=== PATIENT | female | born 1940 | race Caucasian/White ===

== ENCOUNTER → 2018-01-25 14:53 | Outpatient (BNVA) | payer OTHER, SELFPAY | PROVIDERS: PCP Nurse Practitioner Family; Referring Provider Nurse Practitioner Family; Visit Provider Student in an Organized Health Care Education/Training Program | DX: M16.11 Unilateral primary osteoarthritis, right hip (principal); Z98.890 Other specified postprocedural states | CPT/HCPCS: 99213 ==

== ENCOUNTER 2018-01-25 14:54 | Outpatient (CLI) | payer OTHER, SELFPAY ==
--- NOTE | 2018-01-25 15:13 | DI.RAD_ITS ---
SYMPTOM/DIAGNOSIS: RT HIP PAIN RIGHT HIP: Joint space narrowing, articular sclerosis and periarticular hypertrophic spurring and subchondral cyst formation is demonstrated. The findings are consistent with severe DJD.
== END 2018-01-25 15:14 ==
PROVIDERS: PCP Nurse Practitioner Family; Visit Provider Student in an Organized Health Care Education/Training Program
DX: M25.551 Pain in right hip (principal); M16.11 Unilateral primary osteoarthritis, right hip
CPT/HCPCS: 73501

== ENCOUNTER 2018-02-20 05:52 | Inpatient (IN) | payer OTHER, SELFPAY ==
[2018-02-23] VITALS (13 sets, daily range): BP systolic 101–160; BP diastolic 46–87; PULSE 58–72; RESP 12–19; TEMP 35.5–36.9; O2SAT 92–99
[2018-02-23] MEDS: Lactated Ringers 1,000 ML 80 ML IV ×3 (06:54→23:45)
[2018-02-23] MEDS: Celecoxib 200 MG CAP 400 MG PO (07:03)
[2018-02-23] MEDS: Acetaminophen 500 MG TAB 1000 MG PO ×3 (07:03→20:23)
[2018-02-23] MEDS: oxyCODONE-CR 10 MG TABCR PO (07:04)
--- NOTE | 2018-02-23 07:22 | DI.RAD_ITS ---
SYMPTOM/DIAGNOSIS: RT HIP DJD, S/P RT JEREMY RIGHT HIP IN OR: Fluoroscopy Time: 35.1 seconds There has been placement of a THR. The prosthesis in good position. Surrounding bone intact. PORTABLE PELVIS: The right hip prosthesis remains in excellent position, unchanged. Surrounding bone intact.
[2018-02-23] MEDS: Ketorolac 30 MG/ML VIAL (09:11)
[2018-02-23] MEDS: Bupivacaine 0.25% Pres-Free 30 ML VIAL (09:11)
--- NOTE | 2018-02-23 10:27 | ROE_ITS ---
Date of service: 02/23/18 Time of Service: 10:24 Operative Note DATE OF PROCEDURE: 02/23/18 PRE-OP DIAGNOSIS: Right Hip Osteoarthritis POST-OP DIAGNOSIS: same PROCEDURE: Right anterior Total Hip Arthroplasty SURGEON: Aba Henry FEEDMOBILE DRIVER: Dylan Sullivan ANESTHESIA: spinal ESTIMATED BLOOD LOSS: 500 PATHOLOGY: none sent COMPLICATIONS: None Patient was transported to: PACU Patient's condition: stable Implants: 1. Depuy [place] Acetabular Component, 52 mm 2. Depuy Acetabular Liner, 52 x 36 mm 3. Depuy Corail coxa vara femoral Stem, Size 11 4. Depuy Altrx Ceramic Femoral Head, Size 36+1.5 mm Indications: I have seen Crystal in clinic for symptoms of hip arthritis, confirmed with radiographic findings. Crystal has exhausted nonoperative methods and was having significant limitations in daily function and desired better function and less pain. I discussed the technical details of a hip replacement. I explained the risks of the procedure to include, but not limited to, bleeding, infection, pain, stiffness, fracture, damage to nerves and vessels, damage to muscles and tendons, loosening, instability, leg length inequality, need for repeat procedure, blood clot and cardiopulmonary demise. Despite these risks, she elected to proceed. Findings: There was significant signs of arthritis throughout the hip. Procedure Description: Crystal was greeted in the preoperative holding area where the correct side was identified and marked. The consent was reviewed with the patient and signed. The history and physical was updated. All questions were answered. Crystal was taken back to the operating room. A spinal anesthestic was then administered. The patient was placed into the supine position on the operating room table. The patient was then positioned onto the ARCH table. Both feet were wrapped with [place] cotton wrap along with Coban. The feet were placed in specialized boots for the ARCH table, well seated within the boot and secured. SCDs were applied. The patient was then slid down onto a peroneal post and the nonoperative leg was secured in a leg sandoval attached to the table. The operative side was placed into the ARCH table attachment and bed height and positioning was secured. A preoperative AP pelvis was obtained to serve as a reference for determining leg lengths. Prophylactic antibiotics in the form of cefazolin were administered. 1g of Tranxemic Acid was given intravenously within 30 minutes of incision. The right leg was then prepped with Chloraprep and draped in a standard fashion with a large shower-curtain type drape with Iodine impregnated skin protection. A timeout to confirm correct identity, side and site, procedure, allergies, anesthesia, and medical concerns was performed. An obliquely oriented incision was made starting lateral to the ASIS and running distal over the Tensor Fascia Di (TFL) muscle belly toward the fibular head, approximately 10cm. The skin and soft tissue was dissected sharply, through Karl?s fascia, and to the fascia of the TFL. With the fascia and superior border of the IT band identified, the fascia was incised with a new knife just above any perforators from the IT band. The TFL muscle belly was bluntly dissected away from the fascia and moved laterally. The fat between TFL and rectus was identified to ensure the dissection was not within the TFL. Blunt dissection created space between abductors and the capsule and retractor was placed over the lateral femoral neck. The fibers of the rectus femoris tendon were identified and these were freed from the anterior capsule. A second cobra retractor was placed around the medial femoral neck. The TFL was further retracted laterally to show the deep fascia. Careful dissection through this layer identified three main crossing vessels of the lateral femoral circumflex. These were cauterized in multiple locations and then cut without any noticeable bleeding. The TFL was further released bluntly from the deep fascia to expose anterior hip capsule and fat the Mike orthopaedic retractor was then placed beneath the TFL and against sartorius and medial soft tissues to protect and retract the soft tissues. A T-capsulotomy was then performed starting at the superior lateral acetabulum and moving distally to the intertrochanteric ridge. These capsular flaps were tagged with a No. 1 Ethibond and elevated from within. The capsular flaps were released to the shoulder of the lateral neck and to the lesser trochanter to give excellent visualization of the proximal femur. A neck osteotomy was performed using an oscillating saw based on preoperative templates. This cut started in the shoulder and of the lateral neck and exited medially. The saw was at all times directed medially to avoid injury to the greater trochanter. 6cm of traction was applied to the leg and the osteotomy opened. The femoral head was removed with a corkscrew, making sure to protect the TFL on its exit. This was measured on the back table to determing the starting reamer size. Portions of the rectus obscuring visualization were minimally elevated off the superior acetabulum. An anterior retractor was placed over the anterior wall between capsule and labrum. A posterior retractor was placed similarly. This provided excellent visualization. The contents of the cotyloid fossa were removed with electrocautery and the labrum was removed with a knife. There was a notable floor osteophyte. Acetabular reaming began with a 45 mm reamer. This first reaming was directed anterior to posterior and medial to get down to the true floor. This was inspected and reamed until the true floor was reached. I then reamed sequentially up to a 51 mm reamer where good fit was obtained. The larger reamers were oriented based on anatomical reference of the anterior and lateral lucero to ensure proper abduction and anteversion. Positioning and size was confirmed with the fluoroscopy. A 52 mm Depuy [place] acetabular component was selected. The acetabulum was reamed around the periphery with the selected acetabular size to prevent a rim fit. The deep tissues were irrigated. The acetabular component was then impacted in a position of about 40-45 degrees of abduction and 15-20 degrees of anteversion, using the patient?s anatomy as the ultimate landmark. Fluoroscopy was used to confirm this. There was excellent lanolin plant operator of the acetabular component and the inserting handle was removed. A primary acetabular screw was placed into the ilium by drilling through one of the holes in the acetabular component. This was measured and an approrpriately sized screw was placed with excellent purchase. It was checked not to be proud. The acetabular liner, Depuy 52 x 36 mm polyethylene liner, was inserted and lined up with the tines of the acetabular component. There was no soft tissue interposition. The liner was then impacted into position and confirmed to be well-seated. A portion of the patti-articular cocktail was then injected around the acetabulum into the capsule and periosteum. This cocktail consisted of 50cc of 0.25% Bupivicaine and 20cc of Exparel, expanded to a total of 120cc. Traction was released from the femur. The leg was rotated to 120 degrees. Any remaining medial capsule was released until the lesser trochanter was easily palpable. A De retractor was placed medially. The lateral capsule was further released into the shoulder to allow access to the greater trochanter. A De retractor was placed over the greater trochanter which allowed the trochanter to flip in front of the capsule for excellent exposure. The leg was brought down into maximal extension and 20 degrees of adduction while ensuring there was no impingement on the acetabulum. Any remnant capsule within the trochanter was released. Piriformis and obturator externis were identified and protected. There was excellent access to the proximal femur. The lateral neck remnant was removed with a rongeur. A blunt canal probe was used to identify the canal and trajectory for later broaching. A box osteotome initiated the broach course. A small curved rasp and a curved curette were used to work laterally. Broaching then began with a size 8 Corail broach. This was inserted manually around the trochanter and into the canal before mallet blows. The broach was seated to a few millimeters below the cut level based on the neck cut and the preoperative template. Sequential broaching was continued until a tight fit was obtained with good rotational control of the femur. A trial coxa vara neck was inserted along with a +1.5 trial head. The leg was brought out of extension and adduction and then reduced with traction and internal rotation. The leg was stable anteriorly in a position of 30 degrees of extension and 90 degrees of external rotation. Fluoroscopy was used to ensure there was no fracture and the stem was seated well. Leg lengths were checked with an AP pelvis and pelvic reference points. Once content with the desired offset and leg lengths, the leg was brought back into extension, external rotation and adduction. The periosteum and surrounding tissue was injected with remaining portion of the patti-articular cocktail. The proximal femur was irrigated as well as the deep tissues. The Depuy Corail coxa vara stem, size 11, was then manually inserted into the proximal femur making sure to control rotation. It was then malleted into position with light blows, giving breaks to allow bone expansion and decrease risk of fracture. The selected Depuy Altrx Ceramic Head, size 36+ 1.5 mm, was then placed onto the clean and dry trunnion and secured with impaction onto the tapered fit. The leg was brought back out of extension and adduction and reduced with traction and internal rotation. Stability was confirmed with no shuck at 90 degrees of external rotation and 30 degrees of extension. No impingement through range of motion arc. Final x-ray images were obtained with fluoroscopy to confirm adequate positioning and no intraoperative fracture. If The deep tissues were thoroughly irrigated with a pulse lavage. The second dose of TXA 1g was administered intravenously. The capsule was then reapproximated with the previously placed Ethibond sutures. The TFL fascia was finally closed with a No. 2 Stratafix, barbed suture. Deep tissues were then reapproximated with 0 Vicryl and a running 2-0 Vicryl. The skin was closed with a running 4-0 Monocryl in a subcuticular fashion. This was reinforced with skin glue. A Mepilex silver dressing was applied. At the end of the case, all counts were correct. Crytsal was transferred to the hospital bed without difficulty and suffering no apparent complication. Crystal has a good prognosis. Physical therapy will start today and without restrictions, weight-bearing as tolerated. Aspirin 81mg BID will be used for DVT prophylaxis.
--- NOTE | 2018-02-23 13:57 | PT.INIE ---
Date of service: 02/23/18 Time of Service: 13:58 PT Notes Inpatient Physical Therapy Evaluation Date: 02/23/18 Referring Doctor: Aba Henry PT Orders: PT CONSULT: s/p R anterior JEREMY Precautions: WBAT R LE Patient Profile/Admitting Diagnosis: Pt is a 77yr old female s/p right anterior total hip arthroplasty by Dr. Henry 02/23/18 PMHX: osteoarthritis right hip, hyperlipidemia, hypertension, lithotripsy, ectopic , appendectomy Social History/Home Situation: Lives in a 2 story house with in [facility], 4 steps with railing to enter, 12 steps with railing to upstairs. Baseline mobility independent gait with no device, independent with ADLS Equipment Owned/DME: none Subjective: Pt lying in bed states she is eager to get up. Reports low back pain. States she plans to go home tomorrow. Objective: General Observation: IV L UE, kirkpatrick catheter, ices packs to right hip and low back Mental Status: A& O x3 Pain: no c/o pain in hip, c/o low back pain not rated Bed Mobility/Transfers: Supine-sit: HOB 30 degrees supervision Sit-stand: SBA with FWW Stand-sit: supervision Sit-supine: HOB flat, supervision Gait: SBA with FWW 200ft WBAT R LE, steadt step through gait pattern with decreased real. Pt returned to bed after session completed. Therex: Initiated ankle pumps, quad sets, glute sets x 20 reps, instructed to perform every 2 hours Balance: Static Sitting: normal Dynamic Sitting: normal Static Standing: fair Dynamic Standing: fair Special Tests: Mobility Limitations Standardized Measure [facility] AM-PAC 6 clicks Basic Mobility Inpatient Short Form: Raw Score: 18 Standardized Score: 43.63 CMS Score: 46.58% CMS Modifier: CK Informed Consent/Education: Patient instructed in purpose of PT consult and plan of care. Assessment: Pt is a 77yr old female s/p right anterior total hip arthroplasty by Dr. Henry 02/23/18 in setting of osteoarthritis right hip, hypertension. Patient presents with the following impairment level findings: weakness right hip, decreased strength with standing transfers and gait requiring FWW for gait stability to prevent falls, decreased static and dynamic standing balance. Pt will need FWW for gait stabiltiy post opeartively at discharge. Pt was able to mobilize in room and hallways this afternoon, will progress to stair training in the morning. Anticipate she will be able to return to home setting when medically cleared. Impairments are contributing to the following functional limitations: AMPAC score CMS Score: 46.58% Patient is assessed as a Moderate 59095 complexity based on the following: History: see above Examination: see above Presentation: evolving Decision Making: AMPAC score CMS Score: 46.58% Goals: Goals X1 week 1. Supine-Sit : independent 2. Sit-Supine : independent 3. Sit-Stand : supervision with FWW 4. Stand-Sit : supervision 5. Bed-Chair : SBA with FWW 6. Chair-Bed : SBA with FWW 7. Gait : supervision with FWW 200ft WBAT R LE 8. Stairs up/down 12 steps with railing and cane, WBAT R LE, SBA Plan of Care/Treatment Plan: 1-2x/day, 7 days/week x 1 week. Plan of care has been reviewed with the TRANSITIONAL [employer] TEACHER providing the service under Physical Therapy direction. Initiate Physical Therapy intervention for strengthening, bed mobility, transfers, gait, stairs, balance training, use of assistive device. DISCHARGE RECOMMENDATIONS: home, will need FWW TREATMENT CODE/TIME: 25 IE 1357 G Codes in the area mobility of walking and moving around: current status [id number] -CK; projected status GP [id number]- CKDischarge status (if discharging) GP [id number] CK based on AMPAC score CMS Score: 46.58% Lucrecia Knox PT
--- NOTE | 2018-02-23 14:09 | IN_ITS ---
Date of service: 02/23/18 Time of Service: 13:58 PT Notes Inpatient Physical Therapy Evaluation Date: 02/23/18 Referring Doctor: Aba Henry PT Orders: PT CONSULT: s/p R anterior JEREMY Precautions: WBAT R LE Patient Profile/Admitting Diagnosis: Pt is a 77yr old female s/p right anterior total hip arthroplasty by Dr. Henry 02/23/18 PMHX: osteoarthritis right hip, hyperlipidemia, hypertension, lithotripsy, ectopic , appendectomy Social History/Home Situation: Lives in a 2 story house with in [facility], 4 steps with railing to enter, 12 steps with railing to upstairs. Baseline mobility independent gait with no device, independent with ADLS Equipment Owned/DME: none Subjective: Pt lying in bed states she is eager to get up. Reports low back pain. States she plans to go home tomorrow. Objective: General Observation: IV L UE, kirkpatrick catheter, ices packs to right hip and low back Mental Status: A& O x3 Pain: no c/o pain in hip, c/o low back pain not rated Bed Mobility/Transfers: Supine-sit: HOB 30 degrees supervision Sit-stand: SBA with FWW Stand-sit: supervision Sit-supine: HOB flat, supervision Gait: SBA with FWW 200ft WBAT R LE, steadt step through gait pattern with decreased real. Pt returned to bed after session completed. Therex: Initiated ankle pumps, quad sets, glute sets x 20 reps, instructed to perform every 2 hours Balance: Static Sitting: normal Dynamic Sitting: normal Static Standing: fair Dynamic Standing: fair Special Tests: Mobility Limitations Standardized Measure [facility] AM-PAC 6 clicks Basic Mobility Inpatient Short Form: Raw Score: 18 Standardized Score: 43.63 CMS Score: 46.58% CMS Modifier: CK Informed Consent/Education: Patient instructed in purpose of PT consult and plan of care. Assessment: Pt is a 77yr old female s/p right anterior total hip arthroplasty by Dr. Henry 02/23/18 in setting of osteoarthritis right hip, hypertension. Patient presents with the following impairment level findings: weakness right hip, decreased strength with standing transfers and gait requiring FWW for gait stability to prevent falls, decreased static and dynamic standing balance. Pt will need FWW for gait stabiltiy post opeartively at discharge. Pt was able to mobilize in room and hallways this afternoon, will progress to stair training in the morning. Anticipate she will be able to return to home setting when medically cleared. Impairments are contributing to the following functional limitations: AMPAC score CMS Score: 46.58% Patient is assessed as a Moderate 66486 complexity based on the following: History: see above Examination: see above Presentation: evolving Decision Making: AMPAC score CMS Score: 46.58% Goals: Goals X1 week 1. Supine-Sit : independent 2. Sit-Supine : independent 3. Sit-Stand : supervision with FWW 4. Stand-Sit : supervision 5. Bed-Chair : SBA with FWW 6. Chair-Bed : SBA with FWW 7. Gait : supervision with FWW 200ft WBAT R LE 8. Stairs up/down 12 steps with railing and cane, WBAT R LE, SBA Plan of Care/Treatment Plan: 1-2x/day, 7 days/week x 1 week. Plan of care has been reviewed with the TILE EDGER providing the service under Physical Therapy direction. Initiate Physical Therapy intervention for strengthening, bed mobility, transfers, gait, stairs, balance training, use of assistive device. DISCHARGE RECOMMENDATIONS: home, will need FWW TREATMENT CODE/TIME: 25 IE 1357 G Codes in the area mobility of walking and moving around: current status [id number] -CK; projected status GP G8979- CKDischarge status (if discharging) GP G8980 CK based on AMPAC score CMS Score: 46.58% Lucrecia Knox PT
[2018-02-23] MEDS: Pantoprazole 40 MG TABCR PO (14:54)
--- NOTE | 2018-02-23 15:27 | NUR.NOTE ---
Nursing Note: 02/23/18 @1050-admited from PACU to room 212 via stretcher. No hover mat present. Slid patient via sheets. Well tolerated. LS clear. Very alert & orientedx3 and talkative, speech clear. LS Cl. BS +. Denies Pain or nausea. sipping on gingerale. Cox to gravity drainage w clear pale yellow urine in bag. Teds and SCD's applied. RT hip dressing Mepilex AG w boarder CDI. Denies pain at this time. States can not feel her RLE but is able to wiggle it and is lifting it slightly off the pillow both in PACU and in her room. LLE she continues to voluntarily lift high up into the air. Enc her to not be overly active & overdue. She insisted she has no pain and continues to move around asking frequently to get OOB. Enc to wait for PT eval before getting OOB. Enc to ring for pain med when starts, before letting it get out of control. States she will. PP+ No edema except in RT thigh surgical site. Pillow placed under LE to protect heels. See IV documentation. Bed alarm placed on for safety. Oriented to call villalobos system. Upper rails in use for safety.
[2018-02-23] MEDS: HYDROmorphone 2 MG TAB PO ×2 (15:45→22:21)
--- NOTE | 2018-02-23 16:22 | CHAPLAIN ---
Crystal was in bed when I visited. She told me that she is on this side of the ground, so she is good. 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 Crystal also shared about her two dogs waiting at home for her. Her son is arriving later today to visit. She is comfortable being here.
[2018-02-23] MEDS: HYDROmorphone 2 MG/ML VIAL 0.5 MG IVP (17:16)
[2018-02-23] MEDS: Normal Saline Flush 10 ML SYR IV ×2 (17:17→18:04)
[2018-02-23] MEDS: Ondansetron 4 MG/2 ML VIAL IVP (18:03)
[2018-02-23] MEDS: Zolpidem 10 MG TAB PO (20:22)
[2018-02-23] MEDS: Celecoxib 100 MG CAP 200 MG PO (20:22)
[2018-02-23] MEDS: Aspirin E.C. 81 MG TABEC PO (20:23)
[2018-02-23] MEDS: Atorvastatin 10 MG TAB PO (20:32)
[2018-02-24 04:29] VITALS: BP 134/65; PULSE 65; RESP 16; TEMP 36.2; O2SAT 94
[2018-02-24 07:22] LABS: HCT 29.1 % (36.0-46.0); HGB 9.7 g/dL (12.0-15.5); Mean Corp. HGB Concentration 33.3 g/dL (32.0-36.0); Mean Corpuscular Hemoglobin 30.8 pg (27.0-33.0); Mean Corpuscular Volume 92.4 fL (80-95); Mean Platelet Volume 9.4 fL (8.0-11.0); Platelet Count 171 x1000/uL (130-400); RBC 3.15 m/cumm (4.00-5.20); RBC Distribution Width 12.8 % (11.7-14.6); White Blood Cell Count 8.08 k/cumm (4.4-10.8)
[2018-02-24 07:26] VITALS: BP 135/72; PULSE 79; RESP 16; TEMP 38.4; O2SAT 93
[2018-02-24 07:37] LABS: Anion Gap 6.1 mmol/L (3-11); BUN 13 mg/dL (7-18); CO2 27.9 mmol/L (21.0-32.0); CREATININE 0.93 mg/dL (0.55-1.02); Calcium 8.3 mg/dL (8.5-10.1); Chloride 102 mmol/L (98-107); Estimated GFR 58.31 (mL/min/1.73m2); Glucose 135 mg/dL (70-100); Potassium 4.5 mmol/L (3.5-5.1); Sodium 136 mmol/L (136-145)
[2018-02-24] MEDS: Normal Saline Flush 10 ML SYR IV (07:46)
[2018-02-24] MEDS: Acetaminophen 500 MG TAB 1000 MG PO ×2 (07:47→13:57)
[2018-02-24] MEDS: Pantoprazole 40 MG TABCR PO (07:48)
[2018-02-24] MEDS: Aspirin E.C. 81 MG TABEC PO (07:48)
[2018-02-24] MEDS: Losartan 25 MG TAB PO (07:48)
[2018-02-24] MEDS: Celecoxib 100 MG CAP 200 MG PO (07:48)
--- NOTE | 2018-02-24 08:03 | W.PM.DS.N ---
Date of service: 02/24/18 Time of Service: 08:04 DS: Diagnosis Discharge Diagnosis (1) Primary osteoarthritis of right hip: Status: Chronic Discharge Plan Disposition Patient Disposition: HOME Condition: Good Discharge Details Admit Date/Time: 02/23/18 05:52 Admit Provider: Aba Henry Attending Provider: Aba Hnery Primary Care Provider: Anastasiia Rankin Hospital Course Hospital Course: Patient was admitted to the medical/surgical floor following the procedure. It was tolerated well without any notable medical, surgical, or anesthetic complications. Mobilization began postoperatively. The kirkpatrick catheter was removed and voiding spontaneously. Vitals were stable. Physical therapy worked with the patient and was cleared for discharge home. No acute medical issues. Home Meds and New Rx's Prescriptions: New celecoxib 200 mg capsule 200 mg PO BID PRN (Reason: pain) Qty: 60 RF: 1 acetaminophen 500 mg capsule 1,000 mg PO Q8H PRN (Reason: pain) Qty: 90 RF: 0 tramadol 50 mg tablet 50 mg PO Q6H PRN (Reason: pain) Qty: 8 RF: 0 pantoprazole 40 mg Tablet,Delayed Release (Dr/Ec) 40 mg PO DAILY@0730 Qty: 30 RF: 0 Continue atorvastatin [Lipitor] 10 MG tablet 10 mg PO HS RF: 0 coenzyme Q10 [Co Q-10] 200 MG capsule 200 mg PO DAILY RF: 0 losartan 25 MG tablet 25 mg PO DAILY RF: 0 peak flow meter-inh assist dev [Aerogear Action Asthma Kit] 1 EACH kit 1 ea Miscellaneous Q4H PRN PRNQty: 1 RF: 0 zolpidem [Ambien] 10 mg Tablet 10 mg PO HS PRNRF: 0 Changed aspirin [Aspir-81] 81 MG tablet,delayed release (DR/EC) 81 mg PO BID Qty: 80 RF: 0 Discontinued meloxicam 15 mg Tablet 15 mg PO DAILY PRNRF: 0 acetaminophen 500 mg Capsule 1,000 mg PO PRN PRNRF: 0 Discharge Instructions Instructions: Total Hip Discharge Instructions Additional Instructions: Dr. Henry?s Total Hip Discharge Instructions Activity: The most important activity is to walk. You should try to take short walks a few times a day. You have no restrictions on movement or positioning, but do not try to force what you do. You will find some stiffness and weakness with hip flexion (lifting your knee). Do not try to strengthen this too early, continue to practice walking and stairs and this will come. - Outpatient physical therapy can be helpful to help return you to a normal gait and improve your flexibility and strength. This can start around 2 weeks. For some patients, it?s not necessary. Usually this is determined at the time of discharge or at the first post-operative visit. - You should wear the MAICOL hose on both legs for 4 weeks. Dressing: Keep the surgical dressing in place for at least one week. After the first week it may be removed and replace with light gauze and tape or nothing. It may get wet after 3 days but avoid soaking the dressing. If it gets wet, just lightly pat dry. It is important to always keep some gauze between skin folds, especially when you are sitting. Spend some time with the wound exposed when you are lying flat as the incision does wrinkle onto itself. Medications: - You should take Tylenol and an anti-inflammatory Celebrex as your primary pain control medications - You have been prescribed a stronger pain medication tramadol for breakthrough pain, take as needed as prescribed. - You have also been prescribed a stomach acid reduction agent Pantoprozole to help reduce stomach acid and reflux. - You will be taking aspirin 81mg twice a day for DVT prevention unless instructed otherwise. - If you have constipation you should take Colace or Miralax (both [id number]). It takes most people 3-4 days to have a bowel movement. Follow-up: 2 weeks Stand Alone Forms: Nursing Discharge Form Referrals: Aba Henry MD [ [facility] ST[facility]FF [facility]YSICIAN] - 03/17/18 11:00 am Activity:: Activity as Tolerated Equipment/Supplies:: Walker Diet:: Normal Diet Discharge Orders Discharge Orders: Discharge Order (Routine); Ordered 02/24/18 Ordered By: Aba Henry DS: Data Vitals/I&O Vitals and I&O: Vital Signs Temperature 36.2 C L 02/24/18 04:29 Temperature Source Tympanic 02/24/18 04:29 Pulse 65 02/24/18 04:29 Pulse Rhythm Regular 02/23/18 23:50 Respiratory Rate 16 02/24/18 04:29 Respiratory Effort Non-Labored 02/23/18 23:50 Respiratory Depth Normal 02/23/18 23:50 Respiratory Pattern Normal 02/23/18 23:50 Blood Pressure 134/65 02/24/18 04:29 Pulse Oximetry 94 L 02/24/18 04:29 Respiratory End-tidal CO2 30 02/23/18 10:10 Oxygen Delivery Method Room Air 02/24/18 04:29 Oxygen Flow Rate 0 02/24/18 04:29 Pain Level 2 02/24/18 07:47 Comment 02/23/18 14:50 Intake & Output 02/23/18 02/23/18 02/24/18 11:59 23:59 11:59 Intake Total 1082.000 / 4192.057 7088.334 / 2749.334 100 / 100 Output Total 575 / 575 475 / 475 Balance 507.000 / 699.730 1475.334 / 2274.334 100 / 100 Weight 72.076 kg Intake: IV 1082.000 / 9947.124 6719.334 / 1189.334 100 / 100 Oral 1560 / 1560 Output: Urine 75 / 75 475 / 475 Estimated Blood Loss 500 / 500 Other: Urine Color Yellow Yellow Urine Appearance Sediment Clear Emesis Description None Labs on day of discharge: Labs from last 24 hours 02/24/18 02/24/18 06:30 06:30 WBC 8.08 RBC 3.15 L Hgb 9.7 L Hct 29.1 L MCV 92.4 MCH 30.8 MCHC 33.3 RDW 12.8 Plt Count 171 MPV 9.4 Sodium 136 Potassium 4.5 Chloride 102 Carbon Dioxide 27.9 Anion Gap 6.1 BUN 13 Creatinine 0.93 Estimated GFR/1.73 m2 58.31 Glucose 135 H Calcium 8.3 L
--- NOTE | 2018-02-24 08:07 | DSE_ITS ---
Date of service: 02/24/18 Time of Service: 08:04 DS: Diagnosis Discharge Diagnosis (1) Primary osteoarthritis of right hip: Status: Chronic Discharge Plan Disposition Patient Disposition: HOME Condition: Good Discharge Details Admit Date/Time: 02/23/18 05:52 Admit Provider: Aba Henry Attending Provider: Aba Henry Primary Care Provider: Anastasiia Rankin Hospital Course Hospital Course: Patient was admitted to the medical/surgical floor following the procedure. It was tolerated well without any notable medical, surgical, or anesthetic complications. Mobilization began postoperatively. The kirkpatrick catheter was removed and voiding spontaneously. Vitals were stable. Physical therapy worked with the patient and was cleared for discharge home. No acute medical issues. Home Meds and New Rx's Prescriptions: New celecoxib 200 mg capsule 200 mg PO BID PRN (Reason: pain) Qty: 60 RF: 1 acetaminophen 500 mg capsule 1,000 mg PO Q8H PRN (Reason: pain) Qty: 90 RF: 0 tramadol 50 mg tablet 50 mg PO Q6H PRN (Reason: pain) Qty: 8 RF: 0 pantoprazole 40 mg Tablet,Delayed Release (Dr/Ec) 40 mg PO DAILY@0730 Qty: 30 RF: 0 Continue atorvastatin [Lipitor] 10 MG tablet 10 mg PO HS RF: 0 coenzyme Q10 [Co Q-10] 200 MG capsule 200 mg PO DAILY RF: 0 losartan 25 MG tablet 25 mg PO DAILY RF: 0 peak flow meter-inh assist dev [Aerogear Action Asthma Kit] 1 EACH kit 1 ea Miscellaneous Q4H PRN PRNQty: 1 RF: 0 zolpidem [Ambien] 10 mg Tablet 10 mg PO HS PRNRF: 0 Changed aspirin [Aspir-81] 81 MG tablet,delayed release (DR/EC) 81 mg PO BID Qty: 80 RF: 0 Discontinued meloxicam 15 mg Tablet 15 mg PO DAILY PRNRF: 0 acetaminophen 500 mg Capsule 1,000 mg PO PRN PRNRF: 0 Discharge Instructions Instructions: Total Hip Discharge Instructions Additional Instructions: Dr. Henry?s Total Hip Discharge Instructions Activity: The most important activity is to walk. You should try to take short walks a few times a day. You have no restrictions on movement or positioning, but do not try to force what you do. You will find some stiffness and weakness with hip flexion (lifting your knee). Do not try to strengthen this too early, continue to practice walking and stairs and this will come. - Outpatient physical therapy can be helpful to help return you to a normal gait and improve your flexibility and strength. This can start around 2 weeks. For some patients, it?s not necessary. Usually this is determined at the time of discharge or at the first post-operative visit. - You should wear the MAICOL hose on both legs for 4 weeks. Dressing: Keep the surgical dressing in place for at least one week. After the first week it may be removed and replace with light gauze and tape or nothing. It may get wet after 3 days but avoid soaking the dressing. If it gets wet, just lightly pat dry. It is important to always keep some gauze between skin folds, especially when you are sitting. Spend some time with the wound exposed when you are lying flat as the incision does wrinkle onto itself. Medications: - You should take Tylenol and an anti-inflammatory Celebrex as your primary pain control medications - You have been prescribed a stronger pain medication tramadol for breakthrough pain, take as needed as prescribed. - You have also been prescribed a stomach acid reduction agent Pantoprozole to help reduce stomach acid and reflux. - You will be taking aspirin 81mg twice a day for DVT prevention unless instructed otherwise. - If you have constipation you should take Colace or Miralax (both over-the- counter). It takes most people 3-4 days to have a bowel movement. Follow-up: 2 weeks Stand Alone Forms: Nursing Discharge Form Referrals: Aba Henry MD [ [facility] STAFF PHYSICIAN] - 03/17/18 11:00 am Activity:: Activity as Tolerated Equipment/Supplies:: Walker Diet:: Normal Diet Discharge Orders Discharge Orders: Discharge Order (Routine); Ordered 02/24/18 Ordered By: Aba Henry DS: Data Vitals/I&O Vitals and I&O: Vital Signs Temperature 36.2 C L 02/24/18 04:29 Temperature Source Tympanic 02/24/18 04:29 Pulse 65 02/24/18 04:29 Pulse Rhythm Regular 02/23/18 23:50 Respiratory Rate 16 02/24/18 04:29 Respiratory Effort Non-Labored 02/23/18 23:50 Respiratory Depth Normal 02/23/18 23:50 Respiratory Pattern Normal 02/23/18 23:50 Blood Pressure 134/65 02/24/18 04:29 Pulse Oximetry 94 L 02/24/18 04:29 Respiratory End-tidal CO2 30 02/23/18 10:10 Oxygen Delivery Method Room Air 02/24/18 04:29 Oxygen Flow Rate 0 02/24/18 04:29 Pain Level 2 02/24/18 07:47 Comment 02/23/18 14:50 Intake & Output 02/23/18 02/23/18 02/24/18 11:59 23:59 11:59 Intake Total 1082.000 / 4355.796 7508.334 / 2749.334 100 / 100 Output Total 575 / 575 475 / 475 Balance 507.000 / 254.605 0295.334 / 2274.334 100 / 100 Weight 72.076 kg Intake: IV 1082.000 / 1956.049 7628.334 / 1189.334 100 / 100 Oral 1560 / 1560 Output: Urine 75 / 75 475 / 475 Estimated Blood Loss 500 / 500 Other: Urine Color Yellow Yellow Urine Appearance Sediment Clear Emesis Description None Labs on day of discharge: Labs from last 24 hours 02/24/18 02/24/18 06:30 06:30 WBC 8.08 RBC 3.15 L Hgb 9.7 L Hct 29.1 L MCV 92.4 MCH 30.8 MCHC 33.3 RDW 12.8 Plt Count 171 MPV 9.4 Sodium 136 Potassium 4.5 Chloride 102 Carbon Dioxide 27.9 Anion Gap 6.1 BUN 13 Creatinine 0.93 Estimated GFR/1.73 m2 58.31 Glucose 135 H Calcium 8.3 L
[2018-02-24 11:17] VITALS: BP 100/62; PULSE 75; RESP 17; TEMP 36.7; O2SAT 94
--- NOTE | 2018-02-24 11:31 | PT.INTREAT ---
Date of service: 02/24/18 Time of Service: 11:33 PT Notes Inpatient Physical Therapy Treatment Note Date: 02/24/18 PRECAUTIONS:WBAT on R SUBJECTIVE: Crystal states that she did not sleep last night, even though she took Ambien. She reports that she is very tired this morning. OBJECTIVE: PAIN: No c/o pain BED MOBILITY/TRANSFERS Supine-sit: S with HOB flat in am; I with HOB flat in pm Sit-stand: SBA Stand-sit: SBA GAIT Assistive Device: FWW Weight bearing: WBAT on R Assist: CGA/SBA in am; SBA in pm Distance: 75' in am; 150' in pm Deviation: Cueing for FWW mechanics and pacing VITALS: BP (in am) feeling faint/dizzy: Supine: 128/69; seated 116/69; supine: 120/72 THEREX: Patient completed a LE strengthening and stabilization program, in supine position in the morning, and seated position for second session, as per flow sheet. STAIRS: Up/down 3x4 and 2x6 using 1 rail/SPC and a step-to pattern with SBA ASSESSMENT: Patient was able to tolerate her second PT session with less fatigue. She was able to tolerate a progression in gait training with FWW support, as well as stair training, with SBA. She requires cueing for FWW mechanics and pacing with gait training. She would benefit from continued gait and transfer training, as well as strengthening for improved ability to perform daily functional tasks. PLAN: Continue with PT's POC TREATMENT CODE/TIME: Session 1: 20 minutes; TP Session 2: 30 minutes; TA/TP
--- NOTE | 2018-02-24 12:22 | PDOC.CMIN ---
- If Service Date Differs Date of service: 02/24/18 Time of Service: 12:23 Care Management Initial Assess REASON FOR HOSPITALIZATION:: (R) total hip replacement PAST MEDICAL HISTORY/PAST SURGICAL HISTORY:: Primary osteoarthritis of right hip, Hyperlipidemia, unspecified Essential hypertension, H/O lithotripsy, H/O ectopic , H/O appendectomy PREVIOUS FUNCTIONAL STATUS/SOCIAL/FAMILY SUPPORTS:: Crystal resides with her Mart of 52 years in [facility]. Crystal states that she has two children, one whom resides in [place] and one in [place]. Crystal is independent at baseline, she drives, and manages ADL's. CURRENT FUNCTIONAL STATUS:: Crystal is lying in bed when this technical writer visits. She falls aleep easily throughout discussion stating I've never felt like this, it's like I'm drunk. Crystal does report that she did not sleep well last night, so is feeling as though that is why she is feeling this way. CM saw her later in the morning and Crystal was much more alert, ambulating with PT, and stating that she feels much better ADVANCE DIRECTIVES:: None on file Has patient been provided with information about the portal?: Yes Did the patient sign up for the portal?: No CODE STATUS:: Full Code INSURANCE COVERAGE / FINANCIAL ISSUES:: [employer] CURRENT HOME/COMMUNITY SERVICES/EQUIPMENT:: Currently Crystal has no services or DME in the community. PRIMARY CARE PHYSICIAN:: Anastasiia Rankin POTENTIAL DISCHARGE NEEDS:: F/U appointment with Dr. Henry. DME - FWW to be distributed by [facility] PATIENT/FAMILY EDUCATION NEEDS:: Review DC instructions, any limitations, and ongoing DC planning discussion. Discuss Ask Me Three ANTICIPATED BARRIERS TO DISCHARGE:: None identified at this time. TRANSPORTATION:: Via private vehicle with family. PLAN:: Crystal will return home with no anticipated services. She will F/U with Dr. Henry and plan of care as prescribed. FWW to be distributed via [facility] Crystal's family to transport when ready.
--- NOTE | 2018-02-24 13:14 | INITIAL_ITS ---
- If Service Date Differs Date of service: 02/24/18 Time of Service: 12:23 Care Management Initial Assess REASON FOR HOSPITALIZATION:: (R) total hip replacement PAST MEDICAL HISTORY/PAST SURGICAL HISTORY:: Primary osteoarthritis of right hip , Hyperlipidemia, unspecified Essential hypertension, H/O lithotripsy, H/O ectopic , H/O appendectomy PREVIOUS FUNCTIONAL STATUS/SOCIAL/FAMILY SUPPORTS:: Crystal resides with her Mart of 52 years in [facility]. Crystal states that she has two children, one whom resides in [place] and one in [place]. Crystal is independent at baseline, she drives, and manages ADL's. CURRENT FUNCTIONAL STATUS:: Crystal is lying in bed when this typewriter repairer visits. She falls aleep easily throughout discussion stating I've never felt like this , it's like I'm drunk. Crystal does report that she did not sleep well last night, so is feeling as though that is why she is feeling this way. CM saw her later in the morning and Crystal was much more alert, ambulating with PT, and stating that she feels much better ADVANCE DIRECTIVES:: None on file Has patient been provided with information about the portal?: Yes Did the patient sign up for the portal?: No CODE STATUS:: Full Code INSURANCE COVERAGE / FINANCIAL ISSUES:: [employer] CURRENT HOME/COMMUNITY SERVICES/EQUIPMENT:: Currently Crystal has no services or DME in the community. PRIMARY CARE PHYSICIAN:: Anastasiia Rankin POTENTIAL DISCHARGE NEEDS:: F/U appointment with Dr. Henry. DME - FWW to be distributed by [facility] PATIENT/FAMILY EDUCATION NEEDS:: Review DC instructions, any limitations, and ongoing DC planning discussion. Discuss Ask Me Three ANTICIPATED BARRIERS TO DISCHARGE:: None identified at this time. TRANSPORTATION:: Via private vehicle with family. PLAN:: Crystal will return home with no anticipated services. She will F/U with Dr. Henry and plan of care as prescribed. FWW to be distributed via [facility] Crystal's family to transport when ready.
--- NOTE | 2018-02-24 13:16 | PDOC.CMDIS ---
- If Service Date Differs Date of service: 02/24/18 Time of Service: 13:16 LACE Index Scoring Tool - Questions: Length of Stay (in days): 2 Acuity (Admit via E.D.?): No E.D. Visits: 0 - Answers: Total Score: 2 Risk of Readmission: Low Risk Care Management Discharge Reason for Hospitalization: (R) total hip replacement Discharge Plan: Crystal will return home today with no services. She will F/U with Dr. Henry and plan of care as prescribed. FWW has been distributed by [employer]. Crystal's son will transport today. Patient/Family Education Needs: Review DC instructions, any limitations, and discuss Ask Me Three Services Needed at Discharge: DME Agency ([place])
--- NOTE | 2018-02-24 14:32 | PT.INDS ---
Date of service: 02/24/18 Time of Service: 14:33 PT Notes Inpatient Physical Therapy Discharge Summary Date: 02/24/18 Dates of Service: 02/23/18-02/24/18 SUBJECTIVE: NT OBJECTIVE: 02/23/18-02/24/18 Bed Mobility/Transfers: Supine-sit: independent Sit-stand: SBA with FWW Stand-sit: supervision Sit-supine: supervision Gait: SBA with FWW 150-200ft WBAT R LE Stairs: up/down 5 steps with railing and cane, SBA Balance: Static Sitting: normal Dynamic Sitting: normal Static Standing: fair Dynamic Standing: fair Assessment: Pt is a 77yr old female s/p right anterior total hip arthroplasty by Dr. Henry 02/23/18 in setting of osteoarthritis right hip, hypertension. Patient was seen for 3 PT visits. Pt at supervision/SBA level for transfers and functional mobility with FWW. FWW is needed for home setting to prevent risk of falls post operatively. Plan is discharge to home today with family supporting in home setting. Goals: Goals X1 week 1. Supine-Sit : independent 2. Sit-Supine : independent 3. Sit-Stand : supervision with FWW 4. Stand-Sit : supervision 5. Bed-Chair : SBA with FWW 6. Chair-Bed : SBA with FWW 7. Gait : supervision with FWW 200ft WBAT R LE 8. Stairs up/down 12 steps with railing and cane, WBAT R LE, SBA Pt met goals # 1, 5, 6- home PT may be beneficial to meet remaining goals DISCHARGE RECOMMENDATIONS: home, will need FWW, home PT recommended G Codes in the area mobility of walking and moving around projected status GP G8979- CK Discharge status (if discharging) GP G8980 CK Lucrecia Knox PT
== END 2018-02-24 14:35 | disposition home or self-care (01) | DRG 470 ==
LOC: PDS 02-23 08:07 → MS 02-23 11:04 → PDS 04-05 11:12
PROVIDERS: Admitting Provider Student in an Organized Health Care Education/Training Program; PCP Nurse Practitioner Family; Visit Provider Student in an Organized Health Care Education/Training Program
PROC: 0SR9049 Replacement of Right Hip Joint with Ceramic on Polyethylene Synthetic Substitute, Cemented, Open Approach (ICD-10-PCS; CPT 27130; principal; 2018-02-23 07:30)
DX: M16.11 Unilateral primary osteoarthritis, right hip (principal); Z96.641 Presence of right artificial hip joint; I10 Essential (primary) hypertension; E78.5 Hyperlipidemia, unspecified
CPT/HCPCS: 27130; 36415; 80048; 85027; 97110; 97162; 97530; NC; 72170; 73501; J0690; J1885; J2250; J2405

== ENCOUNTER 2018-02-20 11:11 | Outpatient (CLI) | payer OTHER, SELFPAY ==
[2018-02-20 14:32] LABS: HCT 39.6 % (36.0-46.0); HGB 13.2 g/dL (12.0-15.5); Mean Corp. HGB Concentration 33.3 g/dL (32.0-36.0); Mean Corpuscular Hemoglobin 30.8 pg (27.0-33.0); Mean Corpuscular Volume 92.3 fL (80-95); Mean Platelet Volume 9.6 fL (8.0-11.0); Platelet Count 236 x1000/uL (130-400); RBC 4.29 m/cumm (4.00-5.20); RBC Distribution Width 13.3 % (11.7-14.6); White Blood Cell Count 6.33 k/cumm (4.4-10.8)
[2018-02-20 15:01] LABS: Anion Gap 6.8 mmol/L (3-11); BUN 17 mg/dL (7-18); CO2 29.2 mmol/L (21.0-32.0); CREATININE 1.01 mg/dL (0.55-1.02); Calcium 8.8 mg/dL (8.5-10.1); Chloride 104 mmol/L (98-107); Estimated GFR 53.01 (mL/min/1.73m2); Glucose 93 mg/dL (70-100); Potassium 4.5 mmol/L (3.5-5.1); Sodium 140 mmol/L (136-145)
--- NOTE | 2018-02-20 16:00 | W.PREOPHP ---
Date of service: 02/20/18 Assessment and Plan (1) Primary osteoarthritis of right hip: Current visit: No Status: Chronic Plan: Right total hip replacement Details of surgery were discussed with patient as well as risks, and pertinent anatomy. All questions were answered. History of Present Illness Chief Complaint: Right hip pain Narrative: Patient has been complaining of right hip pain for many months now. She says the most of the pain is in the groin and in the buttock at this point, however it has been pretty diffuse previously. It is difficult for her to do normal activities. She previously like to do marathon walking, but is unable to do so at this point. She also is having difficulty going up and down stairs, and putting on shoes and socks. She has had x-rays which does show pretty severe arthritis in the right hip, demonstrating [id number] arthritis with no joint space. She also has bone spurs throughout. She also has had an injection in the right hip which did help, however it was short-lived. The pain is starting to return in a more specific way. Now is bothering her mostly in the groin and buttock. Dr. Henry at this point suggests a total hip replacement, and patient is anxious to proceed. Pertinent Surgical Information Patient states that she has had a history of difficulty breathing back in 2016, however it was treated with steroids and nebulizer. She has not had any issues since. Patient denies history of CVA, [place], angina, asthma, COPD, renal or liver disorders, hepatitis, bleeding disorders, diabetes, immune or thyroid disorders. No complications from anesthesia. Patient states that she has had Percocet in the past which gave her severe nausea and vomiting. Review of Systems Constitutional Denies fever(s) ENT Denies dizziness and Denies sore throat Cardiovascular Denies chest pain, Denies palpitations and Denies dyspnea Respiratory Denies dyspnea Gastrointestinal Denies abdominal pain, Denies melena, Denies hematochezia, Denies diarrhea, Denies nausea and Denies vomiting Genitourinary Denies hematuria and Denies dysuria Neurologic Denies dizziness Endocrine Denies palpitations [facility] Medical History Primary osteoarthritis of right hip (Chronic 11/16/17) Hyperlipidemia, unspecified (Chronic 04/28/15) Essential hypertension (Chronic 04/28/15) Social History Smoking/Tobacco Use Status: Former Tobacco Use Surgical History History of lithotripsy (Chronic) History of ectopic (Chronic) History of appendectomy (Chronic) Meds Home Medications Medication Instructions Recorded Confirmed Type aspirin [Aspir 81] 81 mg PO DAILY tab-cap 04/23/13 02/20/18 History atorvastatin [Lipitor] 10 mg PO HS tab-cap 04/23/13 02/20/18 History coenzyme Q10 [Co Q-10] 200 mg PO DAILY 04/23/13 02/20/18 History losartan 25 mg PO DAILY tab-cap 04/28/15 02/20/18 History peak flow meter-inh assist dev #1 kit 05/13/15 02/20/18 Rx [Aerogear Action Asthma Kit] acetaminophen 1,000 mg PO PRN PRN 02/20/18 02/20/18 History meloxicam 15 mg PO DAILY PRN 02/20/18 02/20/18 History zolpidem [Ambien] 1 mg PO HS PRN 02/20/18 02/20/18 History Allergies Allergy/AdvReac Type Severity Reaction Status Date / Time ciprofloxacin [From Cipro] Allergy HIVES Unverified 02/20/18 14:51 Exam [facility] Head: normocephalic and atraumatic General nose exam: no nasal discharge Throat: uvula midline and no uvular edema Other: soft palate rises symmetrically, no erythema Eyes Conjunctivae: conjunctivae normal Sclera: sclerae normal Pupils: PERRL Resp Effort & Inspection: normal respiratory effort Auscultation: clear to auscultation bilaterally and no wheezes Cardio Rate: regular rate Rhythm: regular rhythm Heart Sounds: S1 normal, S2 normal and no murmurs Other: BP: 138/68 Results Labs : 02/20/18 13:50 02/20/18 13:50 Laboratory Results - last 24 hr 02/20/18 02/20/18 02/20/18 13:50 13:50 13:50 WBC 6.33 RBC 4.29 Hgb 13.2 Hct 39.6 MCV 92.3 MCH 30.8 MCHC 33.3 RDW 13.3 Plt Count 236 MPV 9.6 Sodium 140 Potassium 4.5 Chloride 104 Carbon Dioxide 29.2 Anion Gap 6.8 BUN 17 Creatinine 1.01 Estimated GFR/1.73 m2 53.01 Glucose 93 Calcium 8.8 Patient ABO/Rh O Positive Antibody Screen Negative
--- NOTE | 2018-02-20 16:18 | HPE_ITS ---
Date of service: 02/20/18 Assessment and Plan (1) Primary osteoarthritis of right hip: Current visit: No Status: Chronic Plan: Right total hip replacement Details of surgery were discussed with patient as well as risks, and pertinent anatomy. All questions were answered. History of Present Illness Chief Complaint: Right hip pain Narrative: Patient has been complaining of right hip pain for many months now. She says the most of the pain is in the groin and in the buttock at this point, however it has been pretty diffuse previously. It is difficult for her to do normal activities. She previously like to do marathon walking, but is unable to do so at this point. She also is having difficulty going up and down stairs , and putting on shoes and socks. She has had x-rays which does show pretty severe arthritis in the right hip, demonstrating ietp-[id number] arthritis with no joint space. She also has bone spurs throughout. She also has had an injection in the right hip which did help, however it was short-lived. The pain is starting to return in a more specific way. Now is bothering her mostly in the groin and buttock. Dr. Henry at this point suggests a total hip replacement, and patient is anxious to proceed. Pertinent Surgical Information Patient states that she has had a history of difficulty breathing back in 2016, however it was treated with steroids and nebulizer. She has not had any issues since. Patient denies history of CVA, [place], angina, asthma, COPD, renal or liver disorders, hepatitis, bleeding disorders, diabetes, immune or thyroid disorders. No complications from anesthesia. Patient states that she has had Percocet in the past which gave her severe nausea and vomiting. Review of Systems Constitutional Denies fever(s) ENT Denies dizziness and Denies sore throat Cardiovascular Denies chest pain, Denies palpitations and Denies dyspnea Respiratory Denies dyspnea Gastrointestinal Denies abdominal pain, Denies melena, Denies hematochezia, Denies diarrhea, Denies nausea and Denies vomiting Genitourinary Denies hematuria and Denies dysuria Neurologic Denies dizziness Endocrine Denies palpitations [facility] Medical History Primary osteoarthritis of right hip (Chronic 11/16/17) Hyperlipidemia, unspecified (Chronic 04/28/15) Essential hypertension (Chronic 04/28/15) Social History Smoking/Tobacco Use Status: Former Tobacco Use Surgical History History of lithotripsy (Chronic) History of ectopic (Chronic) History of appendectomy (Chronic) Meds Home Medications Medication Instructions Recorded Confirmed Type aspirin [Aspir 81] 81 mg PO DAILY tab-cap 04/23/13 02/20/18 History atorvastatin [Lipitor] 10 mg PO HS tab-cap 04/23/13 02/20/18 History coenzyme Q10 [Co Q-10] 200 mg PO DAILY 04/23/13 02/20/18 History losartan 25 mg PO DAILY tab-cap 04/28/15 02/20/18 History peak flow meter-inh assist dev #1 kit 05/13/15 02/20/18 Rx [Aerogear Action Asthma Kit] acetaminophen 1,000 mg PO PRN PRN 02/20/18 02/20/18 History meloxicam 15 mg PO DAILY PRN 02/20/18 02/20/18 History zolpidem [Ambien] 1 mg PO HS PRN 02/20/18 02/20/18 History Allergies Allergy/AdvReac Type Severity Reaction Status Date / Time ciprofloxacin [From Cipro] Allergy HIVES Unverified 02/20/18 14:51 Exam [facility] Head: normocephalic and atraumatic General nose exam: no nasal discharge Throat: uvula midline and no uvular edema Other: soft palate rises symmetrically, no erythema Eyes Conjunctivae: conjunctivae normal Sclera: sclerae normal Pupils: PERRL Resp Effort & Inspection: normal respiratory effort Auscultation: clear to auscultation bilaterally and no wheezes Cardio Rate: regular rate Rhythm: regular rhythm Heart Sounds: S1 normal, S2 normal and no murmurs Other: BP: 138/68 Results Labs : 02/20/18 13:50 02/20/18 13:50 Laboratory Results - last 24 hr 02/20/18 02/20/18 02/20/18 13:50 13:50 13:50 WBC 6.33 RBC 4.29 Hgb 13.2 Hct 39.6 MCV 92.3 MCH 30.8 MCHC 33.3 RDW 13.3 Plt Count 236 MPV 9.6 Sodium 140 Potassium 4.5 Chloride 104 Carbon Dioxide 29.2 Anion Gap 6.8 BUN 17 Creatinine 1.01 Estimated GFR/1.73 m2 53.01 Glucose 93 Calcium 8.8 Patient ABO/Rh O Positive Antibody Screen Negative
== END 2018-02-20 11:31 ==
PROVIDERS: PCP Nurse Practitioner Family; Visit Provider Student in an Organized Health Care Education/Training Program
DX: M25.551 Pain in right hip (principal); M16.11 Unilateral primary osteoarthritis, right hip; Z01.818 Encounter for other preprocedural examination; I10 Essential (primary) hypertension
CPT/HCPCS: 36415; 80048; 85027; 86850; 86900; 86901; NC

== ENCOUNTER 2018-03-13 18:29 | Outpatient (CLI) | payer OTHER, SELFPAY ==
--- NOTE | 2018-03-13 13:15 | DI.RAD_ITS ---
SYMPTOM/DIAGNOSIS: F/U RT JEREMY RIGHT HIP: Two views. Comparison 02/23/18 There are again seen post surgical changes of a right total hip replacement. No evidence of hardware failure is seen. The bones are intact and appear normally mineralized. The soft tissues are unremarkable. IMPRESSION: Stable right THR.
== END 2018-03-13 18:49 ==
PROVIDERS: PCP Nurse Practitioner Family; Referring Provider Nurse Practitioner Family; Visit Provider Student in an Organized Health Care Education/Training Program
DX: Z96.641 Presence of right artificial hip joint (principal); Z47.1 Aftercare following joint replacement surgery
CPT/HCPCS: 73502

== ENCOUNTER 2018-05-16 13:16 | Emergency (ER) | payer OTHER, SELFPAY ==
[2018-05-16 13:26] VITALS: BP 136/73; PULSE 72; RESP 18; TEMP 36.7; O2SAT 98
--- NOTE | 2018-05-16 13:45 | DI.CT_ITS ---
SYMPTOMS/DIAGNOSIS: LEFT POSTERIOR TRAUMA, HEMATOMA CT SCAN OF THE BRAIN: Noncontrast examination was performed. No priors. There is mild global cerebral atrophy consistent with the patient's age. There are areas of decreased attenuation in the white matter, likely reflecting small vessel ischemic disease. No acute infarct, hemorrhage, midline shift or mass effect is identified. The ventricles are intact. The basilar cisterns are patent. There is no evidence of a calvarial fracture. The visualized paranasal sinuses are clear. The mastoid air cells are well pneumatized. There is a scalp hematoma overlying the posterior left parietal bone. IMPRESSION: 1. Left posterior scalp hematoma. 2. No acute intracranial process. No skull fracture. The findings were discussed with the Emergency Department on the date of the examination.
--- NOTE | 2018-05-16 13:48 | ED.GENADUL_ITS ---
Discharge Plan Disposition Patient Disposition: HOME Condition: Improving Discharge Details Chief Complaint: HeadInjury Clinical Impression: Laceration of occipital scalp Reason For Visit: WORRIES OF CONCUSSION Primary Care Provider: Anastasiia Rankin ED Provider: Young Sutton Home Meds and New Rx's Prescriptions: Continued atorvastatin [Lipitor] 10 MG tablet 10 mg PO HS RF: 0 coenzyme Q10 [Co Q-10] 200 MG capsule 200 mg PO DAILY RF: 0 losartan 25 MG tablet 25 mg PO DAILY RF: 0 peak flow meter-inh assist dev [Aerogear Action Asthma Kit] 1 EACH kit 1 ea Miscellaneous Q4H PRN PRNQty: 1 RF: 0 zolpidem [Ambien] 10 mg Tablet 10 mg PO HS PRNRF: 0 celecoxib 200 mg capsule 200 mg PO BID PRN (Reason: pain) Qty: 60 RF: 1 acetaminophen 500 mg capsule 1,000 mg PO Q8H PRN (Reason: pain) Qty: 90 RF: 0 tramadol 50 mg tablet 50 mg PO Q6H PRN (Reason: pain) Qty: 8 RF: 0 pantoprazole 40 mg Tablet,Delayed Release (Dr/Ec) 40 mg PO DAILY@0730 Qty: 30 RF: 0 aspirin [Aspir-81] 81 MG tablet,delayed release (DR/EC) 81 mg PO BID Qty: 80 RF: 0 Discharge Instructions Instructions: Contusion in Adults (ED) Additional Instructions: You had 4 surgical taylor placed to close her scalp laceration. They should be removed in 7-10 days time. Return or see her regular doctor for removal. Leave dressing in place for 24 hours. Return if you have increasing discomfort, or any other acute concerns. Continue all regularly prescribed medications per Medical Decision Making 77-year-old female presents after slip and fall on waxed kitchen floor with resultant striking of her posterior scalp on a door hinge. She did not lose l consciousness. She has dull, achy, nonradiating headache and scalp laceration. She states her tetanus is up-to-date. Vital signs are normal. Exam within normal limits other than the aforementioned scalp hematoma. Must exclude underlying intracranial or osseous injury and patient referred for CT imaging. There is no acute intracranial or bony injury. Patient was anesthetized, cleansed, wound closed with 4 surgical taylor. Patient stable for discharge home [facility] General Mode of arrival: ambulatory . Date/Time Provider Initiated Documentation: 05/16/18 13:38 . Limitations to Documentation: no limitations . Information obtained by: patient . History of Present Illness 77 year old F presents to the emergency department with the chief complaint of Slip and fall with head laceration. Tetanus up-to-date, described as moderate, Quality is described as aching, and is localized to the head. Patient reports no radiation. Patient started experiencing this minute(s) and it has been constant. No relieving factors improve symptom(s), No exacerbating factors reported . Patient notes no other symptoms.. Patient did receive the following treatments prior to arrival, none Related Data Home Medications Medication Instructions Recorded Confirmed atorvastatin [Lipitor] 10 mg PO HS tab-cap 04/23/13 03/13/18 coenzyme Q10 [Co Q-10] 200 mg PO DAILY 04/23/13 03/13/18 losartan 25 mg PO DAILY tab-cap 04/28/15 03/13/18 peak flow meter-inh assist dev #1 kit 05/13/15 03/13/18 [Aerogear Action Asthma Kit] zolpidem [Ambien] 10 mg PO HS PRN 02/20/18 03/13/18 acetaminophen 1,000 mg PO Q8H PRN #90 cap 02/24/18 03/13/18 aspirin [Aspir-81] 81 mg PO BID #80 tab-cap 02/24/18 03/13/18 celecoxib 200 mg PO BID PRN #60 cap 02/24/18 03/13/18 pantoprazole 40 mg PO DAILY@0730 #30 tab 02/24/18 03/13/18 tramadol 50 mg PO Q6H PRN #8 tab 02/24/18 03/13/18 Previous Rx's Medication Instructions Recorded peak flow meter-inh assist dev #1 kit 05/13/15 [Aerogear Action Asthma Kit] acetaminophen 1,000 mg PO Q8H PRN #90 cap 02/24/18 aspirin [Aspir-81] 81 mg PO BID #80 tab-cap 02/24/18 celecoxib 200 mg PO BID PRN #60 cap 02/24/18 pantoprazole 40 mg PO DAILY@0730 #30 tab 02/24/18 tramadol 50 mg PO Q6H PRN #8 tab 02/24/18 Allergies Allergy/AdvReac Type Severity Reaction Status Date / Time ciprofloxacin [From Cipro] Allergy HIVES Unverified 05/16/18 13:31 oxycodone [From Percocet] AdvReac Intermediate Nausea & Verified 05/16/18 13:31 Vomiting General Stated Complaint: HeadInjury NINA: 2 Review of Systems Review of Systems 6 systems reviewed and otherwise negative [facility] Medical History Primary osteoarthritis of right hip (Chronic 11/16/17) Hyperlipidemia, unspecified (Chronic 04/28/15) Essential hypertension (Chronic 04/28/15) Surgical History History of lithotripsy (Chronic) History of ectopic (Chronic) History of appendectomy (Chronic) Social History Smoking/Tobacco Use Status: Former Tobacco Use Exam Narrative Exam Narrative: GEN: awake, alert, oriented 3. Pleasant, well groomed, interactive. HEAD: Normocephalic, left posterior/superior occipital scalp hematoma with laceration ENT: Mucous membranes moist, oropharynx unremarkable, External ear exam unremarkable EYES: PERRL, EOMI NECK: Full ROM, no KAYLEE, no menigismus CHEST/RESP: Nontender, clear to auscultation bilateral, no wheeze/rhonchi/rales CARDIOVASCULAR: RRR, no murmur, rub julio c. 2+ Rad pulse bilateral. Back: No step-off, deformity, midline tenderness. ABDOMEN: Soft, nontender, no mass. +Bowel sounds EXT: Full ROM, no edema, no rash Neuro: Grossly normal neurologic exam, conversant, interactive. Psych: Speech fluent, thoughts congruent, affect normal Course Vital Signs Temperature 36.7 C 05/16/18 13:26 Pulse 72 05/16/18 13:26 Respiratory Rate 18 05/16/18 13:26 Blood Pressure 136/73 05/16/18 13:26 Pulse Oximetry 98 05/16/18 13:26 Temperature 36.7 C 05/16/18 13:26 Temperature Source Skin 05/16/18 13:26 Pulse 72 05/16/18 13:26 Respiratory Rate 18 05/16/18 13:26 Respiratory Effort 05/16/18 13:30 Blood Pressure 136/73 05/16/18 13:26 Blood Pressure Position Sitting 05/16/18 13:26 Pulse Oximetry 98 05/16/18 13:26 Oxygen Delivery Method Room Air 05/16/18 13:26 Oxygen Flow Rate 0 05/16/18 13:26 Pain Level 8 05/16/18 13:26 Procedures Laceration Laceration 1: Site: scalp Side (If applicable): left Size (cm): 2 Description: linear Depth: simple, single layer Local Anesthetic: Lidocaine 1% Amount of anesthesia used (mL): 2 Skin layer closed with: other (Waldorf x4)
[2018-05-16] MEDS: Acetaminophen 500 MG TAB 1000 MG PO (13:51)
[2018-05-16] MEDS: Lidocaine/Epinephri/Tetracaine Topical Gel 3 ML TP (13:53)
[2018-05-16 14:52] VITALS: BP 133/74; PULSE 72; RESP 16; TEMP 36.6; O2SAT 96
== END 2018-05-16 14:53 | disposition home or self-care (01) ==
LOC: ER 14:57
PROVIDERS: Emergency Provider Emergency Medicine; PCP Nurse Practitioner Family
DX: S01.01XA Laceration without foreign body of scalp, initial encounter (principal); W01.10XA Fall on same level from slipping, tripping and stumbling with subsequent striking against unspecified object, initial encounter; I10 Essential (primary) hypertension
CPT/HCPCS: 12001; 99284; 70450; 99282

== ENCOUNTER 2018-06-22 09:39 | Outpatient (REF) | payer OTHER, SELFPAY ==
[2018-06-22 12:31] LABS: Anion Gap 7.3 mmol/L (3-11); BUN 17 mg/dL (7-18); CO2 29.7 mmol/L (21.0-32.0); CREATININE 0.91 mg/dL (0.55-1.02); Calcium 9.1 mg/dL (8.5-10.1); Chloride 107 mmol/L (98-107); Cholesterol 173 mg/dL (50-200); Estimated GFR 59.79 (mL/min/1.73m2); Glucose 108 mg/dL (70-100); HDL Cholesterol 46 mg/dL (40-60); LDL CHOLESTEROL 109 mg/dL (<100); Potassium 4.3 mmol/L (3.5-5.1); Sodium 144 mmol/L (136-145); Triglyceride 62 mg/dL (30-150)
== END 2018-06-22 09:59 ==
LOC: NCHCN 09:39
PROVIDERS: PCP Nurse Practitioner Family; Visit Provider Nurse Practitioner Family
DX: E78.5 Hyperlipidemia, unspecified (principal); I10 Essential (primary) hypertension
CPT/HCPCS: 80048; 80061; 83721

== ENCOUNTER 2018-09-22 11:03 | Outpatient (CLI) | payer OTHER, SELFPAY ==
--- NOTE | 2018-09-22 11:11 | DI.RAD_ITS ---
SYMPTOMS/DIAGNOSIS: CONTINUED HIP PAIN RIGHT HIP: Comparison is made with 5Nov18. 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 No abnormal bony lucencies are seen.
== END 2018-09-22 11:23 ==
PROVIDERS: PCP Nurse Practitioner Family; Referring Provider Nurse Practitioner Family; Visit Provider Student in an Organized Health Care Education/Training Program
DX: M25.551 Pain in right hip (principal); Z96.641 Presence of right artificial hip joint; M70.61 Trochanteric bursitis, right hip
CPT/HCPCS: 99212; 99213; 73502

== ENCOUNTER 2019-03-27 15:05 | Outpatient (REF) | payer OTHER, SELFPAY ==
[2019-03-27 18:23] LABS: HCT 36.6 % (36.0-46.0); Mean Corp. HGB Concentration 32.8 g/dL (32.0-36.0); Mean Corpuscular Hemoglobin 30.1 pg (27.0-33.0); Mean Corpuscular Volume 91.7 fL (80-95); Mean Platelet Volume 9.4 fL (8.0-11.0); Platelet Count 322 x1000/uL (130-400); RBC 3.99 m/cumm (4.00-5.20); RBC Distribution Width 12.5 % (11.7-14.6); White Blood Cell Count 10.43 k/cumm (4.4-10.8)
[2019-03-27 18:54] LABS: Hemoglobin A1C 5.9 % (4.5-6.2)
[2019-03-27 19:18] LABS: ALT 16 U/L (14-59); AST 11 U/L (15-37); Albumin 3.1 g/dL (3.4-5.0); Alkaline Phosphatase 51 U/L (46-116); Anion Gap 9.5 mmol/L (3-11); BUN 14 mg/dL (7-18); Bilirubin, Total 0.6 mg/dL (0.2-1.0); CO2 27.5 mmol/L (21.0-32.0); Calcium 8.6 mg/dL (8.5-10.1); Chloride 102 mmol/L (98-107); Estimated GFR 47.91 (mL/min/1.73m2); Glucose 122 mg/dL (74-106); Lipase 70 U/L (73-393); Potassium 4.2 mmol/L (3.5-5.1); Sodium 139 mmol/L (136-145); TSH (W/Ref FT4) 1.29 uIU/mL (0.36-3.74); Total Protein 6.6 g/dL (6.4-8.2)
== END 2019-03-27 15:25 ==
LOC: NCHCN 15:05
PROVIDERS: PCP Nurse Practitioner Family; Visit Provider Nurse Practitioner Family
DX: I10 Essential (primary) hypertension (principal); R53.83 Other fatigue; R10.11 Right upper quadrant pain; R73.03 Prediabetes; Z86.2 Personal history of diseases of the blood and blood-forming organs and certain disorders involving the immune mechanism
CPT/HCPCS: 80053; 83690; 85027; 83036; 84443

== ENCOUNTER 2019-04-15 09:15 | Emergency (ER) | payer OTHER, SELFPAY ==
[2019-04-15 09:20] VITALS: BP 139/71; PULSE 98; RESP 18; TEMP 37.1; O2SAT 98
--- NOTE | 2019-04-15 09:48 | ED.GENADUL_ITS ---
Discharge Plan Disposition Patient Disposition: HOME Condition: Improving Discharge Details Chief Complaint: Urinary Clinical Impression: Acute pyelonephritis Primary Care Provider: Anastasiia Rankin ED Provider: Nancy Rosales Home Meds and New Rx's Prescriptions: New sulfamethoxazole-trimethoprim [Bactrim DS] 800-160 mg tablet 1 tab PO BID Qty: 10 RF: 0 atorvastatin [Lipitor] 10 mg tablet 10 mg PO DAILY Qty: 90 RF: 0 No Action atorvastatin [Lipitor] 10 MG tablet 10 mg PO HS RF: 0 coenzyme Q10 [Co Q-10] 200 MG capsule 200 mg PO DAILY RF: 0 losartan 25 MG tablet 25 mg PO DAILY RF: 0 (DME) Aerogear Action Asthma Kit 1 EACH kit 1 ea Miscellaneous Q4H PRN Qty: 1 RF: 0 zolpidem [Ambien] 10 mg Tablet 10 mg PO HS PRNRF: 0 celecoxib 200 mg capsule 200 mg PO BID PRN (Reason: pain) Qty: 60 RF: 1 acetaminophen 500 mg capsule 1,000 mg PO Q8H PRN (Reason: pain) Qty: 90 RF: 0 tramadol 50 mg tablet 50 mg PO Q6H PRN (Reason: pain) Qty: 8 RF: 0 pantoprazole 40 mg Tablet,Delayed Release (Dr/Ec) 40 mg PO DAILY@0730 Qty: 30 RF: 0 aspirin [Aspir-81] 81 MG tablet,delayed release (DR/EC) 81 mg PO BID Qty: 80 RF: 0 Discharge Instructions Instructions: Urinary Tract Infection in Women (ED) Additional Instructions: Drink plenty of fluids. Use antibiotic as prescribed twice daily. Follow-up with your primary care doctor for repeat CBC due to decrease in blood counts. Eat plenty of green leafy foods and increase iron. Follow-up for repeat CMP due to mild worsening of your renal function. Follow-up for repeat urinalysis in 1 week to be sure urine infection is clearing as discussed. Urine culture pending. Lyme testing also pending will take approximately 3 to 5 days to result Rest activities as tolerated. For any alarming symptoms or worsening have immediate reevaluation in the emergency room as discussed sooner Discharge Data Discharge Date/Time-TO BE ENTERED AT DEPARTURE: 04/15/19 12:45 Medical Decision Making Is a very pleasant 78-year-old woman who presents for persistent fatigue which onset in early March. Patient is nontoxic-appearing. Patient reports she believes fatigue began in March 09 per her account. Patient reports obvious change in her baseline. She did see her primary care doctor after several weeks of noted fatigue who did baseline labs with no acute findings. After which due to persistent fatigue she followed up in [facility] and had an acute evaluation April 06. Patient ultimately was diagnosed with a urinary tract infection and treated with 5 days of Keflex. Patient reported 2 days of improvement after taking Keflex then noted return of fatigue symptoms. Patient reports in the last week she has had persistence of fatigue and is seeking reevaluation. Patient denies a fever or chills. Patient denies headache or dizziness. Patient denies any chest pain, difficulty breathing shortness of breath or wheezing. No orthopnea. Sleeping without difficulty at night however is awaking frequently to urinate approximately 4 times which is an increase from her baseline. Patient denies dysuria. Denies hematuria. Patient does admit to mild right back pain which is intermittent and transient. Patient denies any abdominal pain. Denies any bowel change. Patient denies any lower extremity edema. No leg cramping or pain. Denies any blood in bowel movements. No other concerns or complaints at this time Plan of care to reevaluate urinalysis and obtain urine culture from [facility]. Screen with baseline labs. Lyme and tick panel ordered given complaints of persistent fatigue. Patient feels she has been eating and drinking less but does not feel she is likely dehydrated she has been pushing fluids by mouth. Patient's urine obtained by nurse was notably cloudy. Patient's urinalysis reveals moderate blood, nitrite positive, large leukocyte esterase and greater t polanco 50 white blood cell count. Consistent with urinary tract infection with persists. Her culture which was obtained from [facility] patient was pansensitive with an E. coli 50-99,000 colony-forming units. Patient also had 100,000 colony-forming units of Aerococcus for which sensitivity was not obtained. Patient provided Rocephin 1 g IV and plan of care to discharge patient with a prescription of Bactrim. Patient's labs do reveal a mild leukocytosis with mild anemia. Anemia was discussed with the patient. She does feel that this is likely secondary to decreased p.o. intake in the last month. Patient encouraged follow-up with PCP for anemia finding and recommended increased iron in her diet. Patient reports understanding. CMP reviewed and noted mild elevation of creatinine therefore liter of fluid was provided to hydrate. Patient encouraged follow-up with PCP for repeat labs. Patient also encouraged to follow-up for low albumin. Patient feeling improved after fluids. Patient feels comfortable with discharge home at this time. Patient also is requesting a Lipitor prescription as she is nearly out and does not want to relapse on her blood pressure medication. This was provided at her request. The patient was stable and requested discharge. Prior to discharge, my usual and customary return precautions were reviewed with the patient - this included follow-up instructions and reasons to return to the Emergency Department if conditions worsens, does not improve as expected, or other new concerns arise. HPI General Date/Time Provider Initiated Documentation: 04/15/19 09:36 . HPI Narrative: This very pleasant 78-year-old woman who presents for concerns of fatigue. Patient reports onset of fatigue was noted March 09. Patient reports significant change in her baseline. Patient reports she saw her PCP after several weeks of fatigue. Who checked baseline labs with no identifiable abnormalities. Patient was thereafter evaluated at [facility] for persistent complaints and was noted to have a urinary tract infection via urinalysis and urine culture. Patient was treated with a 5-day course of Keflex which began on 04/06. Patient reports 2 days of significant improvement then symptoms began to persist and return. Patient reports persistent fatigue for the last week. Patient denies any headache or dizziness. No unsteady gait. No numbness or tingling or weakness of extremities. Patient denies chest pain, difficulty breathing shortness of breath or wheezing. No new cough or upper respiratory symptoms. Patient denies fever, chills nausea or vomiting. Patient is eating and drinking normally. Patient denies bowel changes or diarrhea. Patient denies abdominal pain. Patient does report urinary urgency specifically at night she is getting up approximately 4 times to urinate. Patient does report mild right flank pain. Intermittent pain noted in the flank. No constant pain. Related Data Home Medications Medication Instructions Recorded Confirmed atorvastatin [Lipitor] 10 mg PO HS tab-cap 04/23/13 09/22/18 coenzyme Q10 [Co Q-10] 200 mg PO DAILY 04/23/13 09/22/18 losartan 25 mg PO DAILY tab-cap 04/28/15 09/22/18 Aerogear Action Asthma Kit #1 kit 05/13/15 09/22/18 zolpidem [Ambien] 10 mg PO HS PRN 02/20/18 09/22/18 acetaminophen 1,000 mg PO Q8H PRN #90 cap 02/24/18 09/22/18 aspirin [Aspir-81] 81 mg PO BID #80 tab-cap 02/24/18 09/22/18 celecoxib 200 mg PO BID PRN #60 cap 02/24/18 09/22/18 pantoprazole 40 mg PO DAILY@0730 #30 tab 02/24/18 09/22/18 tramadol 50 mg PO Q6H PRN #8 tab 02/24/18 09/22/18 atorvastatin [Lipitor] 10 mg PO DAILY #90 tab 04/15/19 sulfamethoxazole-trimethoprim 1 tab PO BID #10 tab 04/15/19 [Bactrim DS] Previous Rx's Medication Instructions Recorded Aerogear Action Asthma Kit #1 kit 05/13/15 acetaminophen 1,000 mg PO Q8H PRN #90 cap 02/24/18 aspirin [Aspir-81] 81 mg PO BID #80 tab-cap 02/24/18 celecoxib 200 mg PO BID PRN #60 cap 02/24/18 pantoprazole 40 mg PO DAILY@0730 #30 tab 02/24/18 tramadol 50 mg PO Q6H PRN #8 tab 02/24/18 atorvastatin [Lipitor] 10 mg PO DAILY #90 tab 04/15/19 sulfamethoxazole-trimethoprim 1 tab PO BID #10 tab 04/15/19 [Bactrim DS] Allergies Allergy/AdvReac Type Severity Reaction Status Date / Time ciprofloxacin [From Cipro] Allergy HIVES Unverified 04/15/19 09:22 oxycodone [From Percocet] AdvReac Intermediate Nausea & Verified 04/15/19 09:22 Vomiting General Stated Complaint: Urinary NINA: 3 Review of Systems All systems reviewed & are unremarkable except as noted in HPI and below Constitutional Constitutional: Denies chills, Reports fatigue, Denies fever(s), Denies headache(s) and Denies malaise ENT Ears, Nose, Mouth, and Throat: Denies headache(s), Denies nasal congestion, Denies neck pain, Denies sinus pain and Denies sore throat Cardiovascular Cardiovascular: Denies chest pain, Denies chest pain at rest, Denies diaphoresis, Denies syncope, Denies pedal edema, Denies edema, Denies palpitations, Denies dyspnea on exertion and Denies orthopnea Respiratory Respiratory: Denies cough and Denies dyspnea on exertion Gastrointestinal Gastrointestinal: Denies abdominal pain, Denies nausea and Denies vomiting Genitourinary Genitourinary: Denies dysuria, Denies urinary incontinence and Reports urinary urgency Musculoskeletal Musculoskeletal: Denies neck pain Neurologic Neurologic: Denies syncope and Denies headache(s) Endocrine Endocrine: Reports fatigue and Denies palpitations [facility] Medical History Essential hypertension (Chronic 04/28/15) Hyperlipidemia, unspecified (Chronic 04/28/15) Primary osteoarthritis of right hip (Chronic 11/16/17) Social History Smoking/Tobacco Use Status: Former Tobacco Use Alcohol Intake: never Drug use: Never Substance use type: does not use Do you feel safe at home: Yes Do you feel safe in your relationship?: Yes Exam Narrative Exam Narrative: CONST: Healthy appearing patient, in no acute distress. Well hydrated. Alert and alert. HENMT: Head nomocephalic, normal to inspection. Atraumatic. Hearing grossly normal. External ear canal no erythema or swelling. TM normal bilaterally. Nose normal to inspection. No rhinnorhea. Normal facial exam. Oral mucosa normal. Tounge normal. Dentition normal. Normal posterior oropharynx. Uvula midline. EYES: General normal appearance. Alignment normal. Eyelids normal. Conjunctiva normal. Sclera normal. PERRL. NECK: Normal visual inspection. FROM. No lymphadenopathy. Trachea midline. No Midline tenderness. CHEST: Normal insepection of the chest. RESP: Normal respiratory effort. Speaking full sentences. No cough. No wheezing. No retractions. Clear to auscaltation. Breath sound equal and present bilaterally. CARDIO: No JVD. Normal PMI. Regular Rate. Regular Rhythm. Normal peripheral pulses. GI: Normal inspection of abdomen. No distension. Soft. Nontender throughout with exception of mild RUQ discomfort. Bowel sounds present in all 4 quadrants. No rebound. No gaurding. Back: mild right CVAT MUSCULOSKELETAL: Normal Gait. FROM of all extremities. Distal neurovascularly intact. Sensation intact distally. no distal edema SKIN: Normal. Dry. No rashes. NEURO: Alert and awake. Speech clear. PSYCH: Normal affect. Cooperative. Course Vital Signs Vital signs: Vital Signs Temperature 37.1 C 04/15/19 09:20 Pulse 98 H 04/15/19 09:20 Respiratory Rate 18 04/15/19 09:20 Blood Pressure 139/71 04/15/19 09:20 Pulse Oximetry 98 04/15/19 09:20 Temperature 37.1 C 04/15/19 09:20 Temperature Source Temporal Artery Scan 04/15/19 09:20 Pulse 98 H 04/15/19 09:20 Respiratory Rate 18 04/15/19 09:20 Respiratory Effort Non-Labored 04/15/19 09:20 Blood Pressure 139/71 04/15/19 09:20 Blood Pressure Position Sitting 04/15/19 09:20 Pulse Oximetry 98 04/15/19 09:20 Oxygen Delivery Method Room Air 04/15/19 09:20 Oxygen Flow Rate 0 04/15/19 09:20 Pain Level 0 04/15/19 09:20 Lab/Test Results Lab/Test Results: 04/15/19 09:38 Urine - Clean Catch Urine Culture - Pending
[2019-04-15 10:04] LABS: Bilirubin Negative (Negative); Blood Moderate (Negative); Clarity Turbid (Clear); Glucose Negative (Negative); Ketones Negative (Negative); Leukocyte Esterase Large (Negative); Nitrite Positive (Negative); Specific Gravity 1.015 (1.005-1.025); Urobilinogen 0.2 EU/dL (Up TO 0.2)
[2019-04-15 10:04] LABS: Abs Immature Grans 0.03 k/cumm (0.0-0.09); Absolute Basophil Count 0.03 k/cumm (0.0-0.2); Absolute Eosinophil Count 0.07 k/cumm (0.0-0.7); Absolute Lymphocyte Count 0.92 k/cumm (1.2-3.4); Absolute Monocyte Count 1.65 k/cumm (0.11-0.7); Basophils % 0.3; Eosinophils % 0.6; HCT 35.8 % (36.0-46.0); HGB 11.7 g/dL (12.0-15.5); Immature Grans % 0.3; Lymphocytes % 8.1; Mean Corp. HGB Concentration 32.7 g/dL (32.0-36.0); Mean Corpuscular Hemoglobin 29.5 pg (27.0-33.0); Mean Corpuscular Volume 90.2 fL (80-95); Mean Platelet Volume 8.3 fL (8.0-11.0); Monocytes % 14.6; Neutrophils % 76.1; Platelet Count 380 x1000/uL (130-400); RBC 3.97 m/cumm (4.00-5.20); RBC Distribution Width 12.4 % (11.7-14.6)
[2019-04-15 10:15] LABS: C & S Indicated? C&S Done As Ordered; WBC >50 HPF (0-5)
[2019-04-15 10:17] LABS: ALT 10 U/L (14-59); AST 13 U/L (15-37); Albumin 2.7 g/dL (3.4-5.0); Alkaline Phosphatase 55 U/L (46-116); Anion Gap 8.8 mmol/L (3-11); BUN 17 mg/dL (7-18); Bilirubin, Total 0.4 mg/dL (0.2-1.0); CO2 28.2 mmol/L (21.0-32.0); CREATININE 1.41 mg/dL (0.55-1.02); Calcium 8.9 mg/dL (8.5-10.1); Chloride 100 mmol/L (98-107); Estimated GFR 35.98 (mL/min/1.73m2); Glucose 189 mg/dL (74-106); Lipase 82 U/L (73-393); Potassium 4.4 mmol/L (3.5-5.1); Sodium 137 mmol/L (136-145); Total Protein 7.2 g/dL (6.4-8.2)
[2019-04-15 10:25] LABS: Diff Comment Diff Reviewed; RBC Morphology Normal
[2019-04-15] MEDS: cefTRIAXone 1 GM/50 ML BAG 100 GM (10:27)
[2019-04-15] MEDS: Normal Saline 1,000 ML 1000 ML IV (11:52)
[2019-04-16 10:36] LABS: Lyme Ab w Rflx to Lyme Confirm Negative (Negative)
[2019-04-17 16:12] LABS: Anaplasma phagocytophilum Negative (Negative); B. miyamotoi PCR Negative (Negative); Babesia divergens/MO-1 Negative (Negative); Babesia duncani Negative (Negative); Babesia microti Negative (Negative); Ehrlichia chaffeensis Negative (Negative); Ehrlichia ewingii/canis Negative (Negative); Ehrlichia muris eauclairensis Negative (Negative)
== END 2019-04-15 12:45 | disposition home or self-care (01) ==
PROVIDERS: Emergency Provider Physician Assistant; PCP Nurse Practitioner Family
DX: N10 Acute pyelonephritis (principal); B96.20 Unspecified Escherichia coli [E. coli] as the cause of diseases classified elsewhere; R53.83 Other fatigue; I10 Essential (primary) hypertension
CPT/HCPCS: 36415; 80053; 83690; 87077; 87798; 96361; 96365; 96366; 99284; 81003; 81015; 85025; 86618; 87086; 87186; J0696

== ENCOUNTER 2019-04-24 11:42 | Outpatient (REF) | payer OTHER, SELFPAY ==
[2019-04-24 18:54] LABS: Bilirubin Negative (Negative); Blood Trace-intact (Negative); Clarity Clear (Clear); Glucose Negative (Negative); Ketones Negative (Negative); Leukocyte Esterase Negative (Negative); Nitrite Negative (Negative); Urobilinogen 0.2 EU/dL (Up TO 0.2); pH 5.5 (5-8)
[2019-04-24 18:56] LABS: HCT 35.6 % (36.0-46.0); HGB 11.2 g/dL (12.0-15.5); Mean Corp. HGB Concentration 31.5 g/dL (32.0-36.0); Mean Corpuscular Hemoglobin 28.6 pg (27.0-33.0); Mean Corpuscular Volume 90.8 fL (80-95); Mean Platelet Volume 8.9 fL (8.0-11.0); Platelet Count 412 x1000/uL (130-400); RBC 3.92 m/cumm (4.00-5.20); RBC Distribution Width 13.3 % (11.7-14.6); White Blood Cell Count 6.21 k/cumm (4.4-10.8)
[2019-04-24 18:58] LABS: ALT 14 U/L (14-59); AST 19 U/L (15-37); Albumin 3.2 g/dL (3.4-5.0); Alkaline Phosphatase 58 U/L (46-116); Anion Gap 8.6 mmol/L (3-11); BUN 14 mg/dL (7-18); Bilirubin, Total 0.4 mg/dL (0.2-1.0); CO2 29.4 mmol/L (21.0-32.0); CREATININE 1.15 mg/dL (0.55-1.02); Calcium 9.2 mg/dL (8.5-10.1); Chloride 103 mmol/L (98-107); Estimated GFR 45.52 (mL/min/1.73m2); Glucose 107 mg/dL (74-106); Potassium 4.6 mmol/L (3.5-5.1); Sodium 141 mmol/L (136-145); Total Protein 6.9 g/dL (6.4-8.2)
[2019-04-24 19:09] LABS: Bacteria Rare HPF (Negative); C & S Indicated? Yes; Crystals Negative HPF (Negative); Epithelial Cells Moderate HPF (Negative); Mucus Negative (Negative)
== END 2019-04-24 12:02 ==
LOC: NCHCN 11:42
PROVIDERS: PCP Nurse Practitioner Family; Visit Provider Nurse Practitioner Family
DX: N10 Acute pyelonephritis (principal); Z86.2 Personal history of diseases of the blood and blood-forming organs and certain disorders involving the immune mechanism
CPT/HCPCS: 80053; 85027; 81003; 81015; 87086

== ENCOUNTER → 2019-04-30 14:42 | Outpatient (BNVA) | payer OTHER, SELFPAY | PROVIDERS: PCP Nurse Practitioner Family; Referring Provider Nurse Practitioner Family; Visit Provider Student in an Organized Health Care Education/Training Program | DX: M70.61 Trochanteric bursitis, right hip (principal) | CPT/HCPCS: 20610; 99213; J1040 ==

== ENCOUNTER 2019-05-22 15:54 | Outpatient (CLI) | payer OTHER, SELFPAY ==
--- NOTE | 2019-05-22 15:30 | DI.RAD_ITS ---
EXAM: XR ABDOMEN FLAT PLATE INDICATION: HEMATURIA, R31.9. COMPARISON: No exams were available for comparison TECHNIQUE: 2D digital imaging was performed. FINDINGS: There is a right convex scoliosis of the lumbar spine. Patient has a right total hip replacement. Renal shadows are largely obscured by overlying bowel. There is a calcification in the left upper qu adrant in the region of the left renal shadow, which may represent a stone. No other urinary tract c alculi are seen. There is a large amount of stool in the colon. IMPRESSION: Calcification in the left upper quadrant. Its location is nonspecific. This may represent a renal s tone. This may represent enterolith or other calcification. Ultrasound or renal colic CT may be obt ained for further evaluation.
== END 2019-05-22 16:14 ==
PROVIDERS: PCP Nurse Practitioner Family; Visit Provider Nurse Practitioner Family
DX: R31.9 Hematuria, unspecified (principal); Z96.641 Presence of right artificial hip joint
CPT/HCPCS: 74018

== ENCOUNTER 2019-05-22 16:39 | Outpatient (REF) | payer OTHER, SELFPAY ==
--- NOTE | 2019-05-22 14:50 | PAPNONF_PTH ---
PATIENT: Crystal Man LOC: [facility] U#:[id number] AGE/SX: 78/F ROOM: RE05/22/[address]: Anastasiia Rankin : 1940 BED: DIS: 05/22/2019 SPEC #: [id number] RECD: 05/22/19 18:32 STATUS: CLAY REQ #: [id number] BHAKTI: 05/22/19 14:[address]: Anastasiia Rankin DEPT: [facility] Cytology RECD BY: Ana María Bower Tissues: 1 - BODY FLUID CYTO(SPUTUM/URINE)[facility] Procedures: BODY FLUID CYTO(URINE/SPUTUM) Comments: [id number] (TOTAL VOLUME = 20 ml's) (20 ml'S URINE & 20 ml's CYTOLYT ADDED)
== END 2019-05-22 16:59 ==
LOC: NCHCN 16:39
PROVIDERS: PCP Nurse Practitioner Family; Visit Provider Nurse Practitioner Family
DX: N10 Acute pyelonephritis (principal); R31.9 Hematuria, unspecified
CPT/HCPCS: 87086; 88104

== ENCOUNTER 2019-06-15 03:17 | Emergency (ER) | payer OTHER, SELFPAY ==
[2019-06-15 03:20] VITALS: BP 158/78; PULSE 77; RESP 16; TEMP 36.5; O2SAT 97
[2019-06-15 03:27] LABS: Bilirubin Small (Negative); Blood Large (Negative); Clarity Sl Cloudy (Clear); Glucose Negative (Negative); Ketones Negative (Negative); Leukocyte Esterase Trace (Negative); Nitrite Negative (Negative); Specific Gravity 1.015 (1.005-1.025); Urobilinogen 0.2 EU/dL (Up TO 0.2); pH 6.5 (5-8)
[2019-06-15 03:32] LABS: C & S Indicated? C&S Done As Ordered; Epithelial Cells Moderate HPF (Negative); RBC >50 HPF (0-2); WBC >50 HPF (0-5)
--- NOTE | 2019-06-15 03:32 | W.ED.GENAD ---
Discharge Plan Disposition Patient Disposition: HOME Condition: Stable Discharge Details Chief Complaint: Urinary Clinical Impression: Urinary tract infection Primary Care Provider: Anastasiia Rankin ED Provider: Tejas Smiley Home Meds and New Rx's Prescriptions: New sulfamethoxazole-trimethoprim [Bactrim DS] 800-160 mg tablet 1 tab PO BID Qty: 14 RF: 0 Continued losartan 25 MG tablet 25 mg PO DAILY RF: 0 (DME) [employer] Action Asthma Kit 1 EACH kit 1 ea Miscellaneous Q4H PRN Qty: 1 RF: 0 atorvastatin [Lipitor] 10 mg tablet 10 mg PO DAILY Qty: 90 RF: 0 acetaminophen 500 mg capsule 1,000 mg PO Q8H PRN (Reason: pain) Qty: 90 RF: 0 aspirin [Aspir-81] 81 MG tablet,delayed release (DR/EC) 81 mg PO BID Qty: 80 RF: 0 Discharge Instructions Instructions: Urinary Tract Infection in Women (ED) Additional Instructions: follow up with urology as scheduled if you have high fevers, severe worsening pain or persistent vomit return to the emergency department Medical Decision Making 78 yo female with hx of htn, prior uti's with hematuria and is scheduled to see urology later this month, comes in with complaints of dysuria and hematuria since yesterday and suprapubuic discomfort. No fevers, chills, cva pain/tenderness, flank pain. She arrives in no distress speaking in full setnences and appears well systemically with mild suprapubic tenderness otherwise no abdominal pain. Given symptoms suspect cystitis, will obtain UA. Given no fevers and well appearance doubt sepsis and do not feel blood work indicated. no flank pain or symptoms to suggest kidney stone so do not feel ct imaging indicated. Symptoms consistent with uti and has hematuria on UA will start abx but advised importance of f/u with urology especially if symptoms continue. Also advised if worsenning, has fevers or vomit or severe pain return to the ED. She tolerated bactrim last time and Urine culture from 04/2019 grew ponce sensitive e coli so will start bactrim Differential Diagnosis Differential Diagnosis: cystitis, uti HPI General Mode of arrival: ambulatory. Date/Time Provider Initiated Documentation: 06/15/19 03:18. Limitations to Documentation: no limitations. Information obtained by: patient. History of Present Illness 78 year old F presents to the emergency department with the chief complaint of hematuria, described as moderate, Patient started experiencing this day(s) (1) and it has been intermittent. No relieving factors improve symptom(s), No exacerbating factors reported . Patient notes other (suprapubic pain). Patient did receive the following treatments prior to arrival, none Related Data Home Medications Medication Instructions Recorded Confirmed losartan 25 mg PO DAILY tab-cap 04/28/15 06/15/19 [employer] Action Asthma Kit #1 kit 05/13/15 04/30/19 acetaminophen 1,000 mg PO Q8H PRN #90 cap 02/24/18 06/15/19 aspirin [Aspir-81] 81 mg PO BID #80 tab-cap 02/24/18 06/15/19 atorvastatin [Lipitor] 10 mg PO DAILY #90 tab 04/15/19 06/15/19 sulfamethoxazole-trimethoprim 1 tab PO BID #14 tab 06/15/19 [Bactrim DS] Previous Rx's Medication Instructions Recorded [employer] Action Asthma Kit #1 kit 05/13/15 acetaminophen 1,000 mg PO Q8H PRN #90 cap 02/24/18 aspirin [Aspir-81] 81 mg PO BID #80 tab-cap 02/24/18 atorvastatin [Lipitor] 10 mg PO DAILY #90 tab 04/15/19 sulfamethoxazole-trimethoprim 1 tab PO BID #14 tab 06/15/19 [Bactrim DS] Allergies Allergy/AdvReac Type Severity Reaction Status Date / Time ciprofloxacin [From Cipro] Allergy HIVES Unverified 06/15/19 03:32 oxycodone [From Percocet] AdvReac Intermediate Nausea & Verified 06/15/19 03:32 Vomiting General Stated Complaint: Urinary NINA: 4 Review of Systems All systems reviewed & are unremarkable except as noted in HPI and below Constitutional Constitutional: Denies chills and Denies fever(s) ENT Ears, Nose, Mouth, and Throat: Denies change in voice Cardiovascular Cardiovascular: Denies chest pain and Denies dyspnea Respiratory Respiratory: Denies cough and Denies dyspnea Gastrointestinal Gastrointestinal: Denies nausea and Denies vomiting Musculoskeletal Musculoskeletal: Denies joint swelling Integumentary/Breasts Skin/Breast: Denies rash [facility] Medical History (Updated 06/15/19 @ 03:36 by Tejas Smiley MD) Anemia (Chronic) Diverticulosis (Acute) Essential hypertension (Chronic 04/28/15) Fatigue (Acute) Hematuria (Acute) Hyperlipidemia, unspecified (Chronic 04/28/15) Open head injury (Acute) Prediabetes (Acute) Primary osteoarthritis of right hip (Chronic 11/16/17) Pyelonephritis (Acute) Surgical History History of appendectomy (Chronic) History of ectopic (Chronic) required surgical intervention History of lithotripsy (Chronic) Social History Smoking/Tobacco Use Status: Former Tobacco Use Alcohol Intake: never Drug use: Never Substance use type: does not use Current gender identity: female Do you feel safe at home: Yes Do you feel safe in your relationship?: Yes Exam Const General: no acute distress Orientation: alert HENMT Head: normal to inspection Ears: external ears normal General nose exam: external nose normal Mouth: moist mucous membranes Eyes General: appearance normal, both eyes and all related structures Neck Neck: normal visual inspection Resp Effort & Inspection: normal respiratory effort and able to speak in complete sentences Cardio Rate: regular rate GI Palpation: soft Back/Spine/Pelvis Back: no CVA tenderness Skin General skin exam: no rashes or lesions noted Neuro General: alert and oriented x3 Extrem General: normal to inspection Psych Mental Status: mental status grossly normal Course Vital Signs Vital signs: Vital Signs Temperature 36.5 C 06/15/19 03:20 Pulse 77 06/15/19 03:20 Respiratory Rate 16 06/15/19 03:20 Blood Pressure 158/78 H 06/15/19 03:20 Pulse Oximetry 97 06/15/19 03:20 Temperature 36.5 C 06/15/19 03:20 Pulse 77 06/15/19 03:20 Respiratory Rate 16 06/15/19 03:20 Respiratory Effort 06/15/19 03:30 Blood Pressure 158/78 H 06/15/19 03:20 Pulse Oximetry 97 06/15/19 03:20 Oxygen Delivery Method Room Air 06/15/19 03:20 Oxygen Flow Rate 0 06/15/19 03:20 Pain Level 2 06/15/19 03:31 Lab/Test Results Lab/Test Results: 06/15/19 03:21 Urine - Voided Urine Culture - Pending Laboratory Tests Range/Units 02/07/20 03:25 Urine Color (Yellow) Red Urine Clarity (Clear) Sl cloudy Urine pH (5-8) 6.5 Ur Specific Liguori (1.005-1.025) 1.015 Urine Protein (Negative) mg/dL >=300 H Urine Ketones (Negative) mg/dL Negative Urine Blood (Negative) Large H Urine Nitrite (Negative) Negative Urine Bilirubin (Negative) Small H Urine Urobilinogen (Up TO 0.2) EU/dL 0.2 Ur Leukocyte Esterase (Negative) Trace H Urine Glucose (Negative) mg/dL Negative
[2019-06-15] MEDS: Sulfameth/Trimeth DS TAB 1 TAB PO (03:39)
== END 2019-06-15 03:41 | disposition home or self-care (01) ==
PROVIDERS: Emergency Provider Emergency Medicine; PCP Nurse Practitioner Family
DX: R10.30 Lower abdominal pain, unspecified (principal); N39.0 Urinary tract infection, site not specified; Z87.440 Personal history of urinary (tract) infections; I10 Essential (primary) hypertension
CPT/HCPCS: 99283; 81003; 81015; 87086

== ENCOUNTER 2019-06-25 11:53 | Outpatient (REF) | payer OTHER, SELFPAY ==
[2019-06-25 19:39] LABS: Bilirubin Negative (Negative); Blood Small (Negative); Clarity Sl Cloudy (Clear); Glucose Negative (Negative); Ketones Negative (Negative); Leukocyte Esterase Negative (Negative); Nitrite Negative (Negative); Urobilinogen 0.2 EU/dL (Up TO 0.2)
[2019-06-25 20:11] LABS: Bacteria Rare HPF (Negative); Epithelial Cells Many HPF (Negative); RBC 20-50 HPF (0-2); WBC 20-50 HPF (0-5)
[2019-06-25 20:12] LABS: C & S Indicated? No/Sq. Contamination; Crystals Negative HPF (Negative); Mucus Negative (Negative)
== END 2019-06-25 12:13 ==
LOC: NCHCN 11:53
PROVIDERS: PCP Nurse Practitioner Family; Visit Provider Nurse Practitioner Family
DX: R31.9 Hematuria, unspecified (principal)
CPT/HCPCS: 81003; 81015

== ENCOUNTER → 2019-07-02 12:58 | Outpatient (BNVA) | payer OTHER, SELFPAY | PROVIDERS: PCP Nurse Practitioner Family; Referring Provider Nurse Practitioner Family; Visit Provider Nurse Practitioner Gerontology | DX: R31.0 Gross hematuria (principal) | CPT/HCPCS: 81003; 99204; 99215 ==

== ENCOUNTER 2019-07-09 01:41 | Outpatient (CLI) | payer OTHER, SELFPAY ==
[2019-07-09 08:52] LABS: CREATININE 1.13 mg/dL (0.55-1.02); Estimated GFR 46.45 (mL/min/1.73m2)
--- NOTE | 2019-07-09 09:45 | DI.CT_ITS ---
EXAM: CT ABDOMEN PELVIS WO/W CLINICAL HISTORY: gross hematuria and suprapubic pain, R31.9, R31.0, R10.2 TECHNIQUE: Without IV contrast followed by postcontrast imaging during venous phase and 7 minute de lay. COMPARISON: RENAL COLIC WO CONTRAST from 02/02/2011 RENAL COLIC WO CONTRAST from 02/02/2011 RENAL COLIC WO CONTRAST from 02/21/2012 FINDINGS: There is severe left hydronephrosis. The left kidney is also somewhat atrophic. The renal pelvis and ureter are dilated down to the level of the bladder. There is an invasive appearing mass at the post erior left side of the pelvis which appears to envelop the area of the cervix and extend into the lef t side of the bladder. There is also abnormal wall thickening along the bladder. The left ovary is no t well seen. The uterine body appears within normal limits. The mass measures grossly 10 by 5 by 8 cm . There is also apparent invasion of the pelvic floor. Mass could arise either from the bladder or fr om the cervix. There are enlarged lymph nodes in the external iliac chains as well as a node directly adjacent to the bladder on the right. Small bilateral groin lymph nodes, not definitely abnormal. An additional lymph node is seen in the left para aortic region measuring 2 cm. A tiny nonobstructing stone is seen in the mid right kidney. The lung bases appear c lear. A cyst is seen in the right lobe of the liver. Directly adjacent to the gallbladder, there is a n inhomogeneous area as well as near the falciform ligament which could represent areas of focal fat. Gallbladder is unremarkable. No biliary dilatation is seen. The spleen shows scattered calcification s. The adrenals and pancreas are unremarkable. There is diverticulosis of the lower descending and si gmoid colon but no evidence of diverticulitis. No small bowel or gastric dilatation is seen. There ar e degenerative changes and scoliosis in the lumbar spine. A right hip prosthesis is seen which create s artifact in the pelvis. Aorta is calcified but normal in diameter. IMPRESSION: Infiltrative mass in the posterior pelvis with invasion of the cervix, bladder and pelvic floor. Sharon cent adenopathy.
[2019-07-09] MEDS: Omnipaque 350 MG/ML 100 ML BTL IJ (09:55)
== END 2019-07-09 02:01 ==
PROVIDERS: PCP Nurse Practitioner Family; Visit Provider Nurse Practitioner Gerontology
DX: R31.0 Gross hematuria (principal); R10.2 Pelvic and perineal pain; N13.30 Unspecified hydronephrosis; R19.09 Other intra-abdominal and pelvic swelling, mass and lump; R59.0 Localized enlarged lymph nodes; K76.89 Other specified diseases of liver; Z96.641 Presence of right artificial hip joint
CPT/HCPCS: 74178; 82565; J3490

== ENCOUNTER → 2019-07-10 13:55 | Outpatient (BNVA) | payer OTHER, SELFPAY | PROVIDERS: PCP Nurse Practitioner Family; Referring Provider Nurse Practitioner Family; Visit Provider Nurse Practitioner Gerontology | DX: R19.00 Intra-abdominal and pelvic swelling, mass and lump, unspecified site (principal); I10 Essential (primary) hypertension | CPT/HCPCS: 52000; 99214 ==

== ENCOUNTER 2019-07-12 06:12 | Day surgery (SDC) | payer OTHER, SELFPAY ==
[2019-07-12] VITALS (7 sets, daily range): BP systolic 116–142; BP diastolic 60–96; PULSE 62–70; RESP 11–18; TEMP 36.3–36.7; O2SAT 94–100
--- NOTE | 2019-07-12 06:39 | W.PM.HP.N ---
Date of service: 07/12/19 Time of Service: 06:40 Assessment and Plan Assessment and plan (1) Pelvic mass: Status: Acute Assessment and plan: She presents for hysteroscopy with D&C as well has transurethral biopsy of the pelvic mass. Once a tissue diagnosis has been made, further recommendations can occur. History of Present Illness History of Present Illness Chief Complaint: Pelvic mass Narrative: This is a 78-year-old woman who was identified as having gross hematuria. She underwent a CT urogram which demonstrated a left-sided pelvic mass which is palpable on vaginal exam. On cystoscopy, there was some nodular in progressions onto the left trigone. She has left hydronephrosis with loss of renal parenchyma on that side. She presents now for biopsy of the mass both vaginally and through the bladder. Review of Systems Narrative: No fevers or chills No vision change or dysphasia No diabetes or thyroid No shortness of breath, cough or hemoptysis No chest pain or palpitations No nausea, vomiting, hepatitis, ulcers, jaundice, diarrhea or constipation No seizures, strokes or peripheral neuropathy No bleeding disorders or anemia No gout PFSH Social History Smoking/Tobacco Use Status: Former Tobacco Use Quit Date: 05/09/69 Alcohol Intake: current Alcohol Intake frequency: a few times a week Alcohol type: beer and wine Drug use: Never Substance use type: does not use Details: has tried but doesn't use. Current gender identity: female Do you feel safe at home: Yes Do you feel safe in your relationship?: Yes Meds Home Medications and Allergies Home Medications Medication Instructions Recorded Confirmed Type losartan 25 mg PO DAILY tab-cap 04/28/15 07/12/19 History [employer] Action Asthma Kit #1 kit 05/13/15 07/02/19 Rx acetaminophen 1,000 mg PO Q8H PRN #90 cap 02/24/18 07/12/19 Rx aspirin [Aspir-81] 81 mg PO BID #80 tab-cap 02/24/18 07/12/19 Rx atorvastatin [Lipitor] 10 mg PO DAILY #90 tab 04/15/19 07/12/19 Rx Allergies Allergy/AdvReac Type Severity Reaction Status Date / Time ciprofloxacin [From Cipro] Allergy HIVES Unverified 07/12/19 06:37 oxycodone [From Percocet] AdvReac Intermediate Nausea & Verified 07/12/19 06:37 Vomiting Exam Narrative Exam Narrative: She is in no obvious distress. She is cooperative. Her vital signs documented elsewhere Her chest wall motion is normal. Her lungs are clear on auscultation. Cardiac exam shows a regular rate and rhythm. Her abdomen is soft with no masses. She is awake, alert and oriented Results Last Vital Signs Temp 36.6 C 07/12/19 06:20 Pulse 70 07/12/19 06:20 Resp 18 07/12/19 06:20 BP 136/80 07/12/19 06:20 Pulse Ox 96 07/12/19 06:20
[2019-07-12] MEDS: Lactated Ringers 1,000 ML 80 ML IV (07:12)
[2019-07-12] MEDS: ceFAZolin 2 GM/50 ML BAG IVPB (07:32)
[2019-07-12] MEDS: GENTAMICIN 120 MG in Normal Saline 100 ML 200 MG IVPB (07:45)
--- NOTE | 2019-07-12 08:25 | BLADDER_PTH ---
PATIENT: Crystal Man LOC: [facility] U#:[id number] AGE/SX: 78/F ROOM: RE07/12/[address]: Pj Stevens MD : 1940 BED: DIS: 07/12/2019 SPEC #: [id number] RECD: 07/12/19 12:34 STATUS: CLAY REQ #: [id number] BHAKTI: 07/12/19 08:[address]: Pj Stevens DEPT: Surgical Specimen RECD BY: Ana María Bower ENTERED: 07/12/19 12:34 SP TYPE: Bladder OTHR DR: Anastasiia Rankin Tissues: 1 - BLADDER BIOPSY Procedures: IMMUNOPEROXIDASE STAIN GROSS AND MICRO LEVEL 5 Comments: [id number]
--- NOTE | 2019-07-12 08:42 | W.PM.DSUDISC ---
Discharge Plan Disposition Patient Disposition: HOME Condition: Stable Discharge Details Reason For Visit: PELVIC MASS Attending Provider: Pj Stevens Primary Care Provider: Anastasiia Rankin Home Meds and New Rx's Prescriptions: No Action gabapentin 300 mg capsule 300 mg PO TID PRN PRN (Reason: pelvic pain) Qty: 20 RF: 0 losartan 25 MG tablet 25 mg PO DAILY RF: 0 (DME) [employer] Action Asthma Kit 1 EACH kit 1 ea Miscellaneous Q4H PRN Qty: 1 RF: 0 atorvastatin [Lipitor] 10 mg tablet 10 mg PO DAILY Qty: 90 RF: 0 acetaminophen 500 mg capsule 1,000 mg PO Q8H PRN (Reason: pain) Qty: 90 RF: 0 aspirin [Aspir-81] 81 MG tablet,delayed release (DR/EC) 81 mg PO BID Qty: 80 RF: 0 Discharge Instructions Additional Instructions: Followup @ 1 week for pathology results script for Gabapentin sent to pharmacy Stand Alone Forms: [facility] Cysto Activity:: Activity as Tolerated Shower/Bathe:: 24 hours Diet:: As Tolerated Discharge Orders Discharge Orders: Discharge Order (Routine); Ordered 07/12/19 Ordered By: Pj Stevens DS: Diagnosis Discharge Diagnosis (1) Pelvic mass: Status: Acute
[2019-07-12] MEDS: fentaNYL 100 MCG/2 ML VIAL IVP (08:53)
--- NOTE | 2019-07-12 12:30 | ROE_ITS ---
DATE: JULY 12, 2019 Preoperative Diagnosis: Pelvic mass Postoperative Diagnosis: Same with pathology pending Operation: Cystoscopy with transurethral resection, biopsy pelvic mass Anesthesia: General Surgeon: Pj Stevens M.D. Complications: None Estimated Blood Loss: Minimal History: This is a 78 year-old woman who was initially referred with gross hematuria. On evaluation she was found to have a large left-sided pelvic mass which was causing left hydronephrosis and loss of renal architecture. We did a cystoscopy in the office which showed some nodular areas in the left trigone which appeared to have intact mucosa over the top. No papillary components were seen. It is unclear whether this pelvic mass has a bladder primary or if the primary is outside the urinary tract. She presents for cystoscopy with transurethral biopsy of the pelvic mass. She has also consented for an examination under anesthesia, hysteroscopy and dilatation and curettage by Dr. Fallon. Procedure: The patient was brought to the Operating Room on 07/12/19. After successful induction of general anesthesia she was placed in the dorsal lithotomy position. Initial pelvic examination by Dr. Fallon revealed a pelvic mass and a very narrow cervix making hysteroscopy and dilatation and curettage technically impossible. I then passed a #24 Irish resectoscope sheath through the urethra into the bladder. A 30 degree lens was used to inspect the nodular mass impinging on the left trigone. A few bullous edematous areas were seen. Transurethral resection biopsies of the mass were taken and sent to pathology for permanent section. Any bleeding points were cauterized with the coagulation current. Bimanual pelvic examination revealed the fixed mass in the left hemipelvis. Digital rectal exam showed no mucosal abnormalities but the pelvic mass was clearly palpable on digital examination. The patient tolerated this procedure well with no complications.
--- NOTE | 2019-07-12 20:40 | W.PM.OP ---
Date of service: 07/12/19 Time of Service: 09:00 Operative Note Operative Note DATE OF PROCEDURE: 07/12/19 PRE-OP DIAGNOSIS: 1. Pelvic mass involving the uterus and bladder 2. Obstructive uropathy POST-OP DIAGNOSIS: same PROCEDURE: Attempted hysteroscopy D&C SURGEON: Tenzin Fallon ANESTHESIA: TAMAR ESTIMATED BLOOD LOSS: 5 PATHOLOGY: none sent COMPLICATIONS: None Patient was transported to: PACU Patient's condition: stable Findings: 1. Limited vaginal access due to mass-effect distorting the upper vagina. 2. 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 The patient was prepped and draped in the usual sterile manner. Vaginal access was quite poor in this patient. A morillo speculum was placed in the vagina with good visualization of the cervix. There was significant mass-effect anteriorly displacing the cervix to the patient's right. The anterior lip of the cervix was grasped with a single-tooth tenaculum. Attempts at dilation were made with a Mackey dilator but were unsuccessful. I was unable to enter the endometrial cavity through the cervix with any instrumentation. Likely this was due to a combination of cervical stenosis and mass-effect. The decision was made to abandon the procedure turning the case over to Dr. Stevens for cystoscopy and transurethral resection.
== END 2019-07-12 10:50 | disposition home or self-care (01) ==
PROVIDERS: Obstetrics & Gynecology; PCP Nurse Practitioner Family; Visit Provider Urology
PROC: 0TBB8ZZ Excision of Bladder, Via Natural or Artificial Opening Endoscopic (ICD-10-PCS; CPT 52224; principal; 2019-07-12 07:30)
PROC: 0UDB8ZZ Extraction of Endometrium, Via Natural or Artificial Opening Endoscopic (ICD-10-PCS; CPT 58558; 2019-07-12 07:30)
DX: C83.36 Diffuse large B-cell lymphoma, intrapelvic lymph nodes (principal); R31.9 Hematuria, unspecified; N13.30 Unspecified hydronephrosis; N88.2 Stricture and stenosis of cervix uteri; Y66 Nonadministration of surgical and medical care; I10 Essential (primary) hypertension
CPT/HCPCS: 58558; 52224; 88305; NC; 88307; 88361; J0690; J1100; J1580; J1885; J2001; J2250; J2405; J2704; J3010

== ENCOUNTER → 2019-07-19 07:45 | Outpatient (BNVA) | payer OTHER, SELFPAY | PROVIDERS: PCP Nurse Practitioner Family; Referring Provider Nurse Practitioner Family; Visit Provider Urology | DX: C85.90 Non-Hodgkin lymphoma, unspecified, unspecified site (principal); R31.9 Hematuria, unspecified; N39.0 Urinary tract infection, site not specified; I10 Essential (primary) hypertension | CPT/HCPCS: 81003; 99214 ==

== ENCOUNTER 2019-07-19 13:09 | Outpatient (REF) | payer OTHER, SELFPAY | END 2019-07-19 13:29 | LOC: LBN 13:09 | PROVIDERS: PCP Nurse Practitioner Family; Visit Provider Urology | DX: R31.9 Hematuria, unspecified (principal); R19.00 Intra-abdominal and pelvic swelling, mass and lump, unspecified site | CPT/HCPCS: 87086 ==

== ENCOUNTER 2019-08-02 01:11 | Outpatient (CLI) | payer OTHER, SELFPAY ==
--- NOTE | 2019-08-02 10:45 | DI.US_ITS ---
APPROVED REPORT EXAM: Comprehensive 2D, Doppler, and color-flow Echocardiogram Patient Location: Out-Patient Mop Maker: Nicole Felix RDCS (AE) Indications: Lymphoma, Anthracycline Conclusion Normal left ventricular wall thickness and chamber size. Estimated ejection fraction is normal at 60 to 65%. There are no regional wall motion abnormalities There is no chamber enlargement The aortic valve is mildly sclerotic and trileaflet without regurgitation or stenosis There is trace mitral and tricuspid regurgitation. Trace pulmonic regurgitation Wall motion Left Ventricle The left ventricle is normal size. The left ventricular systolic function is normal. The left ventric ular ejection fraction is within the normal range. There is normal left ventricular wall thickness. T here is normal LV segmental wall motion. There is no ventricular septal defect visualized. LVEF is 60 -65%. Right Ventricle The right ventricle is normal size. The right ventricular systolic function is normal. Atria The left atrium size is normal. The right atrium size is normal. The interatrial septum is intact wit h no evidence for an atrial septal defect. Aortic Valve The Aortic valve is sclerotic. Aortic valve is trileaflet. There is no aortic valvular stenosis. No a ortic regurgitation is present. Mitral Valve The mitral valve is normal in structure. No evidence of mitral valve stenosis. Trace mitral regurgita tion. Tricuspid Valve The tricuspid valve is normal in structure. There is no tricuspid valve stenosis. Trace tricuspid reg urgitation. Pulmonic Valve Pulmonic valve is not well visualized. There is no pulmonic valvular stenosis. Trace pulmonic regurgi tation. Great Vessels The aortic root is normal in size. The ascending aorta is normal in size. Aortic arch is not well vis ualized. IVC is normal in size and collapses >50% with inspiration. Pericardium There is no pericardial effusion. There is no pleural effusion. 2D Dimensions IVSD d PLAX 0.85 cm F: 0.6-1.0 LV Vol A2C d MOD 76.7 mL LVPW d PLAX 0.85 cm F: 0.6 - 1.0 LV Vol A4C d MOD 79.8 mL LVID d PLAX 4.15 cm F: 3.8 - 5.2 LA vol/ BSA A2C s A-L 33.0 mL/m2 LVDs 2.40 cm F: 2.2 - 3.5 LA vol/ BSA A4C s A-L 25.4 mL/m2 Ao Root d 3.29 cm F: 2.7 - 3.3 LA Vol/ BSA Biplane s A-L 30.2 mL/m2 Ao Asc Diam d 2.93 cm F: 2.3 - 3.1 LA Area A4C s MOD 15.46 cm2 LV EF Teichholz 72.5 % LA Area A2C s MOD 18.39 cm2 LVEF (Contreras's) 47.63 % F: 54 - 74 LV EF A4C MOD 49.0 % LV Volume 63.18 mL F: 46 - 106 LV EF A2C MOD 45.1 % LV Volume Index 37.16 mL/m2 F: 29 - 61 LV EF Biplane MOD 47.6 % LV Vol Biplane MOD 79.6 mL FS 41.20 % M-Mode TAPSE 2.58 cm (M/F) <1.7 LV Diastology MV E' medial 0.065 (>0.07 m/s) E/A Ratio 0.7 LV E/e MED 8.20 (<14) MV E Vmax 0.53 (0.4-1.3 m/s) MV E' lateral 0.084 (>0.1 m/s) MV A Vmax 0.80 (0.4-1.3 m/s) LV E/e LAT 6.30 (<14) MV E/A Ratio 0.63 MV E/E' medial 8.21 MV E/E' lateral 6.30 Aortic Valve LVOT Area 2.58 cm2 AoV Area Vmax 1.90 cm2 LVOT Vmax 0.85 m/s AoV Area/ BSA (Vmax) 1.12 cm2/m2 LVOT Mean Robby. 0.53 m/s TAHIRA Mean Robby. 1.59 cm2 LVOT Peak Grad 2.9 mmHg TAHIRA Mean Robby. Index 0.94 cm2/m2 LVOT Mean Grad 1.4 mmHg LVOT VTI 0.149 m LVOT Diam s 1.80 cm (M/F) 1.5-2.5 AoV Vmax 1.16 (0.5-1.3 m/s) Velocity Ratio 0.73 AoV Mean Robby. 0.86 m/s AoV Peak Grad 5.4 mmHg LVOT SV 38.51 mL AoV Mean Grad 3.2 (<5 mmHg) AoV VTI 0.219 (0.18-0.25 m) AoV Area VTI 1.75 (2.5-4.5 cm2) AoV Area/ BSA (VTI) 1.03 cm/m2 Mitral Valve MV DT 404 (160-240 msec) MV PHT 117 msec MV Area PHT 1.88 cm2 MV VTI 0.194 m MV VTI Annulus 0.194 m Pulmonary Valve PV Vmax 0.71 (0.5-1.5 m/s) RVOT Peak Gr. 1.61 mmHg PV Peak Grad 2.0 mmHg RVOT Mean Gr. 0.75 mmHg PV Mean Grad 1.0 mmHg RVOT VTI 0.115 m PV VTI 0.122 m RVOT Vmax 0.63 m/s Tricuspid Valve TR Peak Grad 18.9 mmHg TR Vmax 2.18 m/s RA Pressure 3.00 mmHg RVSP (TR) 21.9 mmHg
== END 2019-08-02 01:31 ==
PROVIDERS: PCP Nurse Practitioner Family; Visit Provider Internal Medicine Hematology & Oncology
DX: C83.36 Diffuse large B-cell lymphoma, intrapelvic lymph nodes (principal); Z92.21 Personal history of antineoplastic chemotherapy; I35.8 Other nonrheumatic aortic valve disorders; I10 Essential (primary) hypertension
CPT/HCPCS: 93306

== ENCOUNTER 2019-08-10 17:36 | Outpatient (REF) | payer OTHER, SELFPAY | END 2019-08-10 17:56 | LOC: LBN 17:36 | PROVIDERS: PCP Nurse Practitioner Family; Visit Provider Urology | DX: N39.0 Urinary tract infection, site not specified (principal); R19.00 Intra-abdominal and pelvic swelling, mass and lump, unspecified site | CPT/HCPCS: 87086 ==

== ENCOUNTER 2019-08-22 17:13 | Inpatient (IN) | payer OTHER, SELFPAY ==
[2019-08-22] VITALS (32 sets, daily range): BP systolic 134–174; BP diastolic 55–91; PULSE 88–106; RESP 14–37; TEMP 36.7–37.6; O2SAT 90–98
--- NOTE | 2019-08-22 16:40 | W.ED.GENAD ---
Discharge Plan Disposition Patient Disposition: [facility] Condition: Stable Discharge Details Chief Complaint: Chest Pain Clinical Impression: Lymphoma, Chest pain Admit Date/Time: 08/22/19 21:52 Admit Provider: Stephan Millard Attending Provider: Stephan Millard Primary Care Provider: Anastasiia Rankin ED Provider: Brenda Stephens Discharge Data Discharge Date/Time-TO BE ENTERED AT DEPARTURE: 08/22/19 22:31 Medical Decision Making <DEISY Nation - Last Filed: 08/22/19 22:47> Patient is a pleasant 79 year old female, brought in via EMS, with c/c of chest and back pain. Patient was recently diagnosed with B-cell lymphoma. She was hospitalized at [facility] with discharge on 08/20/2019 after receiving her first dosing of R-CHOP at 75% dose. She states she been feeling well yesterday but that this afternoon, when trying to go upstairs to take a nap, she had a sudden onset of chest pain with she reports felt like an elephant sitting on my chest. She reports that the chest pain has since gotten slightly better but is now having severe pain that goes into her back and lower back. She is having difficulty getting into a comfortable position. She denies SOB. States that yesterday she felt slightly nauseate but denies vomiting. She is never had pain like this historically. States the pain has been constant and severe. Has not noted any relieving or worsening symptoms Past medical history significant for lymphoma, pelvic mass, hematuria, hypertension, hyperlipidemia. On exam, patient appears very uncomfortable. She is writhing pain. Is endorsing chest pain and lower back pain. She is tachycardic on auscultation. Lungs are clear. No back pain elicited with palpation. She does have back pain elicited with palpation of her abdomen however. Secondary to her pain frequent movement, I was having difficulty with palpation of the abdomen. EKG was reviewed by Dr. Perkins. Please see his notes. No acute ischemic changes are noted. Based on the chest pain and pain radiating into the back, I am primarily concerned for dissection at this point. We will have the patient immediately go for a CT thorax, abdomen and pelvis. Also considered ACS, tumor complications, drug reaction versus other etiology. I did go over the patient and did not note dissection or aneurysm. However, I was able to note a very large bladder the patient had just voided prior to study. She reports that she has been having difficulty with urination since last March. Postvoid residual she is over 900 cc. Discussed placing catheter. Patient is in agreement. She did not have a catheter in place during her recent admission. She is followed by Dr. Stevens and did have procedure completed with him last month at which time biopsy leading to the diagnosis of lymphoma was made. Catheter placement by nursing staff without difficulty. CT reviewed by radiologist: FINDINGS: No evidence of pulmonary embolism. Normal thoracic aorta without aneurysm or dissection. No airspace consolidation, pleural effusion or pneumothorax. No significant mediastinal lymphadenopathy. There is a calcified granuloma in the superior right lower lobe and there are calcified right hilar lymph nodes. There is a right-sided MediPort. No acute fracture. IMPRESSION: No acute findings. FINDINGS: There is stable left hydronephrosis and hydroureter to the level of the distal left ureter. The previously described left pelvic mass appears stable. The liver and gallbladder, right kidney, adrenal glands, pancreas and spleen are unremarkable. There is atherosclerosis of the abdominal aorta without aneurysm or dissection. No evidence of bowel obstruction. Nonvisualized appendix. No free fluid or free air. There is a right hip replacement. There are degenerative changes of the lumbar spine. No acute fracture. IMPRESSION: Stable pelvic mass and left hydroureteronephrosis as above. Labs reviewed. No leukocytosis. Normal neutrophil count. Labs significant for anion gap of 12.7. BUN 21. Creatinine 1.29, this is up from 1.13 on 07/09/2019. Initial troponin is less than 0.05. Patient's alk phos is elevated at 121. Urine without findings to suggest infection. We were contacted by Dr. Wray with [facility] [place]ology who is helping to care for the patient. We discussed patients presentation. She advised that one of the injections the patient obtained can cause bone pain and may be the source of the patient's severe discomfort.. We discussed the R-CHOPS. She advised that to these medications are potentially cardiotoxic although one typically has more of a delayed presentation. We did discuss disposition. She felt that we should treat as we typically would. Spoke with Dr. Stevens. He agreed with the plan set forth so far. He advised that he will see the patient and the hospital, assuming admission, tomorrow. He did want ensure the patient is not actively constipated as this could be contributing to her obstruction. Plan for repeat troponin. Given patient's severe discomfort and sudden onset of pain, I do believe that she would be appropriate for continued observation if this and second troponin is without significant bump. Her cardiotoxic meds, level of discomfort and recent lymphoma diagnosis does have any concern. We did discuss palliative care with the patient and she is in agreement with referral. Repeat troponin <0.05. Patient is feeling somewhat improved. Patient I discussed disposition. Given her history, new medications with potential cardiotoxicity and severe pain, I do feel that admission is appropriate. I consulted with Dr. Millard who agrees to admission. Patient does agree to admission. Palliative care referral was placed. Patient will be evaluated by Dr. Stevens tomorrow. All of her questions and concerns were addressed and she is in agreement this plan. <Shon Perkins DO - Last Filed: 08/22/19 17:31> EKG 17: 21 Rate 102, intervals normal, sinus tachycardia, occasional PVC, no significant ST elevation or depression, inverted T wave is present in V1, Q waves present in lead III, this is present on prior EKG from 2016. No other significant acute changes or abnormalities. HPI <DEISY Nation - Last Filed: 08/22/19 22:47> General Mode of arrival: EMS. Date/Time Provider Initiated Documentation: 08/22/19 17:24. Limitations to Documentation: no limitations. Information obtained by: patient, EMS and RN notes reviewed. History of Present Illness 79 year old F presents to the emergency department with the chief complaint of severe pain in chest and back, described as severe, with intensity rated at 9. Quality is described as sharp, and is localized to the chest. Patient reports radiation to back. Patient started experiencing this hour(s) and it has been constant. No relieving factors improve symptom(s), No exacerbating factors reported . Patient notes chest pain; denies diaphoresis, fever/chills, nausea/vomiting, rash and shortness of breath. Patient did receive the following treatments prior to arrival, none Related Data Home Medications Medication Instructions Recorded Confirmed losartan 25 mg PO DAILY tab-cap 04/28/15 08/22/19 Aerogear Action Asthma Kit #1 kit 05/13/15 07/02/19 acetaminophen 1,000 mg PO Q8H PRN #90 cap 10/19/18 03/05/20 aspirin [Aspir-81] 81 mg PO BID #80 tab-cap 02/24/18 07/12/19 atorvastatin [Lipitor] 10 mg PO DAILY #90 tab 04/15/19 08/22/19 amitriptyline 25 mg tablet 25 mg PO QHS #30 tab 07/19/19 08/22/19 ondansetron 4 mg disintegrating 4 mg PO Q8H PRN #20 tab 07/19/19 08/22/19 tablet tramadol 50 mg tablet 50 mg PO Q6H PRN #30 tab MDD 4 07/19/19 08/22/19 acetaminophen 650 mg PO Q6H PRN 08/22/19 08/22/19 acyclovir 400 mg PO BID 08/22/19 08/22/19 allopurinol 300 mg PO DAILY 08/22/19 08/22/19 levofloxacin 750 mg PO DAILY 08/22/19 08/22/19 omeprazole 20 mg PO DAILY 08/22/19 08/22/19 polyethylene glycol 3350 17 g PO DAILY PRN 08/22/19 08/22/19 prednisone 100 mg PO DIRECTED 08/22/19 08/22/19 sodium fluoride-pot nitrate 1 applic BID 08/22/19 08/22/19 [PreviDent 5000 Sensitive] Previous Rx's Medication Instructions Recorded Aerogear Action Asthma Kit #1 kit 05/13/15 acetaminophen 1,000 mg PO Q8H PRN #90 cap 02/24/18 aspirin [Aspir-81] 81 mg PO BID #80 tab-cap 02/24/18 atorvastatin [Lipitor] 10 mg PO DAILY #90 tab 04/15/19 amitriptyline 25 mg tablet 25 mg PO QHS #30 tab 07/19/19 ondansetron 4 mg disintegrating 4 mg PO Q8H PRN #20 tab 07/19/19 tablet tramadol 50 mg tablet 50 mg PO Q6H PRN #30 tab MDD 4 07/19/19 Allergies Allergy/AdvReac Type Severity Reaction Status Date / Time ciprofloxacin [From Cipro] Allergy HIVES Unverified 07/12/19 06:37 oxycodone [From Percocet] AdvReac Intermediate Nausea & Verified 07/12/19 06:37 Vomiting General NINA: 4 Review of Systems <Brenda Piburn, PA - Last Filed: 08/22/19 22:47> Constitutional Constitutional: Reports as per HPI, Denies chills, Denies fever(s), Denies headache(s), Denies lethargy and Denies poor appetite Eyes Eyes: Denies change in vision ENT Ears, Nose, Mouth, and Throat: Denies dizziness and Denies headache(s) Cardiovascular Cardiovascular: Reports as per HPI, Reports chest pain, Denies dyspnea and Denies dyspnea on exertion Respiratory Respiratory: Reports as per HPI, Denies chest congestion, Denies cough, Denies pain on inspiration, Denies pain with cough, Denies dyspnea, Denies dyspnea on exertion and Denies wheezing Gastrointestinal Gastrointestinal: Reports as per HPI, Denies abdominal pain, Denies diarrhea, Reports nausea (last night) and Denies vomiting Musculoskeletal Musculoskeletal: Reports as per HPI and Denies back pain Integumentary/Breasts Skin/Breast: Reports as per HPI and Denies rash Neurologic Neurologic: Reports as per HPI, Denies dizziness and Denies headache(s) Allergic/Immunologic Allergic/Immunologic: Denies wheezing PFSH <DEISY Nation - Last Filed: 08/22/19 22:47> Medical History Anemia (Chronic) Diverticulosis (Acute) Essential hypertension (Chronic 04/28/15) Fatigue (Acute) Hematuria (Acute) Hydronephrosis, left (Acute) Hyperlipidemia, unspecified (Chronic 04/28/15) Lymphoma (Acute) Open head injury (Acute) Prediabetes (Acute) Primary osteoarthritis of right hip (Chronic 11/16/17) Pyelonephritis (Acute) Surgical History History of appendectomy (Chronic) History of ectopic (Chronic) required surgical intervention History of lithotripsy (Chronic) History of right hip replacement (Acute) Social History Smoking/Tobacco Use Status: Former Tobacco Use Quit Date: 05/09/69 Alcohol Intake: current Alcohol Intake frequency: a few times a month Alcohol type: beer and wine Drug use: Never Substance use type: does not use Details: has tried but doesn't use. Current gender identity: female Do you feel safe at home: Yes Do you feel safe in your relationship?: Yes Exam <DEISY Nation - Last Filed: 08/22/19 22:47> Const General: cooperative, well developed, anxious and ill appearing acutely (patient appears very uncomfortable, moving frequently) Nutritional Appearance: average body habitus and well nourished Orientation: alert, awake and oriented x3 HENMT Head: normal to inspection Ears: hearing grossly normal bilaterally Mouth: moist mucous membranes Chest Chest: normal inspection of the chest, normal palpation of entire chest wall and no crepitus Resp Effort & Inspection: normal respiratory effort, able to speak in complete sentences and no respiratory distress Auscultation: clear to auscultation bilaterally, no rales, no rhonchi and no wheezes Cardio Rate: regular rate Rhythm: regular rhythm Heart Sounds: S1 normal and S2 normal GI Inspection: normal to inspection, no edema and non-distended Palpation: soft, no hepatosplenomegaly, not firm, no guarding, not rigid and nontender Auscultation: normal bowel sounds Back/Spine/Pelvis Back: no CVA tenderness Thoracic/Lumbar Spine: thoracic and lumbar spine normal to inspection Skin General skin exam: no rashes or lesions noted Trauma: no lacerations or abrasions Neuro General: patient alert, patient awake and patient oriented x3 Cognition: normal cognition Speech: speech normal Gait: normal gait Extrem General: normal to inspection, capillary refill normal, no pedal edema, no calf tenderness and normal gait Psych Appearance: grossly normal and well kempt Mental Status: mental status grossly normal Speech and Movement: speech and movement normal
[2019-08-22 17:33] LABS: Lactate 1.1 mmol/L (0.6-1.4)
[2019-08-22] MEDS: fentaNYL 100 MCG/2 ML VIAL IVP (17:35)
[2019-08-22 17:36] LABS: Abs Immature Grans 0.08 k/cumm (0.0-0.09); HCT 36.5 % (36.0-46.0); Mean Corp. HGB Concentration 32.9 g/dL (32.0-36.0); Mean Corpuscular Hemoglobin 30.2 pg (27.0-33.0); Mean Corpuscular Volume 91.9 fL (80-95); Mean Platelet Volume 9.3 fL (8.0-11.0); Platelet Count 163 x1000/uL (130-400); RBC 3.97 m/cumm (4.00-5.20); RBC Distribution Width 12.8 % (11.7-14.6); White Blood Cell Count 6.66 k/cumm (4.4-10.8)
[2019-08-22] MEDS: Ondansetron 4 MG/2 ML VIAL IVP (17:36)
[2019-08-22 17:50] LABS: INR 1.1 (0.9-1.1); PTT Activated 23.4 sec (21.0-31.4); Prothrombin Time 10.6 sec (9.3-11.0)
[2019-08-22 17:53] LABS: ALT 19 U/L (14-59); AST 16 U/L (15-37); Albumin 3.4 g/dL (3.4-5.0); Alkaline Phosphatase 121 U/L (46-116); Anion Gap 12.7 mmol/L (3-11); BUN 21 mg/dL (7-18); Bilirubin, Total 0.6 mg/dL (0.2-1.0); CO2 32.3 mmol/L (21.0-32.0); CREATININE 1.29 mg/dL (0.55-1.02); Calcium 9.3 mg/dL (8.5-10.1); Chloride 98 mmol/L (98-107); Estimated GFR 39.76 (mL/min/1.73m2); Glucose 91 mg/dL (74-106); Potassium 4.5 mmol/L (3.5-5.1); Sodium 143 mmol/L (136-145); Troponin I < 0.05 ng/Ml (<0.06)
[2019-08-22] MEDS: Omnipaque 350 MG/ML 100 ML BTL IJ (17:54)
[2019-08-22] MEDS: Normal Saline - Diluent 50 ML VIAL IV (17:55)
--- NOTE | 2019-08-22 17:55 | DI.CT_ITS ---
EXAM: CT THORAX ABD/PEL CTA CLINICAL HISTORY: severe CP radiating into back and abdomen. TECHNIQUE: Imaging Protocol: Axial computed tomography images with coronal and sagittal reformatted images were created and reviewed CONTRAST MATERIAL: Intravenous: Omnipaque 350 Contrast volume:85ml contrast route:IV - Oral: No COMPARISON: CT ABDOMEN PELVIS WO/W from 07/09/2019 FINDINGS: CHEST: Heart and great vessels: There is no evidence pulmonary emboli or aortic dissection. There are no pleural or pericardial effusions. Lungs: No evidence of pneumothorax. There is a small calcified granuloma in the superior segment of the right lower lobe and small calcified hilar lymph nodes. No enlarged lymph nodes are seen.. Bones: There is no evidence of spine or rib fracture. Degenerative disc changes are seen. ABDOMEN: Liver: Normal density. No measurable mass. Gallbladder and biliary tract: No radiodense calculus or dilation. Pancreas: Normal density, no abnormal calcifications or inflammatory process. Spleen: Normal. Kidneys: Again noted is left hydronephrosis and left renal parenchymal atrophy due to obstruction of by the pelvic mass. Adrenal glands: No masses seen. Abdominal Aorta: Abdominal portion calcified but non-dilated. The branch vessels appear patent. PELVIS: Bladder: Invasive pelvic mass is again noted, not grossly changed.. Urinary bladder is again noted t o be distended. Bowel: No obstruction or bowel wall thickening. Peritoneal cavity: No ascites, focal collection or mesenteric inflammatory response. Bones: No suspicious lesions or fractures. A right hip prosthesis is noted. Degenerative changes in the spine. Reproductive organs: Within normal limits. Lymph nodes: Unremarkable. Impression: Stable appearance of invasive pelvic mass and left hydronephrosis. No acute abnormalities are seen. DATA REPOSITORY: All CT scans at this facility are submitted to the National Radiology Data Registry (NRDR) Dose Index Registry (DIR) with the [employer] (ACR). RADIATION OPTIMIZATION: All CT scans at this facility use at least one of these dose optimization te chniques: automated exposure control; mA and/or kV adjustment per patient size (includes targeted exa ms where dose is matched to clinical indication); or iterative reconstruction.
[2019-08-22 17:59] LABS: Absolute Lymphocyte Count 1.33 k/cumm (1.2-3.4); Absolute Monocyte Count 0.53 k/cumm (0.11-0.7); Absolute Neutrophil Count 4.33 k/cumm (1.2-6.7); Atypical Lymphocytes % 1; Diff Comment Manual Differential; RBC Morphology Normal
[2019-08-22] MEDS: Normal Saline 500 ML IV (18:17)
[2019-08-22] MEDS: Normal Saline Flush 10 ML SYR IVP (18:17)
[2019-08-22 18:24] LABS: Bilirubin Negative (Negative); Blood Negative (Negative); Clarity Clear (Clear); Glucose Negative (Negative); Ketones Negative (Negative); Leukocyte Esterase Negative (Negative); Nitrite Negative (Negative); Urobilinogen 0.2 EU/dL (Up TO 0.2); pH 8.5 (5-8)
--- NOTE | 2019-08-22 18:51 | DI.VRAD_ITS ---
PROCEDURE INFORMATION: Exam: CT Angiography Chest With Contrast Exam date and time: 08/22/2019 5:21 PM Age: 79 years old Clinical indication: Type not specified; Generalized; Patient HX: Chest pain and abdominal pain radiating to back. HX of cancer diagnosed 07/09/19 TECHNIQUE: Imaging protocol: Computed tomographic angiography of the chest with intravenous contrast. 3D rendering: MIP and/or 3D reconstructed images were created by the technologist. Radiation optimization: All CT scans at this facility use at least one of these dose optimization techniques: automated exposure control; mA and/or kV adjustment per patient size (includes targeted exams where dose is matched to clinical indication); or iterative reconstruction. Contrast material: OMNIPAQUE 350; Contrast volume: 85 ml; Contrast route: IV; COMPARISON: No relevant prior studies available. FINDINGS: No evidence of pulmonary embolism. Normal thoracic aorta without aneurysm or dissection. No airspace consolidation, pleural effusion or pneumothorax. No significant mediastinal lymphadenopathy. There is a calcified granuloma in the superior right lower lobe and there are calcified right hilar lymph nodes. There is a right-sided MediPort. No acute fracture. IMPRESSION: No acute findings. PROCEDURE INFORMATION: Exam: CT Angiography Abdomen and Pelvis With Contrast Exam date and time: 08/22/2019 5:21 PM Age: 79 years old Clinical indication: Type not specified; Generalized; Patient HX: Chest pain and abdominal pain radiating to back. HX of cancer diagnosed 07/09/19 TECHNIQUE: Imaging protocol: Computed tomographic angiography of the abdomen and pelvis with intravenous contrast material. 3D rendering: MIP and/or 3D reconstructed images were created by the technologist. Radiation optimization: All CT scans at this facility use at least one of these dose optimization techniques: automated exposure control; mA and/or kV adjustment per patient size (includes targeted exams where dose is matched to clinical indication); or iterative reconstruction. COMPARISON: No relevant prior studies available. FINDINGS: There is stable left hydronephrosis and hydroureter to the level of the distal left ureter. The previously described left pelvic mass appears stable. The liver and gallbladder, right kidney, adrenal glands, pancreas and spleen are unremarkable. There is atherosclerosis of the abdominal aorta without aneurysm or dissection. No evidence of bowel obstruction. Nonvisualized appendix. No free fluid or free air. There is a right hip replacement. There are degenerative changes of the lumbar spine. No acute fracture. IMPRESSION: Stable pelvic mass and left hydroureteronephrosis as above. Dictated and Authenticated by: Raza Breen MD. Ordering:DANIEL Gutierrez MD
[2019-08-22] MEDS: Acetaminophen 500 MG TAB 1000 MG PO (18:52)
[2019-08-22 20:49] LABS: Troponin I < 0.05 ng/Ml (<0.06)
--- NOTE | 2019-08-22 21:40 | HPE_ITS ---
Date of service: 08/22/19 Time of Service: 21:41 Assessment and Plan Assessment and plan (1) Chest pain: Status: Acute Assessment and plan: CP, etiology not apparent at present. Major causes have been excluded, including ACS (pending third troponin), PTX, dissection, PE. Possible GI pathology, possible chemo related (note the wide spread distribution, unusual for more specific chest pathology). For now will simply treat symptomatically and monitor. Regarding hydro/retention (secondary apparently to lymphoma pelvic involvement): notified, will see in AM. Will leave Cox in place. Reviewed ADs, requests full code. History of Present Illness History of Present Illness Chief Complaint: CP Narrative: 79 female with NHL, first dose chemo (R-CHOP) few days ago. here tonight with sudden onset CP, which then became more or less generalized, involving neck, back, abdomen. In ER findings of note for normal white count, no acute EKG findings, negative troponin x 2, negative CTA. Incidental finding of left hydronephrosis for which Cox was placed with drainage 900 cc. Patient has received Fentanyl, then tylenol, with more or less complete resolution of her pain.Admitted for further management Review of Systems All systems reviewed & are unremarkable except as noted in HPI and below PFSH Medical History Anemia (Chronic) Diverticulosis (Acute) Essential hypertension (Chronic 04/28/15) Fatigue (Acute) Hematuria (Acute) Hydronephrosis, left (Acute) Hyperlipidemia, unspecified (Chronic 04/28/15) Lymphoma (Acute) Open head injury (Acute) Prediabetes (Acute) Primary osteoarthritis of right hip (Chronic 11/16/17) Pyelonephritis (Acute) Surgical History History of appendectomy (Chronic) History of ectopic (Chronic) required surgical intervention History of lithotripsy (Chronic) History of right hip replacement (Acute) Social History Smoking/Tobacco Use Status: Former Tobacco Use Quit Date: 05/09/69 Alcohol Intake: current Alcohol Intake frequency: a few times a month Alcohol type: beer and wine Drug use: Never Substance use type: does not use Details: has tried but doesn't use. Current gender identity: female Do you feel safe at home: Yes Do you feel safe in your relationship?: Yes Meds Home Medications and Allergies Home Medications Medication Instructions Recorded Confirmed Type losartan 25 mg PO DAILY tab-cap 04/28/15 08/22/19 History Aerogear Action Asthma Kit #1 kit 05/13/15 07/02/19 Rx acetaminophen 1,000 mg PO Q8H PRN #90 cap 02/24/18 07/12/19 Rx aspirin [Aspir-81] 81 mg PO BID #80 tab-cap 02/24/18 07/12/19 Rx atorvastatin [Lipitor] 10 mg PO DAILY #90 tab 04/15/19 08/22/19 Rx amitriptyline 25 mg tablet 25 mg PO QHS #30 tab 07/19/19 08/22/19 Rx ondansetron 4 mg disintegrating 4 mg PO Q8H PRN #20 tab 07/19/19 08/22/19 Rx tablet tramadol 50 mg tablet 50 mg PO Q6H PRN #30 tab MDD 4 07/19/19 08/22/19 Rx acetaminophen 650 mg PO Q6H PRN 08/22/19 08/22/19 History acyclovir 400 mg PO BID 08/22/19 08/22/19 History allopurinol 300 mg PO DAILY 08/22/19 08/22/19 History levofloxacin 750 mg PO DAILY 08/22/19 08/22/19 History omeprazole 20 mg PO DAILY 08/22/19 08/22/19 History polyethylene glycol 3350 17 g PO DAILY PRN 08/22/19 08/22/19 History prednisone 100 mg PO DIRECTED 08/22/19 08/22/19 History sodium fluoride-pot nitrate 1 applic BID 08/22/19 08/22/19 History [PreviDent 5000 Sensitive] Allergies Allergy/AdvReac Type Severity Reaction Status Date / Time ciprofloxacin [From Cipro] Allergy HIVES Unverified 07/12/19 06:37 oxycodone [From Percocet] AdvReac Intermediate Nausea & Verified 07/12/19 06:37 Vomiting Exam Narrative Exam Narrative: 134/61, 101, 32 (24 at my visit), 36.7. HEENT unremarkable; neck supple; lungs clear; heart RRR w/o MRG; abdomen soft and NT; extremities w/o edema, pulses intact Results Labs Result diagrams: 08/22/19 17:22 08/22/19 17:22 Labs: Laboratory Results - last 24 hr 08/22/19 08/22/19 08/22/19 17:22 17:22 17:22 WBC 6.66 RBC 3.97 L Hgb 12.0 Hct 36.5 MCV 91.9 MCH 30.2 MCHC 32.9 RDW 12.8 Plt Count 163 MPV 9.3 Immature Gran % 0.0 Neutrophils % 63.0 Band Neutrophils % 2.0 Lymphocytes % 19.0 Atypical Lymphs % 1 Monocytes % 8.0 Eosinophils % 3.0 Basophils % 0.0 Metamyelocytes % 2.0 Myelocytes % 2.0 Absolute Neutrophils 4.33 Absolute Lymphocytes 1.33 Absolute Monocytes 0.53 Absolute Eosinophils 0.20 Absolute Basophils 0.00 Differential Comment Manual differential RBC Morphology Normal PT 10.6 INR 1.1 APTT 23.4 Sodium 143 Potassium 4.5 Chloride 98 Carbon Dioxide 32.3 H Anion Gap 12.7 H BUN 21 H Creatinine 1.29 H Estimated GFR/1.73 m2 39.76 Glucose 91 Lactate Calcium 9.3 Magnesium 2.0 Total Bilirubin 0.6 AST 16 ALT 19 Alkaline Phosphatase 121 H Troponin I < 0.05 Total Protein 7.0 Albumin 3.4 Urine Color Urine Clarity Urine pH Ur Specific [place] Urine Protein Urine Ketones Urine Blood Urine Nitrite Urine Bilirubin Urine Urobilinogen Ur Leukocyte Esterase Urine Glucose 08/22/19 08/22/19 08/22/19 17:22 18:05 20:20 WBC RBC Hgb Hct MCV MCH MCHC RDW Plt Count MPV Immature Gran % Neutrophils % Band Neutrophils % Lymphocytes % Atypical Lymphs % Monocytes % Eosinophils % Basophils % Metamyelocytes % Myelocytes % Absolute Neutrophils Absolute Lymphocytes Absolute Monocytes Absolute Eosinophils Absolute Basophils Differential Comment RBC Morphology PT INR APTT Sodium Potassium Chloride Carbon Dioxide Anion Gap BUN Creatinine Estimated GFR/1.73 m2 Glucose Lactate 1.1 Calcium Magnesium Total Bilirubin AST ALT Alkaline Phosphatase Troponin I < 0.05 Total Protein Albumin Urine Color Yellow Urine Clarity Clear Urine pH 8.5 H Ur Specific [place] 1.020 Urine Protein Negative Urine Ketones Negative Urine Blood Negative Urine Nitrite Negative Urine Bilirubin Negative Urine Urobilinogen 0.2 Ur Leukocyte Esterase Negative Urine Glucose Negative Last Vital Signs Temp 36.7 C 08/22/19 17:12 Pulse 101 H 08/22/19 20:01 Resp 32 H 08/22/19 20:01 BP 134/61 08/22/19 20:01 Pulse Ox 94 L 08/22/19 20:01 COVID-19 Screening Traveled to [place] from one of the affected countries or regions?: NO Recent travel in the [facility] within the last 8 weeks?: No Recent out of the country travel within the last 8 weeks?: No Exposure or possible exposure to illness during travel?: No Had IN PERSON contact w/suspected or confirmed C-19 person: No Have you had the following symptoms in the past few days?: No Symptoms noted since travel?: No Symptoms Medical treatment received for symptoms/illness related to travel?: has not lef the house except for chemo treatments
[2019-08-22] MEDS: Acyclovir 400 MG TAB (22:06)
--- NOTE | 2019-08-22 22:06 | NUR.NOTE ---
Nursing Note: Dr. Millard requested that patient get her Acyclovir evening dose now of 800mg as she takes it BID.
[2019-08-22] MEDS: Amitriptyline 25 MG TAB PO (23:24)
[2019-08-23] MEDS: Normal Saline Flush 10 ML SYR IVP ×2 (00:14→02:30)
[2019-08-23] MEDS: fentaNYL 100 MCG/2 ML VIAL 50 MCG IVP ×2 (00:14→02:30)
[2019-08-23] MEDS: Ondansetron O.D.T. 4 MG TABEF PO (02:29)
[2019-08-23] MEDS: Acetaminophen 500 MG TAB 1000 MG PO ×2 (02:29→12:02)
[2019-08-23 03:28] VITALS: BP 128/73; PULSE 106; RESP 20; TEMP 37.3; O2SAT 93
[2019-08-23 04:38] VITALS: O2SAT 93
--- NOTE | 2019-08-23 05:45 | NUR.NOTE ---
Patient request for all four rails to be elevated. State the bed is too narrow for her to move around without falling out.
[2019-08-23 06:37] LABS: Troponin I < 0.05 ng/Ml (<0.06)
[2019-08-23 07:10] VITALS: BP 148/83; PULSE 102; RESP 19; TEMP 37; O2SAT 92
--- NOTE | 2019-08-23 08:11 | W.UROLOGYCON ---
Date of service: 08/23/19 Time of Service: 08:11 Assessment and Plan Assessment and plan (1) Lymphoma: Status: Acute (2) Pelvic mass in female: Status: Acute (3) Acute urinary retention: Status: Acute Assessment and plan: Thanks for the urinary retention is related to her pain. There is always the possibility of muscle and nerve dysfunction related to direct extension from the pelvic mass. Usually, we recommend bladder decompression for 3 to 5 days before giving another voiding trial. If she continues to have difficulty voiding, we generally will recommend intermittent catheterization. When she was first diagnosed with lymphoma, I had suggested a palliative care referral for her. She refused at that time, but she is now much more open to the possibility. If she is being discharged with palliative care services, perhaps we can arrange to have her catheter removed at home on Tuesday so that she would not need to come back into our office to have this done. If she is unable to void after the catheter is removed, she could certainly come to our office rather than returning to the emergency room that day. History of Present Illness History of Present Illness Chief Complaint: Urinary retention Narrative: This is an 79-year-old woman who was initially referred by her primary care for issues with hematuria and recurrent urinary tract infections. When we reviewed her lab work, she did not really have uropathogens in her urine cultures. We started her work-up with a CT urogram which demonstrated a large left-sided pelvic mass and left hydronephrosis. The exact attachments of the mass were not well delineated. On cystoscopy, the mass appeared to be extrinsic to the bladder and distorted the entire left hemitrigone. I was unable to identify or cannulate the left ureteral orifice. I was able to take transurethral resection biopsies of the mass and the pathology confirmed lymphoma. She was then referred for chemotherapy treatments. She is completed 1 course of chemotherapy. She presented to our emergency room last evening with diffuse pain. She tells me the pain started in her chest area and then began involving the back and pelvis. There was concern for a dissecting aneurysm, a CT scan was obtained and no acute changes were identified. When her pain was significant, she noticed that she was unable to void. A Cox catheter was placed for over a liter of urine. As of this morning, her pain is under much better control. Review of Systems Narrative: No fevers or chills No vision change or dysphasia No diabetes or thyroid No shortness of breath, cough or hemoptysis Chest pain on admission, no palpitations No nausea, vomiting, hepatitis, ulcers, jaundice, diarrhea or constipation No seizures, strokes No bleeding disorders or anemia No gout [facility] Medical History Anemia (Chronic) Diverticulosis (Acute) Essential hypertension (Chronic 04/28/15) Fatigue (Acute) Hematuria (Acute) Hydronephrosis, left (Acute) Hyperlipidemia, unspecified (Chronic 04/28/15) Lymphoma (Acute) Open head injury (Acute) Prediabetes (Acute) Primary osteoarthritis of right hip (Chronic 11/16/17) Pyelonephritis (Acute) Surgical History History of appendectomy (Chronic) History of ectopic (Chronic) required surgical intervention History of lithotripsy (Chronic) History of right hip replacement (Acute) Social History Smoking/Tobacco Use Status: Former Tobacco Use Quit Date: 05/09/69 Alcohol Intake: current Alcohol Intake frequency: a few times a month Alcohol type: beer and wine Drug use: Never Substance use type: does not use Details: has tried but doesn't use. Current gender identity: female Do you feel safe at home: Yes Do you feel safe in your relationship?: Yes Exam Narrative Exam Narrative: She does not appear to be in acute distress Her vital signs are documented elsewhere The Cox catheter is in place and is draining clear urine She is awake and alert Reviewed the CT scan on the PACS system. Her bladder was distended at the time of the scan. Her pelvic mass appears unchanged from her scan about a month ago. I do not see any significant stool retention on CT. Results Last Vital Signs Temp 37.3 C 08/23/19 03:28 Pulse 106 H 08/23/19 03:28 Resp 20 08/23/19 03:28 BP 128/73 08/23/19 03:28 Pulse Ox 93 L 08/23/19 04:38 Labs Result diagrams: 08/22/19 17:22 08/22/19 17:22 Labs: Laboratory Results - last 24 hr 08/22/19 08/22/19 08/22/19 17:22 17:22 17:22 WBC 6.66 RBC 3.97 L Hgb 12.0 Hct 36.5 MCV 91.9 MCH 30.2 MCHC 32.9 RDW 12.8 Plt Count 163 MPV 9.3 Immature Gran % 0.0 Neutrophils % 63.0 Band Neutrophils % 2.0 Lymphocytes % 19.0 Atypical Lymphs % 1 Monocytes % 8.0 Eosinophils % 3.0 Basophils % 0.0 Metamyelocytes % 2.0 Myelocytes % 2.0 Absolute Neutrophils 4.33 Absolute Lymphocytes 1.33 Absolute Monocytes 0.53 Absolute Eosinophils 0.20 Absolute Basophils 0.00 Differential Comment Manual differential RBC Morphology Normal PT 10.6 INR 1.1 APTT 23.4 Sodium 143 Potassium 4.5 Chloride 98 Carbon Dioxide 32.3 H Anion Gap 12.7 H BUN 21 H Creatinine 1.29 H Estimated GFR/1.73 m2 39.76 Glucose 91 Lactate Calcium 9.3 Magnesium 2.0 Total Bilirubin 0.6 AST 16 ALT 19 Alkaline Phosphatase 121 H Troponin I < 0.05 Total Protein 7.0 Albumin 3.4 Urine Color Urine Clarity Urine pH Ur Specific [place] Urine Protein Urine Ketones Urine Blood Urine Nitrite Urine Bilirubin Urine Urobilinogen Ur Leukocyte Esterase Urine Glucose 08/22/19 08/22/19 08/22/19 17:22 18:05 20:20 WBC RBC Hgb Hct MCV MCH MCHC RDW Plt Count MPV Immature Gran % Neutrophils % Band Neutrophils % Lymphocytes % Atypical Lymphs % Monocytes % Eosinophils % Basophils % Metamyelocytes % Myelocytes % Absolute Neutrophils Absolute Lymphocytes Absolute Monocytes Absolute Eosinophils Absolute Basophils Differential Comment RBC Morphology PT INR APTT Sodium Potassium Chloride Carbon Dioxide Anion Gap BUN Creatinine Estimated GFR/1.73 m2 Glucose Lactate 1.1 Calcium Magnesium Total Bilirubin AST ALT Alkaline Phosphatase Troponin I < 0.05 Total Protein Albumin Urine Color Yellow Urine Clarity Clear Urine pH 8.5 H Ur Specific [place] 1.020 Urine Protein Negative Urine Ketones Negative Urine Blood Negative Urine Nitrite Negative Urine Bilirubin Negative Urine Urobilinogen 0.2 Ur Leukocyte Esterase Negative Urine Glucose Negative 08/23/19 06:05 WBC RBC Hgb Hct MCV MCH MCHC RDW Plt Count MPV Immature Gran % Neutrophils % Band Neutrophils % Lymphocytes % Atypical Lymphs % Monocytes % Eosinophils % Basophils % Metamyelocytes % Myelocytes % Absolute Neutrophils Absolute Lymphocytes Absolute Monocytes Absolute Eosinophils Absolute Basophils Differential Comment RBC Morphology PT INR APTT Sodium Potassium Chloride Carbon Dioxide Anion Gap BUN Creatinine Estimated GFR/1.73 m2 Glucose Lactate Calcium Magnesium Total Bilirubin AST ALT Alkaline Phosphatase Troponin I < 0.05 Total Protein Albumin Urine Color Urine Clarity Urine pH Ur Specific [place] Urine Protein Urine Ketones Urine Blood Urine Nitrite Urine Bilirubin Urine Urobilinogen Ur Leukocyte Esterase Urine Glucose
[2019-08-23 08:15] VITALS: O2SAT 92
[2019-08-23] MEDS: Allopurinol 300 MG TAB PO (08:30)
[2019-08-23] MEDS: Atorvastatin 10 MG TAB PO (08:31)
[2019-08-23] MEDS: Omeprazole 20 MG CAPCR PO (08:32)
[2019-08-23] MEDS: Losartan 25 MG TAB PO (08:32)
[2019-08-23 09:41] LABS: LDH 383 U/L (81-234); PHOSPHORUS 3.7 mg/dL (2.6-4.7); Uric Acid 3.4 mg/dL (2.6-6.0)
--- NOTE | 2019-08-23 09:57 | PDOC.CMIN ---
- If Service Date Differs Date of service: 08/23/19 Time of Service: 09:57 Care Management Initial Assess REASON FOR HOSPITALIZATION:: Chest pain, urinary retention. PAST MEDICAL HISTORY/PAST SURGICAL HISTORY:: Medical History: Anemia, Diverticulosis, Essential hypertension, Fatigue,. Hematuria, Hydronephrosis, left, Hyperlipidemia, unspecified, Lymphoma,. Open head injury, Prediabetes, Primary osteoarthritis of right hip, and. Pyelonephritis. Surgical History: History of appendectomy, History of ectopic - required surgical intervention, History of lithotripsy, and History of right hip replacement. PREVIOUS FUNCTIONAL STATUS/SOCIAL/FAMILY SUPPORTS:: Crystal lives in [facility] with her , a dog, and a cat. They have two sons together; one who lives in [place] and one in [place]. Both sons are sources of support for the couple. 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 CURRENT FUNCTIONAL STATUS:: Crystal is sitting up in bed when CM comes to meet with her. She is pleasant and easily engages in conversation. She talks about getting chemotherapy and how her sons worry about her. She also talks about her love of cooking and says she was planning a trip to [place] to attend cooking classes but the trip had to be postponed due to her new diagnosis of lymphoma and the coronavirus. Crystal met with Dr. Browne for a Palliative Care consult today. CM will continue to follow. ADVANCE DIRECTIVES:: None on file, but was provided a COLST form by Dr. Browne of Palliative Care. Has patient been provided with information about the portal?: No Did the patient sign up for the portal?: No CODE STATUS:: Full Code INSURANCE COVERAGE / FINANCIAL ISSUES:: [employer] (Medicare replacement). CURRENT HOME/COMMUNITY SERVICES/EQUIPMENT:: Crystal owns a walker but states she has not used it since recovering from hip surgery several months ago. She has a private vineyard tender and someone she calls on when things need to be fixed around the home. She is seeing an oncologist at [facility] and receives chemotherapy at the [facility]. She denies any other community services. PRIMARY CARE PHYSICIAN:: KENDELL Sharp ([facility]). POTENTIAL DISCHARGE NEEDS:: Follow-up appointments with PCP, oncologist at [facility], and urologist. PATIENT/FAMILY EDUCATION NEEDS:: Discharge instructions, limitations, follow-up plan of care, including Ask Me Three and self-management. ANTICIPATED BARRIERS TO DISCHARGE:: No anticipated barriers at this time. TRANSPORTATION:: Via private vehicle with family. PLAN:: Anticipate Crystal will return home with new nursing services and palliative care when medically cleared by provider. Family will transport her home via private vehicle when ready. CM will continue to support patient and discharge planning needs.
[2019-08-23] MEDS: Famotidine 20 MG TAB PO (12:19)
[2019-08-23] MEDS: Loratidine 10 MG TAB PO (12:20)
--- NOTE | 2019-08-23 12:44 | DI.US_ITS ---
APPROVED REPORT EXAM: Comprehensive 2D, Doppler, and color-flow Echocardiogram Patient Location: In-Patient Room/Bed: 225A Relief Operator: Nicole Felix RDCS (AE) Indications: Chest pain, R/O cardiac toxicity from [facility] Conclusion Left Ventricle : The left ventricle is normal size. The left ventricular systolic function is normal. The left ventricular ejection fraction is within the normal range. There is normal left ventricular wall thickness. There is normal LV segmental wall motion. Diastolic function is indeterminate. LVEF i s 60-65%. LV strain was not done. Right Ventricle : The right ventricle is normal size. Atria : The left atrium size is normal. The right atrium size is normal. Valves: There are no hemodynamically significant valvular lesions. Great Vessels : IVC is normal in size and collapses >50% with inspiration. Estimated RVSP is 45 mmHg . Compared to echocardiogram from 08/02/2019: There is no significant change. Wall motion Left Ventricle The left ventricle is normal size. The left ventricular systolic function is normal. The left ventric ular ejection fraction is within the normal range. There is normal left ventricular wall thickness. T here is normal LV segmental wall motion. Diastolic function is indeterminate. There is no ventricular septal defect visualized. LVEF is 60-65%. Right Ventricle The right ventricle is normal size. The right ventricular systolic function is normal. Atria The left atrium size is normal. The right atrium size is normal. The interatrial septum is intact wit h no evidence for an atrial septal defect. Aortic Valve The Aortic valve is sclerotic. Aortic valve is trileaflet. There is no aortic valvular stenosis. No a ortic regurgitation is present. Mitral Valve The mitral valve is normal in structure. No evidence of mitral valve stenosis. Trace mitral regurgita tion. Tricuspid Valve The tricuspid valve is normal in structure. There is no tricuspid valve stenosis. Mild tricuspid regu rgitation. Pulmonic Valve The pulmonary valve is normal in structure. There is no pulmonic valvular stenosis. Trace pulmonic re gurgitation. Great Vessels The aortic root is normal in size. The ascending aorta is normal in size. IVC is normal in size and c ollapses >50% with inspiration. Estimated RVSP is 45 mmHg. Pericardium There is no pericardial effusion. There is no pleural effusion. 2D Dimensions IVSD d PLAX 0.84 cm F: 0.6-1.0 LV Vol A2C d MOD 126.3 mL LVPW d PLAX 0.87 cm F: 0.6 - 1.0 LV Vol A4C d MOD 65.4 mL LVID d PLAX 4.14 cm F: 3.8 - 5.2 LV EF A4C MOD 70.3 % LVDs 2.80 cm F: 2.2 - 3.5 LV EF A2C MOD 60.9 % Ao Root d 3.20 cm F: 2.7 - 3.3 LV EF Biplane MOD 64.6 % LV EF Teichholz 61.0 % LVEF (Contreras's) 64.63 % F: 54 - 74 LV Volume 82.65 mL F: 46 - 106 LV Volume Index 67.74 mL/m2 F: 29 - 61 LV Vol Biplane MOD 90.9 mL M-Mode TAPSE 3.36 cm (M/F) <1.7 LV Diastology E Decel Time 200.00 (160-240 msec) MV E' medial 0.122 (>0.07 m/s) MV E' lateral 0.071 (>0.1 m/s) MV E/E' medial 8.39 MV E/E' lateral 4.87 E Peak Velocity 0.59 m/s A Peak Velocity 0.93 m/s Aortic Valve LVOT Area 2.56 cm2 AoV Area Vmax 2.31 cm2 LVOT Vmax 1.09 m/s AoV Area/ BSA (Vmax) 1.89 cm2/m2 LVOT Mean Robby. 0.67 m/s TAHIRA Mean Robby. 2.04 cm2 LVOT Peak Grad 4.8 mmHg TAHIRA Mean Robby. Index 1.67 cm2/m2 LVOT Mean Grad 2.2 mmHg LVOT VTI 0.173 m LVOT Diam s 1.81 cm (M/F) 1.5-2.5 AoV Vmax 1.21 (0.5-1.3 m/s) Velocity Ratio 0.90 AoV Peak Grad 5.9 mmHg LVOT SV 44.45 mL AoV Mean Grad 3.2 (<5 mmHg) AoV Area VTI 2.13 (2.5-4.5 cm2) AoV Area/ BSA (VTI) 1.74 cm/m2 Mitral Valve MV DT 200 (160-240 msec) MV PHT 58 msec MV Area PHT 3.79 cm2 Pulmonary Valve PV Vmax 1.02 (0.5-1.5 m/s) PV Peak Grad 4.2 mmHg PV Mean Grad 2.3 mmHg Tricuspid Valve TR Peak Grad 42.1 mmHg TR Vmax 3.24 m/s RA Pressure 3.00 mmHg RVSP (TR) 45.1 mmHg
--- NOTE | 2019-08-23 13:29 | PHA.REVIEW ---
Pharmacy Admission Review - Admission Clinical Review (Last Reviewed 08/22/19 @ 21:45 by Stephan Millard MD) Acute urinary retention (Acute) Chest pain (Acute) Lymphoma (Acute) Pelvic mass in female (Acute) ciprofloxacin [From Cipro] Allergy (Unverified 07/12/19 06:37) HIVES oxycodone [From Percocet] Adverse Reaction (Intermediate, Verified 07/12/19 06:37) Nausea & Vomiting Height 5 ft 3.5 in Weight 69.9 kg Chest pain, Urinary Retention - Renal Dosing Renal Dosing: BUN 21 mg/dL (7-18) H 08/22/19 17:22 Creatinine 1.29 mg/dL (0.55-1.02) H 08/22/19 17:22 Medications needing adjustments: Intervened (Levaquin adjusted to Q48h dosing) - Anticoagulation Anticoagulation: Hgb 12.0 g/dL (12.0-15.5) 08/22/19 17:22 Hct 36.5 % (36.0-46.0) 08/22/19 17:22 Plt Count 163 x1000/uL (130-400) 08/22/19 17:22 INR 1.1 (0.9-1.1) 08/22/19 17:22 Creatinine 1.29 mg/dL (0.55-1.02) H 08/22/19 17:22 - Opiate Usage Evaluate Pain Scale/Pains Meds: Reviewed (Pain 2/10, Fentanyl 50mcg IVP prn-has prn Miralax) Scheduled Bowel Reg ordered if on Opiates?: No (will need to monitor) - Relevant Labs Sodium 143 mmol/L (136-145) 08/22/19 17:22 Potassium 4.5 mmol/L (3.5-5.1) 08/22/19 17:22 Chloride 98 mmol/L (98-107) 08/22/19 17:22 Phosphorus 3.7 mg/dL (2.6-4.7) 08/23/19 06:05 Magnesium 2.0 mg/dL (1.8-2.4) 08/22/19 17:22 - DM Control DM Control: Glucose 91 mg/dL (74-106) 08/22/19 17:22 Insulin Dosing: N/A - Heart Failure/WY Heart Failure/[place]: Troponin I < 0.05 ng/Ml (<0.06) 08/23/19 06:05 EF%, KIM's, B-Blockers, Diuretics: Reviewed (Losartan 25mg daily, Troponin's negative x 3) - BP Control BP Control: Blood Pressure 148/83 Blood Pressure 128/73 If elevated: Reviewed (Some slightly elevated BP's-Home med Losartan 25mg daily is ordered) - Qtc Review If Elevated: Reviewed (QTC 451) List meds needing interventions: Has Levaquin, Amitriptyline, Ondansetron as potential QT prolonging meds - Home Meds Home Med List reviewed: Reviewed Relevent Home Meds Not ordered & why?: Tramadol not ordered-has Fentanyl IVP as needed for pain. Prednisone not ordered-unsure reason, possibly along w/Chemo regimen - Current meds Current Medication Order Review: Reviewed (Omeprazole and Famotidine) - Comments Comments/Follow Ups: Chest pain resolved, pain related to urinary retention. Seen by , as she is a current patient being treated for pelvic mass/chemo treatments. Follow Antibiotic coverage, does have Cipro allergy listed although taking Levaquin as a home med-will let MD know. no DVT prophylaxis ordered...will alert Antibiotic Activity - Pharmacy Antibiotic Review Pharmacy Antibiotic Activity: C/S review (Levaquin 750mg adjusted to q48h for renal function) - Antibiotic Information Antibiotic Review Info: Levaquin 750mg po q24h adjusted to q48h as home med, did have >100K mixed gram positive colonies on outpatient labwork 08/10/19
[2019-08-23 15:15] VITALS: BP 139/80; PULSE 103; RESP 19; TEMP 36.1; O2SAT 96
--- NOTE | 2019-08-23 15:37 | CHAPLAIN ---
Crystal was sitting up on bed when I visited. She told me that she is an agnostic and her in an atheist, although they have attended [employer] and [employer] churches in the past. Her brother is an [employer] casting director. Crystal said she comes from a family of genomics scientist and that affects her belief system. She talked about where she finds comfort and strength. 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 She was headed to [place] for her 79th birthday to take some baking classes, but the trip has been postponed. She aid her children live in [place] and worry about her and her would like them to move to closer, but Crystal said she prefers to stay here.
--- NOTE | 2019-08-23 16:55 | DSE_ITS ---
Date of service: 08/23/19 Time of Service: 16:55 DS: Diagnosis Discharge Diagnosis (1) Lymphoma: Status: Acute (2) Pelvic mass in female: Status: Acute (3) Acute urinary retention: Status: Acute (4) Bone pain due to G-CSF: Status: Acute (5) Pulmonary hypertension: Status: Acute (6) Hydronephrosis, left: Status: Acute Discharge Plan Disposition Patient Disposition: HOME W/HOME HEALTH SERVICE Condition: Stable Discharge Details Chief Complaint: Chest Pain Clinical Impression: Lymphoma, Chest pain Reason For Visit: CP,URINARY RETENTION Admit Date/Time: 08/23/19 09:19 Admit Provider: Stephan Millard Attending Provider: Stephan Millard Primary Care Provider: Anastasiia Rankin ED Provider: Brenda Stephens [facility] Hospital Course: Ms Man is an 79 year old female with 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 She ruled out for acute coronary syndrome, did not have any arrhythmic events on tele, and had an echocardiogram demonstrating preserved EF. She was found to have pulmonary hypertension with RVSP of 45 mmHg, for which she will need a routine outpatient sleep study. It appears that her pain is bone pain, likely due to gCSF given at [facility] [place] on her recent admission, and it did respond to administration of famotidine and loratidine, which the patient is instructed to take daily until resolution of her symptoms. She was evaluated by Dr Stevens for her urinary retention and left hydronephrosis, for which she required placement of the kirkpatrick catheter. The plan right now is to have the kirkpatrick catheter removed by home health/palliative care on 08/27/2019. The patient met with palliative care in the hospital and is referred for outpatient follow up. She is being prescribed liquid morphine 5-10 mL PO q1H prn pain. Ms Man is medically stable for discharge home today with a kirkpatrick catheter, palliative care follow up, urology and PCP follow ups. Care for patient as well as completion of her discharge summary took 45 minutes on the day of discharge. Home Meds and New Rx's Prescriptions: New famotidine 20 mg Tablet 20 mg PO DAILY PRN PRN (Reason: prn bone pain) Qty: 10 RF: 0 loratadine 10 mg Tablet 10 mg PO DAILY PRN PRN (Reason: prn bone pain) Qty: 10 RF: 0 morphine 10 mg/5 mL solution 2.5 - 5 mg PO Q4H PRN (Reason: pain) Qty: 100 RF: 0 Continued tramadol 50 mg tablet 50 mg PO Q6H MDD 4 PRN (Reason: pain) Qty: 30 RF: 0 amitriptyline 25 mg tablet 25 mg PO QHS Qty: 30 RF: 0 ondansetron 4 mg tablet,disintegrating 4 mg PO Q8H PRN (Reason: nausea and vomiting) Qty: 20 RF: 0 losartan 25 MG tablet 25 mg PO DAILY RF: 0 atorvastatin [Lipitor] 10 mg tablet 10 mg PO DAILY Qty: 90 RF: 0 acetaminophen 500 mg capsule 1,000 mg PO Q8H PRN (Reason: pain) Qty: 90 RF: 0 aspirin [Aspir-81] 81 MG tablet,delayed release (DR/EC) 81 mg PO BID Qty: 80 RF: 0 acyclovir 200 mg Capsule 400 mg PO BID RF: 0 polyethylene glycol 3350 17 gram Powder In Packet 17 g PO DAILY PRNRF: 0 allopurinol 300 mg Tablet 300 mg PO DAILY RF: 0 omeprazole 20 mg Capsule,Delayed Release(Dr/Ec) 20 mg PO DAILY RF: 0 prednisone 20 mg Tablet 100 mg PO DIRECTED RF: 0 PreviDent 5000 Sensitive 1.1-5 % Paste 1 applic BID RF: 0 Changed levofloxacin 750 mg Tablet 750 mg PO Q48H Qty: 0 RF: 0 Discontinued acetaminophen 325 mg Tablet 650 mg PO Q6H PRNRF: 0 No Action (DME) [employer] Action Asthma Kit 1 EACH kit 1 ea Miscellaneous Q4H PRN Qty: 1 RF: 0 Discharge Instructions Instructions: Famotidine (By mouth), Loratadine (By mouth), Kirkpatrick Catheter Placement and Care (DC), Acute Urinary Retention in Women (ED), Urinary Leg Bag (GEN) Additional Instructions: Take pepcid/loratadine daily as needed until bone pain resolves. Return to the hospital with any fever, bleeding, chest pain, or shortness of breath. Care Plan Goals: Home with home health nursing for kirkpatrick catheter removal on 08/27/2019 as well as with palliative care. Referrals: Pj Stevens MD [ [facility] STAFF PHYSICIAN] - Anastasiia Rankin [Primary Care Provider] - Fiona Browne MD [ [facility] STAFF PHYSICIAN] - Activity:: Activity as Tolerated Equipment/Supplies:: kirkpatrick catheter and supplies Diet:: As Tolerated Discharge Orders Discharge Orders: Discharge Order (Routine); Ordered 08/23/19 Ordered By: Lilliana Mazariegos DS: Summary Status at Discharge Functional status at discharge: independent ambulation Overall status at discharge: patient is back to baseline Mental Status: mental status grossly normal Speech and Movement: speech and movement normal Mood: anxious mood Affect: animated Exam Narrative Exam Narrative: General: Anxious pleasant elderl female, A&Ox3, looks well HEENT: EOMI, MMM Heart: RRR Lungs: CTAB Abdomen: nondistended; has a kirkpatrick Extremities: no edema Psych Mental Status: mental status grossly normal Speech and Movement: speech and movement normal Mood: anxious mood Affect: animated DS: Data Vitals/I&O Vitals and I&O: Vital Signs Temperature 36.1 C L 08/23/19 15:15 Temperature Source Tympanic 08/23/19 15:15 Pulse 103 H 08/23/19 15:15 Pulse Rhythm Regular 08/23/19 08:15 Pulse 97 H 08/22/19 20:01 Respiratory Rate 19 08/23/19 15:15 Respiratory Effort Non-Labored 08/23/19 08:15 Respiratory Depth Normal 08/23/19 08:15 Respiratory Pattern Normal 08/23/19 08:15 Blood Pressure 139/80 08/23/19 15:15 Blood Pressure Mean 78 08/22/19 20:01 Blood Pressure Position Supine 08/22/19 17:12 Pulse Oximetry 96 08/23/19 15:15 Oxygen Delivery Method Room Air 08/23/19 15:15 Oxygen Flow Rate 0 08/23/19 15:15 Pain Level 0 08/23/19 15:15 Comment 08/22/19 17:12 Intake & Output 08/22/19 08/23/19 08/23/19 23:59 11:59 23:59 Intake Total 500 / 500 Output Total 1000 / 1000 2150 / 2800 650 / 2800 Balance -500 / -500 -2150 / -2800 -650 / -2800 Weight 69.9 kg Intake: IV 500 / 500 Output: Urine 1000 / 1000 2150 / 2800 650 / 2800 Other: Urine Color Pale Yellow Yellow Yellow Urine Appearance Clear Clear Clear Data Completed and Pending Completed studies during hospitalization [Text1]: Echo 08/23/2019: Left Ventricle : The left ventricle is normal size. The left ventricular systolic function is normal. The left ventricular ejection fraction is within the normal range. There is normal left ventricular wall thickness. There is normal LV segmental wall motion. Diastolic function is indeterminate. LVEF is 60-65%. LV strain was not done. Right Ventricle : The right ventricle is normal size. Atria : The left atrium size is normal. The right atrium size is normal. Valves: There are no hemodynamically significant valvular lesions. Great Vessels : IVC is normal in size and collapses >50% with inspiration. Estimated RVSP is 45 mmHg. Compared to echocardiogram from 08/02/2019: There is no significant change. CTA chest/abdomen/pelvis: Stable appearance of invasive pelvic mass and left hydronephrosis. No acute abnormalities are seen. Labs on day of discharge: Labs from last 24 hours 08/23/19 08/22/19 08/22/19 06:05 20:20 18:05 WBC RBC Hgb Hct MCV MCH MCHC RDW Plt Count MPV Immature Gran % Neutrophils % Band Neutrophils % Lymphocytes % Atypical Lymphs % Monocytes % Eosinophils % Basophils % Metamyelocytes % Myelocytes % Absolute Neutrophils Absolute Lymphocytes Absolute Monocytes Absolute Eosinophils Absolute Basophils Differential Comment RBC Morphology PT INR APTT Sodium Potassium Chloride Carbon Dioxide Anion Gap BUN Creatinine Estimated GFR/1.73 m2 Glucose Lactate Uric Acid 3.4 Calcium Phosphorus 3.7 Magnesium Total Bilirubin AST ALT Alkaline Phosphatase Lactate Dehydrogenase 383 H Troponin I < 0.05 < 0.05 Total Protein Albumin Urine Color Yellow Urine Clarity Clear Urine pH 8.5 H Ur Specific [place] 1.020 Urine Protein Negative Urine Ketones Negative Urine Blood Negative Urine Nitrite Negative Urine Bilirubin Negative Urine Urobilinogen 0.2 Ur Leukocyte Esterase Negative Urine Glucose Negative 08/22/19 08/22/19 08/22/19 17:22 17:22 17:22 WBC 6.66 RBC 3.97 L Hgb 12.0 Hct 36.5 MCV 91.9 MCH 30.2 MCHC 32.9 RDW 12.8 Plt Count 163 MPV 9.3 Immature Gran % 0.0 Neutrophils % 63.0 Band Neutrophils % 2.0 Lymphocytes % 19.0 Atypical Lymphs % 1 Monocytes % 8.0 Eosinophils % 3.0 Basophils % 0.0 Metamyelocytes % 2.0 Myelocytes % 2.0 Absolute Neutrophils 4.33 Absolute Lymphocytes 1.33 Absolute Monocytes 0.53 Absolute Eosinophils 0.20 Absolute Basophils 0.00 Differential Comment Manual differential RBC Morphology Normal PT 10.6 INR 1.1 APTT 23.4 Sodium Potassium Chloride Carbon Dioxide Anion Gap BUN Creatinine Estimated GFR/1.73 m2 Glucose Lactate 1.1 Uric Acid Calcium Phosphorus Magnesium Total Bilirubin AST ALT Alkaline Phosphatase Lactate Dehydrogenase Troponin I Total Protein Albumin Urine Color Urine Clarity Urine pH Ur Specific [place] Urine Protein Urine Ketones Urine Blood Urine Nitrite Urine Bilirubin Urine Urobilinogen Ur Leukocyte Esterase Urine Glucose 08/22/19 17:22 WBC RBC Hgb Hct MCV MCH MCHC RDW Plt Count MPV Immature Gran % Neutrophils % Band Neutrophils % Lymphocytes % Atypical Lymphs % Monocytes % Eosinophils % Basophils % Metamyelocytes % Myelocytes % Absolute Neutrophils Absolute Lymphocytes Absolute Monocytes Absolute Eosinophils Absolute Basophils Differential Comment RBC Morphology PT INR APTT Sodium 143 Potassium 4.5 Chloride 98 Carbon Dioxide 32.3 H Anion Gap 12.7 H BUN 21 H Creatinine 1.29 H Estimated GFR/1.73 m2 39.76 Glucose 91 Lactate Uric Acid Calcium 9.3 Phosphorus Magnesium 2.0 Total Bilirubin 0.6 AST 16 ALT 19 Alkaline Phosphatase 121 H Lactate Dehydrogenase Troponin I < 0.05 Total Protein 7.0 Albumin 3.4 Urine Color Urine Clarity Urine pH Ur Specific [place] Urine Protein Urine Ketones Urine Blood Urine Nitrite Urine Bilirubin Urine Urobilinogen Ur Leukocyte Esterase Urine Glucose [facility] Medical History Anemia (Chronic) Diverticulosis (Acute) Essential hypertension (Chronic 04/28/15) Fatigue (Acute) Hematuria (Acute) Hydronephrosis, left (Acute) Hyperlipidemia, unspecified (Chronic 04/28/15) Lymphoma (Acute) Open head injury (Acute) Prediabetes (Acute) Primary osteoarthritis of right hip (Chronic 11/16/17) Pyelonephritis (Acute) Surgical History History of appendectomy (Chronic) History of ectopic (Chronic) required surgical intervention History of lithotripsy (Chronic) History of right hip replacement (Acute) Social History Smoking/Tobacco Use Status: Former Tobacco Use Quit Date: 05/09/69 Alcohol Intake: current Alcohol Intake frequency: a few times a month Alcohol type: beer and wine Drug use: Never Substance use type: does not use Details: has tried but doesn't use. Current gender identity: female Do you feel safe at home: Yes Do you feel safe in your relationship?: Yes
--- NOTE | 2019-08-23 18:05 | W.PALLCONSUL ---
Date of service: 08/23/19 History of Present Illness History of Present Illness Chief Complaint: recent dx of lymphoma; pelvic involvement Narrative: Crystal Man is a very pleasant energetic 79 yo who was admitted for acute bone pain due to her G-CSF and acute hydronephrosis with urinary retention due to lymphoma present in her pelvis. She was very eager to go home when I met her. She doesn't like being in the hospital. She has a son, who is an emergency medicine medical director, and daughter in law, who is a lymphoma specialist, currently at home, as well as her . She is concerned about her 's ability to care for her. He seems removed and remote to her and to her son. She's very afraid of being a burden on her family. SHe's thinking of moving in with her son during her treatment. She is still wrapping her head around having cancer. No one has had cancer in her family. 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 She's still adjusting in so many ways to her diagnosis. Her oncologist is Aaliyah Galvez MD; Crystal is very happy with her care. Consults Consult date: 08/23/19 Requesting physician: Lilliana Mazariegos Assessment and Plan Assessment and plan (1) Palliative care patient: Status: Chronic Assessment and plan: First time meeting her; she would like follow up at her home. She did not feel ready to address her CODE status at this time; wants to default to FULL. She has excellent care from oncology with oversight by her physician son and d-in-l. (2) Goals of care, counseling/discussion: Status: Acute Assessment and plan: She wants to stay active. She doesn't want to be a burden to her family. She wants to avoid hospitalization as much as possible. She would like to have her pain controlled. (3) Bone pain due to G-CSF: Status: Acute Assessment and plan: starting appropriate medications to tx sx including claritin (4) Hydronephrosis, left: Status: Acute Assessment and plan: managed by Dr Stevens, urologist has kirkpatrick in place for now; once her lymphoma shrinks, she should have no permanent problem, I suspect. We reviewed s/s of UTI or pyelo. Advised to call MD information specialist if sx develop. (5) Pelvic mass in female: Status: Chronic Assessment and plan: Part of her lymphioma presentation. Under treatment now for her lymphoma. Review of Systems Narrative: No fevers or chills No vision change or dysphasia No diabetes or thyroid No shortness of breath, cough or hemoptysis Chest pain on admission, no palpitations No nausea, vomiting, hepatitis, ulcers, jaundice, diarrhea or constipation No seizures, strokes No bleeding disorders or anemia No gout [facility] Medical History (Updated 09/10/19 @ 05:32 by Fiona Browne MD) Anemia (Chronic) Diverticulosis (Acute) Essential hypertension (Chronic 04/28/15) Fatigue (Acute) Goals of care, counseling/discussion (Acute) Hematuria (Acute) Hydronephrosis, left (Acute) Hyperlipidemia, unspecified (Chronic 04/28/15) Lymphoma (Acute) Open head injury (Acute) Palliative care patient (Chronic) Prediabetes (Acute) Primary osteoarthritis of right hip (Chronic 11/16/17) Pyelonephritis (Acute) Surgical History History of appendectomy (Chronic) History of ectopic (Chronic) required surgical intervention History of lithotripsy (Chronic) History of right hip replacement (Acute) Family History (Updated 09/10/19 @ 05:21 by Fiona Browne MD) Son No problems noted. Sister No problems noted. Sister No problems noted. Son No problems noted. Granddaughter No problems noted. Grandson No problems noted. Social History (Updated 09/10/19 @ 05:26 by Fiona Browne MD) Smoking/Tobacco Use Status: Former Tobacco Use Quit Date: 05/09/69 Tobacco: How many years used: 10 Alcohol Intake: current Alcohol Intake frequency: a few times a month Alcohol type: beer and wine Drug use: Never Substance use type: does not use Details: has tried but doesn't use. Caregiver/Support person: Yes Household members: spouse Housing: house Number of Children: 2 number of grandchildren: 2 Communication Needs: Corrective Lenses Education Level: college Do you need help understanding health information?: Often Pets and animals: Yes Current gender identity: female What is your relationship status?: How often do you talk on the phone with friends or family?: twice per week How often do you get together with friends or relatives?: twice per week Panel score (0-1 are the most socially isolated patients): 2 What type of physical activity do you participate in: walking, regular exercise and additional Details: gardening Duration: 30-45 minutes/day Special hector needs: No Seatbelt use: always Working smoke detector in home: Yes Fire extinguisher in home: Yes Do you feel safe at home: Yes Do you feel safe in your relationship?: Yes Additional Social history: Lives with Mart who is 83 and expects to be waited on. He's unaware of my needs. Relies on her 2 sisters and friend Marian Tracy for support. Exam Narrative Exam Narrative: General: Anxious pleasant elderly female, A&Ox3, looks well HEENT: EOMI, MMM Heart: RRR Lungs: CTAB Abdomen: nondistended; has a kirkpatrick Extremities: no edema skin:no rashes or lesions psych: very anxious/high energy; wants to go home neuro: cognitively intact, able to walk without assistance has a kirkpatrick in place; no CVAT Psych Mental Status: mental status grossly normal Speech and Movement: speech and movement normal Mood: anxious mood Affect: animated Results Last Vital Signs Temp 97.0 F L 08/23/19 15:15 Pulse 103 H 08/23/19 15:15 Resp 19 08/23/19 15:15 BP 139/80 08/23/19 15:15 Pulse Ox 96 08/23/19 15:15 Labs Result diagrams: 08/22/19 17:22 08/22/19 17:22 Labs: Laboratory Results - last 24 hr 08/22/19 08/22/19 08/23/19 18:05 20:20 06:05 Uric Acid 3.4 Phosphorus 3.7 Lactate Dehydrogenase 383 H Troponin I < 0.05 < 0.05 Urine Color Yellow Urine Clarity Clear Urine pH 8.5 H Ur Specific [place] 1.020 Urine Protein Negative Urine Ketones Negative Urine Blood Negative Urine Nitrite Negative Urine Bilirubin Negative Urine Urobilinogen 0.2 Ur Leukocyte Esterase Negative Urine Glucose Negative
--- NOTE | 2019-08-24 10:14 | PDOC.HHF2F_ITS ---
Home Health Certification Home Health Certification: 1. Encounter Date and Reason I certify that RADHA SHETH was seen by Lilliana Mazariegos on 08/23/19 and that I had a [id number] encounter with this patient that meets the physician face to face encounter requirements. 2. Clinical Findings Supporting Skilled Need and Homebound Status I certify that home health services are medically necessary, include either intermittent long-term and/or physical/speech therapy, and that this patie nt is homebound in that absences from the home require considerable and taxing effort and are infrequent or of short duration, or are attributable to the need to receive medical care. [X] (a) Attached documentation from encounter provides clinical findings supporting skilled need and homebound status (including what assistance patient requires to leave the home). The encounter with the patient was in whole, or in part, for the following medical condition, which is the primary reason for home health care: CP,URINARY RETENTION Residential: kirkpatrick catheter care; remove kirkpatrick catheter on 08/27/2019 Homebound: unable to leave home without assistance 3. Certification and Authentication I certify that I composed the above information based on my clinical judgement relating to this patient's medical condition and, if applicable, clinical findings communicated to me by the NPP or inpatient physician who performed the Home Health Referral. All further orders will be obtained through _Anastasiia Rankin (Community Based Physician - PCP)
== END 2019-08-23 18:33 | disposition home health service (06) | DRG 841 ==
LOC: ER 18:43 → MS 22:22
PROVIDERS: Admitting Provider General Practice; Emergency Provider Physician Assistant; PCP Nurse Practitioner Family; Visit Provider Internal Medicine
DX: C85.96 Non-Hodgkin lymphoma, unspecified, intrapelvic lymph nodes (principal); N13.30 Unspecified hydronephrosis; M89.8X8 Other specified disorders of bone, other site; T45.8X5A Adverse effect of other primarily systemic and hematological agents, initial encounter; Z01.89 Encounter for other specified special examinations; R07.89 Other chest pain; R33.9 Retention of urine, unspecified; I10 Essential (primary) hypertension; E78.5 Hyperlipidemia, unspecified; Z51.5 Encounter for palliative care; Z87.440 Personal history of urinary (tract) infections; I07.1 Rheumatic tricuspid insufficiency
CPT/HCPCS: 36415; 51702; 74177; 80053; 93005; 93306; 96361; 96374; 96375; 99221; 99222; 99239; 99252; 99254; 99285; 81003; 83605; 83615; 83735; 84100; 84484; 84550; 85025; 85610; 85730; 93010; J2405; J3010; J3490

== ENCOUNTER 2019-09-05 04:05 | Outpatient (RCR) | payer OTHER, SELFPAY ==
[2019-08-29] MEDS: Heparin 500 UNITS/5 ML SYRINGE IV (13:06)
[2019-08-29] MEDS: Normal Saline Flush 10 ML SYR IVP (13:06)
[2019-08-29 13:27] LABS: Abs Immature Grans 2.29 k/cumm (0.0-0.09); HCT 35.9 % (36.0-46.0); HGB 11.6 g/dL (12.0-15.5); Mean Corp. HGB Concentration 32.3 g/dL (32.0-36.0); Mean Corpuscular Volume 92.8 fL (80-95); Mean Platelet Volume 10.1 fL (8.0-11.0); RBC 3.87 m/cumm (4.00-5.20); RBC Distribution Width 13.9 % (11.7-14.6); White Blood Cell Count 16.84 k/cumm (4.4-10.8)
[2019-08-29 14:12] LABS: ALT 17 U/L (14-59); AST 14 U/L (15-37); Albumin 3.3 g/dL (3.4-5.0); Alkaline Phosphatase 104 U/L (46-116); Anion Gap 8.5 mmol/L (3-11); BUN 16 mg/dL (7-18); Bilirubin, Total 0.4 mg/dL (0.2-1.0); CO2 25.5 mmol/L (21.0-32.0); CREATININE 1.29 mg/dL (0.55-1.02); Calcium 8.8 mg/dL (8.5-10.1); Chloride 104 mmol/L (98-107); Estimated GFR 39.76 (mL/min/1.73m2); Glucose 105 mg/dL (74-106); LDH 297 U/L (81-234); Potassium 4.1 mmol/L (3.5-5.1); Sodium 138 mmol/L (136-145); Uric Acid 3.6 mg/dL (2.6-6.0)
[2019-08-29 14:33] LABS: Absolute Eosinophil Count 0.17 k/cumm (0.0-0.7); Absolute Lymphocyte Count 2.86 k/cumm (1.2-3.4); Absolute Monocyte Count 1.01 k/cumm (0.11-0.7); Absolute Neutrophil Count 10.61 k/cumm (1.2-6.7); Platelet Count 92 x1000/uL (130-400)
[2019-08-29 14:34] LABS: Diff Comment Manual Differential; Polychromasia Present
[2019-09-05] MEDS: Normal Saline Flush 10 ML SYR IVP (07:35)
[2019-09-05 07:53] LABS: Abs Immature Grans 0.03 k/cumm (0.0-0.09); Absolute Basophil Count 0.02 k/cumm (0.0-0.2); Absolute Eosinophil Count 0.03 k/cumm (0.0-0.7); Absolute Lymphocyte Count 1.37 k/cumm (1.2-3.4); Absolute Neutrophil Count 3.91 k/cumm (1.2-6.7); Basophils % 0.3; Eosinophils % 0.5; HCT 34.4 % (36.0-46.0); HGB 11.4 g/dL (12.0-15.5); Immature Grans % 0.5 %; Lymphocytes % 21.5; Mean Corp. HGB Concentration 33.1 g/dL (32.0-36.0); Mean Corpuscular Hemoglobin 30.6 pg (27.0-33.0); Mean Corpuscular Volume 92.2 fL (80-95); Mean Platelet Volume 8.5 fL (8.0-11.0); Monocytes % 15.7; Neutrophils % 61.5; Platelet Count 316 x1000/uL (130-400); RBC 3.73 m/cumm (4.00-5.20); RBC Distribution Width 14.2 % (11.7-14.6); White Blood Cell Count 6.36 k/cumm (4.4-10.8)
[2019-09-05 08:08] LABS: ALT 15 U/L (14-59); AST 14 U/L (15-37); Albumin 3.1 g/dL (3.4-5.0); Alkaline Phosphatase 59 U/L (46-116); Anion Gap 4.7 mmol/L (3-11); BUN 21 mg/dL (7-18); Bilirubin, Total 0.4 mg/dL (0.2-1.0); CO2 27.3 mmol/L (21.0-32.0); CREATININE 1.23 mg/dL (0.55-1.02); Chloride 107 mmol/L (98-107); Estimated GFR 42.01 (mL/min/1.73m2); Glucose 130 mg/dL (74-106); LDH 176 U/L (81-234); PHOSPHORUS 4.1 mg/dL (2.6-4.7); Potassium 4.2 mmol/L (3.5-5.1); Sodium 139 mmol/L (136-145); Total Protein 6.4 g/dL (6.4-8.2); Uric Acid 4.2 mg/dL (2.6-6.0)
== END 2019-09-06 23:59 | disposition home or self-care (01) ==
LOC: INF 04:05
PROVIDERS: PCP Nurse Practitioner Family; Visit Provider Internal Medicine Hematology & Oncology
DX: C83.38 Diffuse large B-cell lymphoma, lymph nodes of multiple sites (principal); Z45.2 Encounter for adjustment and management of vascular access device
CPT/HCPCS: 36591; 80053; 83615; 83735; 84100; 84550; 85025

== ENCOUNTER 2019-09-26 07:30 | Outpatient (RCR) | payer OTHER, SELFPAY ==
[2019-09-26] MEDS: Normal Saline Flush 10 ML SYR IVP (08:14)
[2019-09-26 08:16] LABS: Abs Immature Grans 0.03 k/cumm (0.0-0.09); Absolute Basophil Count 0.01 k/cumm (0.0-0.2); Absolute Eosinophil Count 0.03 k/cumm (0.0-0.7); Absolute Lymphocyte Count 1.11 k/cumm (1.2-3.4); Absolute Monocyte Count 0.97 k/cumm (0.11-0.7); Absolute Neutrophil Count 3.76 k/cumm (1.2-6.7); Basophils % 0.2; Eosinophils % 0.5; HCT 32.9 % (36.0-46.0); HGB 10.9 g/dL (12.0-15.5); Immature Grans % 0.5 %; Lymphocytes % 18.8; Mean Corp. HGB Concentration 33.1 g/dL (32.0-36.0); Mean Corpuscular Hemoglobin 31.2 pg (27.0-33.0); Mean Corpuscular Volume 94.3 fL (80-95); Mean Platelet Volume 9.1 fL (8.0-11.0); Monocytes % 16.4; Neutrophils % 63.6; Platelet Count 204 x1000/uL (130-400); RBC 3.49 m/cumm (4.00-5.20); RBC Distribution Width 16.5 % (11.7-14.6); White Blood Cell Count 5.91 k/cumm (4.4-10.8)
[2019-09-26 08:28] LABS: ALT 16 U/L (14-59); AST 16 U/L (15-37); Albumin 3.3 g/dL (3.4-5.0); Alkaline Phosphatase 51 U/L (46-116); BUN 20 mg/dL (7-18); Bilirubin, Total 0.5 mg/dL (0.2-1.0); CREATININE 1.21 mg/dL (0.55-1.02); Calcium 8.8 mg/dL (8.5-10.1); Chloride 106 mmol/L (98-107); Estimated GFR 42.81 (mL/min/1.73m2); Glucose 121 mg/dL (74-106); LDH 206 U/L (81-234); Magnesium 1.9 mg/dL (1.8-2.4); PHOSPHORUS 4.4 mg/dL (2.6-4.7); Potassium 4.3 mmol/L (3.5-5.1); Sodium 139 mmol/L (136-145); Total Protein 6.3 g/dL (6.4-8.2)
== END 2019-10-07 23:59 | disposition home or self-care (01) ==
LOC: INF 07:30
PROVIDERS: PCP Nurse Practitioner Family; Visit Provider Internal Medicine Hematology & Oncology
DX: C83.38 Diffuse large B-cell lymphoma, lymph nodes of multiple sites (principal); Z45.2 Encounter for adjustment and management of vascular access device
CPT/HCPCS: 36591; 80053; 83615; 83735; 84100; 85025

== ENCOUNTER 2019-10-17 08:06 | Outpatient (RCR) | payer OTHER, SELFPAY ==
[2019-10-17] MEDS: Normal Saline Flush 10 ML SYR IVP (08:19)
[2019-10-17 08:31] LABS: Abs Immature Grans 0.03 k/cumm (0.0-0.09); Absolute Basophil Count 0.03 k/cumm (0.0-0.2); Absolute Eosinophil Count 0.02 k/cumm (0.0-0.7); Absolute Lymphocyte Count 0.99 k/cumm (1.2-3.4); Absolute Monocyte Count 0.91 k/cumm (0.11-0.7); Absolute Neutrophil Count 2.65 k/cumm (1.2-6.7); Basophils % 0.6; Eosinophils % 0.4; HCT 31.3 % (36.0-46.0); HGB 10.2 g/dL (12.0-15.5); Immature Grans % 0.6 %; Lymphocytes % 21.4; Mean Corp. HGB Concentration 32.6 g/dL (32.0-36.0); Mean Corpuscular Hemoglobin 31.4 pg (27.0-33.0); Mean Corpuscular Volume 96.3 fL (80-95); Mean Platelet Volume 9.1 fL (8.0-11.0); Monocytes % 19.7; Neutrophils % 57.3; Platelet Count 278 x1000/uL (130-400); RBC 3.25 m/cumm (4.00-5.20); RBC Distribution Width 17.1 % (11.7-14.6); White Blood Cell Count 4.63 k/cumm (4.4-10.8)
[2019-10-17 08:45] LABS: ALT 14 U/L (14-59); AST 15 U/L (15-37); Albumin 3.3 g/dL (3.4-5.0); Alkaline Phosphatase 50 U/L (46-116); Anion Gap 6.7 mmol/L (3-11); BUN 22 mg/dL (7-18); Bilirubin, Total 0.4 mg/dL (0.2-1.0); CO2 27.3 mmol/L (21.0-32.0); CREATININE 1.19 mg/dL (0.55-1.02); Calcium 8.7 mg/dL (8.5-10.1); Chloride 110 mmol/L (98-107); Estimated GFR 43.64 (mL/min/1.73m2); Glucose 111 mg/dL (74-106); LDH 190 U/L (81-234); Potassium 4.4 mmol/L (3.5-5.1); Sodium 144 mmol/L (136-145); Total Protein 6.4 g/dL (6.4-8.2)
== END 2019-11-06 23:59 | disposition home or self-care (01) ==
LOC: INF 08:06
PROVIDERS: PCP Nurse Practitioner Family; Visit Provider Internal Medicine Hematology & Oncology
DX: C83.38 Diffuse large B-cell lymphoma, lymph nodes of multiple sites (principal); Z45.2 Encounter for adjustment and management of vascular access device
CPT/HCPCS: 36591; 80053; 83615; 85025

== ENCOUNTER 2019-11-28 02:57 | Outpatient (RCR) | payer OTHER, SELFPAY ==
[2019-11-07] MEDS: Normal Saline Flush 10 ML SYR IVP (08:15)
[2019-11-07 08:24] LABS: Abs Immature Grans 0.03 k/cumm (0.0-0.09); Absolute Basophil Count 0.02 k/cumm (0.0-0.2); Absolute Eosinophil Count 0.02 k/cumm (0.0-0.7); Absolute Lymphocyte Count 0.84 k/cumm (1.2-3.4); Absolute Monocyte Count 0.93 k/cumm (0.11-0.7); Basophils % 0.4; Eosinophils % 0.4; HCT 31.5 % (36.0-46.0); HGB 10.3 g/dL (12.0-15.5); Immature Grans % 0.6 %; Mean Corp. HGB Concentration 32.7 g/dL (32.0-36.0); Mean Corpuscular Hemoglobin 31.6 pg (27.0-33.0); Mean Corpuscular Volume 96.6 fL (80-95); Mean Platelet Volume 8.5 fL (8.0-11.0); Monocytes % 18.8; Neutrophils % 62.8; Platelet Count 307 x1000/uL (130-400); RBC 3.26 m/cumm (4.00-5.20); RBC Distribution Width 16.8 % (11.7-14.6); White Blood Cell Count 4.94 k/cumm (4.4-10.8)
[2019-11-07 08:40] LABS: ALT 13 U/L (14-59); AST 16 U/L (15-37); Albumin 3.4 g/dL (3.4-5.0); Alkaline Phosphatase 47 U/L (46-116); Anion Gap 7.8 mmol/L (3-11); BUN 23 mg/dL (7-18); Bilirubin, Total 0.4 mg/dL (0.2-1.0); CO2 27.2 mmol/L (21.0-32.0); CREATININE 1.46 mg/dL (0.55-1.02); Calcium 8.8 mg/dL (8.5-10.1); Chloride 105 mmol/L (98-107); Estimated GFR 34.47 (mL/min/1.73m2); Glucose 132 mg/dL (74-106); LDH 202 U/L (81-234); Potassium 4.3 mmol/L (3.5-5.1); Sodium 140 mmol/L (136-145); Total Protein 6.6 g/dL (6.4-8.2)
[2019-11-28] MEDS: Normal Saline Flush 10 ML SYR IVP (07:40)
[2019-11-28 08:07] LABS: Abs Immature Grans 0.03 k/cumm (0.0-0.09); Absolute Basophil Count 0.02 k/cumm (0.0-0.2); Absolute Eosinophil Count 0.03 k/cumm (0.0-0.7); Absolute Lymphocyte Count 0.73 k/cumm (1.2-3.4); Absolute Monocyte Count 0.74 k/cumm (0.11-0.7); Basophils % 0.5; Eosinophils % 0.7; HCT 29.9 % (36.0-46.0); HGB 9.8 g/dL (12.0-15.5); Immature Grans % 0.7 %; Lymphocytes % 16.8; Mean Corp. HGB Concentration 32.8 g/dL (32.0-36.0); Mean Corpuscular Hemoglobin 32.6 pg (27.0-33.0); Mean Corpuscular Volume 99.3 fL (80-95); Mean Platelet Volume 8.7 fL (8.0-11.0); Neutrophils % 64.3; Platelet Count 311 x1000/uL (130-400); RBC 3.01 m/cumm (4.00-5.20); RBC Distribution Width 15.4 % (11.7-14.6); White Blood Cell Count 4.35 k/cumm (4.4-10.8)
[2019-11-28 08:27] LABS: ALT 14 U/L (14-59); AST 19 U/L (15-37); Albumin 3.3 g/dL (3.4-5.0); Alkaline Phosphatase 45 U/L (46-116); Anion Gap 7.6 mmol/L (3-11); BUN 15 mg/dL (7-18); Bilirubin, Total 0.4 mg/dL (0.2-1.0); CO2 27.4 mmol/L (21.0-32.0); CREATININE 1.13 mg/dL (0.55-1.02); Calcium 8.9 mg/dL (8.5-10.1); Chloride 106 mmol/L (98-107); Estimated GFR 46.33 (mL/min/1.73m2); Glucose 153 mg/dL (74-106); LDH 252 U/L (81-234); Potassium 4.1 mmol/L (3.5-5.1); Sodium 141 mmol/L (136-145); Total Protein 6.5 g/dL (6.4-8.2)
== END 2019-12-07 23:59 | disposition home or self-care (01) ==
LOC: INF 02:57
PROVIDERS: PCP Nurse Practitioner Family; Visit Provider Internal Medicine Hematology & Oncology
DX: C83.38 Diffuse large B-cell lymphoma, lymph nodes of multiple sites (principal); Z45.2 Encounter for adjustment and management of vascular access device
CPT/HCPCS: 36591; 80053; 83615; 85025

== ENCOUNTER 2020-02-04 02:16 | Outpatient (RCR) | payer OTHER, SELFPAY ==
[2020-02-04 16:20] LABS: Abs Immature Grans 0.02 10^3/uL (0.0-0.06); Absolute Basophil Count 0.01 10^3/uL (0.0-0.2); Absolute Lymphocyte Count 1.15 10^3/uL (1.2-3.4); Absolute Monocyte Count 0.46 10^3/uL (0.1-0.8); Absolute Neutrophil Count 3.58 10^3/uL (1.2-6.7); Basophils % 0.2; Eosinophils % 1.9; HCT 32.9 % (36.0-46.0); HGB 10.7 g/dL (11.2-15.7); Immature Grans % 0.4; Lymphocytes % 21.6; MCH 31.3 pg (27.0-33.0); MCHC 32.5 % (32.0-36.0); MCV 96.2 fL (80-95); MPV 9.5 fL (8.0-11.0); Monocytes % 8.6; Neutrophils % 67.3; Nucleated RBC 0 %; Platelet Count 219 10^3/uL (130-400); RBC 3.42 10^6/uL (3.93-5.22); RDW 12.6 % (11.7-14.6); RDW-SD 44.3 fL; WBC 5.32 10^3/uL (4.4-10.8)
[2020-02-04 16:33] LABS: ALT 20 U/L (14-59); AST 18 U/L (15-37); Albumin 3.5 g/dL (3.4-5.0); Alkaline Phosphatase 61 U/L (46-116); Anion Gap 7.7 mmol/L (3-11); BUN 22 mg/dL (7-18); Bilirubin, Total 0.3 mg/dL (0.2-1.0); CO2 25.3 mmol/L (21.0-32.0); CREATININE 1.15 mg/dL (0.55-1.02); Calcium 8.7 mg/dL (8.5-10.1); Chloride 105 mmol/L (98-107); Glucose 125 mg/dL (74-106); LDH 183 U/L (81-234); Potassium 4.3 mmol/L (3.5-5.1); Sodium 138 mmol/L (136-145); Total Protein 6.4 g/dL (6.4-8.2); Uric Acid 5.2 mg/dL (2.6-6.0)
== END 2020-02-06 23:59 | disposition home or self-care (01) ==
LOC: INF 02:16
PROVIDERS: PCP Nurse Practitioner Family; Visit Provider Internal Medicine Hematology & Oncology
DX: C83.38 Diffuse large B-cell lymphoma, lymph nodes of multiple sites (principal); Z45.2 Encounter for adjustment and management of vascular access device
CPT/HCPCS: 80053; 83615; 84550; 85025

== ENCOUNTER → 2020-03-07 10:50 | Outpatient (BNVA) | payer OTHER, SELFPAY | PROVIDERS: PCP Nurse Practitioner Family; Referring Provider Nurse Practitioner Family; Visit Provider Surgery | DX: Z45.2 Encounter for adjustment and management of vascular access device (principal); C85.90 Non-Hodgkin lymphoma, unspecified, unspecified site; I10 Essential (primary) hypertension | CPT/HCPCS: 36590; 99202; 99213 ==

== ENCOUNTER 2020-05-06 03:16 | Outpatient (CLI) | payer OTHER, SELFPAY ==
[2020-05-06 10:07] LABS: Abs Immature Grans 0.01 10^3/uL (0.0-0.06); Absolute Basophil Count 0.02 10^3/uL (0.0-0.2); Absolute Eosinophil Count 0.12 10^3/uL (0.0-0.7); Absolute Lymphocyte Count 0.99 10^3/uL (1.2-3.4); Absolute Monocyte Count 0.49 10^3/uL (0.1-0.8); Absolute Neutrophil Count 2.39 10^3/uL (1.2-6.7); Basophils % 0.5; HGB 12.4 g/dL (11.2-15.7); Immature Grans % 0.2; Lymphocytes % 24.6; MCHC 32.6 % (32.0-36.0); MCV 91.8 fL (80-95); Monocytes % 12.2; Neutrophils % 59.5; Nucleated RBC 0 %; Platelet Count 199 10^3/uL (130-400); RBC 4.14 10^6/uL (3.93-5.22); RDW 13.8 % (11.7-14.6); RDW-SD 46.1 fL; WBC 4.02 10^3/uL (4.4-10.8)
[2020-05-06 10:20] LABS: ALT 22 U/L (14-59); AST 21 U/L (15-37); Albumin 3.6 g/dL (3.4-5.0); Alkaline Phosphatase 55 U/L (46-116); Anion Gap 5.1 mmol/L (3-11); BUN 22 mg/dL (7-18); Bilirubin, Total 0.5 mg/dL (0.2-1.0); CO2 27.9 mmol/L (21.0-32.0); CREATININE 1.26 mg/dL (0.55-1.02); Calcium 9.1 mg/dL (8.5-10.1); Chloride 107 mmol/L (98-107); Estimated GFR 40.86 (mL/min/1.73m2); Glucose 95 mg/dL (74-106); LDH 214 U/L (81-234); Potassium 4.2 mmol/L (3.5-5.1); Sodium 140 mmol/L (136-145); Total Protein 6.9 g/dL (6.4-8.2); Uric Acid 4.6 mg/dL (2.6-6.0)
[2020-05-06 10:54] LABS: Iron 69 ug/dL (50-170); Total Iron Binding Capacity 245 ug/dL (250-450); Transferrin Sat 28 % (15-50)
[2020-05-06 14:56] LABS: Ferritin 63 ng/mL (8-252)
== END 2020-05-06 03:36 ==
PROVIDERS: Internal Medicine Hematology & Oncology; PCP Nurse Practitioner Family; Visit Provider Internal Medicine
DX: C83.38 Diffuse large B-cell lymphoma, lymph nodes of multiple sites (principal)
CPT/HCPCS: 36415; 80053; 82728; 83540; 83550; 83615; 84550; 85025

== ENCOUNTER 2020-05-26 11:08 | Outpatient (CLI) | payer OTHER, SELFPAY ==
--- NOTE | 2020-05-26 10:30 | DI.RAD_ITS ---
EXAM: XR LUMBAR SPINE COMPLETE CLINICAL HISTORY: lumbar spine pain. TECHNIQUE: 2D digital imaging was performed. COMPARISON: CT CT ABDOMEN PELVIS WO/W from 07/09/2019 FINDINGS: There are 5 lumbar type vertebral bodies. There is again seen a right convex scoliosis of the lumbar spine. No spondylolysis or spondylolisthesis is present. There are endplate osteophytes and disc s pace narrowing at L2-3, L3-4 and and L4-5. Degenerative changes of the facets are seen from L2-3 thr ough L5-S1. No acute fracture or subluxation is present. Calcification of the abdominal aorta is no eufemia. The patient has a prior right total hip replacement. IMPRESSION: Moderately severe degenerative changes in the lumbar spine. Please see the above discussion for comp lete details. DATA REPOSITORY: RADIATION DOSE DELIVERED:
== END 2020-05-26 11:28 ==
PROVIDERS: PCP Nurse Practitioner Family; Referring Provider Nurse Practitioner Family; Visit Provider Student in an Organized Health Care Education/Training Program
DX: M47.816 Spondylosis without myelopathy or radiculopathy, lumbar region (principal); I70.0 Atherosclerosis of aorta; M70.61 Trochanteric bursitis, right hip; Z96.641 Presence of right artificial hip joint
CPT/HCPCS: 99214; 72110

== ENCOUNTER 2020-11-11 10:39 | Outpatient (CLI) | payer OTHER, SELFPAY ==
[2020-11-11 15:53] LABS: Abs Immature Grans 0.02 10^3/uL (0.0-0.06); Absolute Basophil Count 0.03 10^3/uL (0.0-0.2); Absolute Eosinophil Count 0.13 10^3/uL (0.0-0.7); Absolute Lymphocyte Count 1.17 10^3/uL (1.2-3.4); Absolute Monocyte Count 0.62 10^3/uL (0.1-0.8); Absolute Neutrophil Count 3.59 10^3/uL (1.2-6.7); Basophils % 0.5; Eosinophils % 2.3; HCT 36.2 % (36.0-46.0); HGB 11.8 g/dL (11.2-15.7); Immature Grans % 0.4; MCH 30.7 pg (27.0-33.0); MCHC 32.6 % (32.0-36.0); MCV 94.3 fL (80-95); MPV 9.6 fL (8.0-11.0); Monocytes % 11.2; Neutrophils % 64.6; Nucleated RBC 0 %; Platelet Count 182 10^3/uL (130-400); RBC 3.84 10^6/uL (3.93-5.22); RDW 12.9 % (11.7-14.6); RDW-SD 44.4 fL; WBC 5.56 10^3/uL (4.4-10.8)
[2020-11-11 17:59] LABS: LDH 207 U/L (81-234)
== END 2020-11-11 10:40 | disposition home or self-care (01) ==
PROVIDERS: PCP Nurse Practitioner Family; Visit Provider Nurse Practitioner Family
DX: C83.38 Diffuse large B-cell lymphoma, lymph nodes of multiple sites (principal)
CPT/HCPCS: 36415; 83615; 85025

== ENCOUNTER → 2021-01-08 09:10 | Outpatient (BNVA) | payer OTHER, SELFPAY | PROVIDERS: PCP Internal Medicine; Referring Provider Nurse Practitioner Family; Visit Provider Nurse Practitioner Gerontology | DX: N13.30 Unspecified hydronephrosis (principal); C85.90 Non-Hodgkin lymphoma, unspecified, unspecified site | CPT/HCPCS: 99215 ==

== ENCOUNTER 2021-01-29 15:05 | Outpatient (CLI) | payer MEDICARE, SELFPAY ==
--- NOTE | 2021-01-29 11:45 | DI.RAD_ITS ---
Exam(s) XR HIP LT COMPLETE AP PELVIS EXAM: XR HIP LT COMPLETE AP PELVIS CLINICAL HISTORY: L hip pain. TECHNIQUE: 2D digital imaging was performed. COMPARISON: CR XR hip RT AP lat only from 09/22/2018 FINDINGS: No evident pelvic nor hip fracture. Right hip prosthesis again noted. No obvious degenerative gomez es in the left hip. No osseous lesions. IMPRESSION: DATA REPOSITORY: RADIATION DOSE DELIVERED:
== END 2021-01-29 15:06 | disposition home or self-care (01) ==
LOC: DIORS 15:05
PROVIDERS: PCP Internal Medicine; Referring Provider Nurse Practitioner Family; Visit Provider Student in an Organized Health Care Education/Training Program
DX: M25.552 Pain in left hip (principal); M25.852 Other specified joint disorders, left hip; M47.816 Spondylosis without myelopathy or radiculopathy, lumbar region
CPT/HCPCS: 99213; 73502

== ENCOUNTER 2021-03-17 04:27 | Outpatient (CLI) | payer MEDICARE, SELFPAY ==
[2021-03-17 11:30] LABS: Abs Immature Grans 0.02 10^3/uL (0.0-0.06); Absolute Basophil Count 0.03 10^3/uL (0.0-0.2); Absolute Eosinophil Count 0.11 10^3/uL (0.0-0.7); Absolute Lymphocyte Count 1.27 10^3/uL (1.2-3.4); Absolute Neutrophil Count 2.97 10^3/uL (1.2-6.7); Basophils % 0.6; Eosinophils % 2.2; HCT 38.1 % (36.0-46.0); HGB 12.3 g/dL (11.2-15.7); Immature Grans % 0.4; Lymphocytes % 25.4; MCH 30.3 pg (27.0-33.0); MCHC 32.3 % (32.0-36.0); MCV 93.8 fL (80-95); MPV 9.4 fL (8.0-11.0); Neutrophils % 59.4; Nucleated RBC 0 %; Platelet Count 187 10^3/uL (130-400); RBC 4.06 10^6/uL (3.93-5.22); RDW 13.1 % (11.7-14.6); RDW-SD 44.9 fL
[2021-03-18 01:51] LABS: Albumin 3.7 g/dL (3.4-5.0); Alkaline Phosphatase 52 U/L (46-116); BUN 23 mg/dL (7-18); Bilirubin, Total 0.5 mg/dL (0.2-1.0); CREATININE 1.2 mg/dL (0.55-1.02); Chloride 106 mmol/L (98-107); Estimated GFR 43.12 (mL/min/1.73m2); Glucose 95 mg/dL (74-106); Potassium 4.5 mmol/L (3.5-5.1); Sodium 142 mmol/L (136-145); Total Protein 6.8 g/dL (6.4-8.2)
[2021-03-18 01:52] LABS: ALT 22 U/L (14-59); AST 18 U/L (15-37); LDH 195 U/L (81-234)
== END 2021-03-17 04:28 | disposition home or self-care (01) ==
PROVIDERS: PCP Internal Medicine; Visit Provider Internal Medicine Hematology & Oncology
DX: C83.38 Diffuse large B-cell lymphoma, lymph nodes of multiple sites; C85.80 Other specified types of non-Hodgkin lymphoma, unspecified site; R33.8 Other retention of urine
CPT/HCPCS: 36415; 80053; 84520; 83615; 85025

== ENCOUNTER 2021-07-14 01:54 | Outpatient (CLI) | payer MEDICARE, SELFPAY ==
--- NOTE | 2021-07-14 | DI.CT_ITS ---
Exam(s) CT NECK CHEST ABD PEL W EXAM: CT NECK CHEST ABD PEL W CLINICAL HISTORY: B CELL LYMPHOMA C83.38, INCLUDE INDICATOR SITES, COMPARE TO CT 07/2020 TECHNIQUE: COMPARISON: CT CT CHEST ABDOMEN PELVIS W CONTRAST (GENERIC) from 08/06/2020 FINDINGS: CT NECK WITH IV CONTRAST: Nasopharynx: Unremarkable Oropharynx: Unremarkable Hypopharynx: No obvious abnormality. Aryepiglottic folds and vocal cords: No obvious abnormality. Subglottic airway unremarkable. Thyroid gland: Normal size. Contains small nodules in both lobes. Can be further investigated with ultrasound. Isthmus unremarkable. Salivary glands: The parotid and submandibular glands appear unremarkable. Vascular: No tight carotid stenosis. No thrombosis of the internal jugular veins. Lymph nodes: There is no lymphadenopathy on either side of the neck. No supraclavicular adenopathy. CT CHEST WITH IV CONTRAST: Lungs: A benign calcified granuloma is again noted in the superior segment of the right lower lobe, u nchanged. There are no new concerning pulmonary nodules. There are no pleural effusions. No new si gnificant focal findings in the trachea and mainstem bronchi. Mediastinum: Calcified right hilar lymph nodes are again noted, unchanged. No new significant hilar nor mediastinal adenopathy. No subcarinal adenopathy. No significant axillary nor supraclavicular a denopathy. Small nodules again noted in both thyroid lobes. Cardiac: Heart size normal. No pericardial effusion. Caliber thoracic aorta is within normal limits . Osseous: No significant osseous lesions CT ABDOMEN/PELVIS WITH IV CONTRAST: There is no ascites. Liver: Small benign-appearing hypodensity in the right hepatic lobe is unchanged, probably small cyst or hemangioma. No new ominous focal hepatic lesions Biliary: No obvious gallbladder pathology. CBD is not dilated. No dilatation of intrahepatic ducts. Pancreas: No significant pancreatic mass evident. Pancreatic duct is not dilated. Spleen: Spleen size is normal. Calcified splenic granulomas are again noted. No new ominous splenic lesions. The splenic and portal veins are patent. Adrenals: No significant adrenal masses. Kidneys: The left kidney is again noted be atrophic. No new right kidney findings. 3 millimeter non obstructive calculus in the right kidney is again noted. No hydronephrosis. Abdominal aorta: Calcified. No aneurysm. No para-aortic adenopathy. Anterior abdominal wall: No significant anterior abdominal wall nor inguinal hernia. Pelvis: There is no adenopathy around the aortic bifurcation nor along the iliac chains and there is no inguinal adenopathy. Right hip prosthesis is again noted. No evidence of appendicitis. Sigmoid diverticulosis without evidence of obvious acute diverticulitis. Uterus and adnexal regions are age-appropriate. No free fluid in the pelvis. Osseous: Right hip prosthesis. No lytic nor blastic osseous lesions. Degenerative changes in the lo wer lumbar spine. Schmorl's node invagination in the superior endplates of the lower 3 lumbar verteb ral bodies again noted. IMPRESSION: 1. No significant lymphadenopathy in the neck. 2. Small nodules noted in both thyroid lobes. This could be further investigated with ultrasound. 3. No new intrathoracic findings. 4. No new [id number] findings. No new lymphadenopathy. No ascites. No splenomega ly. Atrophic left kidney again noted.
[2021-07-14] MEDS: Breeza Beverage 473 ML BTL PO ×2 (09:02→09:03)
[2021-07-14] MEDS: Omnipaque 350 MG/ML 50 ML BTL IJ (09:03)
[2021-07-14 09:12] LABS: Abs Immature Grans 0.01 10^3/uL (0.0-0.06); Absolute Basophil Count 0.03 10^3/uL (0.0-0.2); Absolute Eosinophil Count 0.12 10^3/uL (0.0-0.7); Absolute Lymphocyte Count 1.18 10^3/uL (1.2-3.4); Absolute Monocyte Count 0.58 10^3/uL (0.1-0.8); Absolute Neutrophil Count 2.49 10^3/uL (1.2-6.7); Basophils % 0.7; Eosinophils % 2.7; HCT 38.1 % (36.0-46.0); HGB 12.4 g/dL (11.2-15.7); Immature Grans % 0.2; Lymphocytes % 26.8; MCH 31.1 pg (27.0-33.0); MCHC 32.5 % (32.0-36.0); MCV 95.5 fL (80-95); MPV 9.7 fL (8.0-11.0); Monocytes % 13.2; Neutrophils % 56.4; Nucleated RBC 0 %; Platelet Count 173 10^3/uL (130-400); RBC 3.99 10^6/uL (3.93-5.22); RDW 12.9 % (11.7-14.6); RDW-SD 45.9 fL; WBC 4.41 10^3/uL (4.4-10.8)
[2021-07-14 09:34] LABS: ALT 14 U/L (14-59); AST 14 U/L (15-37); Albumin 3.7 g/dL (3.4-5.0); Alkaline Phosphatase 52 U/L (46-116); Anion Gap 6.8 mmol/L (3-11); BUN 25 mg/dL (7-18); Bilirubin, Total 0.4 mg/dL (0.2-1.0); CO2 28.2 mmol/L (21.0-32.0); CREATININE 1.2 mg/dL (0.55-1.02); Chloride 108 mmol/L (98-107); Estimated GFR 43.12 (mL/min/1.73m2); Glucose 99 mg/dL (74-106); LDH 193 U/L (81-234); Potassium 4.3 mmol/L (3.5-5.1); Sodium 143 mmol/L (136-145)
[2021-07-14] MEDS: Omnipaque 350 MG/ML 100 ML BTL IJ (10:24)
== END 2021-07-14 02:14 ==
PROVIDERS: PCP Internal Medicine; Visit Provider Internal Medicine Hematology & Oncology
DX: C83.38 Diffuse large B-cell lymphoma, lymph nodes of multiple sites (principal)
CPT/HCPCS: 70491; 74177; 80053; 84520; 71260; 82565; 83615; 85025; J3490; Q9967

== ENCOUNTER 2021-10-19 12:38 | Outpatient (REF) | payer MEDICARE, SELFPAY ==
[2021-10-19 18:27] LABS: Bilirubin Negative (Negative); Blood Negative (Negative); Clarity Clear (Clear); Glucose Negative (Negative); Ketones Negative (Negative); Leukocyte Esterase Negative (Negative); Nitrite Negative (Negative); Specific Gravity 1.015 (1.005-1.025); Urobilinogen 0.2 EU/dL (Up TO 0.2)
== END 2021-10-19 12:39 | disposition home or self-care (01) ==
LOC: LBN 12:38
PROVIDERS: PCP Internal Medicine; Visit Provider Urology
DX: R30.0 Dysuria (principal)
CPT/HCPCS: 81003; 87086

== ENCOUNTER 2021-10-21 02:20 | Outpatient (CLI) | payer MEDICARE, SELFPAY ==
[2021-10-21 11:17] LABS: Abs Immature Grans 0.02 10^3/uL (0.0-0.06); Absolute Basophil Count 0.03 10^3/uL (0.0-0.2); Absolute Eosinophil Count 0.12 10^3/uL (0.0-0.7); Absolute Monocyte Count 0.68 10^3/uL (0.1-0.8); Absolute Neutrophil Count 3.15 10^3/uL (1.2-6.7); Basophils % 0.5; Eosinophils % 2.2; HCT 37.3 % (36.0-46.0); HGB 12.2 g/dL (11.2-15.7); Immature Grans % 0.4; Lymphocytes % 27.3; MCH 31.1 pg (27.0-33.0); MCHC 32.7 % (32.0-36.0); MCV 95 fL (80-95); MPV 9.6 fL (8.0-11.0); Monocytes % 12.4; Neutrophils % 57.2; Platelet Count 159 10^3/uL (130-400); RBC 3.92 10^6/uL (3.93-5.22); RDW 13.1 % (11.7-14.6); RDW-SD 45.1 fL
[2021-10-21 11:31] LABS: ALT 20 U/L (14-59); AST 17 U/L (15-37); Albumin 3.8 g/dL (3.4-5.0); Alkaline Phosphatase 49 U/L (46-116); Anion Gap 6.3 mmol/L (3-11); BUN 20 mg/dL (7-18); Bilirubin, Total 0.5 mg/dL (0.2-1.0); CO2 27.7 mmol/L (21.0-32.0); CREATININE 1.4 mg/dL (0.55-1.02); Calcium 9.3 mg/dL (8.5-10.1); Chloride 106 mmol/L (98-107); Glucose 99 mg/dL (74-106); LDH 205 U/L (81-234); Potassium 4.7 mmol/L (3.5-5.1); Sodium 140 mmol/L (136-145); Total Protein 7.2 g/dL (6.4-8.2)
== END 2021-10-21 02:21 | disposition home or self-care (01) ==
LOC: LBO 02:20
PROVIDERS: PCP Internal Medicine; Visit Provider Internal Medicine Hematology & Oncology
DX: C83.38 Diffuse large B-cell lymphoma, lymph nodes of multiple sites (principal); C85.80 Other specified types of non-Hodgkin lymphoma, unspecified site
CPT/HCPCS: 36415; 80053; 83615; 85025

== ENCOUNTER → 2022-01-07 09:47 | Outpatient (BNVA) | payer MEDICARE, SELFPAY | PROVIDERS: PCP Internal Medicine; Referring Provider Internal Medicine; Visit Provider Nurse Practitioner Gerontology | DX: R33.8 Other retention of urine (principal); N13.30 Unspecified hydronephrosis; C85.90 Non-Hodgkin lymphoma, unspecified, unspecified site | CPT/HCPCS: 99215 ==

== ENCOUNTER 2022-04-22 03:01 | Outpatient (CLI) | payer MEDICARE, SELFPAY ==
[2022-04-22 11:14] LABS: Abs Immature Grans 0.02 10^3/uL (0.0-0.06); Absolute Basophil Count 0.03 10^3/uL (0.0-0.2); Absolute Eosinophil Count 0.16 10^3/uL (0.0-0.7); Absolute Lymphocyte Count 1.28 10^3/uL (1.2-3.4); Absolute Monocyte Count 0.62 10^3/uL (0.1-0.8); Absolute Neutrophil Count 3.18 10^3/uL (1.2-6.7); Basophils % 0.6; HCT 37.5 % (36.0-46.0); HGB 12.4 g/dL (11.2-15.7); Immature Grans % 0.4; Lymphocytes % 24.2; MCH 31.3 pg (27.0-33.0); MCHC 33.1 % (32.0-36.0); MCV 95 fL (80-95); MPV 9.3 fL (8.0-11.0); Monocytes % 11.7; Neutrophils % 60.1; Platelet Count 194 10^3/uL (130-400); RBC 3.96 10^6/uL (3.93-5.22); RDW 12.9 % (11.7-14.6); RDW-SD 45.1 fL; WBC 5.29 10^3/uL (4.4-10.8)
[2022-04-22 11:36] LABS: Calculated LDL 121 mg/dL (<100); Cholesterol 185 mg/dL (<200); HDL Cholesterol 52 mg/dL (40-60); Triglyceride 61 mg/dL (<150)
[2022-04-22 11:37] LABS: ALT 16 U/L (14-59); AST 18 U/L (15-37); Albumin 3.5 g/dL (3.4-5.0); Alkaline Phosphatase 51 U/L (46-116); Anion Gap 5.8 mmol/L (3-11); BUN 28 mg/dL (7-18); Bilirubin, Total 0.5 mg/dL (0.2-1.0); CO2 27.2 mmol/L (21.0-32.0); CREATININE 1.2 mg/dL (0.55-1.02); Calcium 8.8 mg/dL (8.5-10.1); Chloride 104 mmol/L (98-107); Estimated GFR 45.19 (mL/min/1.73m2); Glucose 107 mg/dL (74-106); LDH 214 U/L (81-234); Potassium 4.9 mmol/L (3.5-5.1); Sodium 137 mmol/L (136-145); Total Protein 6.9 g/dL (6.4-8.2)
== END 2022-04-22 03:02 | disposition home or self-care (01) ==
LOC: LBO 03:07
PROVIDERS: PCP Internal Medicine; Visit Provider Internal Medicine Hematology & Oncology
DX: C83.38 Diffuse large B-cell lymphoma, lymph nodes of multiple sites (principal); E78.5 Hyperlipidemia, unspecified
CPT/HCPCS: 36415; 80053; 80061; 83615; 85025

== ENCOUNTER → 2022-06-30 13:51 | Outpatient (BNVA) | payer MEDICARE, SELFPAY | PROVIDERS: PCP Internal Medicine; Referring Provider Internal Medicine; Visit Provider Nurse Practitioner Gerontology | DX: N39.0 Urinary tract infection, site not specified (principal); Z87.440 Personal history of urinary (tract) infections | CPT/HCPCS: 51798; 81003; 99213 ==

== ENCOUNTER 2022-06-30 14:23 | Outpatient (CLI) | payer MEDICARE, SELFPAY | END 2022-06-30 14:24 | disposition home or self-care (01) | LOC: LBO 14:24 | PROVIDERS: PCP Internal Medicine; Visit Provider Nurse Practitioner Gerontology | DX: N39.0 Urinary tract infection, site not specified (principal) | CPT/HCPCS: 51798; 81003; 87077; 99213; 87086 ==

== ENCOUNTER 2022-10-25 11:24 | Outpatient (CLI) | payer MEDICARE, SELFPAY ==
[2022-10-25 10:21] LABS: Abs Immature Grans 0.02 10^3/uL (0.0-0.06); Absolute Basophil Count 0.05 10^3/uL (0.0-0.2); Absolute Lymphocyte Count 1.38 10^3/uL (1.2-3.4); Absolute Monocyte Count 0.71 10^3/uL (0.1-0.8); Absolute Neutrophil Count 3.23 10^3/uL (1.2-6.7); Basophils % 0.9; Eosinophils % 3.6; HCT 38.7 % (36.0-46.0); HGB 12.8 g/dL (11.2-15.7); Immature Grans % 0.4; Lymphocytes % 24.7; MCH 30.6 pg (27.0-33.0); MCHC 33.1 % (32.0-36.0); MCV 93 fL (80-95); MPV 9.6 fL (8.0-11.0); Monocytes % 12.7; Neutrophils % 57.7; Platelet Count 191 10^3/uL (130-400); RBC 4.18 10^6/uL (3.93-5.22); RDW 13.6 % (11.7-14.6); WBC 5.59 10^3/uL (4.4-10.8)
[2022-10-25 11:08] LABS: ALT 28 U/L (14-59); AST 23 U/L (15-37); Albumin 3.6 g/dL (3.4-5.0); Alkaline Phosphatase 53 U/L (46-116); BUN 24 mg/dL (7-18); Bilirubin, Total 0.7 mg/dL (0.2-1.0); CREATININE 1.2 mg/dL (0.55-1.02); Calcium 9.2 mg/dL (8.5-10.1); Chloride 104 mmol/L (98-107); Estimated GFR 44.91 (mL/min/1.73m2); Glucose 117 mg/dL (74-106); Potassium 4.3 mmol/L (3.5-5.1); Sodium 138 mmol/L (136-145); Total Protein 7.2 g/dL (6.4-8.2)
[2022-10-25 11:26] LABS: LDH 261 U/L (81-234)
== END 2022-10-25 11:25 | disposition home or self-care (01) ==
LOC: LBO 11:25
PROVIDERS: PCP Internal Medicine; Visit Provider Internal Medicine Hematology & Oncology
DX: C83.38 Diffuse large B-cell lymphoma, lymph nodes of multiple sites (principal)
CPT/HCPCS: 36415; 80053; 83615; 85025

== ENCOUNTER 2022-11-10 02:34 | Outpatient (CLI) | payer MEDICARE, SELFPAY ==
[2022-11-10 10:08] LABS: Abs Immature Grans 0.02 10^3/uL (0.0-0.06); Absolute Basophil Count 0.06 10^3/uL (0.0-0.2); Absolute Eosinophil Count 0.22 10^3/uL (0.0-0.7); Absolute Lymphocyte Count 1.58 10^3/uL (1.2-3.4); Absolute Monocyte Count 0.69 10^3/uL (0.1-0.8); Absolute Neutrophil Count 3.06 10^3/uL (1.2-6.7); Basophils % 1.1; Eosinophils % 3.9; HCT 39.5 % (36.0-46.0); Immature Grans % 0.4; Lymphocytes % 28.1; MCH 30.6 pg (27.0-33.0); MCHC 32.9 % (32.0-36.0); MCV 93 fL (80-95); MPV 9.4 fL (8.0-11.0); Monocytes % 12.3; Neutrophils % 54.2; Platelet Count 207 10^3/uL (130-400); RBC 4.25 10^6/uL (3.93-5.22); RDW 13.2 % (11.7-14.6); RDW-SD 44.6 fL; WBC 5.63 10^3/uL (4.4-10.8)
[2022-11-10 10:43] LABS: ALT 20 U/L (14-59); AST 19 U/L (15-37); Albumin 3.6 g/dL (3.4-5.0); Alkaline Phosphatase 58 U/L (46-116); Anion Gap 9.7 mmol/L (3-11); BUN 19 mg/dL (7-18); Bilirubin, Total 0.6 mg/dL (0.2-1.0); CO2 27.3 mmol/L (21.0-32.0); CREATININE 1.3 mg/dL (0.55-1.02); Calcium 9.1 mg/dL (8.5-10.1); Chloride 105 mmol/L (98-107); Glucose 155 mg/dL (74-106); LDH 233 U/L (81-234); Potassium 4.4 mmol/L (3.5-5.1); Sodium 142 mmol/L (136-145); Total Protein 7.3 g/dL (6.4-8.2)
== END 2022-11-10 02:35 | disposition home or self-care (01) ==
LOC: LBO 02:34
PROVIDERS: PCP Internal Medicine; Visit Provider Internal Medicine Hematology & Oncology
DX: C83.38 Diffuse large B-cell lymphoma, lymph nodes of multiple sites (principal)
CPT/HCPCS: 36415; 80053; 83615; 85025

== ENCOUNTER 2022-12-08 01:46 | Outpatient (CLI) | payer MEDICARE, SELFPAY ==
--- NOTE | 2022-12-08 07:30 | DI.US_ITS ---
Exam(s) US RENAL EXAM: US RENAL CLINICAL HISTORY: monitoring hydro/retention, ACUTE URINARY RETENTION, LT HYDRO TECHNIQUE: Ultrasound of both kidneys performed using standard protocol. COMPARISON: CT CT NECK CHEST ABD PEL W from 07/14/2021 FINDINGS: RIGHT KIDNEY: Measures 10 cm in length. No cysts evident. Normal cortical thickness and corticomedullary differenti ation .No solid masses No intrarenal calculi nor hydronephrosis. LEFT KIDNEY: Atrophic and difficult to visualize on ultrasound. This kidney was also noted to be atrophic on the CT scan of 07/14/2021. URINARY BLADDER: Prevoid volume is 104 cc Postvoid volume is 0 cc No evidence of bladder mass nor diverticuli. Ureterovesical jets: The right ureterovesical jet was identified.. The left jet was not identified, commensurate with the left kidney being atrophic and relatively nonfunctional. IMPRESSION: 1. Normal appearing right kidney. 2. Atrophic left kidney again noted. DATA REPOSITORY:
== END 2022-12-08 02:06 ==
LOC: DI 01:46
PROVIDERS: PCP Internal Medicine; Visit Provider Nurse Practitioner Gerontology
DX: N26.1 Atrophy of kidney (terminal) (principal); R33.8 Other retention of urine
CPT/HCPCS: 76770

== ENCOUNTER 2022-12-08 03:43 | Outpatient (CLI) | payer MEDICARE, SELFPAY ==
[2022-12-08 11:43] LABS: Abs Immature Grans 0.01 10^3/uL (0.0-0.06); Absolute Basophil Count 0.04 10^3/uL (0.0-0.2); Absolute Eosinophil Count 0.18 10^3/uL (0.0-0.7); Absolute Lymphocyte Count 1.45 10^3/uL (1.2-3.4); Absolute Monocyte Count 0.57 10^3/uL (0.1-0.8); Absolute Neutrophil Count 3.09 10^3/uL (1.2-6.7); Basophils % 0.7; Eosinophils % 3.4; HCT 36.1 % (36.0-46.0); Immature Grans % 0.2; Lymphocytes % 27.2; MCH 31.2 pg (27.0-33.0); MCHC 33.2 % (32.0-36.0); MCV 94 fL (80-95); MPV 9.2 fL (8.0-11.0); Monocytes % 10.7; Neutrophils % 57.8; Platelet Count 196 10^3/uL (130-400); RBC 3.85 10^6/uL (3.93-5.22); RDW 13.2 % (11.7-14.6); RDW-SD 45.2 fL; WBC 5.34 10^3/uL (4.4-10.8)
[2022-12-08 12:17] LABS: ALT 22 U/L (14-59); AST 22 U/L (15-37); Albumin 3.4 g/dL (3.4-5.0); Alkaline Phosphatase 55 U/L (46-116); Anion Gap 4.1 mmol/L (3-11); BUN 21 mg/dL (7-18); Bilirubin, Total 0.5 mg/dL (0.2-1.0); CO2 28.9 mmol/L (21.0-32.0); CREATININE 1.2 mg/dL (0.55-1.02); Chloride 105 mmol/L (98-107); Estimated GFR 44.91 (mL/min/1.73m2); Glucose 97 mg/dL (74-106); LDH 259 U/L (81-234); Sodium 138 mmol/L (136-145); Total Protein 6.6 g/dL (6.4-8.2)
== END 2022-12-08 03:44 | disposition home or self-care (01) ==
PROVIDERS: PCP Internal Medicine; Visit Provider Internal Medicine Hematology & Oncology
DX: C83.38 Diffuse large B-cell lymphoma, lymph nodes of multiple sites (principal)
CPT/HCPCS: 36415; 80053; 83615; 85025

== ENCOUNTER → 2023-01-06 09:59 | Outpatient (BNVA) | payer MEDICARE, SELFPAY | PROVIDERS: PCP Internal Medicine; Referring Provider Internal Medicine; Visit Provider Nurse Practitioner Gerontology | DX: I10 Essential (primary) hypertension (principal); R33.8 Other retention of urine; N13.30 Unspecified hydronephrosis | CPT/HCPCS: 99214 ==

== ENCOUNTER 2023-02-08 02:18 | Outpatient (CLI) | payer MEDICARE, SELFPAY ==
[2023-02-08 11:39] LABS: Abs Immature Grans 0.02 10^3/uL (0.0-0.06); Absolute Basophil Count 0.05 10^3/uL (0.0-0.2); Absolute Eosinophil Count 0.15 10^3/uL (0.0-0.7); Absolute Lymphocyte Count 1.64 10^3/uL (1.2-3.4); Absolute Monocyte Count 0.57 10^3/uL (0.1-0.8); Absolute Neutrophil Count 2.66 10^3/uL (1.2-6.7); Eosinophils % 2.9; HCT 37.9 % (36.0-46.0); HGB 12.5 g/dL (11.2-15.7); Immature Grans % 0.4; Lymphocytes % 32.2; MCH 30.9 pg (27.0-33.0); MCV 94 fL (80-95); MPV 9.5 fL (8.0-11.0); Monocytes % 11.2; Neutrophils % 52.3; Platelet Count 192 10^3/uL (130-400); RBC 4.05 10^6/uL (3.93-5.22); RDW 13.1 % (11.7-14.6); RDW-SD 45.3 fL; WBC 5.09 10^3/uL (4.4-10.8)
[2023-02-08 11:54] LABS: ALT 21 U/L (14-59); AST 22 U/L (15-37); Albumin 3.7 g/dL (3.4-5.0); Alkaline Phosphatase 55 U/L (46-116); BUN 22 mg/dL (7-18); Bilirubin, Total 0.6 mg/dL (0.2-1.0); CREATININE 1.3 mg/dL (0.55-1.02); Calcium 9.7 mg/dL (8.5-10.1); Chloride 105 mmol/L (98-107); Glucose 92 mg/dL (74-106); LDH 251 U/L (81-234); Potassium 4.3 mmol/L (3.5-5.1); Sodium 139 mmol/L (136-145); Total Protein 7.2 g/dL (6.4-8.2)
== END 2023-02-08 02:19 | disposition home or self-care (01) ==
LOC: LBO 02:19
PROVIDERS: PCP Internal Medicine; Visit Provider Internal Medicine Hematology & Oncology
DX: C83.38 Diffuse large B-cell lymphoma, lymph nodes of multiple sites (principal)
CPT/HCPCS: 36415; 80053; 83615; 85025

== ENCOUNTER 2023-04-18 15:59 | Emergency (ER) | payer MEDICARE, SELFPAY ==
--- NOTE | 2023-04-18 16:00 | DI.CT_ITS ---
Exam(s) CT HEAD CERVICAL SPINE WO EXAM: CT HEAD CERVICAL SPINE WO CLINICAL HISTORY: fell, hit right scalp. TECHNIQUE: Imaging Protocol: Axial computed tomography images with coronal and sagittal reformatted images were created and reviewed CT CT NECK CHEST ABD PEL W from 07/14/2021 FINDINGS: CT Head: Ventricles and Extra axial spaces: Normal in size and morphology for the patient's age. Hemorrhage: None. Cerebral parenchyma: There are areas of decreased attenuation in the white matter consistent with sma ll vessel ischemic disease. No mass effect is identified. Midline shift: None. Brainstem/Cerebellum: Normal. Calvarium: Normal. Visualized Paranasal sinuses/Mastoids: Clear. Soft Tissues: There is soft tissue swelling of the scalp overlying the right parietal bone. No radio paque foreign bodies are seen. There is a small amount of air in the subcutaneous tissues suggesting a laceration. CT Cervical Spine: Bones: No acute fracture or subluxation. Age-appropriate degenerative changes are seen in the cervica l spine. There is straightening of the normal cervical lordosis. This may be due to muscle spasm or patient positioning. Soft Tissues: There are several hypodense nodule seen in the thyroid gland. The largest measures 9 m m. No follow-up is recommended. Lung Apices: Clear. IMPRESSION: 1. No acute intracranial process. 2. Soft tissue swelling overlying the right parietal bone with findings suggestive of a laceration. 3. No acute fracture or subluxation in the cervical spine. 4. Findings were discussed with Ana María Saba at 5:40 p.m. on 04/18/2023. RADIATION DOSE DELIVERED: Total DLP DATA REPOSITORY: All CT scans at this facility are submitted to the National Radiology Data Registry (NRDR) Dose Index Registry (DIR) with the [employer] ([employer]). RADIATION OPTIMIZATION: All CT scans at this facility use at least one of these dose optimization te chniques: automated exposure control; mA and/or kV adjustment per patient size (includes targeted exa ms where dose is matched to clinical indication); or iterative reconstruction.
[2023-04-18 16:12] VITALS: BP 177/79; PULSE 77; RESP 18; TEMP 37.3; O2SAT 98
--- NOTE | 2023-04-18 16:15 | ED.GENADUL_ITS ---
Discharge Plan Disposition Patient Disposition: Home Discharge Details Clinical Impression: Fall, Laceration of scalp Primary Care Provider: Erick Marcano ED Provider: Shon Perkins Home Meds and New Rx's Prescriptions: No Action acetaminophen [Tylenol Arthritis Pain] 650 mg tablet extended release 1,300 mg PO Q8H glucosamine sulfate [Glucosamine] 500 mg tablet 500 mg PO DAILY Rx Instructions: administer with a meal losartan 25 MG tablet 25 mg PO DAILY atorvastatin [Lipitor] 10 mg tablet 10 mg PO DAILY Qty: 90 0RF acetaminophen 500 mg capsule 1,000 mg PO Q8H PRN (Reason: pain) Qty: 90 0RF sodium fluoride-pot nitrate [PreviDent 5000 Sensitive] 1.1-5 % Paste 1 applic BID omeprazole 20 mg capsule,delayed release(DR/EC) 20 mg PO DAILY PRN Discharge Instructions Instructions: Laceration (ED), Staple Care (ED) Additional Instructions: At this time the CAT scan shows no evidence of bleed or infarct or other significant abnormality. Your laboratory workup shows no significant electrolyte abnormalities. Your blood counts are normal. Please return in 7 to 10 days to have your taylor removed. Please keep the area clean and dry. Keep the area completely dry for the next 24 to 48 hours. Monitor closely for any redness, drainage or discharge. If you come back to the emergency department here it will be free of charge for the suture removal. For long-term scar cosmesis, please make sure to avoid any sun to the area for the next year. Apply moisturizer or vitamin E to the area twice daily for the next 12 months for the best chance of wound/scar medication. Please take a daily multivitamin as well as this can help in wound healing. If you notice any worsening of your symptoms, or any new symptoms such as vomiting, diarrhea, fever, chills, shortness of breath, chest pain, numbness, weakness, or fainting , please return immediately to the emergency department for reevaluation. Please follow up with your primary care provider as soon as possible for reassessment and reevaluation. As always, it was a pleasure participating in your medical care today. 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 Patient states that she was playing with her dog when she slipped and fell while playing with the dog and hit her right scalp. She did not lose consciousness but she did feel lightheaded. EMS was called, they bandaged to the patient, and then the patient came in by POV. Side for pain in the right head the patient denies any other complaints. She denies any nausea vomiting or diarrhea. She does feel very dizzy and unbalanced when she moves her head quickly though now. She denies any neck pain or chest pain or extremity pain. She is not on any blood thinners. She does not know when her last tetanus shot was. No other complaints at this time. No other modifying factors. Exam demonstrates well-appearing female, normal neurologic exam. No nystagmus. No midline cervical thoracic or lumbar spine tenderness. Patient does have a notable hematoma over the temporal region on the right scalp. A large amount of matted hair and clot is noted. Unable to visualize laceration. No active bleeding. Will get a CT scan to rule out bleed or fracture, clean the area, update her tetanus, monitor closely and reassess and evaluate for laceration. 10:[address] scan demonstrates no evidence of acute process for the head and neck. No other abnormality. Large laceration was noted. The area was cleaned this took about 45 minutes to get the matted blood and hair out. She has about 45 cm laceration on the scalp, large hematoma in the area. Part of the hematoma needed to be removed to be able to reapproximate wound edges. Some bleeding did recur when hematoma was removed. 2 simple interrupted sutures of Vicryl were placed for rapid hemostasis and reapproximation. 5 taylor were then placed without complication. Patient tolerated this well. All bleeding stopped. Repeat neurologic assessment at time of discharge demonstrate no neurologic abnormalities. Patient stable for discharge. Discussed red flags for which to return. Tetanus was updated. I have extensively reviewed the treatment plan and discharge instructions with the patient. I have addressed all patient margot rns at this time. The patient was made aware of what symptoms to monitor for that would warrant a return to the emergency department. Discussed the plan with the patient, they demonstrate verbal understanding and agreement with our assessment and plan at this time. The documentation in this chart was dictated using [employer] dictation software. Please excuse any dictation errors. FINDINGS: CT Head: Ventricles and Extra axial spaces: Normal in size and morphology for the patient's age. Hemorrhage: None. Cerebral parenchyma: There are areas of decreased attenuation in the white matter consistent with small vessel ischemic disease. No mass effect is identified. Midline shift: None. Brainstem/Cerebellum: Normal. Calvarium: Normal. Visualized Paranasal sinuses/Mastoids: Clear. Soft Tissues: There is soft tissue swelling of the scalp overlying the right parietal bone. No radiopaque foreign bodies are seen. There is a small amount of air in the subcutaneous tissues suggesting a laceration. CT Cervical Spine: Bones: No acute fracture or subluxation. Age-appropriate degenerative changes are seen in the cervical spine. There is straightening of the normal cervical lordosis. This may be due to muscle spasm or patient positioning. Soft Tissues: There are several hypodense nodule seen in the thyroid gland. The largest measures 9 mm. No follow-up is recommended. Lung Apices: Clear. IMPRESSION: 1. No acute intracranial process. 2. Soft tissue swelling overlying the right parietal bone with findings suggestive of a laceration. 3. No acute fracture or subluxation in the cervical spine. 4. Findings were discussed with Ana María Saba at 5:40 p.m. on 04/18/2023. HPI General Date/Time Provider Initiated Documentation: 04/18/23 16:03 . 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 Patient states that she was playing with her dog when she slipped and fell while playing with the dog and hit her right scalp. She did not lose consciousness but she did feel lightheaded. EMS was called, they bandaged to the patient, and then the patient came in by POV. Side for pain in the right head the patient denies any other complaints. She denies any nausea vomiting or diarrhea. She does feel very dizzy and unbalanced when she moves her head quickly though now. She denies any neck pain or chest pain or extremit y pain. She is not on any blood thinners. She does not know when her last tetanus shot was. No other complaints at this time. No other modifying factors. Related Data Home Medications Medication Instructions Recorded Confirmed losartan 25 mg tablet 25 mg PO DAILY 04/28/15 01/29/21 acetaminophen 500 mg capsule 1,000 mg (2 x 500 mg) PO Q8H PRN 02/24/18 01/29/21 pain #90 caps atorvastatin 10 mg tablet (Lipitor) 10 mg PO DAILY #90 tabs 04/15/19 01/29/21 sodium fluoride 1.1 %-potassium 1 applic BID 08/22/19 01/29/21 nitrate 5 % dental paste (PreviDent 5000 Sensitive) acetaminophen 650 mg 1,300 mg PO Q8H 01/08/21 01/29/21 tablet,extended release (Tylenol Arthritis Pain) glucosamine sulfate 500 mg tablet 500 mg PO DAILY 01/08/21 01/29/21 (Glucosamine) omeprazole 20 mg capsule,delayed 20 mg PO DAILY PRN 01/08/21 01/29/21 release Previous Rx's Medication Instructions Recorded acetaminophen 500 mg capsule 1,000 mg (2 x 500 mg) PO Q8H PRN 02/24/18 pain #90 caps atorvastatin 10 mg tablet (Lipitor) 10 mg PO DAILY #90 tabs 04/15/19 Allergies Allergy/AdvReac Type Severity Reaction Status Date / Time ciprofloxacin [From Cipro] Allergy HIVES Unverified 01/29/21 11:28 oxycodone [From Percocet] AdvReac Intermediate Nausea & Verified 01/29/21 11:28 Vomiting ibuprofen AdvReac CAN'T TAKE Verified 01/29/21 11:28 DUE TO 1 KIDNEY General NINA: 2 Review of Systems All systems reviewed & are unremarkable except as noted in HPI and below PFSH All Active Problems (Updated 04/18/23 @ 18:59 by Shon Perkins DO) Laceration of scalp (Acute) Fall (Acute) 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) History of removal of Port-a-Cath (Acute) Goals of care, counseling/discussion (Acute) Pulmonary hypertension (Acute) Bone pain due to G-CSF (Acute) Acute urinary retention (Acute) Chest pain (Acute) Hydronephrosis, left (Acute) Lymphoma (Acute) Pelvic mass in female (Chronic) History of total right hip replacement (Chronic) Trochanteric bursitis of right hip (Chronic) Injection: 04/30/2019 Urinary tract infection (Acute) Pelvic mass (Acute) Hematuria (Acute) History of lithotripsy (Chronic) History of ectopic (Chronic) required surgical intervention History of appendectomy (Chronic) Primary osteoarthritis of right hip (Chronic 11/16/17) Hyperlipidemia, unspecified (Chronic 04/28/15) Essential hypertension (Chronic 04/28/15) Medical History (Updated 04/18/23 @ 18:59 by Shon Perkins DO) Trochanteric bursitis Gross hematuria Hypertension Incontinence GERD (gastroesophageal reflux disease) Diffuse large B cell lymphoma Palliative care patient Diverticulosis Open head injury Anemia Fatigue Prediabetes Pyelonephritis Surgical History (Updated 03/07/20 @ 12:27 by Darcy Randolph DO) History of cataract surgery History of D&C History of right hip replacement Family History (Updated 09/10/19 @ 05:26 by Fiona Browne MD) Son No problems noted. Sister No problems noted. Sister No problems noted. Son No problems noted. Granddaughter No problems noted. Grandson No problems noted. Social History (Updated 09/10/19 @ 05:26 by Fiona Browne MD) Smoking/Tobacco Use Status: Former Tobacco Use Quit Date: 05/09/69 Tobacco: How many years used: 10 Smoking risk assessment performed?: Yes Alcohol Intake: current Alcohol Intake frequency: a few times a month Alcohol type: beer and wine Drug use: Never Substance use type: does not use Details: has tried but doesn't use. Caregiver/Support person: Yes Household members: spouse Housing: house Number of Children: 2 number of grandchildren: 2 Communication Needs: Corrective Lenses Education Level: college Do you need help understanding health information?: Often Pets and animals: Yes Current gender identity: female What is your relationship status?: How often do you talk on the phone with friends or family?: twice per week How often do you get together with friends or relatives?: twice per week Panel score (0-1 are the most socially isolated patients): 2 What type of physical activity do you participate in: walking, regular exercise and additional Details: gardening Duration: 30-45 minutes/day Special hector needs: No Seatbelt use: always Working smoke detector in home: Yes Fire extinguisher in home: Yes Do you feel safe at home: Yes Do you feel safe in your relationship?: Yes Additional Social history: Lives with Mart who is 83 and expects to be waited on. He's unaware of my needs. Relies on her 2 sisters and friend Marian Tracy for support. Exam Narrative Exam Narrative: 1.Const: Well-nourished, Well-developed, appearing stated age 2.Eyes: PERRL, no conjunctival injection, and symmetrical lids. 3.ENT: Atraumatic external nose and ears. Moist MM. Neck: Symmetric, trachea midline, No thyromegaly. There is no evidence of raccoon eyes, aguilera sign, CSF rhinorrhea, mastoid tenderness, cranial crepitus, hemotympanum, exophthalmos, or hyphema. Patient demonstrates intact dentition with no signs of tooth avulsion or fracture, no signs of jaw deformity, no evidence of a LeFort's fracture, with an intact palate, nose and orbital region. There is no evidence of a nasal septal hematoma. No proptosis. Jaw closes symmetrically. Airway is clear. 4.CVS: +S1/S2, No murmurs or gallops. Peripheral pulses 2+ and equal in all extremities. Brisk capillary refill in all extremities. 5.RESP: Unlabored respiratory effort. Clear to auscultation bilaterally. No wheezes rales or rhonchi 6.GI: Soft, Nontender/Nondistended, No hepatosplenomegaly. No guarding or rebound. 7.MSK: Extremities w/o deformity or ttp No cyanosis or clubbing, Normal movement of all extremities Patient demonstrates notable hematoma on the right temporal region, notable am ount of matted hair with clot. Difficulty visualizing the actual skin for laceration. No active bleeding at this time. No midline tenderness to palpation over the CTLS spine. Normal ROM in flexion, extension, side bend, and rotation. Patient has +5 out of 5 strength in the lower extremities in dorsiflexion and plantarflexion, knee flexion and extension, hip flexion and extension. Normal strength for dorsiflexion and plantar flexion of the great toe bilaterally. There is +2 over 2 dorsalis pedis pulses bilaterally. There is normal sensation to the skin with light touch at the foot, knee, and hip. Normal saddle sensation. Good sensation over the deep sural nerve area bilaterally. Rectal exam demonstrates good rectal tone with excellent patti-rectal sensation. Reflexes are +2 over 4 in the patellar reflex bilaterally. +5 out of 5 strength in the medial, ulnar, radial nerve distribution bilaterally in the hands as well as intact light touch sensation to these dermatomes on the hands 8.Skin: Warm, Dry. No rashes or lesions. 9.Neuro: physicist acoustics II-XII grossly intact. Sensation grossly intact, no focal neurologic deficits. All 6 cardinal planes of vision are fully intact. No evidence of rotatory or vertical nystagmus. The patient demonstrated a normal [id number], good dexterity. There was no evidence of dysdiadochokinesia. Patient was able to ambulate without difficulty. There was no wide-based gait. Romberg testing was normal. [id number] testing was normal. Sensation was intact bilaterally as well as muscle strength bilaterally for all extremities. Patient was able to verbalize butter cup with no slurring, or miss pronunciation. 10.Psych: (AAO) x3. Appropriate mood and affect Procedures Laceration Laceration 1: Site: scalp Side (If applicable): right Size (cm): 4 Description: linear Depth: simple, single layer Local Anesthetic: Lidocaine 1% Amount of anesthesia used (mL): 5 Pre-repair: wound explored, irrigated extensively and deep structures in tact Skin layer closed with: vicryl and other (Vaughn) Size (cm): 4-0 Number of sutures: 5 Technique: simple, interrupted
[2023-04-18 16:45] LABS: Abs Immature Grans 0.02 10^3/uL (0.0-0.06); Absolute Basophil Count 0.05 10^3/uL (0.0-0.2); Absolute Eosinophil Count 0.15 10^3/uL (0.0-0.7); Absolute Monocyte Count 0.56 10^3/uL (0.1-0.8); Absolute Neutrophil Count 3.56 10^3/uL (1.2-6.7); Basophils % 0.9; Eosinophils % 2.6; HCT 37.3 % (36.0-46.0); HGB 12.2 g/dL (11.2-15.7); Immature Grans % 0.3; Lymphocytes % 24.4; MCH 30.6 pg (27.0-33.0); MCHC 32.7 % (32.0-36.0); MCV 94 fL (80-95); MPV 9.4 fL (8.0-11.0); Monocytes % 9.8; Platelet Count 211 10^3/uL (130-400); RBC 3.99 10^6/uL (3.93-5.22); RDW 13.1 % (11.7-14.6); RDW-SD 44.7 fL; WBC 5.74 10^3/uL (4.4-10.8)
[2023-04-18 16:58] LABS: INR 1.1 (0.9-1.1); PTT Activated 26.3 sec (23.6-32.8); Prothrombin Time 10.6 sec (9.1-11.1)
[2023-04-18 17:10] LABS: ALT 22 U/L (14-59); AST 21 U/L (15-37); Albumin 3.8 g/dL (3.4-5.0); Alkaline Phosphatase 59 U/L (46-116); BUN 23 mg/dL (7-18); Bilirubin, Total 0.4 mg/dL (0.2-1.0); CREATININE 1.3 mg/dL (0.55-1.02); Calcium 9.3 mg/dL (8.5-10.1); Chloride 104 mmol/L (98-107); Glucose 105 mg/dL (74-106); Potassium 4.3 mmol/L (3.5-5.1); Sodium 140 mmol/L (136-145); Total Protein 6.9 g/dL (6.4-8.2)
[2023-04-18] MEDS: Meclizine 25 MG TAB PO (17:14)
[2023-04-18] MEDS: Ondansetron 4 MG/2 ML VIAL IVP (17:15)
[2023-04-18] MEDS: ACETAMINOPHEN 1,000 MG/100 ML BTL 400 MG IVPB (17:17)
[2023-04-18 18:55] VITALS: BP 156/75; PULSE 78; RESP 18; O2SAT 98
== END 2023-04-18 19:23 | disposition home or self-care (01) ==
PROVIDERS: Emergency Provider Student in an Organized Health Care Education/Training Program; PCP Internal Medicine
DX: R51.9 Headache, unspecified (principal); S01.01XA Laceration without foreign body of scalp, initial encounter; W01.0XXA Fall on same level from slipping, tripping and stumbling without subsequent striking against object, initial encounter; Z90.5 Acquired absence of kidney; E78.5 Hyperlipidemia, unspecified; Z79.899 Other long term (current) drug therapy; K21.9 Gastro-esophageal reflux disease without esophagitis; Z96.641 Presence of right artificial hip joint; C83.30 Diffuse large B-cell lymphoma, unspecified site; R93.0 Abnormal findings on diagnostic imaging of skull and head, not elsewhere classified
CPT/HCPCS: 12032; 80053; 90471; 96374; 96375; 99285; 70450; 72125; 85025; 85610; 85730; 99284; J0131; J2405

== ENCOUNTER 2023-04-28 09:29 | Emergency (ER) | payer MEDICARE, SELFPAY ==
[2023-04-28 09:31] VITALS: BP 141/65; PULSE 74; RESP 16; TEMP 35.8; O2SAT 99
--- NOTE | 2023-05-01 08:16 | ED.GENADUL_ITS ---
Discharge Plan Disposition Patient Disposition: Home Discharge Details Clinical Impression: Encounter for staple removal Primary Care Provider: Erick Marcano ED Provider: Ana María Saba Home Meds and New Rx's Prescriptions: Continued acetaminophen [Tylenol Arthritis Pain] 650 mg tablet extended release 1,300 mg PO Q8H glucosamine sulfate [Glucosamine] 500 mg tablet 500 mg PO DAILY Rx Instructions: administer with a meal losartan 25 MG tablet 25 mg PO DAILY atorvastatin [Lipitor] 10 mg tablet 10 mg PO DAILY Qty: 90 0RF acetaminophen 500 mg capsule 1,000 mg PO Q8H PRN (Reason: pain) Qty: 90 0RF sodium fluoride-pot nitrate [PreviDent 5000 Sensitive] 1.1-5 % Paste 1 applic BID omeprazole 20 mg capsule,delayed release(DR/EC) 20 mg PO DAILY PRN Discharge Instructions Additional Instructions: [place] removed today, may take Tylenol as needed for discomfort Please return should you develop new or worsening complaints Referrals: Erick Marcano [Primary Care Provider] - Discharge Data Discharge Date/Time-TO BE ENTERED AT DEPARTURE: 04/28/23 15:23 Medical Decision Making Patient alert, oriented, no acute distress, well-appearing stable site without dehiscence or evidence of secondary infection Jennifer removed by nursing staff, patient discharged home in stable condition with stable vitals HPI General Date/Time Provider Initiated Documentation: 04/28/23 09:42 . HPI Narrative: This 82-year-old female presents for stable removal of scalp laceration. Denies headache or vision change. Feels well otherwise Related Data Home Medications Medication Instructions Recorded Confirmed losartan 25 mg tablet 25 mg PO DAILY 04/28/15 01/29/21 acetaminophen 500 mg capsule 1,000 mg (2 x 500 mg) PO Q8H PRN 02/24/18 01/29/21 pain #90 caps atorvastatin 10 mg tablet (Lipitor) 10 mg PO DAILY #90 tabs 04/15/19 01/29/21 sodium fluoride 1.1 %-potassium 1 applic BID 08/22/19 01/29/21 nitrate 5 % dental paste (PreviDent 5000 Sensitive) acetaminophen 650 mg 1,300 mg PO Q8H 01/08/21 01/29/21 tablet,extended release (Tylenol Arthritis Pain) glucosamine sulfate 500 mg tablet 500 mg PO DAILY 01/08/21 01/29/21 (Glucosamine) omeprazole 20 mg capsule,delayed 20 mg PO DAILY PRN 01/08/21 01/29/21 release Previous Rx's Medication Instructions Recorded acetaminophen 500 mg capsule 1,000 mg (2 x 500 mg) PO Q8H PRN 02/24/18 pain #90 caps atorvastatin 10 mg tablet (Lipitor) 10 mg PO DAILY #90 tabs 04/15/19 Allergies Allergy/AdvReac Type Severity Reaction Status Date / Time ciprofloxacin [From Cipro] Allergy HIVES Unverified 01/29/21 11:28 oxycodone [From Percocet] AdvReac Intermediate Nausea & Verified 01/29/21 11:28 Vomiting ibuprofen AdvReac CAN'T TAKE Verified 01/29/21 11:28 DUE TO 1 KIDNEY General Stated Complaint: SutureRem NINA: 5 PFSH All Active Problems (Updated 04/28/23 @ 09:44 by DEISY Monae) Encounter for staple removal (Acute) Laceration of scalp (Acute) Fall (Acute) 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) History of removal of Port-a-Cath (Acute) Goals of care, counseling/discussion (Acute) Pulmonary hypertension (Acute) Bone pain due to G-CSF (Acute) Acute urinary retention (Acute) Chest pain (Acute) Hydronephrosis, left (Acute) Lymphoma (Acute) Pelvic mass in female (Chronic) History of total right hip replacement (Chronic) Trochanteric bursitis of right hip (Chronic) Injection: 04/30/2019 Urinary tract infection (Acute) Pelvic mass (Acute) Hematuria (Acute) History of lithotripsy (Chronic) History of ectopic (Chronic) required surgical intervention History of appendectomy (Chronic) Primary osteoarthritis of right hip (Chronic 11/16/17) Hyperlipidemia, unspecified (Chronic 04/28/15) Essential hypertension (Chronic 04/28/15) Medical History (Updated 04/28/23 @ 09:44 by DEISY Monae) Trochanteric bursitis Gross hematuria Hypertension Incontinence GERD (gastroesophageal reflux disease) Diffuse large B cell lymphoma Palliative care patient Diverticulosis Open head injury Anemia Fatigue Prediabetes Pyelonephritis Surgical History (Updated 03/07/20 @ 12:27 by Darcy Randolph DO) History of cataract surgery History of D&C History of right hip replacement Family History (Updated 09/10/19 @ 05:26 by Fiona Browne MD) Son No problems noted. Sister No problems noted. Sister No problems noted. Son No problems noted. Granddaughter No problems noted. Grandson No problems noted. Social History (Updated 09/10/19 @ 05:26 by Fiona Browne MD) Smoking/Tobacco Use Status: Former Tobacco Use Quit Date: 05/09/69 Tobacco: How many years used: 10 Smoking risk assessment performed?: Yes Alcohol Intake: current Alcohol Intake frequency: a few times a month Alcohol type: beer and wine Drug use: Never Substance use type: does not use Details: has tried but doesn't use. Caregiver/Support person: Yes Household members: spouse Housing: house Number of Children: 2 number of grandchildren: 2 Communication Needs: Corrective Lenses Education Level: college Do you need help understanding health information?: Often Pets and animals: Yes Current gender identity: female What is your relationship status?: How often do you talk on the phone with friends or family?: twice per week How often do you get together with friends or relatives?: twice per week Panel score (0-1 are the most socially isolated patients): 2 What type of physical activity do you participate in: walking, regular exercise and additional Details: gardening Duration: 30-45 minutes/day Special hector needs: No Seatbelt use: always Working smoke detector in home: Yes Fire extinguisher in home: Yes Do you feel safe at home: Yes Do you feel safe in your relationship?: Yes Additional Social history: Lives with Mart who is 83 and expects to be waited on. He's unaware of my needs. Relies on her 2 sisters and friend Marian Tracy for support. Course Vital Signs Vital signs: Vital Signs Temperature 35.8 C L 04/28/23 09:31 Pulse 74 04/28/23 09:31 Respiratory Rate 16 04/28/23 09:31 Blood Pressure 141/65 H 04/28/23 09:31 Pulse Oximetry 99 04/28/23 09:31 Temperature 35.8 C L 04/28/23 09:31 Temperature Source Tympanic 04/28/23 09:31 Pulse 74 04/28/23 09:31 Respiratory Rate 16 04/28/23 09:31 Respiratory Effort Normal 04/28/23 09:49 Blood Pressure 141/65 H 04/28/23 09:31 Blood Pressure Position Sitting 04/28/23 09:31 Pulse Oximetry 99 04/28/23 09:31 Oxygen Delivery Method Room Air 04/28/23 09:31 Oxygen Flow Rate 0 04/28/23 09:31 Pain Level 0 04/28/23 09:31
== END 2023-04-28 15:23 | disposition home or self-care (01) ==
PROVIDERS: Emergency Provider Physician Assistant; PCP Internal Medicine
DX: Z48.02 Encounter for removal of sutures (principal)
CPT/HCPCS: 99281; 99282

== ENCOUNTER 2023-04-29 02:56 | Outpatient (CLI) | payer MEDICARE, SELFPAY ==
[2023-04-29 12:15] LABS: Abs Immature Grans 0.01 10^3/uL (0.0-0.06); Absolute Basophil Count 0.04 10^3/uL (0.0-0.2); Absolute Eosinophil Count 0.16 10^3/uL (0.0-0.7); Absolute Lymphocyte Count 1.65 10^3/uL (1.2-3.4); Absolute Monocyte Count 0.67 10^3/uL (0.1-0.8); Absolute Neutrophil Count 3.14 10^3/uL (1.2-6.7); Basophils % 0.7; Eosinophils % 2.8; HCT 36.8 % (36.0-46.0); HGB 12.1 g/dL (11.2-15.7); Immature Grans % 0.2; Lymphocytes % 29.1; MCH 31.3 pg (27.0-33.0); MCHC 32.9 % (32.0-36.0); MCV 95 fL (80-95); MPV 9.9 fL (8.0-11.0); Monocytes % 11.8; Neutrophils % 55.4; Platelet Count 218 10^3/uL (130-400); RBC 3.86 10^6/uL (3.93-5.22); RDW 13.3 % (11.7-14.6); RDW-SD 46.5 fL; WBC 5.67 10^3/uL (4.4-10.8)
[2023-04-29 12:46] LABS: ALT 23 U/L (14-59); AST 21 U/L (15-37); Albumin 3.7 g/dL (3.4-5.0); Alkaline Phosphatase 56 U/L (46-116); Anion Gap 6.4 mmol/L (3-11); BUN 23 mg/dL (7-18); Bilirubin, Total 0.5 mg/dL (0.2-1.0); CO2 28.6 mmol/L (21.0-32.0); CREATININE 1.2 mg/dL (0.55-1.02); Calcium 8.9 mg/dL (8.5-10.1); Chloride 105 mmol/L (98-107); Estimated GFR 44.91 (mL/min/1.73m2); Glucose 115 mg/dL (74-106); LDH 233 U/L (81-234); Potassium 4.2 mmol/L (3.5-5.1); Sodium 140 mmol/L (136-145); Total Protein 6.9 g/dL (6.4-8.2)
== END 2023-04-29 02:57 | disposition home or self-care (01) ==
LOC: LBO 02:56
PROVIDERS: PCP Internal Medicine; Visit Provider Internal Medicine Hematology & Oncology
DX: C83.38 Diffuse large B-cell lymphoma, lymph nodes of multiple sites (principal)
CPT/HCPCS: 36415; 80053; 83615; 85025

== ENCOUNTER → 2023-09-12 03:06 | Outpatient (CLI) | payer MEDICARE, SELFPAY ==
--- NOTE | 2023-09-12 08:00 | DI.RAD_ITS ---
Exam(s) XR FOOT RT COMPLETE EXAM: XR FOOT RT COMPLETE CLINICAL HISTORY: Right foot pain,m79.671. TECHNIQUE: 2D digital imaging was performed of the right foot. Three images were obtained. AP, obl ique and lateral views were obtained. COMPARISON: No exams were available for comparison FINDINGS: BONES: No acute fracture is present. No bony destructive lesion is seen. There is a small plantar jonathan caneal spur. There do appear to be hammertoe deformities of the 2nd through 5th toes. JOINTS: No dislocation present. Degenerative changes are seen in the foot particularly at the interph alangeal joints in the 1st MTP joint. SOFT TISSUE: Normal. IMPRESSION: Degenerative changes of the foot. DATA REPOSITORY: RADIATION DOSE DELIVERED:
== END ==
PROVIDERS: PCP Internal Medicine; Visit Provider Podiatrist
DX: M79.671 Pain in right foot (principal)
CPT/HCPCS: 73630

== ENCOUNTER 2023-11-14 18:34 | Outpatient (REF) | payer MEDICARE, SELFPAY ==
[2023-11-14 16:10] LABS: Bilirubin Negative (Negative); Blood Negative (Negative); Clarity Clear (Clear); Glucose Negative (Negative); Ketones Negative (Negative); Leukocyte Esterase Small (Negative); Nitrite Negative (Negative); Urobilinogen 0.2 mg/dL (Up to 0.2)
[2023-11-14 16:40] LABS: Bacteria Negative HPF (Negative); C & S Indicated? C&S Done As Ordered; Crystals Negative HPF (Negative); Epithelial Cells Moderate HPF (Negative); Mucus Negative (Negative); RBC Negative HPF (0-2)
== END 2023-11-14 18:35 | disposition home or self-care (01) ==
LOC: LBN 18:34
PROVIDERS: PCP Internal Medicine; Visit Provider Nurse Practitioner Gerontology
DX: R10.30 Lower abdominal pain, unspecified (principal); R82.998 Other abnormal findings in urine
CPT/HCPCS: 87077; 81003; 81015; 87086

== ENCOUNTER 2023-11-25 01:07 | Outpatient (CLI) | payer MEDICARE, SELFPAY ==
[2023-11-25 10:28] LABS: Abs Immature Grans 0.03 10^3/uL (0.0-0.06); Absolute Basophil Count 0.06 10^3/uL (0.0-0.2); Absolute Eosinophil Count 0.24 10^3/uL (0.0-0.7); Absolute Lymphocyte Count 1.85 10^3/uL (1.2-3.4); Absolute Monocyte Count 0.63 10^3/uL (0.1-0.8); Absolute Neutrophil Count 3.17 10^3/uL (1.2-6.7); HCT 37.7 % (36.0-46.0); HGB 12.3 g/dL (11.2-15.7); Immature Grans % 0.5 %; Lymphocytes % 30.9 %; MCH 31.1 pg (27.0-33.0); MCHC 32.6 % (32.0-36.0); MCV 95 fL (80-95); MPV 9.1 fL (8.0-11.0); Monocytes % 10.5 %; Neutrophils % 53.1 %; Platelet Count 187 10^3/uL (130-400); RBC 3.96 10^6/uL (3.93-5.22); RDW 13.1 % (11.7-14.6); RDW-SD 45.8 fL; WBC 5.98 10^3/uL (4.4-10.8)
[2023-11-25 10:43] LABS: ALT 18 U/L (14-59); AST 17 U/L (15-37); Albumin 3.6 g/dL (3.4-5.0); Alkaline Phosphatase 54 U/L (46-116); Anion Gap 7.4 mmol/L (3-11); BUN 19 mg/dL (7-18); Bilirubin, Total 0.47 mg/dL (0.2-1.0); CO2 29.6 mmol/L (21.0-32.0); CREATININE 1.3 mg/dL (0.55-1.02); Calcium 9.2 mg/dL (8.5-10.1); Chloride 104 mmol/L (98-107); Estimated GFR 40.55 (mL/min/1.73m2); Glucose 113 mg/dL (74-106); LDH 223 U/L (81-234); Potassium 4.5 mmol/L (3.5-5.1); Sodium 141 mmol/L (136-145); Total Protein 7.2 g/dL (6.4-8.2)
== END 2023-11-25 01:08 | disposition home or self-care (01) ==
PROVIDERS: PCP Internal Medicine; Visit Provider Nurse Practitioner Adult Health
DX: C83.38 Diffuse large B-cell lymphoma, lymph nodes of multiple sites (principal)
CPT/HCPCS: 36415; 80053; 83615; 85025

== ENCOUNTER 2023-12-29 02:40 | Outpatient (CLI) | payer MEDICARE, SELFPAY ==
--- NOTE | 2023-12-29 08:45 | DI.US_ITS ---
Exam(s) US RENAL EXAM: US RENAL CLINICAL HISTORY: monitoring hydronephrosis,lt,lymphoma,n13.30,c85.90. TECHNIQUE: Grover scale, color and spectral Doppler were used. COMPARISON: CT CT NECK CHEST ABD PEL W from 07/14/2021 US US RENAL from 12/08/2022 FINDINGS: Right kidney: 9.2 x 3.8 x 4.9cm Echogenicity: Normal Hydronephrosis: No Cyst or mass: No Nephrolithiasis: No Left kidney: Not visualized. Bladder:Normal. Prevoid vol:262 cc Postvoid vol:13 cc IMPRESSION: Left kidney not visualized. No to be atrophic prior exams. Right kidney and bladder appear normal. DATA REPOSITORY:
== END 2023-12-29 03:00 ==
LOC: DI 02:40
PROVIDERS: PCP Internal Medicine; Visit Provider Nurse Practitioner Gerontology
DX: N13.39 Other hydronephrosis (principal)
CPT/HCPCS: 76770

== ENCOUNTER → 2024-01-05 09:58 | Outpatient (BNVA) | payer MEDICARE, SELFPAY | PROVIDERS: PCP Internal Medicine; Visit Provider Nurse Practitioner Gerontology | DX: C85.96 Non-Hodgkin lymphoma, unspecified, intrapelvic lymph nodes (principal); Z90.5 Acquired absence of kidney; N13.30 Unspecified hydronephrosis | CPT/HCPCS: 99215 ==

== ENCOUNTER → 2024-01-16 13:58 | Outpatient (BNVA) | payer MEDICARE, SELFPAY | PROVIDERS: PCP Nurse Practitioner Family; Referring Provider Internal Medicine; Visit Provider Podiatrist | DX: L84 Corns and callosities (principal); B35.1 Tinea unguium; D64.9 Anemia, unspecified; Z90.5 Acquired absence of kidney; N18.30 Chronic kidney disease, stage 3 unspecified; R09.89 Other specified symptoms and signs involving the circulatory and respiratory systems; L60.2 Onychogryphosis; L60.8 Other nail disorders; L85.8 Other specified epidermal thickening | CPT/HCPCS: 11055; 11056 ==

== ENCOUNTER 2024-02-01 01:51 | Outpatient (CLI) | payer MEDICARE, SELFPAY ==
--- NOTE | 2024-02-01 12:30 | DI.US_ITS ---
APPROVED REPORT EXAM: Comprehensive 2D, Doppler, and color-flow Echocardiogram Patient Location: Out-Patient Customer Operations Specialist: Facundo Westbrook RDCS (AE) Indications: Wheeze with exertion, pulmonary HTN Conclusion Borderline concentric left ventricular hypertrophy. Ejection fraction is 60%. Wall motion is normal Normal right ventricular size and function Both atria are normal in size There are no structural valvular abnormalities There is trace aortic regurgitation Wall motion Left Ventricle The left ventricle is normal size. The left ventricular systolic function is normal. The left ventric ular ejection fraction is within the normal range. Borderline concentric left ventricular hypertrophy . There is normal LV segmental wall motion. There is no ventricular septal defect visualized. LVEF is 60%. Right Ventricle The right ventricle is normal size. The right ventricular systolic function is normal. Atria The left atrium size is normal. The right atrium size is normal. The interatrial septum is intact wit h no evidence for an atrial septal defect. Aortic Valve Aortic valve is trileaflet. There is no aortic valvular stenosis. Trace aortic regurgitation. Mitral Valve The mitral valve is normal in structure. No evidence of mitral valve stenosis. Trace mitral regurgita tion. Tricuspid Valve The tricuspid valve is normal in structure. There is no tricuspid valve stenosis. Mild tricuspid regu rgitation. Pulmonic Valve The pulmonary valve is normal in structure. There is no pulmonic valvular stenosis. There is no pulmo sherry valvular regurgitation. Great Vessels The aortic root is normal in size. The ascending aorta is normal in size. Aortic arch is not well vis ualized. IVC is normal in size and collapses >50% with inspiration. Pericardium There is no pericardial effusion. 2D Dimensions IVSD d PLAX 0.96 cm F: 0.6-1.0 Ao Root d 3.33 cm F: 2.7 - 3.3 LVPW d PLAX 1.00 cm F: 0.6 - 1.0 Ao Asc Diam d 2.93 cm F: 2.3 - 3.1 LVID d PLAX 4.69 cm F: 3.8 - 5.2 LVDs 3.19 cm F: 2.2 - 3.5 LV EF Teichholz 60.0 % FS 31.89 % LV EDV (Teich) 101.6 mL LV ESV (Teich) 40.7 mL Stroke Vol Index (Teich) 35.42 M-Mode TAPSE 2.16 cm (M/F) >1.7 Auto EF LV EDV A4C 81.8 mL LV EDV A2C 92.1 mL LV EDV BP 87.9 mL LV ESV A4C 33.0 mL LV ESV A2C 37.1 mL LV ESV BP 35.6 mL LVEF(%) A4C 59.7 % LVEF(%) A2C 59.7 % LVEF(%) BP 59.5 % LV SV A4C 48.8 ml LV SV A2C 55.0 ml LV SV BP 52.4 ml LV CO A4C 3.8 L/min LV CO A2C 4.1 L/min LV CO BP 4.0 L/min HR A4C 77.26 BPM HR A2C 75.16 BPM LV EDV Index (BP) LA Volume LA Length A4C 4.7 cm LA Length A2C 5.1 cm LA Area A4C s 14.70 cm2 LA Area A2C s 19.87 cm2 LA Vol A4C A-L 38.62 mL LA Vol A2C A-L 65.17 mL LA Vol Biplane A-L 52.2 mL LA Vol/BSA A4C A-L LA Vol/BSA A2C A-L LA Vol/BSA BP A-L 30.4 mL/m2 LA Vol A4C MOD 38.0 mL LA Vol A2C MOD 60.2 mL LA Vol BP MOD 48.4 mL RA Volume RA Area A4C 11.9 cm2 RA ESV A4C (A-L) 27.3mL RA Vol/BSA A4C A-L RA Length A4C 4.4 cm RA ESV A4C (MOD) 24.1mL LV Diastology MV E' medial 0.072 (>0.07 m/s) MV E Vmax 0.71 (0.4-1.3 m/s) MV E/E' MED 9.94 (<14) MV A Vmax 0.90 (0.4-1.3 m/s) MV E' lateral 0.087 (>0.1 m/s) E/A Ratio 0.8 MV E/E' LAT 8.20 (<14) MV E' Average 0.079 m/s MV E/E'(average) 8.99 Aortic Valve AoV Vmax 1.31 m/s LVOT Vmax 0.93 m/s AoV Peak Grad 32.6 mmHg LVOT Peak Grad 3.5 mmHg AoV Area (Vmax) 2.18 cm2 LVOT VTI 0.226 m AoV VTI 0.289 m LVOT Mean Grad 1.8 mmHg AoV Mean Robby. 0.91 m/s LVOT SV 69.02 mL AoV Mean Grad 3.8 mmHg LVOT Diam s 1.95 cm AoV Area (VTI) 2.39 cm2 AV Regurg Peak Gr. 6.89 mmHg Velocity Ratio 0.71 AR Decel Armstrong 2.7m/sec2 AR DT 1416 msec AR PHT 411 msec AR Vmax 3.82 m/s Mitral Valve MV DT 279 (160-240 msec) MV Vmax TIPS 0.84 m/s MV Mean Grad 1.4 (<2mmHg) MV VTI 0.280 m Pulmonary Valve PV Vmax 0.68 (0.5-1.5 m/s) RVOT Vmax 0.58 m/s PV Peak Grad 1.9 mmHg RVOT Peak Gr. 1.3 mmHg PV Mean Robby 0.50 m/s RVOT VTI 0.151 m PV Mean Grad 1.1 mmHg RVOT Mean Gr. 0.7 mmHg Tricuspid Valve RA Pressure 3.00 mmHg TR Vmax 3.28 m/s TR Peak Grad 42.9 mmHg RVSP (TR) 46.0 mmHg
--- NOTE | 2024-02-01 13:52 | DI.RAD_ITS ---
Exam(s) XR LUMBAR SPINE COMPLETE EXAM: XR LUMBAR SPINE COMPLETE CLINICAL HISTORY: back pain,djd lumbar spine,m47.816. TECHNIQUE: 2D digital imaging was performed. COMPARISON: CR XR LUMBAR SPINE COMPLETE from 05/26/2020 FINDINGS: Five views. Again noted is unchanged scoliosis convex right in the lumbar spine. There is asymmetric disc space narrowing on the left side of L2-3 and L3-4 levels and left lateral osteophytes at these levels again noted. There is asymmetric right-sided narrowing of the disc space at L4-5, also unchanged. All th nicola disc spaces exhibit vacuum-gas phenomena M within the diminished disc spaces, similar to previous . There is multilevel facet arthropathy at the lower 3 levels. Sacroiliac joints appear unremarkabl e. No osseous lesions. Right hip prosthesis again noted IMPRESSION: Multilevel asymmetric disc space narrowing and degenerative scoliosis convex right, unchanged from pr ior images of May 2020. Right hip prosthesis again noted. DATA REPOSITORY: RADIATION DOSE DELIVERED:
== END 2024-02-01 02:11 ==
LOC: DI 01:51
PROVIDERS: PCP Nurse Practitioner Family; Visit Provider Nurse Practitioner Family
DX: M47.816 Spondylosis without myelopathy or radiculopathy, lumbar region; I27.20 Pulmonary hypertension, unspecified
CPT/HCPCS: 93306; 72110

== ENCOUNTER 2024-04-18 01:34 | Outpatient (CLI) | payer MEDICARE, SELFPAY ==
--- NOTE | 2024-04-18 07:00 | DI.US_ITS ---
Exam(s) US ABDOMEN EXAM: US ABDOMEN CLINICAL HISTORY: ? cholelithiasis,RUQ ABD PAIN,R10.11 TECHNIQUE: Ultrasound abdomen performed using standard protocol. COMPARISON: CT CT NECK CHEST ABD PEL W from 07/14/2021 US US RENAL from 12/29/2023 FINDINGS: LIVER: Normal size and echogenicity. No focal liver lesions are seen. GALLBLADDER: No evidence of cholelithiasis. No evidence of wall thickening. No pericholecystic fluid identified. CHURCH'S SIGN: Negative. BILIARY SYSTEM: No intrahepatic or extrahepatic biliary ductal dilation. KIDNEYS: The right kidney is normal in size and show normal parenchymal thickness. No evidence of re nal calculi. No evidence of hydronephrosis. No renal mass or cyst identified. The left kidney is prev iously demonstrated to be atrophic and was not visualized on the current exam. PANCREAS: Normal where visualized. SPLEEN: Not enlarged. A few calcified splenic granulomas are again noted. ABDOMINAL AORTA AND IVC: Visualized portions normal caliber. ASCITES: None seen. IMPRESSION: Atrophic left kidney. No evidence of cholelithiasis. DATA REPOSITORY:
== END 2024-04-18 01:54 ==
LOC: DI 01:35
PROVIDERS: PCP Nurse Practitioner Family; Visit Provider Nurse Practitioner Family
DX: R10.11 Right upper quadrant pain (principal)
CPT/HCPCS: 76700

== ENCOUNTER 2024-05-24 15:11 | Outpatient (CLI) | payer MEDICARE, SELFPAY ==
--- NOTE | 2024-05-24 08:15 | DI.RAD_ITS ---
Exam(s) XR KNEE RT 4V AP,LAT,LUCÍA,PAT EXAM: XR KNEE RT 4V AP,LAT,LUCÍA,PAT CLINICAL HISTORY: RIGHT KNEE PAIN. TECHNIQUE: 2D digital imaging was performed. Three views. COMPARISON: No exams were available for comparison FINDINGS: BONES: No acute fracture is present. No bony destructive lesion is seen. JOINTS: Severe narrowing of the lateral femoral tibial joint space, with a [id number] appearance. Prominent periarticular spurring. Compensatory widening of the medial femoral tibial joint space. A moderate-sized joint effusion is seen. Mild to moderate narrowing patellofemoral joint and periart icular spurring SOFT TISSUE: Vascular calcifications. IMPRESSION: Severe degenerative changes of the lateral femoral tibial joint. Moderate degenerative changes of th e femoral joint. DATA REPOSITORY: RADIATION DOSE DELIVERED:
== END 2024-05-24 15:12 | disposition home or self-care (01) ==
LOC: DIORS 15:12
PROVIDERS: PCP Nurse Practitioner Family; Referring Provider Nurse Practitioner Family; Visit Provider Student in an Organized Health Care Education/Training Program
DX: M25.561 Pain in right knee (principal); G89.29 Other chronic pain; M17.11 Unilateral primary osteoarthritis, right knee
CPT/HCPCS: 99213; 73564

== ENCOUNTER 2024-06-06 04:05 | Outpatient (CLI) | payer MEDICARE, SELFPAY ==
[2024-06-06 12:39] LABS: Abs Immature Grans 0.03 10^3/uL (0.0-0.06); Absolute Basophil Count 0.05 10^3/uL (0.0-0.2); Absolute Eosinophil Count 0.16 10^3/uL (0.0-0.7); Absolute Lymphocyte Count 1.69 10^3/uL (1.2-3.4); Absolute Monocyte Count 0.75 10^3/uL (0.1-0.8); Absolute Neutrophil Count 4.04 10^3/uL (1.2-6.7); Basophils % 0.7 %; Eosinophils % 2.4 %; HCT 38.2 % (36.0-46.0); HGB 12.3 g/dL (11.2-15.7); Immature Grans % 0.4 %; Lymphocytes % 25.1 %; MCH 31.4 pg (27.0-33.0); MCHC 32.2 % (32.0-36.0); MCV 97 fL (80-95); MPV 9.4 fL (8.0-11.0); Monocytes % 11.2 %; Neutrophils % 60.2 %; Platelet Count 214 10^3/uL (130-400); RBC 3.92 10^6/uL (3.93-5.22); RDW 13.2 % (11.7-14.6); RDW-SD 46.5 fL; WBC 6.72 10^3/uL (4.4-10.8)
[2024-06-06 12:53] LABS: Hemoglobin A1C 5.9 % (<5.7)
[2024-06-06 12:54] LABS: ALT 22 U/L (14-59); AST 19 U/L (15-37); Albumin 3.5 g/dL (3.4-5.0); Alkaline Phosphatase 52 U/L (46-116); Anion Gap 5.7 mmol/L (3-11); BUN 22 mg/dL (7-18); Bilirubin, Total 0.42 mg/dL (0.2-1.0); CO2 30.3 mmol/L (21.0-32.0); CREATININE 1.3 mg/dL (0.55-1.02); Chloride 107 mmol/L (98-107); Estimated GFR 40.55 (mL/min/1.73m2); Glucose 114 mg/dL (74-106); LDH 207 U/L (81-234); Potassium 4.1 mmol/L (3.5-5.1); Sodium 143 mmol/L (136-145); Total Protein 7.1 g/dL (6.4-8.2)
[2024-06-06 12:56] LABS: Calculated LDL 104 mg/dL (<100); Cholesterol 184 mg/dL (<200); HDL Cholesterol 46 mg/dL (40-60); Triglyceride 170 mg/dL (<150)
== END 2024-06-06 04:06 | disposition home or self-care (01) ==
PROVIDERS: PCP Nurse Practitioner Family; Visit Provider Nurse Practitioner Adult Health
DX: E78.5 Hyperlipidemia, unspecified (principal); R73.09 Other abnormal glucose; C83.38 Diffuse large B-cell lymphoma, lymph nodes of multiple sites
CPT/HCPCS: 36415; 80053; 80061; 83036; 83615; 85025

== ENCOUNTER 2024-06-29 13:33 | Outpatient (REF) | payer MEDICARE, SELFPAY ==
[2024-06-29 13:31] LABS: Bilirubin Negative (Negative); Blood Moderate (Negative); Clarity Clear (Clear); Glucose Negative (Negative); Ketones Negative (Negative); Leukocyte Esterase Negative (Negative); Nitrite Negative (Negative); Urobilinogen 0.2 mg/dL (Up to 0.2)
[2024-06-29 13:56] LABS: Bacteria Negative HPF (Negative); C & S Indicated? No; Casts Negative LPF (Negative); Crystals Negative HPF (Negative); Epithelial Cells Few HPF (Negative); Mucus Negative (Negative); WBC 0-2 HPF (0-5)
== END 2024-06-29 13:34 | disposition home or self-care (01) ==
LOC: NCHCN 13:33
PROVIDERS: PCP Nurse Practitioner Family; Visit Provider Urology
DX: R32 Unspecified urinary incontinence (principal)
CPT/HCPCS: 81003; 81015

== ENCOUNTER 2024-08-17 22:04 | Outpatient (REF) | payer MEDICARE, SELFPAY ==
[2024-08-17 18:27] LABS: Bacteria Few HPF (Negative); C & S Indicated? No; Casts Negative LPF (Negative); Crystals Negative HPF (Negative); Epithelial Cells Moderate HPF (Negative); Mucus Trace (Negative)
== END 2024-08-17 22:05 | disposition home or self-care (01) ==
LOC: LBN 22:04
PROVIDERS: PCP Nurse Practitioner Family; Visit Provider Nurse Practitioner Family
DX: R31.29 Other microscopic hematuria (principal)
CPT/HCPCS: 81015

== ENCOUNTER 2024-08-23 00:35 | Outpatient (CLI) | payer MEDICARE, SELFPAY ==
--- NOTE | 2024-08-23 07:45 | DI.US_ITS ---
Exam(s) US PELVIS TRANSVAGINAL EXAM: US PELVIS TRANSVAGINAL CLINICAL HISTORY: Check endometrial stripe,postmenopausal bleeding,n95.9 TECHNIQUE: Transabdominal and transvaginal imaging was performed using standard protocol. COMPARISON: CT CT NECK CHEST ABD PEL W from 07/14/2021 FINDINGS: The bladder is unremarkable. UTERUS: Anteverted. 5.2 x 2.1 x 4.0 cm Endometrium: 1 mm . The endometrium is fluid filled with AP dimension measuring 13 millimeters.. No focal endometrial abnormality seen. Myometrium: Unremarkable. Cervix: Unremarkable. OVARIES: Right: Cyst or mass: 3.9 x 3.3 x 2.9 centimeter solid area adjacent to the right ovary. This could re present an ovarian mass versus pedunculated fibroid. Left: Cyst or mass: 7 millimeter cyst. DOPPLER: Color: Symmetric and uniform flow to both ovaries. No hyperemia. CUL-DE-SAC: Free fluid: None. IMPRESSION: The endometrium is not thickened but there is a significant amount of fluid within the endometrial ca vity. 3.9 centimeter right adnexal mass versus right-sided pedunculated fibroid. DATA REPOSITORY:
== END 2024-08-23 00:55 ==
LOC: DI 00:36
PROVIDERS: PCP Nurse Practitioner Family; Visit Provider Obstetrics & Gynecology
DX: N95.0 Postmenopausal bleeding (principal)
CPT/HCPCS: 76830; 76856

== ENCOUNTER 2024-08-27 03:33 | Outpatient (CLI) | payer MEDICARE, SELFPAY ==
[2024-08-27 11:33] LABS: HCT 38.3 % (36.0-46.0); HGB 12.2 g/dL (11.2-15.7); MCH 30.9 pg (27.0-33.0); MCHC 31.9 % (32.0-36.0); MCV 97 fL (80-95); MPV 9.7 fL (8.0-11.0); Platelet Count 192 10^3/uL (130-400); RBC 3.95 10^6/uL (3.93-5.22); RDW 13.6 % (11.7-14.6); WBC 5.27 10^3/uL (4.4-10.8)
[2024-08-27 11:45] LABS: Anion Gap 4.4 mmol/L (3-11); BUN 18 mg/dL (7-18); CO2 28.6 mmol/L (21.0-32.0); CREATININE 1.3 mg/dL (0.55-1.02); Calcium 9.4 mg/dL (8.5-10.1); Chloride 107 mmol/L (98-107); Glucose 98 mg/dL (74-106); Potassium 4.7 mmol/L (3.5-5.1); Sodium 140 mmol/L (136-145)
== END 2024-08-27 03:34 | disposition home or self-care (01) ==
LOC: LBO 03:33
PROVIDERS: PCP Nurse Practitioner Family; Visit Provider Student in an Organized Health Care Education/Training Program
DX: M17.11 Unilateral primary osteoarthritis, right knee (principal); Z01.818 Encounter for other preprocedural examination
CPT/HCPCS: 36415; 80048; 85027; 99024

== ENCOUNTER 2024-08-27 11:20 | Outpatient (CLI) | payer MEDICARE, SELFPAY ==
--- NOTE | 2024-08-27 10:15 | DI.RAD_ITS ---
Exam(s) XR STANDING ALIGNMENT EXAM: XR STANDING ALIGNMENT CLINICAL HISTORY: TKR Planning. TECHNIQUE: 2D digital imaging was performed. Four images were obtained. COMPARISON: CR XR KNEE RT 4V AP,LAT,LUCÍA,PAT from 05/24/2024 FINDINGS: BONES: The patient has a right total hip arthroplasty. In the right knee, there are marked degenerat marianna changes present particularly in the lateral femoral tibial joint characterized by joint space caron rowing and osteophytes. Mild degenerative changes are seen in the left knee particularly the medial femoral tibial joint characterized by joint space narrowing and osteophytes. The ankles are well priya ntained.There is no significant leg length discrepancy. SOFT TISSUE: Normal. IMPRESSION: Marked osteoarthritis in the right knee. Mild osteoarthritis in the left knee. DATA REPOSITORY: RADIATION DOSE DELIVERED:
== END 2024-08-27 11:21 | disposition home or self-care (01) ==
LOC: DIORS 11:21
PROVIDERS: PCP Nurse Practitioner Family; Referring Provider Nurse Practitioner Family; Visit Provider Physician Assistant
DX: M17.11 Unilateral primary osteoarthritis, right knee (principal); Z01.818 Encounter for other preprocedural examination
CPT/HCPCS: 77073

== ENCOUNTER 2024-08-29 09:19 | Outpatient (CLI) | payer MEDICARE, SELFPAY ==
[2024-08-29 13:23] LABS: Abs Immature Grans 0.02 10^3/uL (0.0-0.06); Absolute Basophil Count 0.04 10^3/uL (0.0-0.2); Absolute Eosinophil Count 0.11 10^3/uL (0.0-0.7); Absolute Lymphocyte Count 1.43 10^3/uL (1.2-3.4); Absolute Monocyte Count 0.64 10^3/uL (0.1-0.8); Absolute Neutrophil Count 3.46 10^3/uL (1.2-6.7); Basophils % 0.7 %; Eosinophils % 1.9 %; HCT 37.5 % (36.0-46.0); Immature Grans % 0.4 %; Lymphocytes % 25.1 %; MCH 30.7 pg (27.0-33.0); MCV 96 fL (80-95); MPV 9.6 fL (8.0-11.0); Monocytes % 11.2 %; Neutrophils % 60.7 %; Platelet Count 187 10^3/uL (130-400); RBC 3.91 10^6/uL (3.93-5.22); RDW 13.5 % (11.7-14.6); RDW-SD 47.7 fL
[2024-08-29 13:33] LABS: ALT 19 U/L (14-59); AST 21 U/L (15-37); Albumin 3.5 g/dL (3.4-5.0); Alkaline Phosphatase 55 U/L (46-116); Anion Gap 8.9 mmol/L (3-11); BUN 22 mg/dL (7-18); Bilirubin, Total 0.7 mg/dL (0.2-1.0); CO2 27.1 mmol/L (21.0-32.0); CREATININE 1.5 mg/dL (0.55-1.02); Calcium 9.3 mg/dL (8.5-10.1); Chloride 106 mmol/L (98-107); Estimated GFR 33.94 (mL/min/1.73m2); Glucose 139 mg/dL (74-106); LDH 208 U/L (81-234); Potassium 4.5 mmol/L (3.5-5.1); Sodium 142 mmol/L (136-145); Total Protein 6.9 g/dL (6.4-8.2)
== END 2024-08-29 09:20 | disposition home or self-care (01) ==
LOC: LBO 09:19
PROVIDERS: PCP Nurse Practitioner Family; Visit Provider Nurse Practitioner Adult Health
DX: C83.38 Diffuse large B-cell lymphoma, lymph nodes of multiple sites (principal)
CPT/HCPCS: 36415; 80053; 83615; 85025

== ENCOUNTER 2024-10-01 12:00 | Emergency (ER) | payer MEDICARE, SELFPAY ==
[2024-10-01 12:03] VITALS: BP 148/78; PULSE 77; RESP 14; TEMP 36.8; O2SAT 96
--- NOTE | 2024-10-01 12:45 | DI.RAD_ITS ---
Exam(s) XR SHOULDER LT COMPLETE 2+V XR SHOULDER LT 1V XR HUMERUS LT EXAM: XR SHOULDER LT COMPLETE 2+V CLINICAL HISTORY: SHOULDER. TECHNIQUE: 2D digital imaging was performed. Five views of the shoulder. Two views of the humerus COMPARISON: CR,XR XR SHOULDER LT 1V from 10/01/2024 CR,XR XR HUMERUS LT from 10/01/2024 FINDINGS: BONES: Mildly impacted fracture extending transversely through the surgical neck of the humerus. The re are few small adjacent comminuted fragments. The greater tuberosity is also fractured as a separa te fragment. No visible fractures in the glenoid. No bony destructive lesion is seen. JOINTS: No dislocation present. There is mild inferior subluxation of the humeral head with respect to the glenoid. Other degenerative changes at the AC joint and glenoid. SOFT TISSUE: Normal. IMPRESSION: Comminuted fracture of the humeral head. Mild inferior subluxation at the glenohumeral joint. The preliminary [facility] report was reviewed. DATA REPOSITORY: RADIATION DOSE DELIVERED:
[2024-10-01] MEDS: Ondansetron O.D.T. 4 MG TABEF PO (13:01)
[2024-10-01] MEDS: MORPHine IR 15 MG TAB PO ×2 (13:02→15:34)
[2024-10-01 14:19] VITALS: BP 154/72; PULSE 74; RESP 13; O2SAT 98
--- NOTE | 2024-10-01 14:29 | W.ED.GENAD ---
Discharge Plan Disposition Patient Disposition: Home Condition: Stable Discharge Details Clinical Impression: Fracture of proximal humerus Primary Care Provider: Ailyn Calderon ED Provider: Victor Manuel Dean Home Meds and New Rx's Prescriptions: New ondansetron 4 mg tablet,disintegrating 4 mg PO Q6H PRN (Reason: nausea and vomiting) Qty: 30 0RF No Action ascorbic acid (vitamin C) 500 mg capsule 500 mg PO BID acetaminophen [Tylenol Arthritis Pain] 650 mg tablet extended release 1,300 mg PO Q8H cholecalciferol (vitamin D3) 1 tab PO DAILY losartan 25 mg tablet 25 mg PO DAILY Qty: 90 2RF atorvastatin [Lipitor] 10 mg tablet 10 mg PO DAILY Qty: 90 3RF sodium fluoride-pot nitrate [PreviDent 5000 Sensitive] 1.1-5 % Paste 1 applic PO BID Eliquis 2.5 mg tablet 2.5 mg PO BID Discharge Instructions Instructions: Upper Arm Fracture Additional Instructions: Your x-ray does reveal a proximal humerus fracture of your left arm. There are no evidence of dislocation. Please keep in the sling for comfort and healing. Take the pain medication as needed. The pain medication you are provided in [place] can be taken every 6 hours. Take with nausea medication as you need. Otherwise continue Tylenol. Any additional pain medication should come from your primary care provider. You have been referred to orthopedics for follow-up they should contact you with your appointment. HPI General Date/Time Provider Initiated Documentation: 10/01/24 12:45. Limitations to Documentation: no limitations. Information obtained by: patient. HPI Narrative: 84-year-old female with past medical history of B-cell lymphoma pulmonary hypertension, hypertension presents for evaluation of acute left shoulder pain. Yesterday she had a fall and an ear B&B in [place]. She was evaluated at the [facility] emergency department. She had x-rays concerning for a left humeral fracture and was placed in a splint. She reports that she was instructed to follow-up at an emergency department when she returned home because there was concern that her shoulder might be dislocated. Patient reports significant pain in the shoulder though she does have some relief with her home Tylenol. She took this 2 hours prior to arrival. She denies any other injuries from the fall. Denies any numbness and tingling in her hand. Related Data Home Medications ?Medication ?Instructions ?Recorded ?Confirmed sodium fluoride 1.1 %-potassium 1 applic PO BID 08/22/19 10/01/24 nitrate 5 % dental paste (PreviDent 5000 Sensitive) acetaminophen 650 mg 1,300 mg PO Q8H 01/08/21 10/01/24 tablet,extended release (Tylenol Arthritis Pain) ascorbic acid (vitamin C) 500 mg 500 mg PO BID 04/25/24 10/01/24 capsule cholecalciferol (vitamin D3) 1 tab PO DAILY 06/19/24 10/01/24 losartan 25 mg tablet 25 mg PO DAILY #90 tab-caps 06/19/24 10/01/24 atorvastatin 10 mg tablet (Lipitor) 10 mg PO DAILY #90 tabs 07/17/24 10/01/24 apixaban 2.5 mg tablet (Eliquis) 2.5 mg PO BID 10/01/24 10/01/24 ondansetron 4 mg disintegrating 4 mg PO Q6H PRN nausea and 10/01/24 tablet vomiting #30 tabs Previous Rx's ?Medication ?Instructions ?Recorded losartan 25 mg tablet 25 mg PO DAILY #90 tab-caps 06/19/24 atorvastatin 10 mg tablet (Lipitor) 10 mg PO DAILY #90 tabs 07/17/24 ondansetron 4 mg disintegrating 4 mg PO Q6H PRN nausea and 10/01/24 tablet vomiting #30 tabs Allergies Allergy/AdvReac Type Severity Reaction Status Date / Time ciprofloxacin (From Cipro) Allergy HIVES Verified 10/01/24 12:23 oxycodone (From Percocet) AdvReac Intermediate Nausea & Verified 10/01/24 12:23 Vomiting ibuprofen AdvReac CAN'T TAKE Verified 10/01/24 12:23 DUE TO 1 KIDNEY General Stated Complaint: Orthopedic NINA: 3 Exam Narrative Exam Narrative: Review of Systems: All systems reviewed & are unremarkable except as noted in HPI and below Well-developed, no acute distress NCAT No midline C-spine tenderness RRR Unlabored respiratory effort Left upper extremity in a sling which was removed, she has 2+ radial pulse, good cap refill and normal sensation. She has tenderness and limited range of motion of the proximal humerus and shoulder area. No signs of dislocation. Course Vital Signs Vital signs: Vital Signs Temperature 36.8 C 10/01/24 12:03 Pulse 77 10/01/24 12:03 Respiratory Rate 14 10/01/24 12:03 Blood Pressure 148/78 H 10/01/24 12:03 Pulse Oximetry 96 10/01/24 12:03 Temperature 36.8 C 10/01/24 12:03 Temperature Source Oral 10/01/24 12:03 Pulse 74 10/01/24 14:19 Respiratory Rate 13 10/01/24 14:19 Respiratory Effort Normal, Non-Labored 10/01/24 14:19 Respiratory Depth Normal 10/01/24 14:19 Respiratory Pattern Normal 10/01/24 14:19 Blood Pressure 154/72 H 10/01/24 14:19 Blood Pressure Mean 99 10/01/24 14:19 Blood Pressure Position Sitting 10/01/24 14:19 Pulse Oximetry 98 10/01/24 14:19 Oxygen Delivery Method Room Air 10/01/24 14:19 Oxygen Flow Rate 0 10/01/24 14:19 Pain Level 5 10/01/24 12:47 Medical Decision Making Emergent evaluation of left arm injury. Concern for fracture identified at outside hospital with possible humeral head dislocation though there do not appear to be signs consistent with dislocation on physical examination today. She is neurovascularly intact without any other traumatic injury. Will repeat x-ray. Pain control given. X-rays reviewed proximal humerus fracture was noted. There is concerning subluxation of the fracture fragment of the radial head. I discussed with [facility] orthopedic surgery, they feel that the subluxation is likely secondary to traumatic hemarthrosis and not necessarily a true subluxation or dislocation but are recommending an axillary view. We were able to get an axillary view which clearly demonstrates that there is no dislocation of the humerus. Patient was provided with pain medication in [place], hydromorphone 1 mg tabs, and will continue these at home as needed. Otherwise it seems that she gets good pain control from the Tylenol that she takes. She has been provided nausea medication as needed. She has been referred to orthopedics for follow-up. She was placed in a sling and is discharged in good condition Quality:SDOH Health Related Social Needs: No Data to Display PFSH All Active Problems (Updated 10/01/24 @ 16:14 by Victor Manuel Dena MD) Fracture of proximal humerus (Acute) History of B-cell lymphoma (Acute) Abnormal ultrasound (Acute) Endometrial fluid collection. 4 cm right pelvic mass 08/24/2024 Postmenopausal bleeding (Acute) Microscopic hematuria (Acute) Vaginal discharge (Acute) Change in stool (Acute) Osteoarthritis of right knee (Acute) Breast cancer screening (Acute) Abdominal pain, right upper quadrant (Acute) CKD (chronic kidney disease) stage 3, GFR 30-59 ml/min (Acute) 11/25/23 Single kidney (Acute) Verruca (Acute) Solar aging of skin (Acute) Skin lesion (Acute) Right knee pain (Acute) Right hand pain (Acute) Pain in right wrist (Acute) Numbness and tingling in right hand (Acute) Left hand pain (Acute) Actinic keratosis (Acute) Onychomycosis (Acute) Corns and callosities (Acute) Hammertoe of right foot (Acute) Atherosclerosis of abdominal aorta (Acute) Seen on 07/15/21 CT Prediabetes (Acute) Anemia (Chronic) Diverticulosis (Acute) Diffuse large B cell lymphoma (Acute) GERD (gastroesophageal reflux disease) (Chronic) Hypertension (Chronic) 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 Patient agrees to mammogram and cholesterol check, declines DEXA scan and colonoscopy. Palliative care patient History of chemotherapy Hematuria Pelvic mass Urinary tract infection Pelvic mass in female Hydronephrosis, left Chest pain Acute urinary retention Goals of care, counseling/discussion Trochanteric bursitis Gross hematuria Incontinence Open head injury Fatigue Pyelonephritis Surgical History History of appendectomy History of ectopic required surgical intervention History of lithotripsy History of total right hip replacement History of removal of Port-a-Cath History of cataract surgery History of D&C History of right hip replacement Family History Son No problems noted. Sister No problems noted. Sister No problems noted. Son No problems noted. Granddaughter No problems noted. Grandson No problems noted. Social History Smoking/Tobacco Use Status: Former Tobacco Use Quit Date: 05/09/69 Tobacco: How many years used: 8 Second Hand Exposure: No Smoking risk assessment performed?: Yes Alcohol Intake: current Alcohol Intake frequency: holidays/special occasions only Alcohol type: beer and wine Drug use: Never Substance use type: does not use Details: has tried but doesn't use. Caregiver/Support person: Yes Household members: spouse Housing: house Number of Children: 2 number of grandchildren: 2 Communication Needs: None and Corrective Lenses Education Level: college Do you need help understanding health information?: Rarely current occupation: Retired Pets and animals: Yes (2) Pets and animals: dog(s) Do you think of yourself as: decline to answer Current gender identity: decline to answer What is your relationship status?: refused to answer How often do you talk on the phone with friends or family?: decline to answer How often do you get together with friends or relatives?: decline to answer Panel score (0-1 are the most socially isolated patients): 0 What type of physical activity do you participate in: walking, regular exercise and additional Details: gardening Duration: 30-45 minutes/day Special hector needs: No Seatbelt use: always Working smoke detector in home: Yes Fire extinguisher in home: Yes Do you feel safe at home: Yes Do you feel safe in your relationship?: Yes Additional Social history: Lives with Mart who is 83 and expects to be waited on. He's unaware of my needs. Relies on her 2 sisters and friend Marian Tracy for support. PAWSS Have you Been Recently Intoxicated or Drunk Within the Last 30 days?: No Have you Ever Experienced Previous Episodes of Alcohol Withdrawal?: No Have you ever Experienced Withdrawal Seizures?: No Have you ever Experienced Delirium Tremens(DT)s?: No Have you ever undergone Alcohol Rehabilitation Treatment (i.e, inpt ot outpatient treatment programs)?: No Have you ever Experienced Blackouts?: No Have you ever Combined Alcohol with other Downers within the last 90 days?: No Have you ever Combined Alcohol with any other Substance of Abuse during the last 90 days?: No Positive Blood Alcohol level on Presentation? [PCS.BAL]: No Evidence of Increased Autonomic Activity (i.e. HR>120, tremor, sweating, agitation, nausea)?: No Result: 0
--- NOTE | 2024-10-01 14:31 | DI.VRAD_ITS ---
PROCEDURE INFORMATION: Exam: XR Left Shoulder Exam date and time: 10/01/2024 1:56 PM Age: 84 years old Clinical indication: Other: Shoulder pain TECHNIQUE: Imaging protocol: Radiologic exam of the left shoulder. Views: 2 or more views. COMPARISON: CR XR HUMERUS LT 10/01/2024 1:53 PM FINDINGS: Bones/joints: Again noted is comminuted displaced impacted fracture of the humeral head and neck. Fracture fragments are stable in alignment.. Mild subluxation of the humeral head with respect to the glenoid. Soft tissues: Soft tissue swelling of the shoulder IMPRESSION: 1. Again noted is comminuted displaced impacted fracture of the humeral head and neck. Fracture fragments are stable in alignment.. 2. Mild subluxation of the humeral head with respect to the glenoid. Dictated and Authenticated by: Whitney Samuel MD. Orderin Jermaine Spangler MD
--- NOTE | 2024-10-01 14:32 | DI.VRAD_ITS ---
PROCEDURE INFORMATION: Exam: XR Left Humerus Exam date and time: 10/01/2024 1:53 PM Age: 84 years old Clinical indication: Other: Shoulder pain TECHNIQUE: Imaging protocol: Radiologic exam of the left humerus. Views: 2 or more views. COMPARISON: CT HEAD CERVICAL SPINE WO 04/18/2023 4:39 PM FINDINGS: Bones/joints: Again noted is comminuted displaced impacted humeral head fracture.. Mild inferior subluxation of the humeral head with respect to the glenoid. Degenerative changes in the acromioclavicular joint Soft tissues: Soft tissue swelling of the shoulder IMPRESSION: 1. Again noted is comminuted displaced impacted humeral head fracture.. 2. Mild inferior subluxation of the humeral head with respect to the glenoid. Dictated and Authenticated by: Whitney Samuel MD. Orderin Jermaine Spangler MD
--- NOTE | 2024-10-01 16:04 | DI.VRAD_ITS ---
PROCEDURE INFORMATION: Exam: XR Left Shoulder Exam date and time: 10/01/2024 3:28 PM Age: 84 years old Clinical indication: Other: Left shoulder pain, velpeau or axillary view only please TECHNIQUE: Imaging protocol: Radiologic exam of the left shoulder. Views: 1 view. COMPARISON: CR XR SHOULDER LT COMPLETE 2+V 10/01/2024 1:56 PM FINDINGS: Bones/joints: On this single view there is impacted fracture of the humeral neck. No evidence of dislocation. Soft tissues: Soft tissue swelling. IMPRESSION: Impacted fracture of the humeral neck. Dictated and Authenticated by: Kingsley Davila MD. Orderin Jermaine Spangler MD
[2024-10-01 16:37] VITALS: BP 155/71; PULSE 67; RESP 16; O2SAT 98
[2024-10-01] MEDS: Ondansetron O.D.T. 4 MG TABEF, 3 TABS/BTL PO (16:40)
[2024-10-01 16:46] VITALS: BP 155/71; PULSE 67; RESP 16; TEMP 36.5; O2SAT 98
== END 2024-10-01 16:47 | disposition home or self-care (01) ==
PROVIDERS: Emergency Provider Emergency Medicine; PCP Nurse Practitioner Family
DX: S42.202A Unspecified fracture of upper end of left humerus, initial encounter for closed fracture (principal); W19.XXXA Unspecified fall, initial encounter
CPT/HCPCS: 99284 ×2; 73020; 73030; 73060

== ENCOUNTER 2024-10-10 14:13 | Outpatient (CLI) | payer MEDICARE, SELFPAY ==
--- NOTE | 2024-10-10 13:30 | DI.RAD_ITS ---
Exam(s) XR SHOULDER LT COMPLETE 2+V EXAM: XR SHOULDER LT COMPLETE 2+V CLINICAL HISTORY: F/U FRACTURE. TECHNIQUE: 2D digital imaging was performed. COMPARISON: CR,XR XR SHOULDER LT COMPLETE 2+V from 10/01/2024 CR,XR XR SHOULDER LT 1V from 10/01/2024 FINDINGS: Two views-Grashey and scapular Y-view Again noted is the impacted fracture of the left humeral head and surgical neck. There is no disloca tion of the glenohumeral joint. The greater tuberosity fragment appears more impacted than previous and on the present Grashey view there is a 9 mm step at this level which was not evident on the prior images of 10/01/2024. However, this may be due to differences in technique as there was no Grashey view performed the prior study. There is no obvious scapular fracture. Ipsilateral clavicle and AC joint are intact. IMPRESSION: As above. If clinically indicated frontal internal and external rotation views can be performed for more accurate comparison to images of 10/01/2024. DATA REPOSITORY: RADIATION DOSE DELIVERED:
== END 2024-10-10 14:14 | disposition home or self-care (01) ==
LOC: DIORS 14:13
PROVIDERS: PCP Nurse Practitioner Family; Referring Provider Nurse Practitioner Family; Visit Provider Student in an Organized Health Care Education/Training Program
DX: S42.202A Unspecified fracture of upper end of left humerus, initial encounter for closed fracture (principal); W19.XXXA Unspecified fall, initial encounter; I12.9 Hypertensive chronic kidney disease with stage 1 through stage 4 chronic kidney disease, or unspecified chronic kidney disease; N18.30 Chronic kidney disease, stage 3 unspecified
CPT/HCPCS: 99214; 73030

== ENCOUNTER 2024-11-08 02:55 | Outpatient (CLI) | payer MEDICARE, SELFPAY ==
[2024-11-08 12:57] LABS: Abs Immature Grans 0.02 10^3/uL (0.0-0.06); HCT 33.7 % (36.0-46.0); HGB 11.0 g/dL (11.2-15.7); Immature Grans % 0.4 %; MCH 31.7 pg (27.0-33.0); MCHC 32.6 % (32.0-36.0); MCV 97 fL (80-95); MPV 9.4 fL (8.0-11.0); Platelet Count 202 10^3/uL (130-400); RBC 3.47 10^6/uL (3.93-5.22); RDW 14.7 % (11.7-14.6); RDW-SD 51.8 fL; WBC 5.71 10^3/uL (4.4-10.8)
[2024-11-08 13:21] LABS: ALT 22 U/L (14-59); AST 22 U/L (15-37); Albumin 3.5 g/dL (3.4-5.0); Alkaline Phosphatase 75 U/L (46-116); Anion Gap 9.4 mmol/L (3-11); BUN 19 mg/dL (7-18); Bilirubin, Total 0.4 mg/dL (0.2-1.0); CO2 25.6 mmol/L (21.0-32.0); Calcium 9.2 mg/dL (8.5-10.1); Chloride 106 mmol/L (98-107); Estimated GFR 49.24 (mL/min/1.73m2); Glucose 115 mg/dL (74-106); Potassium 4.4 mmol/L (3.5-5.1); Sodium 141 mmol/L (136-145); Total Protein 7.1 g/dL (6.4-8.2)
[2024-11-09 09:38] LABS: CA 125 89 U/mL (<30)
== END 2024-11-08 02:56 | disposition home or self-care (01) ==
PROVIDERS: PCP Nurse Practitioner Family; Visit Provider Obstetrics & Gynecology Gynecologic Oncology
DX: C56.1 Malignant neoplasm of right ovary (principal)
CPT/HCPCS: 36415; 80053; 86304; 85025

== ENCOUNTER 2024-11-21 14:01 | Outpatient (CLI) | payer MEDICARE, SELFPAY ==
--- NOTE | 2024-11-21 13:30 | DI.RAD_ITS ---
Exam(s) XR SHOULDER LT COMPLETE 2+V EXAM: XR SHOULDER LT COMPLETE 2+V CLINICAL HISTORY: F/U FRACTURE. TECHNIQUE: 2D digital imaging was performed. COMPARISON: No exams were available for comparison FINDINGS: Two views: Again noted is the previously described impacted fracture of the left humeral head and neck. There is no dislocation glenohumeral joint. Appearance of the fracture site is unchanged from 10/10/2024. No new fractures evident. Subacromial space appears unchanged. Mild degenerative changes in the AC joint. No clavicle fracture. No obvious scapular fracture. IMPRESSION: Stable unchanged radiographic appearance when compared to images of 10/10/2024 DATA REPOSITORY: RADIATION DOSE DELIVERED:
== END 2024-11-21 14:02 | disposition home or self-care (01) ==
LOC: DIORS 14:01
PROVIDERS: PCP Nurse Practitioner Family; Referring Provider Nurse Practitioner Family; Visit Provider Student in an Organized Health Care Education/Training Program
DX: S42.202D Unspecified fracture of upper end of left humerus, subsequent encounter for fracture with routine healing (principal); X58.XXXD Exposure to other specified factors, subsequent encounter; Z79.899 Other long term (current) drug therapy
CPT/HCPCS: 99213; 73030

== ENCOUNTER 2024-11-29 02:54 | Outpatient (CLI) | payer MEDICARE, SELFPAY ==
[2024-11-29 12:43] LABS: Abs Immature Grans 0.05 10^3/uL (0.0-0.06); HCT 34.0 % (36.0-46.0); HGB 11.1 g/dL (11.2-15.7); Immature Grans % 0.8 %; MCH 31.4 pg (27.0-33.0); MCHC 32.6 % (32.0-36.0); MCV 96 fL (80-95); MPV 8.8 fL (8.0-11.0); Platelet Count 213 10^3/uL (130-400); RBC 3.54 10^6/uL (3.93-5.22); RDW 14.8 % (11.7-14.6); RDW-SD 51.5 fL; WBC 6.26 10^3/uL (4.4-10.8)
[2024-11-29 13:14] LABS: ALT 25 U/L (14-59); AST 21 U/L (15-37); Albumin 3.3 g/dL (3.4-5.0); Alkaline Phosphatase 69 U/L (46-116); Anion Gap 7.5 mmol/L (3-11); BUN 14 mg/dL (7-18); Bilirubin, Total 0.4 mg/dL (0.2-1.0); CO2 26.5 mmol/L (21.0-32.0); Calcium 8.9 mg/dL (8.5-10.1); Chloride 104 mmol/L (98-107); Estimated GFR 44.36 (mL/min/1.73m2); Glucose 127 mg/dL (74-106); Potassium 4.4 mmol/L (3.5-5.1); Sodium 138 mmol/L (136-145); Total Protein 6.7 g/dL (6.4-8.2)
[2024-11-29 22:48] LABS: CA 125 40 U/mL (<30)
== END 2024-11-29 02:55 | disposition home or self-care (01) ==
LOC: LBO 02:54
PROVIDERS: PCP Nurse Practitioner Family; Visit Provider Obstetrics & Gynecology Gynecologic Oncology
DX: C56.1 Malignant neoplasm of right ovary (principal)
CPT/HCPCS: 36415; 80053; 86304; 85025

== ENCOUNTER 2024-12-20 03:51 | Outpatient (CLI) | payer MEDICARE, SELFPAY ==
[2024-12-20 16:24] LABS: Abs Immature Grans 0.32 10^3/uL (0.0-0.06); HCT 29.9 % (36.0-46.0); HGB 9.9 g/dL (11.2-15.7); MCH 31.9 pg (27.0-33.0); MCHC 33.1 % (32.0-36.0); MCV 97 fL (80-95); MPV 8.7 fL (8.0-11.0); Platelet Count 222 10^3/uL (130-400); RBC 3.10 10^6/uL (3.93-5.22); RDW 15.6 % (11.7-14.6); RDW-SD 55.1 fL; WBC 5.16 10^3/uL (4.4-10.8)
[2024-12-20 17:01] LABS: RBC Morphology Normal
[2024-12-20 18:06] LABS: ALT 29 U/L (14-59); AST 19 U/L (15-37); Albumin 3.3 g/dL (3.4-5.0); Alkaline Phosphatase 56 U/L (46-116); Anion Gap 7.9 mmol/L (3-11); BUN 14 mg/dL (7-18); Bilirubin, Total 0.4 mg/dL (0.2-1.0); CO2 28.1 mmol/L (21.0-32.0); Calcium 9.2 mg/dL (8.5-10.1); Chloride 105 mmol/L (98-107); Estimated GFR 49.24 (mL/min/1.73m2); Glucose 187 mg/dL (74-106); Potassium 4.5 mmol/L (3.5-5.1); Sodium 141 mmol/L (136-145); Total Protein 6.7 g/dL (6.4-8.2)
[2024-12-21 19:39] LABS: CA 125 25 U/mL (<30)
== END 2024-12-20 03:52 | disposition home or self-care (01) ==
LOC: LBO 03:51
PROVIDERS: PCP Nurse Practitioner Family; Visit Provider Obstetrics & Gynecology Gynecologic Oncology
DX: C56.1 Malignant neoplasm of right ovary (principal)
CPT/HCPCS: 36415; 80053; 86304; 85025

== ENCOUNTER 2024-12-25 01:49 | Outpatient (RCR) | payer MEDICARE, SELFPAY ==
[2024-12-25] MEDS: Normal Saline Flush 10 ML SYR IVP (08:30)
[2024-12-25 08:51] LABS: Abs Immature Grans 0.07 10^3/uL (0.0-0.06); HCT 32.8 % (36.0-46.0); HGB 10.4 g/dL (11.2-15.7); Immature Grans % 1.1 %; MCH 30.6 pg (27.0-33.0); MCHC 31.7 % (32.0-36.0); MCV 97 fL (80-95); MPV 9.1 fL (8.0-11.0); Platelet Count 232 10^3/uL (130-400); RBC 3.40 10^6/uL (3.93-5.22); RDW 15.7 % (11.7-14.6); RDW-SD 55.5 fL; WBC 6.53 10^3/uL (4.4-10.8)
[2024-12-25 09:10] LABS: ALT 21 U/L (14-59); AST 15 U/L (15-37); Albumin 3.3 g/dL (3.4-5.0); Alkaline Phosphatase 54 U/L (46-116); Anion Gap 7.1 mmol/L (3-11); BUN 17 mg/dL (7-18); Bilirubin, Total 0.3 mg/dL (0.2-1.0); CO2 27.9 mmol/L (21.0-32.0); Calcium 9.3 mg/dL (8.5-10.1); Chloride 106 mmol/L (98-107); Estimated GFR 44.36 (mL/min/1.73m2); Glucose 117 mg/dL (74-106); Potassium 4.3 mmol/L (3.5-5.1); Sodium 141 mmol/L (136-145); Total Protein 6.8 g/dL (6.4-8.2)
[2024-12-25 19:41] LABS: CA 125 26 U/mL (<30)
== END 2025-01-06 23:59 | disposition home or self-care (01) ==
LOC: INF 01:49
PROVIDERS: PCP Nurse Practitioner Family; Visit Provider Obstetrics & Gynecology Gynecologic Oncology
DX: C56.1 Malignant neoplasm of right ovary (principal); Z45.2 Encounter for adjustment and management of vascular access device
CPT/HCPCS: 36591; 80053; 86304; 85025

== ENCOUNTER 2024-12-26 02:19 | Outpatient (CLI) | payer MEDICARE, SELFPAY ==
--- NOTE | 2024-12-26 07:45 | DI.US_ITS ---
Exam(s) US RENAL EXAM: US RENAL CLINICAL HISTORY: monitoring single right kidney,lymphoma,c85.90,z90.5. TECHNIQUE: Grover scale imaging and color doppler were used. COMPARISON: CT CT NECK CHEST ABD PEL W from 07/14/2021 US US RENAL from 12/29/2023 US US ABDOMEN from 04/18/2024 FINDINGS: Right kidney: 11.0cm Echogenicity: Normal Hydronephrosis: No Cyst or mass: No Nephrolithiasis: No Left kidney: Not visualized. Shown to be atrophic on prior CT. Bladder:Normal. Prevoid vol: 90 cc Postvoid vol:2 cc IMPRESSION: Right kidney appears normal and shows some compensatory hypertrophy. The left kidney was not visualized. DATA REPOSITORY:
== END 2024-12-26 02:39 ==
LOC: DI 02:19
PROVIDERS: PCP Nurse Practitioner Family; Visit Provider Nurse Practitioner Gerontology
DX: C85.90 Non-Hodgkin lymphoma, unspecified, unspecified site (principal); Z90.5 Acquired absence of kidney; N28.81 Hypertrophy of kidney
CPT/HCPCS: 76770

== ENCOUNTER → 2025-01-03 07:48 | Outpatient (BNVA) | payer MEDICARE, SELFPAY | PROVIDERS: PCP Nurse Practitioner Family; Referring Provider Nurse Practitioner Family; Visit Provider Nurse Practitioner Gerontology | DX: Z90.5 Acquired absence of kidney (principal); Z85.72 Personal history of non-Hodgkin lymphomas | CPT/HCPCS: 99215 ==

== ENCOUNTER 2025-01-15 18:31 | Outpatient (REF) | payer MEDICARE, SELFPAY ==
[2025-01-15 17:02] LABS: Glucose Negative (Negative)
[2025-01-15 17:16] LABS: C & S Indicated? Yes; WBC >50 HPF (0-5)
== END 2025-01-15 18:32 | disposition home or self-care (01) ==
LOC: LBN 18:31
PROVIDERS: PCP Nurse Practitioner Family; Visit Provider Nurse Practitioner
DX: C56.1 Malignant neoplasm of right ovary (principal)
CPT/HCPCS: 87077; 81003; 81015; 87086; 87186

== ENCOUNTER 2025-01-23 14:44 | Outpatient (CLI) | payer MEDICARE, SELFPAY ==
--- NOTE | 2025-01-23 13:00 | DI.RAD_ITS ---
Exam(s) XR SHOULDER LT COMPLETE 2+V EXAM: XR SHOULDER LT COMPLETE 2+V CLINICAL HISTORY: evaluation of fracture. TECHNIQUE: 2D digital imaging was performed of the left shoulder. Two images were obtained. Grashey and Y views were obtained. COMPARISON: CR XR SHOULDER LT COMPLETE 2+V from 11/21/2024 FINDINGS: BONES: There has been no change in alignment of the fracture involving the left humeral head and neck. Fracture lines are less well visualized suggesting some interval healing. No new fractures identified. No bony destructive lesion is seen. JOINTS: No dislocation present. There are degenerative changes seen at both the acromioclavicular and glenohumeral joints. SOFT TISSUE: Normal. IMPRESSION: Stable alignment of the healing proximal left humeral fracture. DATA REPOSITORY: RADIATION DOSE DELIVERED:
== END 2025-01-23 14:45 | disposition home or self-care (01) ==
LOC: DIORS 14:44
PROVIDERS: PCP Nurse Practitioner Family; Visit Provider Student in an Organized Health Care Education/Training Program
DX: S42.202D Unspecified fracture of upper end of left humerus, subsequent encounter for fracture with routine healing (principal); X58.XXXD Exposure to other specified factors, subsequent encounter
CPT/HCPCS: 99213; 73030

== ENCOUNTER 2025-02-05 02:34 | Outpatient (RCR) | payer MEDICARE, SELFPAY ==
[2025-01-15 10:15] LABS: Abs Immature Grans 0.05 10^3/uL (0.0-0.06); HCT 31.6 % (36.0-46.0); HGB 10.2 g/dL (11.2-15.7); Immature Grans % 0.5 %; MCH 31.2 pg (27.0-33.0); MCHC 32.3 % (32.0-36.0); MCV 97 fL (80-95); MPV 8.9 fL (8.0-11.0); Platelet Count 234 10^3/uL (130-400); RBC 3.27 10^6/uL (3.93-5.22); RDW 15.7 % (11.7-14.6); RDW-SD 55.0 fL; WBC 9.61 10^3/uL (4.4-10.8)
[2025-01-15 10:35] LABS: ALT 17 U/L (14-59); AST 15 U/L (15-37); Albumin 3.2 g/dL (3.4-5.0); Alkaline Phosphatase 56 U/L (46-116); Anion Gap 10.3 mmol/L (3-11); BUN 16 mg/dL (7-18); Bilirubin, Total 0.5 mg/dL (0.2-1.0); CO2 26.7 mmol/L (21.0-32.0); Calcium 9.0 mg/dL (8.5-10.1); Chloride 102 mmol/L (98-107); Glucose 202 mg/dL (74-106); Potassium 4.3 mmol/L (3.5-5.1); Sodium 139 mmol/L (136-145); Total Protein 6.8 g/dL (6.4-8.2)
[2025-01-15] MEDS: Normal Saline Flush 10 ML SYR IVP (11:06)
[2025-01-16 11:10] LABS: CA 125 22 U/mL (<30)
[2025-02-05] MEDS: Normal Saline Flush 10 ML SYR IVP (09:22)
[2025-02-05 09:26] LABS: Abs Immature Grans 0.01 10^3/uL (0.0-0.06); HCT 35.6 % (36.0-46.0); HGB 10.7 g/dL (11.2-15.7); Immature Grans % 0.3 %; MCH 31.2 pg (27.0-33.0); MCHC 30.1 % (32.0-36.0); MCV 104 fL (80-95); MPV 9.1 fL (8.0-11.0); Platelet Count 203 10^3/uL (130-400); RBC 3.43 10^6/uL (3.93-5.22); RDW 15.5 % (11.7-14.6); RDW-SD 59.0 fL; WBC 3.78 10^3/uL (4.4-10.8)
[2025-02-05 09:45] LABS: ALT 18 U/L (14-59); AST 20 U/L (15-37); Albumin 3.5 g/dL (3.4-5.0); Alkaline Phosphatase 51 U/L (46-116); Anion Gap 9.9 mmol/L (3-11); BUN 15 mg/dL (7-18); Bilirubin, Total 0.5 mg/dL (0.2-1.0); CO2 25.1 mmol/L (21.0-32.0); Calcium 9.3 mg/dL (8.5-10.1); Chloride 106 mmol/L (98-107); Glucose 103 mg/dL (74-106); Potassium 4.3 mmol/L (3.5-5.1); Sodium 141 mmol/L (136-145); Total Protein 6.9 g/dL (6.4-8.2)
[2025-02-05 19:11] LABS: CA 125 14 U/mL (<30)
== END 2025-02-05 23:59 | disposition home or self-care (01) ==
LOC: INF 02:34
PROVIDERS: PCP Nurse Practitioner Family; Visit Provider Obstetrics & Gynecology Gynecologic Oncology
DX: C56.1 Malignant neoplasm of right ovary (principal); Z45.2 Encounter for adjustment and management of vascular access device
CPT/HCPCS: 36415; 36591; 80053; 86304; 85025

== ENCOUNTER 2025-02-27 01:56 | Outpatient (RCR) | payer MEDICARE, SELFPAY ==
[2025-02-20 14:20] LABS: Abs Immature Grans 0.01 10^3/uL (0.0-0.06); HCT 31.0 % (36.0-46.0); HGB 10.1 g/dL (11.2-15.7); MCH 31.5 pg (27.0-33.0); MCHC 32.6 % (32.0-36.0); MCV 97 fL (80-95); MPV 9.1 fL (8.0-11.0); Platelet Count 199 10^3/uL (130-400); RBC 3.21 10^6/uL (3.93-5.22); RDW 14.6 % (11.7-14.6); RDW-SD 51.1 fL; WBC 2.11 10^3/uL (4.4-10.8)
[2025-02-20 14:23] LABS: ALT 20 U/L (14-59); AST 18 U/L (15-37); Albumin 3.6 g/dL (3.4-5.0); Alkaline Phosphatase 58 U/L (46-116); Anion Gap 10.4 mmol/L (3-11); BUN 14 mg/dL (7-18); Bilirubin, Total 0.3 mg/dL (0.2-1.0); CO2 25.6 mmol/L (21.0-32.0); Calcium 8.9 mg/dL (8.5-10.1); Chloride 106 mmol/L (98-107); Estimated GFR 49.24 (mL/min/1.73m2); Glucose 145 mg/dL (74-106); LDH 211 U/L (81-234); Potassium 4.6 mmol/L (3.5-5.1); Sodium 142 mmol/L (136-145); Total Protein 6.7 g/dL (6.4-8.2)
[2025-02-20 14:42] LABS: Immature Grans % 0.0 %
[2025-02-20] MEDS: Normal Saline Flush 10 ML SYR IVP (14:44)
[2025-02-20 14:49] LABS: RBC Morphology Normal
== END 2025-03-08 23:59 | disposition home or self-care (01) ==
LOC: INF 01:56
PROVIDERS: Nurse Practitioner Adult Health; PCP Nurse Practitioner Family; Visit Provider Obstetrics & Gynecology Gynecologic Oncology
DX: C83.38 Diffuse large B-cell lymphoma, lymph nodes of multiple sites (principal)
CPT/HCPCS: 36415; 80053; 96523; 83615; 85025

== ENCOUNTER 2025-02-27 13:54 | Outpatient (CLI) | payer MEDICARE, SELFPAY ==
[2025-02-27 13:50] LABS: Abs Immature Grans 0.01 10^3/uL (0.0-0.06); HCT 31.7 % (36.0-46.0); HGB 10.3 g/dL (11.2-15.7); Immature Grans % 0.2 %; MCH 32.0 pg (27.0-33.0); MCHC 32.5 % (32.0-36.0); MCV 98 fL (80-95); MPV 9.1 fL (8.0-11.0); Platelet Count 198 10^3/uL (130-400); RBC 3.22 10^6/uL (3.93-5.22); RDW 14.6 % (11.7-14.6); RDW-SD 53.1 fL; WBC 4.32 10^3/uL (4.4-10.8)
== END 2025-02-27 13:55 | disposition home or self-care (01) ==
LOC: LBO 13:54
PROVIDERS: PCP Nurse Practitioner Family; Visit Provider Obstetrics & Gynecology Gynecologic Oncology
DX: C56.1 Malignant neoplasm of right ovary (principal)
CPT/HCPCS: 36415; 85025

== ENCOUNTER 2025-04-10 01:33 | Outpatient (CLI) | payer MEDICARE, SELFPAY ==
[2025-04-10 11:43] LABS: Abs Immature Grans 0.03 10^3/uL (0.0-0.06); HCT 35.8 % (36.0-46.0); HGB 11.7 g/dL (11.2-15.7); Immature Grans % 0.6 %; MCH 31.7 pg (27.0-33.0); MCHC 32.7 % (32.0-36.0); MCV 97 fL (80-95); MPV 9.3 fL (8.0-11.0); Platelet Count 194 10^3/uL (130-400); RBC 3.69 10^6/uL (3.93-5.22); RDW 13.5 % (11.7-14.6); RDW-SD 48.3 fL; WBC 5.41 10^3/uL (4.4-10.8)
[2025-04-10 12:13] LABS: ALT 15 U/L (10-49); AST 25 U/L (<34); Albumin 4.1 g/dL (3.2-5.0); Alkaline Phosphatase 47 U/L (46-116); Anion Gap 6.8 mmol/L (3-11); BUN 16 mg/dL (9-23); Bilirubin, Total 0.60 mg/dL (0.2-1.2); CO2 26.2 mmol/L (20.0-31.0); Calcium 9.7 mg/dL (8.3-10.6); Chloride 106 mmol/L (98-107); Glucose 101 mg/dL (74-106); Potassium 4.5 mmol/L (3.5-5.1); Sodium 139 mmol/L (136-145); Total Protein 7.0 g/dL (5.7-8.2)
[2025-04-10 23:46] LABS: CA 125 12 U/mL (<30)
== END 2025-04-10 01:34 | disposition home or self-care (01) ==
PROVIDERS: PCP Nurse Practitioner Family; Visit Provider Nurse Practitioner Women's Health
DX: C56.1 Malignant neoplasm of right ovary (principal)
CPT/HCPCS: 36415; 80053; 86304; 85025

== ENCOUNTER 2025-04-18 15:20 | Observation (INO) | payer MEDICARE, SELFPAY ==
[2025-04-18 15:20] VITALS: BP 137/91; PULSE 93; RESP 20; TEMP 36.5; O2SAT 98
--- NOTE | 2025-04-18 15:45 | DI.CT_ITS ---
Exam(s) CT CHEST/ABD/PEL W EXAM: CT CHEST/ABD/PEL W CLINICAL HISTORY: Trauma. TECHNIQUE: Imaging Protocol: Axial computed tomography images with coronal and sagittal reformatted images were created and reviewed CONTRAST MATERIAL: Intravenous: Omnipaque 350 Contrast volume:75 mL Oral: None COMPARISON: CT CT NECK CHEST ABD PEL W from 07/14/2021 FINDINGS: CHEST: LUNGS: No evidence of lung contusion, effusion, nor pneumothorax. Calcified granulomas noted, largest being in the superior segment of the right lower lobe and there are calcified lymph nodes in the right hilum noted. There are no ominous pulmonary nodules MEDIASTINUM: No evidence of sternal fracture or mediastinal hematoma. Thyroid nodules incidentally noted. No significant hilar nor mediastinal adenopathy. CARDIAC: Normal heart size. No pericardial effusion. Diameter of the ascending thoracic aorta within normal limits. No dissection. OSSEOUS: No rib fractures evident. No sternal fracture. No acute vertebral fractures.. ABDOMEN: There is no ascites. No evidence of mesenteric nor bowel wall hematoma. LIVER: Intact. No lacerations. No incidental significant liver lesions. No dilated intrahepatic ducts. GALLBLADDER/BILIARY: No obvious gallbladder pathology. CBD is not dilated. PANCREAS: No evidence of pancreatic mass nor dilatation of the pancreatic duct. SPLEEN: Intact. No lacerations. Normal size. No lesions. Splenic and portal veins are patent. ADRENALS: There are no significant adrenal masses. KIDNEYS: The left kidney is again noted to be very atrophic, as was also evident on CT scan of July 2021.. Right kidney unremarkable. No cysts nor solid renal masses evident. No calculi. No hydronephrosis. ABDOMINAL AORTA: Calcified but not enlarged. Iliac arteries also calcified but not enlarged. No dissection. LYMPH NODES: There is no retroperitoneal nor paraaortic adenopathy. ABDOMINAL WALL: No evidence of significant anterior abdominal wall hematomas nor foreign bodies. No significant abdominal wall hernias. GI: There is no evidence of bowel obstruction.No ileus pattern. PELVIS: LYMPH NODES: There is no intrapelvic nor inguinal adenopathy. GI: Appendix not seen and may be surgically absent. No inflammatory process noted in the right iliac fossa.There are diverticuli in the sigmoid but no evidence of acute diverticulitis. URINARY BLADDER: Partially obscured by beam hardening artifact from right hip prosthesis. No obvious abnormalities in the bladder although the bladder is mildly distended. REPRODUCTIVE: Obscured by beam hardening artifact. Uterus is atrophic or surgically absent. No obvious adnexal masses. OSSEOUS: There is a fracture of the right transverse process of L2 vertebral body. No surrounding hematoma. There is also a subtle fracture of the right transverse process of L3. No other fractures identified. A right hip prosthesis is noted. IMPRESSION: 1. There are fractures of the right transverse process is of L2 and L3. No rib fractures evident. No other vertebral fractures. No sternal fracture. 2. No significant intrathoracic findings. 3. Left kidney is again noted be atrophic as was also evident on CT scan of July 2021. Right kidney remains unremarkable. 4. Urinary bladder is mildly distended. 5. Sigmoid diverticulosis. No diverticulitis. 6. Right hip prosthesis. Report called by myself to ER 04/18/2025 at 5:48 p.m. RADIATION DOSE DELIVERED: 436.83mGy.cm Total DLP DATA REPOSITORY: All CT scans at this facility are submitted to the National Radiology Data Registry (NRDR) Dose Index Registry (DIR) with the [employer] ([employer]). RADIATION OPTIMIZATION: All CT scans at this facility use at least one of these dose optimization techniques: automated exposure control; mA and/or kV adjustment per patient size (includes targeted exams where dose is matched to clinical indication); or iterative reconstruction.
--- NOTE | 2025-04-18 15:51 | DI.CT_ITS ---
Exam(s) CT THORACIC LUMBAR SPINE REC EXAM: CT THORACIC LUMBAR SPINE REC CLINICAL HISTORY: Trauma TECHNIQUE: COMPARISON: CT CT NECK CHEST ABD PEL W from 07/14/2021 CR XR LUMBAR SPINE COMPLETE from 02/01/[address] CHEST/ABD/PEL W from 04/18/2025 FINDINGS: THORACIC SPINAL COLUMN: No evidence of fracture or listhesis nor facet joint malalignment. No acute compromise of the canal. LUMBOSACRAL SPINAL COLUMN: Scoliosis convex right. There are minimally displaced fractures of the right transverse processes of L1, L2, and L3 vertebrae. Mild loss of height L3 vertebral body is not new. There are no acute appearing compression fractures nor acute osseous compromise of the canal. There is multilevel chronic disc space narrowing. There is a chronic deep Schmorl's node invagination in the superior endplate L5 noted, not new. Multilevel facet arthropathy. Mild degenerative anterolisthesis L5 upon S1 is unchanged. IMPRESSION: There are mildly displaced fractures of the right transverse process is of L1, L2, and L3 vertebral bodies. No prominent associated hematoma in the adjacent musculature. No acute compression fractures in the thoracic and lumbosacral spinal columns. Report called by myself to ER physician 04/18/2025 at 5:50 the 5 p.m.
[2025-04-18 16:22] LABS: Abs Immature Grans 0.02 10^3/uL (0.0-0.06); HCT 33.8 % (36.0-46.0); HGB 11.3 g/dL (11.2-15.7); Immature Grans % 0.4 %; MCH 32.1 pg (27.0-33.0); MCHC 33.4 % (32.0-36.0); MCV 96 fL (80-95); MPV 9.3 fL (8.0-11.0); Platelet Count 186 10^3/uL (130-400); RBC 3.52 10^6/uL (3.93-5.22); RDW 13.2 % (11.7-14.6); RDW-SD 46.4 fL; WBC 4.83 10^3/uL (4.4-10.8)
[2025-04-18] MEDS: ACETAMINOPHEN 1,000 MG/100 ML BAG 400 MG IVPB (16:27)
[2025-04-18 16:39] LABS: Magnesium 2.0 mg/dL (1.6-2.6)
[2025-04-18 16:41] LABS: ALT 16 U/L (10-49); AST 27 U/L (<34); Albumin 4.1 g/dL (3.2-5.0); Alkaline Phosphatase 50 U/L (46-116); Anion Gap 6.3 mmol/L (3-11); BUN 19 mg/dL (9-23); Bilirubin, Total 0.5 mg/dL (0.2-1.2); CO2 27.7 mmol/L (20.0-31.0); Calcium 9.3 mg/dL (8.3-10.6); Chloride 105 mmol/L (98-107); Glucose 109 mg/dL (74-106); Potassium 4.1 mmol/L (3.5-5.1); Sodium 139 mmol/L (136-145); Total Protein 6.9 g/dL (5.7-8.2)
[2025-04-18] MEDS: Normal Saline - Diluent 50 ML VIAL IJ (16:49)
[2025-04-18] MEDS: Omnipaque 350 MG/ML 100 ML BTL IJ (16:49)
[2025-04-18 16:54] LABS: INR 1.0 (0.9-1.1); PTT Activated 23.2 sec (20.6-30.2); Prothrombin Time 9.9 sec (9.1-11.1)
--- NOTE | 2025-04-18 17:55 | W.ED.GENAD ---
Discharge Plan Disposition Patient Disposition: Admit to [facility] Discharge Details Clinical Impression: Fracture of transverse process of lumbar vertebra, Accidental fall Admit Date/Time: 04/18/25 20:17 Admit Provider: Stephan Guzmán Attending Provider: Stephan Guzmán Primary Care Provider: Ailyn Calderon ED Provider: Kulwinder June [facility] General Date/Time Provider Initiated Documentation: 04/18/25 15:22. HPI Narrative: MDM/Narrative: 84-year-old female past medical history of ovarian cancer, presents for evaluation of injury sustained following a mechanical fall. Vital signs notable for mild hypertension. Primary survey intact, secondary survey notable for significant pain to the lumbar spine with associated ecchymosis, otherwise unremarkable. Given patient's advanced age and comorbidities will obtain screening imaging including CT of the abdomen pelvis, will not image head and neck given reliable historian with no evidence of head trauma or neck pain. ED course: Lab screening is unremarkable without any acute abnormalities. CT imaging shows 3 consecutive transverse process fractures of the lumbar spine. Patient was attempted to ambulate following pain medication administration however she is in too much discomfort to perform ADLs. Case discussed with Dr. Guzmán, hospitalist, who is agreeable to plan for observation for pain control and PT evaluation. Disposition: Admit to [facility] HPI: 84-year-old female with past medical history of ovarian cancer, presents for evaluation of injury sustained after a mechanical trip and fall which occurred earlier today. Patient states she was reaching over a large wooden desk, when she lost her balance fell backwards onto her back. She notes severe pain to her lower back. Denies any head strike, loss of consciousness preceding symptoms or prodrome to the fall or any other injuries. ROS: Negative besides as mentioned above Exam: Gen: A&O NAD HEENT: NCAT, EOMI, not icteric. External ears normal. No rhinorrhea. Moist mucous membranes. Neck: Supple, full range of motion, no observable masses, No meningeal sign. Lungs: No Respiratory distress. CV: RRR, no edema. Back: No midline step-off or tenderness of the cervical or thoracic spine. There is exquisite tenderness to the midline lumbar spine with associated ecchymosis. Abdomen: Soft, nondistended, No rebound tenderness. MSK: No joint swelling, no redness. Skin: No rashes, petechiae, lesions. Normal color per patient. Neuro: Grossly intact. Psych: Appropriate for situation. Labs: Laboratory Tests Range/Units 04/18/25 04/18/25 16:00 16:28 WBC (4.4-10.8) 10^3/uL 4.83 RBC (3.93-5.22) 10^6/uL 3.52 L Hgb (11.2-15.7) g/dL 11.3 Hct (36.0-46.0) % 33.8 L MCV (80-95) fL 96 H MCH (27.0-33.0) pg 32.1 MCHC (32.0-36.0) % 33.4 RDW (11.7-14.6) % 13.2 Plt Count (130-400) 10^3/uL 186 MPV (8.0-11.0) fL 9.3 Immature Gran % % 0.4 Neutrophils % % 64.5 Lymphocytes % % 23.8 Monocytes % % 9.5 Eosinophils % % 1.4 Basophils % % 0.4 Nucleated RBC % (0.0-0.3) % 0.0 Absolute Neutrophils (1.2-6.7) 10^3/uL 3.11 Absolute Lymphocytes (1.2-3.4) 10^3/uL 1.15 L Absolute Monocytes (0.1-0.8) 10^3/uL 0.46 Absolute Eosinophils (0.0-0.7) 10^3/uL 0.07 Absolute Basophils (0.0-0.2) 10^3/uL 0.02 PT (9.1-11.1) sec 9.9 INR (0.9-1.1) 1.0 APTT (20.6-30.2) sec 23.2 Sodium (136-145) mmol/L 139 Potassium (3.5-5.1) mmol/L 4.1 Chloride (98-107) mmol/L 105 Carbon Dioxide (20.0-31.0) mmol/L 27.7 Anion Gap (3-11) mmol/L 6.3 BUN (9-23) mg/dL 19 Creatinine (0.55-1.02) mg/dL 1.24 H Est GFR (CKD-EPI 2020) (mL/min/1.73m2) 41.04 Glucose (74-106) mg/dL 109 H Calcium (8.3-10.6) mg/dL 9.3 Magnesium (1.6-2.6) mg/dL 2.0 Total Bilirubin (0.2-1.2) mg/dL 0.5 AST (<34) U/L 27 ALT (10-49) U/L 16 Alkaline Phosphatase (46-116) U/L 50 Total Protein (5.7-8.2) g/dL 6.9 Albumin (3.2-5.0) g/dL 4.1 ABO/Rh O Positive Antibody Screen NEGATIVE Radiology: Accession No. : [id number] Creator : Rodney Johnson Dictator : Rodney Johnson Filenet P8 Developer : Compliance Examiner : Rodney Johnson Approver2 : Report Date : 04/18/2025 17:51:13 Exam(s) CT CHEST/ABD/PEL W EXAM: CT CHEST/ABD/PEL W CLINICAL HISTORY: Trauma. TECHNIQUE: Imaging Protocol: Axial computed tomography images with coronal and sagittal reformatted images were created and reviewed CONTRAST MATERIAL: Intravenous: Omnipaque 350 Contrast volume:75 mL Oral: None COMPARISON: CT CT NECK CHEST ABD PEL W from 07/14/2021 FINDINGS: CHEST: LUNGS: No evidence of lung contusion, effusion, nor pneumothorax. Calcified granulomas noted, largest being in the superior segment of the right lower lobe and there are calcified lymph nodes in the right hilum noted. There are no ominous pulmonary nodules MEDIASTINUM: No evidence of sternal fracture or mediastinal hematoma. Thyroid nodules incidentally noted. No significant hilar nor mediastinal adenopathy. CARDIAC: Normal heart size. No pericardial effusion. Diameter of the ascending thoracic aorta within normal limits. No dissection. OSSEOUS: No rib fractures evident. No sternal fracture. No acute vertebral fractures.. ABDOMEN: There is no ascites. No evidence of mesenteric nor bowel wall hematoma. LIVER: Intact. No lacerations. No incidental significant liver lesions. No dilated intrahepatic ducts. GALLBLADDER/BILIARY: No obvious gallbladder pathology. CBD is not dilated. PANCREAS: No evidence of pancreatic mass nor dilatation of the pancreatic duct. SPLEEN: Intact. No lacerations. Normal size. No lesions. Splenic and portal veins are patent. ADRENALS: There are no significant adrenal masses. KIDNEYS: The left kidney is again noted to be very atrophic, as was also evident on CT scan of July 2021.. Right kidney unremarkable. No cysts nor solid renal masses evident. No calculi. No hydronephrosis. ABDOMINAL AORTA: Calcified but not enlarged. Iliac arteries also calcified but not enlarged. No dissection. LYMPH NODES: There is no retroperitoneal nor paraaortic adenopathy. ABDOMINAL WALL: No evidence of significant anterior abdominal wall hematomas nor foreign bodies. No significant abdominal wall hernias. GI: There is no evidence of bowel obstruction.No ileus pattern. PELVIS: LYMPH NODES: There is no intrapelvic nor inguinal adenopathy. GI: Appendix not seen and may be surgically absent. No inflammatory process noted in the right iliac fossa.There are diverticuli in the sigmoid but no evidence of acute diverticulitis. URINARY BLADDER: Partially obscured by beam hardening artifact from right hip prosthesis. No obvious abnormalities in the bladder although the bladder is mildly distended. REPRODUCTIVE: Obscured by beam hardening artifact. Uterus is atrophic or surgically absent. No obvious adnexal masses. OSSEOUS: There is a fracture of the right transverse process of L2 vertebral body. No surrounding hematoma. There is also a subtle fracture of the right transverse process of L3. No other fractures identified. A right hip prosthesis is noted. IMPRESSION: 1. There are fractures of the right transverse process is of L2 and L3. No rib fractures evident. No other vertebral fractures. No sternal fracture. 2. No significant intrathoracic findings. 3. Left kidney is again noted be atrophic as was also evident on CT scan of July 2021. Right kidney remains unremarkable. 4. Urinary bladder is mildly distended. 5. Sigmoid diverticulosis. No diverticulitis. 6. Right hip prosthesis. Report called by myself to ER 04/18/2025 at 5:48 p.m. RADIATION DOSE DELIVERED: 436.83mGy.cm Total DLP DATA REPOSITORY: All CT scans at this facility are submitted to the National Radiology Data Registry (NRDR) Dose Index Registry (DIR) with the [employer] (ACR). RADIATION OPTIMIZATION: All CT scans at this facility use at least one of these dose optimization techniques: automated exposure control; mA and/or kV adjustment per patient size (includes targeted exams where dose is matched to clinical indication); or iterative reconstruction. Related Data Home Medications ?Medication ?Instructions ?Recorded ?Confirmed sodium fluoride 1.1 %-potassium 1 applic PO BID 08/22/19 04/18/25 nitrate 5 % dental paste (PreviDent 5000 Sensitive) acetaminophen 650 mg 1,300 mg PO Q8H 01/08/21 04/18/25 tablet,extended release (Tylenol Arthritis Pain) cholecalciferol (vitamin D3) 1 tab PO DAILY 06/19/24 04/18/25 atorvastatin 10 mg tablet (Lipitor) 10 mg PO DAILY #90 tabs 07/17/24 04/18/25 ondansetron 4 mg disintegrating 4 mg PO Q6H PRN nausea and 10/01/24 04/18/25 tablet vomiting #30 tabs losartan 25 mg tablet See Rx Instructions .Route 02/22/25 04/18/25 .COMPLEX #90 tabs omeprazole 20 mg capsule,delayed 20 mg PO DAILY #90 caps 02/22/25 04/18/25 release fluoride (sodium) 1.1 % dental 1 applic dental DAILY 04/18/25 04/18/25 cream (SF 5000 Plus) multivitamin (Daily Multi-Vitamin 1 tab PO DAILY 04/18/25 04/18/25 tablet) olaparib 100 mg tablet (Lynparza) 100 mg PO BID 04/18/25 04/18/25 Previous Rx's ?Medication ?Instructions ?Recorded atorvastatin 10 mg tablet (Lipitor) 10 mg PO DAILY #90 tabs 07/17/24 ondansetron 4 mg disintegrating 4 mg PO Q6H PRN nausea and 10/01/24 tablet vomiting #30 tabs losartan 25 mg tablet See Rx Instructions .Route 02/22/25 .COMPLEX #90 tabs omeprazole 20 mg capsule,delayed 20 mg PO DAILY #90 caps 02/22/25 release Allergies Allergy/AdvReac Type Severity Reaction Status Date / Time ciprofloxacin (From Cipro) Allergy HIVES Verified 04/18/25 18:35 oxycodone (From Percocet) AdvReac Intermediate Nausea & Verified 04/18/25 18:35 Vomiting ibuprofen AdvReac CAN'T TAKE Verified 04/18/25 18:35 DUE TO 1 KIDNEY General Stated Complaint: Fall/Non TraumaCriteria NINA: 3 Course Vital Signs Vital signs: Vital Signs Temperature 36.5 C 04/18/25 15:20 Pulse 93 H 04/18/25 15:20 Respiratory Rate 20 04/18/25 15:20 Blood Pressure 137/91 H 04/18/25 15:20 Pulse Oximetry 98 04/18/25 15:20 Temperature 36.5 C 04/18/25 15:20 Temperature Source Oral 04/18/25 15:20 Pulse 93 H 04/18/25 15:20 Respiratory Rate 20 04/18/25 15:20 Blood Pressure 137/91 H 04/18/25 15:20 Blood Pressure Position Supine 04/18/25 15:20 Pulse Oximetry 98 04/18/25 15:20 Oxygen Delivery Method Room Air 04/18/25 15:20 Oxygen Flow Rate 0 04/18/25 15:20 Pain Level 2 04/18/25 15:20 Lab/Test Results Lab/Test Results: Laboratory Tests Range/Units 04/18/25 04/18/25 16:00 16:28 WBC (4.4-10.8) 10^3/uL 4.83 RBC (3.93-5.22) 10^6/uL 3.52 L Hgb (11.2-15.7) g/dL 11.3 Hct (36.0-46.0) % 33.8 L MCV (80-95) fL 96 H MCH (27.0-33.0) pg 32.1 MCHC (32.0-36.0) % 33.4 RDW (11.7-14.6) % 13.2 Plt Count (130-400) 10^3/uL 186 MPV (8.0-11.0) fL 9.3 Immature Gran % % 0.4 Neutrophils % % 64.5 Lymphocytes % % 23.8 Monocytes % % 9.5 Eosinophils % % 1.4 Basophils % % 0.4 Nucleated RBC % (0.0-0.3) % 0.0 Absolute Neutrophils (1.2-6.7) 10^3/uL 3.11 Absolute Lymphocytes (1.2-3.4) 10^3/uL 1.15 L Absolute Monocytes (0.1-0.8) 10^3/uL 0.46 Absolute Eosinophils (0.0-0.7) 10^3/uL 0.07 Absolute Basophils (0.0-0.2) 10^3/uL 0.02 PT (9.1-11.1) sec 9.9 INR (0.9-1.1) 1.0 APTT (20.6-30.2) sec 23.2 Sodium (136-145) mmol/L 139 Potassium (3.5-5.1) mmol/L 4.1 Chloride (98-107) mmol/L 105 Carbon Dioxide (20.0-31.0) mmol/L 27.7 Anion Gap (3-11) mmol/L 6.3 BUN (9-23) mg/dL 19 Creatinine (0.55-1.02) mg/dL 1.24 H Est GFR (CKD-EPI 2020) (mL/min/1.73m2) 41.04 Glucose (74-106) mg/dL 109 H Calcium (8.3-10.6) mg/dL 9.3 Magnesium (1.6-2.6) mg/dL 2.0 Total Bilirubin (0.2-1.2) mg/dL 0.5 AST (<34) U/L 27 ALT (10-49) U/L 16 Alkaline Phosphatase (46-116) U/L 50 Total Protein (5.7-8.2) g/dL 6.9 Albumin (3.2-5.0) g/dL 4.1 ABO/Rh O Positive Antibody Screen NEGATIVE PFSH All Active Problems (Updated 04/18/25 @ 22:10 by Kulwinder June MD) Accidental fall (Acute) Fracture of transverse process of lumbar vertebra (Acute) Ovarian cancer on right (Chronic) Lumbar transverse process fracture (Acute) Closed fracture of left proximal humerus (Acute 09/30/24) History of B-cell lymphoma (Chronic) Abnormal ultrasound (Acute) Endometrial fluid collection. 4 cm right pelvic mass 08/24/2024 Postmenopausal bleeding (Acute) Microscopic hematuria (Acute) Vaginal discharge (Acute) Change in stool (Acute) Osteoarthritis of right knee (Acute) Breast cancer screening (Acute) Abdominal pain, right upper quadrant (Acute) CKD (chronic kidney disease) stage 3, GFR 30-59 ml/min (Chronic) 11/25/23 Single kidney (Acute) Verruca (Acute) Solar aging of skin (Acute) Skin lesion (Acute) Right knee pain (Acute) Right hand pain (Acute) Pain in right wrist (Acute) Numbness and tingling in right hand (Acute) Left hand pain (Acute) Actinic keratosis (Acute) Onychomycosis (Acute) Corns and callosities (Acute) Hammertoe of right foot (Acute) Atherosclerosis of abdominal aorta (Acute) Seen on 07/15/21 CT Prediabetes (Acute) Anemia (Chronic) Diverticulosis (Acute) Diffuse large B cell lymphoma (Acute) GERD (gastroesophageal reflux disease) (Chronic) Hypertension (Chronic) 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 Patient agrees to mammogram and cholesterol check, declines DEXA scan and colonoscopy. Palliative care patient History of chemotherapy Hematuria Pelvic mass Urinary tract infection Pelvic mass in female Hydronephrosis, left Chest pain Acute urinary retention Goals of care, counseling/discussion Trochanteric bursitis Gross hematuria Incontinence Open head injury Fatigue Pyelonephritis Surgical History History of appendectomy History of ectopic required surgical intervention History of lithotripsy History of total right hip replacement History of removal of Port-a-Cath History of cataract surgery History of D&C History of right hip replacement Family History Son No problems noted. Sister No problems noted. Sister No problems noted. Son No problems noted. Granddaughter No problems noted. Grandson No problems noted. Social History Smoking/Tobacco Use Status: Former Tobacco Use Quit Date: 05/09/69 Tobacco: How many years used: 8 Second Hand Exposure: No Smoking risk assessment performed?: Yes Alcohol Intake: current Alcohol Intake frequency: holidays/special occasions only Alcohol type: beer and wine Drug use: Never Substance use type: does not use Details: has tried but doesn't use. Caregiver/Support person: Yes Household members: spouse Housing: house Number of Children: 2 number of grandchildren: 2 Communication Needs: None and Corrective Lenses Education Level: college Do you need help understanding health information?: Rarely current occupation: Retired Pets and animals: Yes (2) Pets and animals: dog(s) Do you think of yourself as: decline to answer Current gender identity: decline to answer What is your relationship status?: refused to answer How often do you talk on the phone with friends or family?: decline to answer How often do you get together with friends or relatives?: decline to answer Panel score (0-1 are the most socially isolated patients): 0 What type of physical activity do you participate in: walking, regular exercise and additional Details: gardening Duration: 30-45 minutes/day Special hector needs: No Seatbelt use: always Working smoke detector in home: Yes Fire extinguisher in home: Yes Do you feel safe at home: Yes Do you feel safe in your relationship?: Yes Additional Social history: Lives with Mart who is 83 and expects to be waited on. He's unaware of my needs. Relies on her 2 sisters and friend Orahector Demarcus for support.
[2025-04-18] MEDS: MORPHine 10 MG/ML VIAL 6 MG IVP (18:21)
[2025-04-18 18:24] VITALS: BP 160/94; PULSE 84; RESP 16; O2SAT 96
--- NOTE | 2025-04-18 20:18 | W.PM.HP.N ---
Date of service: 04/18/25 Time of Service: 20:18 Assessment and Plan Assessment and plan (1) Lumbar transverse process fracture: Start date: 04/18/25 Status: Acute Assessment and plan: This 84-year-old lady with a recent history of ovarian cancer on IV chemotherapy having her port recently removed and on oral therapy presently who is not necessary but not exercising routinely and did have a trip and fall at home injuring her back with acute transverse process he fractures and significant pain over a contusion of her right lower back. This is more over the iliac crest. Imaging was positive for the fractures and she will be admitted for pain management and PT evaluation to prevent future falls. She will be initiated on tramadol orally having side effects to oxycodone with nausea. She will most likely rehabilitate and go home on oral pain management with muscle pain over her right lower back contusion then over the spine with her transverse processes fractures. She is a full code. (2) CKD (chronic kidney disease) stage 3, GFR 30-59 ml/min: Status: Chronic Assessment and plan: Patient does appear to have a slight increase in her creatinine and will be given IV hydration overnight with normal saline 100 cc/h. This can be discontinued once she receives 1 L. (3) Essential hypertension: Status: Chronic Assessment and plan: Slightly elevated with pain and will continue outpatient medical therapy. Pain management as well may help this. 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 (5) History of B-cell lymphoma: Status: Chronic Assessment and plan: Patient has a pelvic mass with biopsy positive in 2019 with no evidence of active disease at 5 years. She now has a diagnosis of right ovarian cancer as discussed above. History of Present Illness History of Present Illness Chief Complaint: Mechanical trip and fall at home with back injury. 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 She did adopt 2 children. She was diagnosed with non-Hodgkin's lymphoma in the pelvis in 2019 which had resolved with treatment but then earlier this year 2024 had a diagnosis of right ovarian cancer in August with treatment initiated in September and given through January 2025. She is now on oral suppressive therapy which will be given for 2 years. She was doing bills at her desk and tripped backwards onto a large windowsill hitting her lower back and then sliding down until she was sitting on the ground. She had no dizziness or other symptoms with prompted her fall. She has had a fall in the recent past with a left humeral fracture when she was visiting [place] with [place]. This was treated without surgery. The patient was brought to the ED for evaluation and found to have right transverse processes fractures at L2-L3 without surrounding hematoma but patient did clinically have bruising with slight hematoma over right superior iliac crest area. This was the most tender aspect with patient having no tenderness of her back except for movement. She was not able to ambulate and was admitted to observation for PT evaluation in the morning for safe ambulation and caution to prevent recurrent falls. She will be placed on oral analgesics though she has nausea with most of these in the past. She has been on tramadol in the past by review of her PDMP and this will be trialed. The patient is a full code. Review of Systems Narrative: 13 point review of systems otherwise unrevealing or stable. PFSH All Active Problems Accidental fall (Acute) Fracture of transverse process of lumbar vertebra (Acute) Ovarian cancer on right (Chronic) Lumbar transverse process fracture (Acute) Closed fracture of left proximal humerus (Acute 09/30/24) History of B-cell lymphoma (Chronic) Abnormal ultrasound (Acute) Endometrial fluid collection. 4 cm right pelvic mass 08/24/2024 Postmenopausal bleeding (Acute) Microscopic hematuria (Acute) Vaginal discharge (Acute) Change in stool (Acute) Osteoarthritis of right knee (Acute) Breast cancer screening (Acute) Abdominal pain, right upper quadrant (Acute) CKD (chronic kidney disease) stage 3, GFR 30-59 ml/min (Chronic) 11/25/23 Single kidney (Acute) Verruca (Acute) Solar aging of skin (Acute) Skin lesion (Acute) Right knee pain (Acute) Right hand pain (Acute) Pain in right wrist (Acute) Numbness and tingling in right hand (Acute) Left hand pain (Acute) Actinic keratosis (Acute) Onychomycosis (Acute) Corns and callosities (Acute) Hammertoe of right foot (Acute) Atherosclerosis of abdominal aorta (Acute) Seen on 07/15/21 CT Prediabetes (Acute) Anemia (Chronic) Diverticulosis (Acute) Diffuse large B cell lymphoma (Acute) GERD (gastroesophageal reflux disease) (Chronic) Hypertension (Chronic) 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 Patient agrees to mammogram and cholesterol check, declines DEXA scan and colonoscopy. Palliative care patient History of chemotherapy Hematuria Pelvic mass Urinary tract infection Pelvic mass in female Hydronephrosis, left Chest pain Acute urinary retention Goals of care, counseling/discussion Trochanteric bursitis Gross hematuria Incontinence Open head injury Fatigue Pyelonephritis Surgical History History of appendectomy History of ectopic required surgical intervention History of lithotripsy History of total right hip replacement History of removal of Port-a-Cath History of cataract surgery History of D&C History of right hip replacement Family History Son No problems noted. Sister No problems noted. Sister No problems noted. Son No problems noted. Granddaughter No problems noted. Grandson No problems noted. Social History Smoking/Tobacco Use Status: Former Tobacco Use Quit Date: 05/09/69 Tobacco: How many years used: 8 Second Hand Exposure: No Smoking risk assessment performed?: Yes Alcohol Intake: current Alcohol Intake frequency: holidays/special occasions only Alcohol type: beer and wine Drug use: Never Substance use type: does not use Details: has tried but doesn't use. Caregiver/Support person: Yes Household members: spouse Housing: house Number of Children: 2 number of grandchildren: 2 Communication Needs: None and Corrective Lenses Education Level: college Do you need help understanding health information?: Rarely current occupation: Retired Pets and animals: Yes (2) Pets and animals: dog(s) Do you think of yourself as: decline to answer Current gender identity: decline to answer What is your relationship status?: refused to answer How often do you talk on the phone with friends or family?: decline to answer How often do you get together with friends or relatives?: decline to answer Panel score (0-1 are the most socially isolated patients): 0 What type of physical activity do you participate in: walking, regular exercise and additional Details: gardening Duration: 30-45 minutes/day Special hector needs: No Seatbelt use: always Working smoke detector in home: Yes Fire extinguisher in home: Yes Do you feel safe at home: Yes Do you feel safe in your relationship?: Yes Additional Social history: Lives with Mart who is 83 and expects to be waited on. He's unaware of my needs. Relies on her 2 sisters and friend Marian Tracy for support. Meds Allergies and Home Medications Allergies Allergy/AdvReac Type Severity Reaction Status Date / Time ciprofloxacin (From Cipro) Allergy HIVES Verified 04/18/25 18:35 oxycodone (From Percocet) AdvReac Intermediate Nausea & Verified 04/18/25 18:35 Vomiting ibuprofen AdvReac CAN'T TAKE Verified 04/18/25 18:35 DUE TO 1 KIDNEY Home Medications ?Medication ?Instructions ?Recorded ?Confirmed ?Type sodium fluoride 1.1 %-potassium 1 applic PO BID 08/22/19 04/18/25 History nitrate 5 % dental paste (PreviDent 5000 Sensitive) acetaminophen 650 mg 1,300 mg PO Q8H 01/08/21 04/18/25 History tablet,extended release (Tylenol Arthritis Pain) cholecalciferol (vitamin D3) 1 tab PO DAILY 06/19/24 04/18/25 History atorvastatin 10 mg tablet (Lipitor) 10 mg PO DAILY #90 tabs 07/17/24 04/18/25 Rx ondansetron 4 mg disintegrating 4 mg PO Q6H PRN nausea and 10/01/24 04/18/25 Rx tablet vomiting #30 tabs losartan 25 mg tablet See Rx Instructions .Route 02/22/25 04/18/25 Rx .COMPLEX #90 tabs omeprazole 20 mg capsule,delayed 20 mg PO DAILY #90 caps 02/22/25 04/18/25 Rx release fluoride (sodium) 1.1 % dental 1 applic dental DAILY 04/18/25 04/18/25 History cream (SF 5000 Plus) multivitamin (Daily Multi-Vitamin 1 tab PO DAILY 04/18/25 04/18/25 History tablet) olaparib 100 mg tablet (Lynparza) 100 mg PO BID 04/18/25 04/18/25 History Exam Narrative Exam Narrative: General: Patient is appropriate for age, alert and oriented x 3 and in no acute distress. HEENT: Normocephalic with resolving alopecia status post chemotherapy, eyes with pupils equal and reactive to light symmetrically, extraocular movement intact and sclera anicteric. Oropharynx with moist Koza and fair dentition. Neck: Supple without JVD. Back: Slight kyphosis with loss of lumbar lordosis, fair range of motion, no point tenderness to palpation over the spine and no bruising or swelling, swelling with ecchymosis of the right lower back just above the iliac crest. No CVA tenderness. Lungs: Clear to auscultation and percussion with no focalizing rales or rhonchi. Fair aeration. Heart: Regular rate and rhythm with no murmurs gallops appreciated. Breast: Exam deferred. Abdomen: Normal contour, soft and nontender to palpation no palpable hepatosplenomegaly. Bowel sounds positive all quadrants. Genitalia/rectal: Exam deferred. Extremities: Decreased range of motion left shoulder with previous humeral fracture treated conservatively, otherwise normal joints and motion. She has status post right hip prosthesis. Peripheral pulses intact. Skin: Normal color, warm and dry. Neuro: Cranial nerves II through XII grossly intact, no focal motor deficits and no tremor. Psych: Normal affect and mood. No abnormal thought processes. Recent and remote memory intact. Results Imaging Imaging Studies: EXAM: CT THORACIC LUMBAR SPINE REC Date of exam: 04/18/2025 CLINICAL HISTORY: Trauma TECHNIQUE: COMPARISON: CT CT NECK CHEST ABD PEL W from 07/14/2021 CR XR LUMBAR SPINE COMPLETE from 02/01/[address] CHEST/ABD/PEL W from 04/18/2025 FINDINGS: THORACIC SPINAL COLUMN: No evidence of fracture or listhesis nor facet joint malalignment. No acute compromise of the canal. LUMBOSACRAL SPINAL COLUMN: Scoliosis convex right. There are minimally displaced fractures of the right transverse processes of L1, L2, and L3 vertebrae. Mild loss of height L3 vertebral body is not new. There are no acute appearing compression fractures nor acute osseous compromise of the canal. There is multilevel chronic disc space narrowing. There is a chronic deep Schmorl's node invagination in the superior endplate L5 noted, not new. Multilevel facet arthropathy. Mild degenerative anterolisthesis L5 upon S1 is unchanged. IMPRESSION: There are mildly displaced fractures of the right transverse process is of L1, L2, and L3 vertebral bodies. No prominent associated hematoma in the adjacent musculature. No acute compression fractures in the thoracic and lumbosacral spinal columns. EXAM: CT CHEST/ABD/PEL W Date of exam: 04/18/2025 CLINICAL HISTORY: Trauma. TECHNIQUE: Imaging Protocol: Axial computed tomography images with coronal and sagittal reformatted images were created and reviewed CONTRAST MATERIAL: Intravenous: Omnipaque 350 Contrast volume:75 mL Oral: None COMPARISON: CT CT NECK CHEST ABD PEL W from 07/14/2021 FINDINGS: CHEST: LUNGS: No evidence of lung contusion, effusion, nor pneumothorax. Calcified granulomas noted, largest being in the superior segment of the right lower lobe and there are calcified lymph nodes in the right hilum noted. There are no ominous pulmonary nodules MEDIASTINUM: No evidence of sternal fracture or mediastinal hematoma. Thyroid nodules incidentally noted. No significant hilar nor mediastinal adenopathy. CARDIAC: Normal heart size. No pericardial effusion. Diameter of the ascending thoracic aorta within normal limits. No dissection. OSSEOUS: No rib fractures evident. No sternal fracture. No acute vertebral fractures.. ABDOMEN: There is no ascites. No evidence of mesenteric nor bowel wall hematoma. LIVER: Intact. No lacerations. No incidental significant liver lesions. No dilated intrahepatic ducts. GALLBLADDER/BILIARY: No obvious gallbladder pathology. CBD is not dilated. PANCREAS: No evidence of pancreatic mass nor dilatation of the pancreatic duct. SPLEEN: Intact. No lacerations. Normal size. No lesions. Splenic and portal veins are patent. ADRENALS: There are no significant adrenal masses. KIDNEYS: The left kidney is again noted to be very atrophic, as was also evident on CT scan of July 2021.. Right kidney unremarkable. No cysts nor solid renal masses evident. No calculi. No hydronephrosis. ABDOMINAL AORTA: Calcified but not enlarged. Iliac arteries also calcified but not enlarged. No dissection. LYMPH NODES: There is no retroperitoneal nor paraaortic adenopathy. ABDOMINAL WALL: No evidence of significant anterior abdominal wall hematomas nor foreign bodies. No significant abdominal wall hernias. GI: There is no evidence of bowel obstruction.No ileus pattern. PELVIS: LYMPH NODES: There is no intrapelvic nor inguinal adenopathy. GI: Appendix not seen and may be surgically absent. No inflammatory process noted in the right iliac fossa.There are diverticuli in the sigmoid but no evidence of acute diverticulitis. URINARY BLADDER: Partially obscured by beam hardening artifact from right hip prosthesis. No obvious abnormalities in the bladder although the bladder is mildly distended. REPRODUCTIVE: Obscured by beam hardening artifact. Uterus is atrophic or surgically absent. No obvious adnexal masses. OSSEOUS: There is a fracture of the right transverse process of L2 vertebral body. No surrounding hematoma. There is also a subtle fracture of the right transverse process of L3. No other fractures identified. A right hip prosthesis is noted. IMPRESSION: 1. There are fractures of the right transverse process is of L2 and L3. No rib fractures evident. No other vertebral fractures. No sternal fracture. 2. No significant intrathoracic findings. 3. Left kidney is again noted be atrophic as was also evident on CT scan of July 2021. Right kidney remains unremarkable. 4. Urinary bladder is mildly distended. 5. Sigmoid diverticulosis. No diverticulitis. 6. Right hip prosthesis. Labs 04/18/25 16:00 04/18/25 16:00 Labs: Laboratory Results - last 24 hr 04/18/25 04/18/25 16:00 16:28 WBC 4.83 RBC 3.52 L Hgb 11.3 Hct 33.8 L MCV 96 H MCH 32.1 MCHC 33.4 RDW 13.2 Plt Count 186 MPV 9.3 Immature Gran % 0.4 Neutrophils % 64.5 Lymphocytes % 23.8 Monocytes % 9.5 Eosinophils % 1.4 Basophils % 0.4 Nucleated RBC % 0.0 Absolute Neutrophils 3.11 Absolute Lymphocytes 1.15 L Absolute Monocytes 0.46 Absolute Eosinophils 0.07 Absolute Basophils 0.02 PT 9.9 INR 1.0 APTT 23.2 Sodium 139 Potassium 4.1 Chloride 105 Carbon Dioxide 27.7 Anion Gap 6.3 BUN 19 Creatinine 1.24 H Est GFR (CKD-EPI 2020) 41.04 Glucose 109 H Calcium 9.3 Magnesium 2.0 Total Bilirubin 0.5 AST 27 ALT 16 Alkaline Phosphatase 50 Total Protein 6.9 Albumin 4.1 ABO/Rh O Positive Antibody Screen NEGATIVE Last Vital Signs Temp 36.5 C 04/18/25 15:20 Pulse 84 04/18/25 18:24 Resp 16 04/18/25 18:24 BP 160/94 H 04/18/25 18:24 Pulse Ox 96 04/18/25 18:24 VTE Prohylaxis Risk Level: Moderate/High Risk Contraindications: None Prophylaxis: Pharmacologic and Mechanical Time Spent Time spent with Patient: >75 minutes Time was spent: preparing to see the patient(eg.review tests), obtaining and/or reviewing separately otained hiistory, ordering medications,tests, procedures, indepentently interpreting results, counseling the patient and care coordination
--- NOTE | 2025-04-18 21:05 | W.PC.ACHO ---
Registration Status: REG ER Primary Language: Preferred Language: Tajik ED Information & Data Chief Complaint Fall/Non TraumaCriteria 04/18/25 17:56 Triage Note 30 min [employer] pt was at her 04/18/25 15:20 desk opening a drawer and reaching- turned foot wrong which resulted her in falling and hurting lower back. No numbness/tingling. Given 100mcg fentanyl by EMS [employer] Medical / Surgical History (Last Reviewed 04/18/25 @ 20:22 by Stephan Guzmán) Colon cancer screening declined Palliative care patient History of chemotherapy Hematuria Pelvic mass Urinary tract infection Pelvic mass in female Hydronephrosis, left Chest pain Acute urinary retention Goals of care, counseling/discussion Trochanteric bursitis Gross hematuria Incontinence Open head injury Fatigue Pyelonephritis (Last Reviewed 04/18/25 @ 20:22 by Stephan Guzmán) History of appendectomy History of ectopic History of lithotripsy History of total right hip replacement History of removal of Port-a-Cath History of cataract surgery History of D&C History of right hip replacement Most Recent Vital Signs Temperature 36.5 C 04/18/25 15:20 Temperature Source Oral 04/18/25 15:20 Pulse 84 04/18/25 18:24 Respiratory Rate 16 04/18/25 18:24 Blood Pressure 160/94 H 04/18/25 18:24 Blood Pressure Mean 116 04/18/25 18:24 Blood Pressure Position Sitting 04/18/25 18:24 Pulse Oximetry 96 04/18/25 18:24 Oxygen Delivery Method Room Air 04/18/25 18:24 Oxygen Flow Rate 0 04/18/25 18:24 Pain Level 2 04/18/25 15:20 Allergies ciprofloxacin (From Cipro) Allergy (Verified 04/18/25 18:35) HIVES oxycodone (From Percocet) Adverse Reaction (Intermediate, Verified 04/18/25 18:35) Nausea & Vomiting ibuprofen Adverse Reaction (Verified 04/18/25 18:35) CAN'T TAKE DUE TO 1 KIDNEY Precautions Isolation Standard precaution 04/18/25 16:25 Active Medications Generic Name Dose Route Start Last Admin Trade Name Freq PRN Reason Stop Dose Admin Iohexol 100 ml 04/18/25 17:00 04/18/25 16:49 Omnipaque 350 Mg/Ml 100 Ml Btl IJ 05/18/25 23:59 75 ml DIRECTED CESIA Administration Morphine Sulfate 6 mg 04/18/25 15:53 04/18/25 18:21 Morphine 10 Mg/Ml Vial IVP 2 mg Q2H PRN PRN Administration Sodium Chloride 50 ml 04/18/25 17:00 04/18/25 16:49 Normal Saline - Diluent 50 Ml Vial IJ 50 ml DIRECTED CESIA Administration IV IV Catheter Type [Right Saline Lock Antecubital] IV Catheter Gauge [Right 20 Antecubital] Diagnostics 04/18/25 04/18/25 04/18/25 Range/Units 20:36 16:28 16:00 WBC 4.83 (4.4-10.8) 10^3/uL RBC 3.52 L (3.93-5.22) 10^6/uL Hgb 11.3 (11.2-15.7) g/dL Hct 33.8 L (36.0-46.0) % MCV 96 H (80-95) fL MCH 32.1 (27.0-33.0) pg MCHC 33.4 (32.0-36.0) % RDW 13.2 (11.7-14.6) % Plt Count 186 (130-400) 10^3/uL MPV 9.3 (8.0-11.0) fL Immature Gran % 0.4 % Neutrophils % 64.5 % Lymphocytes % 23.8 % Monocytes % 9.5 % Eosinophils % 1.4 % Basophils % 0.4 % Nucleated RBC % 0.0 (0.0-0.3) % Absolute Neutrophils 3.11 (1.2-6.7) 10^3/uL Absolute Lymphocytes 1.15 L (1.2-3.4) 10^3/uL Absolute Monocytes 0.46 (0.1-0.8) 10^3/uL Absolute Eosinophils 0.07 (0.0-0.7) 10^3/uL Absolute Basophils 0.02 (0.0-0.2) 10^3/uL PT 9.9 (9.1-11.1) sec INR 1.0 (0.9-1.1) APTT 23.2 (20.6-30.2) sec Sodium 139 (136-145) mmol/L Potassium 4.1 (3.5-5.1) mmol/L Chloride 105 (98-107) mmol/L Carbon Dioxide 27.7 (20.0-31.0) mmol/L Anion Gap 6.3 (3-11) mmol/L BUN 19 (9-23) mg/dL Creatinine 1.24 H (0.55-1.02) mg/dL Est GFR (CKD-EPI 2020) 41.04 (mL/min/1.73m2) Glucose 109 H (74-106) mg/dL Calcium 9.3 (8.3-10.6) mg/dL Magnesium 2.0 (1.6-2.6) mg/dL Total Bilirubin 0.5 (0.2-1.2) mg/dL AST 27 (<34) U/L ALT 16 (10-49) U/L Alkaline Phosphatase 50 (46-116) U/L Total Protein 6.9 (5.7-8.2) g/dL Albumin 4.1 (3.2-5.0) g/dL COVID-19 Source Pending SARS-CoV-2 (PCR) Pending Influenza Type A (PCR) Pending Influenza Type B (PCR) Pending RSV (PCR) Pending ABO/Rh O Positive Antibody Screen NEGATIVE Intake and Output - 24 Hour Total 04/18/25 15:12 thru 04/18/25 16:54 Intake Total 100 Balance 100 Weight 62.596 kg Intake: IV 100 Falls Risk Assessment History of Falls Admit Due to Fall 04/18/25 16:25 Contributing Factors No Factors 04/18/25 16:25 Ambulatory Aids Independent 04/18/25 16:25 Tubes/Lines None 04/18/25 16:25 Gait Evaluation No gait disturbance 04/18/25 16:25 Cognition No cognitive impairment 04/18/25 16:25 Fall Total Score 25 04/18/25 16:25 Level of Risk Moderate Risk 04/18/25 16:25 Problems (Last Reviewed 04/18/25 @ 20:22 by Stephan Guzmán) Lumbar transverse process fracture (Acute) History of B-cell lymphoma (Chronic) CKD (chronic kidney disease) stage 3, GFR 30-59 ml/min (Acute) Essential hypertension (Chronic 04/28/15) Attestation Statement: By documenting the first initial, last name, and credentials of the reporting nurse below, both parties acknowledge that all relevant information regarding the patient handoff has been communicated, and that all questions have been addressed to ensure continuity and safety of care. Additional Patient Information/Comments: 04/18/252049: Pt tried to pull open stuck drawer at home, twisted and fell. CT-L 1,2,3 lumbar transverse process fx. Hematoma right lumbar. 1 gram tylenol, 2mg morphine, tolerated. BSC voided. Fluvid sent. #20 RAC, normally independent without a device at baseline. Report Received From: Yeni Seals @ 2049
[2025-04-18 21:22] LABS: COVID-19 PCR Negative (Negative); RSV PCR Negative (Negative)
[2025-04-18 21:45] VITALS: BP 174/82; PULSE 89; RESP 16; TEMP 36.7; O2SAT 97
[2025-04-18 22:04] VITALS: BP 174/82; PULSE 89; RESP 16; TEMP 36.7; O2SAT 97
[2025-04-18] MEDS: Normal Saline 1,000 ML 100 ML IV (22:17)
[2025-04-18 22:21] LABS: TSH (W/Ref FT4) 2.47 uIU/mL (0.55-4.78)
[2025-04-18] MEDS: Heparin 5,000 UNITS/ML VIAL 5000 UNITS SC (22:30)
[2025-04-18 23:26] LABS: Glucose Negative (Negative)
[2025-04-19] VITALS (7 sets, daily range): BP systolic 122–151; BP diastolic 54–75; PULSE 70–94; RESP 16–19; TEMP 36.1–37.2; O2SAT 95–100
[2025-04-19] MEDS: traMADol 50 MG TAB PO ×4 (01:31→20:18)
[2025-04-19] MEDS: Heparin 5,000 UNITS/ML VIAL 5000 UNITS SC ×3 (07:05→20:13)
[2025-04-19] MEDS: Normal Saline 1,000 ML 100 ML IV (07:06)
[2025-04-19 07:40] LABS: HCT 32.5 % (36.0-46.0); HGB 10.9 g/dL (11.2-15.7); MCH 32.1 pg (27.0-33.0); MCHC 33.5 % (32.0-36.0); MCV 96 fL (80-95); MPV 9.4 fL (8.0-11.0); Platelet Count 167 10^3/uL (130-400); RBC 3.40 10^6/uL (3.93-5.22); RDW 13.2 % (11.7-14.6); RDW-SD 46.3 fL; WBC 4.81 10^3/uL (4.4-10.8)
[2025-04-19] MEDS: Acetaminophen 325 MG TAB 650 MG PO (07:40)
[2025-04-19 08:08] LABS: Magnesium 2.0 mg/dL (1.6-2.6)
[2025-04-19 08:10] LABS: ALT 14 U/L (10-49); AST 23 U/L (<34); Albumin 3.9 g/dL (3.2-5.0); Alkaline Phosphatase 46 U/L (46-116); Anion Gap 7.7 mmol/L (3-11); BUN 14 mg/dL (9-23); Bilirubin, Total 0.6 mg/dL (0.2-1.2); CO2 25.3 mmol/L (20.0-31.0); Calcium 9.1 mg/dL (8.3-10.6); Chloride 110 mmol/L (98-107); Glucose 96 mg/dL (74-106); Potassium 4.1 mmol/L (3.5-5.1); Sodium 143 mmol/L (136-145); Total Protein 6.5 g/dL (5.7-8.2)
[2025-04-19] MEDS: Atorvastatin 10 MG TAB PO (09:07)
[2025-04-19] MEDS: Multivitamin TAB 1 TAB PO (09:08)
[2025-04-19] MEDS: Cholecalciferol (Vitamin D3) 1,000 UNIT TAB 1000 UNITS PO (09:08)
[2025-04-19] MEDS: Losartan 25 MG TAB PO (09:08)
[2025-04-19] MEDS: OLAPARIB 200 EACH PO (09:09)
[2025-04-19] MEDS: Normal Saline Flush 10 ML SYR IVP ×2 (09:28→20:19)
--- NOTE | 2025-04-19 09:46 | PGE_ITS ---
Date of Service Date of service: 04/19/25 Time of Service: 09:46 Assessment and Plan Assessment and plan (1) Lumbar transverse process fracture: Start date: 04/18/25 Status: Acute Assessment and plan: Acute transverse process he fractures and significant pain over a contusion of her right lower back and iliac crest : As per imaging on admission s/p fall appearing to be mechanical ( left ankle twisted then fell- no left ankle pain) in this 84-year-old female patient with recent history of ovarian cancer [employer] surgery and on IV chemotherapy having her port recently removed and on oral therapy with Lynpraza ( w ongoing urinary chemo precaution) i Ongoing pain management:Ongoing tramadol orally having side effects to oxycodone with nausea; acetaminophen now scheduled and cyclobenzaprine trial d/t reported back spasms - will order PRN if effective -Consideration for Ketorolac - NSAIDs as Cr was near baseline and no DON- Patient reporting having one kidney- Will avoid Ongoing PT: As per note and recommendations still need assistance to get up from a sitting position and living alone at home - not ready to discharge today HH PT at discharge and FWW OT consultation (2) CKD (chronic kidney disease) stage 3, GFR 30-59 ml/min: Status: Chronic Assessment and plan: Patient reporting single kidney - will confirm Creatinine improving close to baseline- IV hydration overnight now discontinued Encourage oral hydration (3) Essential hypertension: Status: Chronic Assessment and plan: Slightly elevated with pain on admission now controlled Will continue outpatient medical therapy and pain management (4) Ovarian cancer on right: Status: Chronic Assessment and plan: DX in spring 2024 as mixed had hysterectomy and right fallopian tube and right oopherectomy removal Ongoing oral medical therapy status post completion of IV chemotherapy course over the summer CBC in AM - platelets 167 (5) History of B-cell lymphoma: Status: Chronic Assessment and plan: Hx of and reported as treated by Dr. Bruno Hx of pelvic mass with positive biopsy in 2019 with no evidence of active disease at 5 years. And as per point [address] Fowler Discharge Planning Discharge Plannin-48 hours- home with HH PT OT Subjective Subjective Patient reports: still having pain, tolerating liquids well, tolerating a regular diet, voiding w/o difficulty, flatus, bowel movement and afebrile; denies diarrhea, blood in stool, nausea, vomiting or shortness of breath Exam Narrative Exam Narrative: Alert and oriented X4 , non-icteric sclera , no acute distress except during back spasms described as twinges in my lower back, neurologically at baseline, clear lungs, S1 S2 regualr no murmur , abdomen is non-acute , lower back tenderness to palpation and ambulation, LE's equal strength on flexion and extension Objective Last Vital Signs Temp 37.1 C 04/19/25 07:49 Pulse 87 04/19/25 07:49 Resp 16 04/19/25 07:49 BP 136/75 04/19/25 07:49 Pulse Ox 96 04/19/25 07:49 Laboratory Results - last 24 hr 04/18/25 04/18/25 04/18/25 16:00 16:28 20:36 WBC 4.83 RBC 3.52 L Hgb 11.3 Hct 33.8 L MCV 96 H MCH 32.1 MCHC 33.4 RDW 13.2 Plt Count 186 MPV 9.3 Immature Gran % 0.4 Neutrophils % 64.5 Lymphocytes % 23.8 Monocytes % 9.5 Eosinophils % 1.4 Basophils % 0.4 Nucleated RBC % 0.0 Absolute Neutrophils 3.11 Absolute Lymphocytes 1.15 L Absolute Monocytes 0.46 Absolute Eosinophils 0.07 Absolute Basophils 0.02 PT 9.9 INR 1.0 APTT 23.2 Sodium 139 Potassium 4.1 Chloride 105 Carbon Dioxide 27.7 Anion Gap 6.3 BUN 19 Creatinine 1.24 H Est GFR (CKD-EPI 2020) 41.04 Glucose 109 H Calcium 9.3 Magnesium 2.0 Total Bilirubin 0.5 AST 27 ALT 16 Alkaline Phosphatase 50 Total Protein 6.9 Albumin 4.1 TSH 2.47 Urine Color Urine Clarity Urine pH Ur Specific Purdum Urine Protein Urine Ketones Urine Blood Urine Nitrite Urine Bilirubin Urine Urobilinogen Ur Leukocyte Esterase Urine Glucose COVID-19 Source Nasopharynx SARS-CoV-2 (PCR) Negative Influenza Type A (PCR) Negative Influenza Type B (PCR) Negative RSV (PCR) Negative ABO/Rh O Positive Antibody Screen NEGATIVE 04/18/25 04/19/25 23:16 07:30 WBC 4.81 RBC 3.40 L Hgb 10.9 L Hct 32.5 L MCV 96 H MCH 32.1 MCHC 33.5 RDW 13.2 Plt Count 167 MPV 9.4 Immature Gran % Neutrophils % Lymphocytes % Monocytes % Eosinophils % Basophils % Nucleated RBC % Absolute Neutrophils Absolute Lymphocytes Absolute Monocytes Absolute Eosinophils Absolute Basophils PT INR APTT Sodium 143 Potassium 4.1 Chloride 110 H Carbon Dioxide 25.3 Anion Gap 7.7 BUN 14 Creatinine 1.20 H Est GFR (CKD-EPI 2020) 42.63 Glucose 96 Calcium 9.1 Magnesium 2.0 Total Bilirubin 0.6 AST 23 ALT 14 Alkaline Phosphatase 46 Total Protein 6.5 Albumin 3.9 TSH Urine Color Yellow Urine Clarity Clear Urine pH 6.5 Ur Specific Purdum 1.010 Urine Protein Negative Urine Ketones Negative Urine Blood Negative Urine Nitrite Negative Urine Bilirubin Negative Urine Urobilinogen 0.2 Ur Leukocyte Esterase Negative Urine Glucose Negative COVID-19 Source SARS-CoV-2 (PCR) Influenza Type A (PCR) Influenza Type B (PCR) RSV (PCR) ABO/Rh Antibody Screen PAWSS Have you Been Recently Intoxicated or Drunk Within the Last 30 days?: No Have you Ever Experienced Previous Episodes of Alcohol Withdrawal?: No Have you ever Experienced Withdrawal Seizures?: No Have you ever Experienced Delirium Tremens(DT)s?: No Have you ever undergone Alcohol Rehabilitation Treatment (i.e, inpt ot outpati ent treatment programs)?: No Have you ever Experienced Blackouts?: No Have you ever Combined Alcohol with other Downers within the last 90 days?: No Have you ever Combined Alcohol with any other Substance of Abuse during the last 90 days?: No Positive Blood Alcohol level on Presentation? [PCS.BAL]: No Evidence of Increased Autonomic Activity (i.e. HR>120, tremor, sweating, agitation, nausea)?: No Result: 0 VTE Prohylaxis Risk Level: Moderate/High Risk Contraindications: None Prophylaxis: Pharmacologic and Mechanical Time Spent with Patient Time Spent with Patient: >50 minutes Time was spent: preparing to see the patient(eg.review tests), obtaining and/or reviewing separately otained hiistory, ordering medications,tests, procedures, referring, communicating with other health managed care nurse, indepentently interpreting results, counseling the patient, care coordination and other
--- NOTE | 2025-04-19 10:23 | INITIAL_ITS ---
Date of service: 04/19/25 Time of Service: 10:23 Care Management Initial Assmt Initial Assessment Reason for Hospitalization: L1-L3 fractures Functional Status/Living Situation Patient Presentation: Crystal presented to the ED yesterday afternoon after a fall. She was found to have a fracture of her lumbar vertebrae 1-3. She was admitted to observation for pain control and to work with PT. Crystal was sitting up in the bedside chair when CM met with her today. She was zen, very pleasant and interesting to converse with. She lives alone in [facility], and is very active. She still drives and does her own shopping and cooking. She will likely not be driving for a bit, and stated that she has many friends who will help her out. Her 2 sons live out of state, but one is a lready here visiting. 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) Instrumental Activities of Daily Living (ADLs): Independent (will need some help while she is healing) Activities/Hobbies/SocialSupport: is in a book club and also likes to do rug hooking Medications Medication Management: No Issues/Barriers identified Physical Functioning/Mobility Assistive Device: currently requiring a FWW, but prior to her fall did not use any device Advance Directives Advance Directives: Do you have an Advance Directive: N , 15:23 AD On File at [facility]: N 07/10/19, 15:23 Date Asked 04/18/25 04/18/25, 15:28 AD Date Reviewed COLST On File at [facility] COLST Date Scanned Code Status Resuscitation Status Full Code Insurance Coverage/Financial Issues Insurance: AARP/UN.[facility] Mcr Replacement Care Team Visit Care Team Role Provider Type Fariha Whitt APRN MD [facility] STAFF PHYSICIAN Ailyn Calderon APRN Primary Care Provider NURSE PRACTITIONER InPatient Jose L Stern Other Providers OTHER Kulwinder June MD Emergency Provider [facility] STAFF PHYSICIAN Stephan Guzmán Admit Provider NON-[facility] STAFF PHYSICIAN Attending Provider Discharge Potential Discharge Needs: PCP F/U Appt Anticipated Barriers to Discharge: None Identified Patient/Family Education Needs: Review discharge instructions, discuss Ask Me Three Transportation: Private vehicle (her son will be able to take her home) Plan: Crystal will likely discharge in the next day or 2 with new HH orders of PT and OT. She will f/u with her PCP and continue per her plan of care. CM will continue to follow. Social Determinants of Health Screening Social Determinants of health last assessed in clinic: 04/19/25 Will the Patient Participate in the Screening?: Yes Do you worry about having a steady place to live?: no Problems where you live: no known problems In the past 12 months, have you had to go without electric, gas, oil or water in your home?: no 1. Within the past 12 months, we worried whether our food would run out before we got money to buy more.: Never true 2. Within the past 12 months, the food we bought just didn't last and we didn't have money to get more.: Never true Has lack of transportation kept you from medical appointments or from doing thin gs needed for daily living?: no Has anyone in your life made you feel unsafe or unsupported?: no How hard is it for you to pay for the very basics like food, housing, medical care, and heating? Would you say it is:: Not hard at all Do you want help finding or keeping work or a job?: I do not need or want help If for any reason you need help with day-to-day activities such as bathing, preparing meals, shopping, managing finances, etc., do you get the help you need?: I get all the help I need How often do you feel lonely or isolated from those around you?: Sometimes Do you speak a language other than Tristanian at home?: Yes Does the patient want assistance with any of the above?: No Health Related Social Needs Health related social needs: feeling lonely/isolated (Z60.8) and education (Z55.6) Health related social needs details: feels lonely since , but she has friends that she socializes with COUNT INCLUDES THE [facility] All Active Problems Accidental fall (Acute) Fracture of transverse process of lumbar vertebra (Acute) Ovarian cancer on right (Chronic) Lumbar transverse process fracture (Acute) Closed fracture of left proximal humerus (Acute 09/30/24) History of B-cell lymphoma (Chronic) Abnormal ultrasound (Acute) Endometrial fluid collection. 4 cm right pelvic mass 08/24/2024 Postmenopausal bleeding (Acute) Microscopic hematuria (Acute) Vaginal discharge (Acute) Change in stool (Acute) Osteoarthritis of right knee (Acute) Breast cancer screening (Acute) Abdominal pain, right upper quadrant (Acute) CKD (chronic kidney disease) stage 3, GFR 30-59 ml/min (Chronic) 11/25/23 Single kidney (Acute) Verruca (Acute) Solar aging of skin (Acute) Skin lesion (Acute) Right knee pain (Acute) Right hand pain (Acute) Pain in right wrist (Acute) Numbness and tingling in right hand (Acute) Left hand pain (Acute) Actinic keratosis (Acute) Onychomycosis (Acute) Corns and callosities (Acute) Hammertoe of right foot (Acute) Atherosclerosis of abdominal aorta (Acute) Seen on 07/15/21 CT Prediabetes (Acute) Anemia (Chronic) Diverticulosis (Acute) Diffuse large B cell lymphoma (Acute) GERD (gastroesophageal reflux disease) (Chronic) Hypertension (Chronic) 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 Patient agrees to mammogram and cholesterol check, declines DEXA scan and colonoscopy. Palliative care patient History of chemotherapy Hematuria Pelvic mass Urinary tract infection Pelvic mass in female Hydronephrosis, left Chest pain Acute urinary retention Goals of care, counseling/discussion Trochanteric bursitis Gross hematuria Incontinence Open head injury Fatigue Pyelonephritis Surgical History History of appendectomy History of ectopic required surgical intervention History of lithotripsy History of total right hip replacement History of removal of Port-a-Cath History of cataract surgery History of D&C History of right hip replacement Family History Son No problems noted. Sister No problems noted. Sister No problems noted. Son No problems noted. Granddaughter No problems noted. Grandson No problems noted. Social History Smoking/Tobacco Use Status: Former Tobacco Use Quit Date: 05/09/69 Tobacco: How many years used: 8 Second Hand Exposure: No Smoking risk assessment performed?: Yes Alcohol Intake: current Alcohol Intake frequency: holidays/special occasions only Alcohol type: beer and wine Drug use: Never Substance use type: does not use Details: has tried but doesn't use. Caregiver/Support person: Yes Household members: spouse Housing: house Number of Children: 2 number of grandchildren: 2 Communication Needs: None and Corrective Lenses Education Level: college Do you need help understanding health information?: Rarely current occupation: Retired Pets and animals: Yes (2) Pets and animals: dog(s) Do you think of yourself as: decline to answer Current gender identity: decline to answer What is your relationship status?: refused to answer How often do you talk on the phone with friends or family?: decline to answer How often do you get together with friends or relatives?: decline to answer Panel score (0-1 are the most socially isolated patients): 0 What type of physical activity do you participate in: walking, regular exercise and additional Details: gardening Duration: 30-45 minutes/day Special hector needs: No Seatbelt use: always Working smoke detector in home: Yes Fire extinguisher in home: Yes Do you feel safe at home: Yes Do you feel safe in your relationship?: Yes Additional Social history: Lives with Mart who is 83 and expects to be waited on. He's unaware of my needs. Relies on her 2 sisters and friend Marian Tracy for support. Anticipated HH Services Anticipated HH Services at Discharge [facility] Needed, OT and PT Anticipated Date of Discharge: 04/20/25. Following Provider: Ailyn Calderon.
--- NOTE | 2025-04-19 10:54 | IN_ITS ---
PT Notes Visit Reasons: Lumbar Transverse Processes Fractures,Uncontrolled Physical Therapy Inpatient Initial Evaluation Date: 04/19/2025 Referring Doctor: Stephan Guzmán MD PT Orders: PT CONSULT: Eval and treat Precautions: Fall. Contact precaution d/u chemo treatment. Activity as tolerated. [facility] Patient Profile/Admitting Diagnosis: Pt is an 84-year-old female who fell and was admitted to the ED. Pt had a CT of the Lumbosacral region and confirmed pt Fx her transverse process L1-L3. Pt also has a large hematoma on her right side of lower back. PMHX: Accidental fall (Acute) Fracture of transverse process of lumbar vertebra (Acute) Ovarian cancer on right (Chronic) Lumbar transverse process fracture (Acute) Closed fracture of left proximal humerus (Acute 09/30/24) History of B-cell lymphoma (Chronic) Abnormal ultrasound (Acute) Endometrial fluid collection. 4 cm right pelvic mass 08/24/2024Postmenopausal bleeding (Acute) Microscopic hematuria (Acute) Vaginal discharge (Acute) Change in stool (Acute) Osteoarthritis of right knee (Acute) Breast cancer screening (Acute) Abdominal pain, right upper quadrant (Acute) CKD (chronic kidney disease) stage 3, GFR 30-59 ml/min (Chronic) 11/25/23Single kidney (Acute) Verruca (Acute) Solar aging of skin (Acute) Skin lesion (Acute) Right knee pain (Acute) Right hand pain (Acute) Pain in right wrist (Acute) Numbness and tingling in right hand (Acute) Left hand pain (Acute) Actinic keratosis (Acute) Onychomycosis (Acute) Corns and callosities (Acute) Hammertoe of right foot (Acute) Atherosclerosis of abdominal aorta (Acute) Seen on 07/15/21 CTPrediabetes (Acute) Anemia (Chronic) Diverticulosis (Acute) Diffuse large B cell lymphoma (Acute) GERD (gastroesophageal reflux disease) (Chronic) Hypertension (Chronic) 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 Patient agrees to mammogram and cholesterol check, declines DEXA scan and colonoscopy. Palliative care patient History of chemotherapy Hematuria Pelvic mass Urinary tract infection Pelvic mass in female Hydronephrosis, left Chest pain Acute urinary retention Goals of care, counseling/discussion Trochanteric bursitis Gross hematuria Incontinence Open head injury Fatigue Pyelonephritis Surgical History History of appendectomy History of ectopic required surgical interventionHistory of lithotripsy History of total right hip replacement History of removal of Port-a-Cath History of cataract surgery History of D&C History of right hip replacement Social History/Home Situation: Pt lives home alone with her dog. Pt has 3 TALA with a few grab bars. Equipment Owned/DME: None ; [facility] Subjective: Pt reported feeling better than yesterday, but still had pain with movement. Pt reports her daughters are going to stay with her therefore she declines SNF Objective: ? General Observation: Pt lying in bed with compression cuffs on both calves. Pt medication had not been taken and were laying on her stand. Mental Status: Alert and oriented as to person, place, time, and purpose. Able t o pay attention, focus, and respond appropriately. Pain: 4/10 in laying in bed, 8/10 during transitions, but quickly reduced (about 3 seconds) Vital Signs: Monitored by Nursing ROM: Trunk/abdominal: reduced d/t pain Right Upper Extremity: Grossly WFL. Left Upper Extremity: Grossly WFL Right Lower Extremity: Grossly WFL, Except limited Active hip flex ~90 degrees d/u pain Left Lower Extremity: Grossly WFL, Except limited Active hip flex~90 degrees d/u pain Strength: Right Upper Extremity: Grossly -4/5. Left Upper Extremity: Grossly -4/5. Right Lower Extremity: Grossly hip 2+/5 knee and ankle >/= to 3/5. limited by pain Left Lower Extremity: Grossly -4/5. Bed Mobility/Transfers: Supine to sit with HOB inclined, Min A of 1 cues for safe/correct technique Sit to stand FWW Min A of 1 with verbal cues for safe/correct technique Stand to sit with FWW Min A of 1 with verbal and tactile cues for safe/correct technique Bed to reclining chair: Step turn with FWW with CGA with minimal cues for safe/correct technique Gait: Not assessed at this time d/t pain Balance: Static Sitting: fair d/t pain Dynamic Sitting: poor d/t pain Static Standing: poor d/t pain Dynamic Standing: poor d/t pain Special Tests: Mobility Limitations Standardized Measure [facility]-PAC 6 clicks Basic Mobility Inpatient Short Form: Raw Score: 13? CMS Score: 63.03% deficit? Informed Consent/Education:? Patient was instructed in purpose of PT consult and plan of care. Agreeable to proceed with established PT POC to achieve personal goals. Therapeutic activity: Sit to stand elevated bed FWW CGA: pt needed mild verbal cueing for hand placement. Assessment: ? Pt was in a great deal of pain today, but she was still able to supine to EOB. Pt did have pain, and cried a little, but pt wanted to continue because she wanted to get out of bed. Pt was able to stand FWW CGA with elevated bed, but needed moderate cueing for hand placement and breathing techniques for when pain increased. Pt was able to perform step turn from the bed to bedside recliner. Pt had decrease step pattern with her turning do to limited ROM of hip caused by the pain. PT will have the patient try and ambulate a further distance of about 15 feet to help increase pt pain tolerance and activity tolerance Patient presents with clinical signs and symptoms consistent with current/admitting diagnoses that have resulted to mobility limitations, gait instability, generalized weakness, and overall ADL decline as demonstrated by the following impairment level findings: 1.? Decreased strength to B UE/LE major muscle groups 2.? Impaired sitting/standing balance 3.? Impaired activity tolerance 4.? Limitation of joint range of motion in R Hip and abdominal/trunk 5.? Pain 6.? Hematoma Impairments are contributing to the following functional limitations: 1.? Decline in bed mobility skills 2.? Decline in transfer skills 3.? Difficulty with ambulation without assistive device and physical assistance 4.? Increased completion time for mobility ADL performance 5.? Increased risk for falls 6.? Difficulty with managing steps alone safely Patient is assessed as a Moderate complexity based on the following: History: 84-year-old female with past medical history as indicated above Examination: Demonstrable impairment in strength, balance, and mobility level with underlying impairments and functional limitations as exhibited above as well as deficit score of 63.03% utilizing the [facility] Mobility Inpatient Short Form Presentation: Evolving Decision Making: Moderate complexity Goals: Goals X1 week 1. Supine-Sit Supervision 2. Sit-Supine Supervision 3. Sit-Stand CGA w/FWW 4. Stand-Sit independent with supervision 5. Bed-Chair CGA FWW 6. Chair-Bed CGA with FWW 7. gait on level surface with use of CGA for at least 50 feet without report of pain 8. CGA stair negotiation while holding onto 1 rails for at least 4 steps without report of pain nor dyspnea 9. Good static and dynamic standing balance/tolerance Plan of Care/Treatment Plan: 1-2x/day, 7 days/week x 1 week. Plan of care has been reviewed with the IN CLASSROOM TUTOR providing the service under Physical Therapy direction. Initiate Physical Therapy intervention for pain management as needed, strengthening, bed mobility, transfers, gait, stairs, balance training, and use of assistive device. DISCHARGE RECOMMENDATIONS: Home with services [HHPT] with family support TREATMENT CODE/TIME: [id number]/ [id number] Thank you for the opportunity to participate in the care of this patient. Written by: VÍCTOR Guy Supervised by: Chantelle Schuster PT [facility] [place], [place]
[2025-04-19] MEDS: Cyclobenzaprine 10 MG TAB PO ×3 (12:57→20:44)
--- NOTE | 2025-04-19 13:22 | PHA.REVIEW2 ---
Pharmacy Admission Review Admission Clinical Review Admission Pharmacy Review: Accidental fall (Acute) Fracture of transverse process of lumbar vertebra (Acute) Lumbar transverse process fracture (Acute) ciprofloxacin (From Cipro) Allergy (Verified 04/18/25 18:35) HIVES oxycodone (From Percocet) Adverse Reaction (Intermediate, Verified 04/18/25 18:35) Nausea & Vomiting ibuprofen Adverse Reaction (Verified 04/18/25 18:35) CAN'T TAKE DUE TO 1 KIDNEY Resuscitation Status Full Code Height 5 ft 5 in Weight 63.4 kg Pharmacy Admission Review Renal Dosing Renal Dosing: BUN 14 mg/dL (9-23) 04/19/25 07:30 Creatinine 1.20 mg/dL (0.55-1.02) H 04/19/25 07:30 Medications needing adjustments: Reviewed (CrCl 34 mL/min, SCr decreased from 1.24) List of meds needing interventions: Current medications are okay Anticoagulation Anticoagulation: Hgb 10.9 g/dL (11.2-15.7) L 04/19/25 07:30 Hct 32.5 % (36.0-46.0) L 04/19/25 07:30 Plt Count 167 10^3/uL (130-400) 04/19/25 07:30 INR 1.0 (0.9-1.1) 04/18/25 16:00 Creatinine 1.20 mg/dL (0.55-1.02) H 04/19/25 07:30 DVT Prophylaxis: Reviewed (Hgb decreased from 11.3) Medications: Heparin (q8h) Relevant Labs Relevant Labs: Sodium 143 mmol/L (136-145) 04/19/25 07:30 Potassium 4.1 mmol/L (3.5-5.1) 04/19/25 07:30 Chloride 110 mmol/L (98-107) H 04/19/25 07:30 Magnesium 2.0 mg/dL (1.6-2.6) 04/19/25 07:30 Electrolytes, C-Reactive P, ESR: Reviewed Cardiac Review BP, HR, EF%: Reviewed (BP/HR WNL) List meds needing interventions: Has order for losartan 25mg daily QTc Review QTc: Reviewed (No EKG on file) IV to PO Switch IV Medications: Reviewed Home Meds Home Med List reviewed: Intervened Relevent Home Meds Not ordered & why?: Patient recently filled latanoprost but not on home med list. Asked nurse to check with patient. Per patient they do use at home. Added to home med list. Patients own Lynparza verified by pharmacy, labeled and sent up to floor Changed SF 5000 Plus cream to patients own (non-formulary). Informed nurse this will need to be brought in from home if patient wants to use while here. Current Meds Current Medication Order Review: Intervened Comments: Added 2nd PRN to acetaminophen, ondansetron and tramadol orders per pharmacy protocol Changed omeprazole timing from 0830 to 0730 per pharmacy protocol
[2025-04-19] MEDS: Acetaminophen 500 MG TAB 1000 MG PO ×2 (13:44→20:18)
--- NOTE | 2025-04-19 16:01 | PTTR_ITS ---
PT Notes Visit Reasons: Lumbar Transverse Processes Fractures,Uncontrolled Date: 04/19/2025 PRECAUTIONS: Fall. Contact precaution d/u chemo treatment. Activity as tolerated. Brooke SUBJECTIVE: Pt in recliner when approached for therapy this afternoon, pt agreed to participating with therapy session. OBJECTIVE: Left antecubital IV line, ? PAIN: right lumbar aspect 1010 with movement VITALS: Monitored by nursing Therapeutic Activities 69399: Direct one-on-one instruction in dynamic activities to improve functional performance. ?? BED MOBILITY/TRANSFERS? Rolling L/R: max A Supine-sit: ? mod A? Sit-supine: ?min A ? Sit-stand: ?(Saulo davis) mod A? Stand-sit: ?min A? Bed-Chair:? min A ? Chair-bed: min A Provided skilled cues and instruction on performance and technique throughout. Gait Training 80589: Direct one-on-one instruction and skilled instruction in: Employing an assistive device Modified weight-bearing status Movement sequencing Turning and movement with proper form Provided verbal cues for equipment management and technique Provided instruction in gait pattern Patient education regarding pacing and breathing techniques to maximize activity tolerance? GAIT? Assistive Device: ?? FWW? Weight bearing: WBAT Assist: CGA? Distance:?? 20'? Deviation: ? shuffling ? ? ? Therapeutic Exercises 97773: Direct one-on-one instruction in therapeutic exercises to develop strength, endurance, range of motion and flexibility. Exercises Supine ankle pumps [id number] Supine quad sets 68x3bsm Supine hip internal rotation/external rotation 86a5udn Supine knee to chest 43l6afn Supine clamshell 62y3qtb? ASSESSMENT:?pt having difficulty with using armrest to push up from during sit to stand activity, Steady lift for [employer] for improved transition from recliner since saulo davis approached worked for her during this session. pt situated in bed for safety and comfort after therapy session. PLAN: Continue with balance training, global strengthening and general conditioning for improved safety, mobility and activity tolerance until pt is ready for DC. TREATMENT CODE/TIME: [id number], [id number] 30mins (3:30-4:00pm)
[2025-04-19] MEDS: OLAPARIB 2 EACH PO (18:00)
[2025-04-19] MEDS: Melatonin 3 MG TAB 9 MG PO (20:45)
[2025-04-20 03:15] VITALS: BP 146/68; PULSE 68; RESP 16; TEMP 36; O2SAT 97
[2025-04-20] MEDS: Cyclobenzaprine 10 MG TAB PO ×3 (06:21→20:52)
[2025-04-20] MEDS: traMADol 50 MG TAB PO ×3 (06:21→20:52)
[2025-04-20] MEDS: Heparin 5,000 UNITS/ML VIAL 5000 UNITS SC ×3 (06:21→20:55)
[2025-04-20 07:07] LABS: Abs Immature Grans 0.01 10^3/uL (0.0-0.06); HCT 31.3 % (36.0-46.0); HGB 10.2 g/dL (11.2-15.7); Immature Grans % 0.3 %; MCH 31.8 pg (27.0-33.0); MCHC 32.6 % (32.0-36.0); MCV 98 fL (80-95); MPV 9.4 fL (8.0-11.0); Platelet Count 158 10^3/uL (130-400); RBC 3.21 10^6/uL (3.93-5.22); RDW 13.4 % (11.7-14.6); RDW-SD 47.7 fL; WBC 3.53 10^3/uL (4.4-10.8)
[2025-04-20 07:19] LABS: Anion Gap 6.5 mmol/L (3-11); BUN 16 mg/dL (9-23); CO2 27.5 mmol/L (20.0-31.0); Calcium 9.0 mg/dL (8.3-10.6); Chloride 110 mmol/L (98-107); Glucose 87 mg/dL (74-106); Potassium 4.3 mmol/L (3.5-5.1); Sodium 144 mmol/L (136-145)
[2025-04-20 07:53] VITALS: BP 128/76; PULSE 74; RESP 17; TEMP 36.7; O2SAT 97
[2025-04-20] MEDS: Multivitamin TAB 1 TAB PO (08:33)
[2025-04-20] MEDS: Omeprazole 20 MG CAPCR PO (08:34)
[2025-04-20] MEDS: Losartan 25 MG TAB PO (08:34)
[2025-04-20] MEDS: Cholecalciferol (Vitamin D3) 1,000 UNIT TAB 1000 UNITS PO (08:34)
[2025-04-20] MEDS: Acetaminophen 500 MG TAB 1000 MG PO ×3 (08:34→20:52)
[2025-04-20] MEDS: OLAPARIB 2 EACH PO ×2 (08:35→16:30)
[2025-04-20] MEDS: Normal Saline Flush 10 ML SYR IVP ×2 (08:40→20:53)
[2025-04-20] MEDS: Atorvastatin 10 MG TAB PO (08:42)
[2025-04-20 11:35] VITALS: BP 123/58; PULSE 76; RESP 16; TEMP 36.8; O2SAT 95
--- NOTE | 2025-04-20 12:07 | PTTR_ITS ---
PT Notes Visit Reasons: Lumbar Transverse Processes Fractures,Uncontrolled Inpatient Physical Therapy Treatment Note [facility] Date: 04/20/25 PRECAUTIONS: Fall. Contact precaution d/u chemo treatment. Activity as tolerated. Brooke SUBJECTIVE: Pt in bed with head of bed 45 degrees when approached for therapy this morning., pt agreed to participating with therapy session. OBJECTIVE: Left antecubital IV line, ? PAIN: right lumbar aspect 02/15 with movement VITALS: Monitored by nursing Therapeutic Activities 42072: Direct one-on-one instruction in dynamic activ ities to improve functional performance. ?? BED MOBILITY/TRANSFERS? Rolling L/R: max A Supine-sit: ? mod A? Sit-supine: ?min A ? Sit-stand: mod A? Stand-sit: ?min A? Bed-Chair:? min A ? Chair-bed: min A Provided skilled cues and instruction on performance and technique throughout. Gait Training 12447: Direct one-on-one instruction and skilled instruction in: Employing an assistive device Modified weight-bearing status Movement sequencing Turning and movement with proper form Provided verbal cues for equipment management and technique Provided instruction in gait pattern Patient education regarding pacing and breathing techniques to maximize activity tolerance? GAIT? Assistive Device: ?? FWW? Weight bearing: WBAT Assist: CGA? Distance:??70'x2 ambulated from room to PT office. Attempted 4 inch step but could not tolerate secondary to pain. Sat with elevated bed 5 minutes prior to walking back to her room where she transition to recliner. Chair alarm activated and nursing notified.? Deviation: ? shuffling ? ? ? Therapeutic Exercises 91584: Direct one-on-one instruction in therapeutic exercises to develop strength, endurance, range of motion and flexibility. Exercises Supine ankle pumps 74a9dim Supine quad sets 81o1cgq Supine hip internal rotation/external rotation 66p2osc Supine knee to chest 79w0rkf Supine clamshell 76j4luo? ASSESSMENT:?Patient ambulated with fair tolerance to pain averaging 6/10. Difficulty with any rotational activities such as turning directions. Verbal cues offered for core engagement and avoidance of trunk rotation. Has a lot of difficulty transitioning from sit to stand and stand to sit secondary to pain. PM Session Therapeutic Activities 47459: Direct one-on-one instruction in dynamic activities to improve functional performance. ?? BED MOBILITY/TRANSFERS? Rolling L/R: max A Supine-sit: ? mod A? Sit-supine: ?min A ? Sit-stand: ? min A? Stand-sit: ?min A? Bed-Chair:? min A ? Chair-bed: min A Provided skilled cues and instruction on performance and technique throughout. Gait Training 65011: Direct one-on-one instruction and skilled instruction in: Employing an assistive device Modified weight-bearing status Movement sequencing Turning and movement with proper form Provided verbal cues for equipment management and technique Provided instruction in gait pattern Patient education regarding pacing and breathing techniques to maximize activity tolerance? GAIT? Assistive Device: ?? FWW? Weight bearing: WBAT Assist: CGA? Distance:??70'x2 ambulated from room to PT office. Sat with elevated bed 5 minutes prior to walking back to her room where she transition to recliner. Chair alarm activated and nursing notified.? Deviation: ? shuffling ? ? ? Therapeutic Exercises 41163: Direct one-on-one instruction in therapeutic exercises to develop strength, endurance, range of motion and flexibility. Exercises Long arc quad bilateral 2 x 10 in sitting Seated marching 2 x 10 Ankle pumps 20 times left and right Standing hip abduction 2 x 5 bilateral ? Heel raises 10 Right short swing ham 10 times. Unable to tolerate single-leg stance on the right lower extremity for left short swing ham. Seated hip abduction 10 x 3-second hold? ? Assessment: Tolerated afternoon session much better than the morning. Less pain with transfers sit to stand and with her ambulation. Was able to do some standing exercises which she felt good about doing. Timing with her pain medication is paramount for her functional mobility training. PLAN: Continue with balance training, global strengthening and general condit ioning for improved safety, mobility and activity tolerance until pt is ready for DC. TREATMENT CODE/TIME: A.M. session: 78623s9, 35068x5 25mins (10:50-11:15 am) P.M. session: 99538 X1, 44543 X1 30 minutes (2:47-3:17)
[2025-04-20 15:15] VITALS: BP 127/63; PULSE 77; RESP 20; TEMP 36.7; O2SAT 97
--- NOTE | 2025-04-20 15:15 | PGE_ITS ---
Date of Service Date of service: 04/20/25 Time of Service: 15:15 Assessment and Plan Assessment and plan (1) Lumbar transverse process fracture: Status: Acute Assessment and plan: History of ovarian cancer on oral therapy with Lynpraza ( w ongoing urinary chemo precaution) Continue tramadol Continue acetaminophen Continue cyclobenzaprine No Ketorolac - NSAIDs - Patient reporting having one kidney- Will avoid Ongoing PT: As per note and recommendations still need assistance to get up from a sitting position and living alone at home - not ready to discharge today HH PT at discharge and FWW (2) CKD (chronic kidney disease) stage 3, GFR 30-59 ml/min: Status: Chronic Assessment and plan: Patient reporting single kidney Creatinine baseline Encourage oral hydration (3) Essential hypertension: Status: Chronic Assessment and plan: Slightly elevated with pain on admission now controlled Will continue outpatient medical therapy and pain management (4) Ovarian cancer on right: Status: Chronic Assessment and plan: DX in spring 2024 as mixed had hysterectomy and right fallopian tube and right oopherectomy removal Ongoing oral medical therapy status post completion of IV chemotherapy course over the summer CBC in AM - platelets 158 (5) History of B-cell lymphoma: Status: Chronic Assessment and plan: Hx of and reported as treated by Dr. Bruno Hx of pelvic mass with positive biopsy in 2019 with no evidence of active disease at [address] Santos Objective Last Vital Signs Temp 36.8 C 04/20/25 11:35 Pulse 76 04/20/25 11:35 Resp 16 04/20/25 11:35 BP 123/58 L 04/20/25 11:35 Pulse Ox 95 04/20/25 11:35 Laboratory Results - last 24 hr 04/20/25 06:05 WBC 3.53 L RBC 3.21 L Hgb 10.2 L Hct 31.3 L MCV 98 H MCH 31.8 MCHC 32.6 RDW 13.4 Plt Count 158 MPV 9.4 Immature Gran % 0.3 Neutrophils % 44.7 Lymphocytes % 36.0 Monocytes % 14.7 Eosinophils % 3.7 Basophils % 0.6 Nucleated RBC % 0.0 Absolute Neutrophils 1.58 Absolute Lymphocytes 1.27 Absolute Monocytes 0.52 Absolute Eosinophils 0.13 Absolute Basophils 0.02 Sodium 144 Potassium 4.3 Chloride 110 H Carbon Dioxide 27.5 Anion Gap 6.5 BUN 16 Creatinine 1.32 H Est GFR (CKD-EPI 2020) 38.19 Glucose 87 Calcium 9.0 PAWSS Have you Been Recently Intoxicated or Drunk Within the Last 30 days?: No Have you Ever Experienced Previous Episodes of Alcohol Withdrawal?: No Have you ever Experienced Withdrawal Seizures?: No Have you ever Experienced Delirium Tremens(DT)s?: No Have you ever undergone Alcohol Rehabilitation Treatment (i.e, inpt ot outpatient treatment programs)?: No Have you ever Experienced Blackouts?: No Have you ever Combined Alcohol with other Downers within the last 90 days?: No Have you ever Combined Alcohol with any other Substance of Abuse during the last 90 days?: No Positive Blood Alcohol level on Presentation? [PCS.BAL]: No Evidence of Increased Autonomic Activity (i.e. HR>120, tremor, sweating, agitation, nausea)?: No Result: 0 VTE Prohylaxis Risk Level: Moderate/High Risk Contraindications: None Prophylaxis: Pharmacologic and Mechanical Time Spent with Patient Time Spent with Patient: 25-34 minutes Time was spent: preparing to see the patient(eg.review tests), ordering medications,tests, procedures, referring, communicating with other health acute care clinical nurse specialist, indepentently interpreting results, counseling the patient and care coordination
--- NOTE | 2025-04-20 15:57 | CMPROGNOTE_ITS ---
Date of service: 04/20/25 Time of Service: 15:57 Care Management Progress Note Progress Note Text Progress Note Text: Crystal was sitting up in a chair when CM met with her She was very pleasant and easily engaged in conversation. CM was asked to see Crystal to evaluate whether or not she was safe to go home or if she would benefit from a short rehab stay. Since Crystal is in Observation status and is not ACO attributed, there would be no payer source for rehab. In discussion, Crystal indicated that she felt she did a lot better today. She was able to walk with PT all the way down the duff, twice. She admitted that standing still hurts, but she is able to tolerate it. She feels that each day she shows improvement. Tomorrow she plans to work on stairs with Wu, the PT on this weekend. She shared that Wu taught her some tricks that made getting in and out of her chair easier. She informed CM that her children have arrived from out of state and plan to stay through the holidays, providing plenty of support. She feels that she be able to manage safely in that environment. She did have her friend take her dog for a couple of weeks as she anticipated the possibility of tripping over her dog while she is still having ambulatory issues. Discharge Potential Discharge Needs: PCP F/U Appt Anticipated Barriers to Discharge: Medical Status Patient/Family Education Needs: Review discharge instructions, discuss Ask Me Three Transportation: Private vehicle Plan: Anticipate Crystal will be discharged home with new home health services for PT and OT when medically stable. Her children have come to visit until after the holidays so she will have good support at home. Crystal will follow up with her PCP and plan of care and transport with family. CM will follow and continue to assess for discharge needs. Social Determinants of Health Screening Social Determinants of health last assessed in clinic: 04/20/25 Will the Patient Participate in the Screening?: Yes Do you worry about having a steady place to live?: no Problems where you live: no known problems In the past 12 months, have you had to go without electric, gas, oil or water in your home?: no 1. Within the past 12 months, we worried whether our food would run out before we got money to buy more.: Never true 2. Within the past 12 months, the food we bought just didn't last and we didn't have money to get more.: Never true Has lack of transportation kept you from medical appointments or from doing things needed for daily living?: no Has anyone in your life made you feel unsafe or unsupported?: no How hard is it for you to pay for the very basics like food, housing, medical care, and heating? Would you say it is:: Not hard at all Do you want help finding or keeping work or a job?: I do not need or want help If for any reason you need help with day-to-day activities such as bathing, preparing meals, shopping, managing finances, etc., do you get the help you n eed?: I get all the help I need How often do you feel lonely or isolated from those around you?: Sometimes Do you speak a language other than [place] at home?: Yes Does the patient want assistance with any of the above?: No Health Related Social Needs Health related social needs: feeling lonely/isolated (Z60.8) and education (Z55.6) Health related social needs details: feels lonely since , but she has friends that she socializes with
[2025-04-20 19:36] VITALS: BP 118/61; PULSE 78; RESP 17; TEMP 36.6; O2SAT 96
[2025-04-20] MEDS: Melatonin 3 MG TAB 9 MG PO (20:52)
[2025-04-20] MEDS: Diclofenac 1% Gel 100 GM TUBE TP (21:20)
[2025-04-20 23:21] VITALS: BP 125/59; PULSE 82; RESP 16; TEMP 37; O2SAT 95
[2025-04-21 02:58] VITALS: BP 128/56; PULSE 79; RESP 16; TEMP 36.2; O2SAT 93
[2025-04-21] MEDS: Heparin 5,000 UNITS/ML VIAL 5000 UNITS SC ×3 (06:25→21:19)
[2025-04-21 06:52] LABS: Abs Immature Grans 0.02 10^3/uL (0.0-0.06); HCT 32.8 % (36.0-46.0); HGB 10.7 g/dL (11.2-15.7); Immature Grans % 0.5 %; MCH 31.6 pg (27.0-33.0); MCHC 32.6 % (32.0-36.0); MCV 97 fL (80-95); MPV 9.3 fL (8.0-11.0); Platelet Count 168 10^3/uL (130-400); RBC 3.39 10^6/uL (3.93-5.22); RDW 13.6 % (11.7-14.6); RDW-SD 48.0 fL; WBC 3.77 10^3/uL (4.4-10.8)
[2025-04-21 07:17] LABS: Magnesium 2.0 mg/dL (1.6-2.6)
[2025-04-21 07:21] LABS: Anion Gap 9.1 mmol/L (3-11); BUN 19 mg/dL (9-23); CO2 26.9 mmol/L (20.0-31.0); Calcium 9.2 mg/dL (8.3-10.6); Chloride 107 mmol/L (98-107); Glucose 90 mg/dL (74-106); Potassium 4.2 mmol/L (3.5-5.1); Sodium 143 mmol/L (136-145)
[2025-04-21 07:38] VITALS: BP 124/60; PULSE 72; RESP 18; TEMP 36.8; O2SAT 94
[2025-04-21] MEDS: Losartan 25 MG TAB PO (08:53)
[2025-04-21] MEDS: Cholecalciferol (Vitamin D3) 1,000 UNIT TAB 1000 UNITS PO (08:53)
[2025-04-21] MEDS: Acetaminophen 500 MG TAB 1000 MG PO ×2 (08:53→14:30)
[2025-04-21] MEDS: Cyclobenzaprine 10 MG TAB PO ×2 (08:54→16:28)
[2025-04-21] MEDS: traMADol 50 MG TAB PO ×3 (08:54→20:54)
[2025-04-21] MEDS: Normal Saline Flush 10 ML SYR IVP ×3 (08:55→20:56)
[2025-04-21] MEDS: OLAPARIB 2 EACH PO ×2 (08:55→16:08)
--- NOTE | 2025-04-21 11:23 | PT.INTREAT ---
PT Notes Visit Reasons: Lumbar Transverse Processes Fractures,Uncontrolled SUBJECTIVE: Patient states that she continues to experience severe pain with transfers sit to stand and stand to sit. Was able to transfer with the nurse this morning on and off the commode and into the bedside chair. She is looking forward to doing some walking. OBJECTIVE:? AM SESSION: PPRECAUTIONS: Fall. Contact precaution d/u chemo treatment. Activity as tolerated. Brooke SUBJECTIVE: Pt in bed with head of bed 45 degrees when approached for therapy this morning., pt agreed to participating with therapy session. OBJECTIVE: Left dorsum of hand IV line, ?telemetry ? PAIN: right lumbar aspect 10 with movement VITALS: Monitored by nursing Therapeutic Activities 91979: Direct one-on-one instruction in dynamic activities to improve functional performance. ?? BED MOBILITY/TRANSFERS? Rolling L/R: max A Supine-sit: ? mod A? Sit-supine: ?min A ? Sit-stand: ? min A?with raised hospital bed and raised plinth and PT office. ? Stand-sit: ?min A? Bed-Chair:? min A ? Chair-bed: min A Therapeutic Exercises 00428 x3 - 40 minutes: Direct one-on-one instruction in therapeutic exercises to develop strength, endurance, range of motion and flexibility. GAIT? Assistive Device: ?? FWW? Weight bearing: WBAT Assist: CGA? Distance:??220'x ambulated from room, small loop back to PT office. Following completion of therapeutic exercises patient ambulated 155 feet back to her room. She transition to recliner with min assist and verbal cues for core engagement. Chair alarm activated and nursing notified.? Deviation: ? shuffling ? ? ? Stairs: One 4 inch step up leading with left and then reverse step down leading with right followed by 2 to 6 inch step ups leading with right and descending with right with contact-guard and use of bilateral handrails. Exercises : Completed in PT room. Long arc quad bilateral 2 x 10 in sitting Seated marching 2 x 10 Ankle pumps 10 times left and right Standing hip abduction 2 x 5 bilateral ? Heel raises 10 Seated hip abduction 10 x 3-second hold? ? Assessment: Despite continued increased pain with transfers sit to stand and stand to sit patient had an increase in her distance walking with good tolerance. She was even able to complete a single 4 inch step up and two 6 inch steps up and down. 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 PM Session Subjective: Objective: Therapeutic Activities 59961: Direct one-on-one instruction in dynamic activities to improve functional performance. ?? BED MOBILITY/TRANSFERS? Rolling L/R: max A Supine-sit: ? mod A? Sit-supine: ?min A ? Sit-stand: mod A? Stand-sit: ?min A? Bed-Chair:? min A ? Chair-bed: min A Therapeutic Activities 17254: Direct one-on-one instruction in dynamic activities to improve functional performance. ?? BED MOBILITY/TRANSFERS? Rolling L/R: max A Supine-sit: ? mod A? Sit-supine: ?min A ? Sit-stand: ? min A?with raised hospital bed and raised plinth and PT office. ? Stand-sit: ?min A? Bed-Chair:? min A ? Chair-bed: min A Therapeutic Exercises 65685 x3 - 40 minutes: Direct one-on-one instruction in therapeutic exercises to develop strength, endurance, range of motion and flexibility. GAIT? Assistive Device: ?? FWW? Weight bearing: WBAT Assist: CGA? Distance:?220'x1 ambulated from room, small loop back to PT office with front wheel walker and standby assist following with wheelchair. Following completion of therapeutic exercises patient ambulated 315 feet with front wheel walker standby assist back to her room. She transitioned to recliner with min assist and verbal cues for core engagement and slow descent with good quad control with left lower extremity and use of hands.. Chair alarm activated and nursing notified.? Deviation: ? shuffling ? ? ? Stairs: 2, 6 inch step ascending and descending with verbal cues. She found it much more tolerable when leading with her left leg going up and descending leading with her right leg. Ups leading with right and descending with right with contact-guard and use of bilateral handrails. Exercises : Completed in PT room. Long arc quad bilateral 2 x 10 in sitting Seated marching 2 x 10 Ankle pumps 10 times left and right Standing hip abduction 2 x 5 bilateral ? Heel raises 10 Seated hip abduction 10 x 3-second hold? ? Chair alarm activated upon completion of physical therapy in the afternoon. Nursing was notified. Assessment: Patient held up very well with today's treatment in the afternoon. She did not even have her tramadol prior to PT for the afternoon session. Did have some mild increase right flank/buttock discomfort particularly with rotation activities. Much better tolerance to her to stand to sit transfer with better use of quad control and left lower extremity and arms to slow descent onto bedside chair with pillow in place. PLAN: Continue with balance training, global strengthening and general conditioning for improved safety, mobility and activity tolerance until pt is ready for DC. TREATMENT CODE/TIME: A.M. session: [id number] 40 mins (10:30-11:10 am) P.M. session: 40228y7 35 minutes (2:40-3:15 pm) CC:
--- NOTE | 2025-04-21 15:25 | CMPROGNOTE_ITS ---
Date of service: 04/21/25 Time of Service: 15:25 Care Management Progress Note Progress Note Text Progress Note Text: CAN met with Crystal again today at her request. Her son and [id number] were with her and participated in the conversation. Yesterday Crystal indicated that she felt that she would be able to safely discharge home with home health services, especially since her children are here with her for a few weeks. Today she decided that she might benefit from short term rehab for about a week. CM again explained that her insurance is unlikely to cover rehab as she did not have a 3 night qualifying stay in the hospital. Her son and daughter-in -law did not understand that medicare requirement so CM explained in more detail. CM did report that there are a very few Medicare Advantage Plans (which is what she has) that can waive the 3 night requirement. CM attempted to reach her insurance company to find out what their policy is, but was unable to reach a live person. Crystal stated she will call herself tomorrow. Crystal also asked a bout private caregivers and whether that would be covered by insurance. The answer was no, unfortunately. CAN did discuss some of the average cost for various care options and Crystal indicated that she might be able to pay privately, for a short time, if necessary. CM provided Crystal and her family with a list of all of the SNFs in [place] as well as the [facility] web site to check ratings. CM also provided information about home care services which they will investigate. CM requested they provide a list of at least 3 SNFs to choose from and CM will send the referrals in the morning. Discharge Potential Discharge Needs: PCP F/U Appt Anticipated Barriers to Discharge: Bed availability Patient/Family Education Needs: Review discharge instructions, discuss Ask Me Three Transportation: Private vehicle Plan: Crystal is trying to Social Determinants of Health Screening Social Determinants of health last assessed in clinic: 04/21/25 Will the Patient Participate in the Screening?: Yes Do you worry about having a steady place to live?: no Problems where you live: no known problems In the past 12 months, have you had to go without electric, gas, oil or water in your home?: no 1. Within the past 12 months, we worried whether our food would run out before we got money to buy more.: Never true 2. Within the past 12 months, the food we bought just didn't last and we didn't have money to get more.: Never true Has lack of transportation kept you from medical appointments or from doing things needed for daily living?: no Has anyone in your life made you feel unsafe or unsupported?: no How hard is it for you to pay for the very basics like food, housing, medical care, and heating? Would you say it is:: Not hard at all Do you want help finding or keeping work or a job?: I do not need or want help If for any reason you need help with day-to-day activities such as bathing, preparing meals, shopping, managing finances, etc., do you get the help you need?: I get all the help I need How often do you feel lonely or isolated from those around you?: Sometimes Do you speak a language other than Macedonian at home?: Yes Does the patient want assistance with any of the above?: No Health Related Social Needs Health related social needs: feeling lonely/isolated (Z60.8) and education (Z55.6) Health related social needs details: feels lonely since , but she has friends that she socializes with
[2025-04-21 15:36] VITALS: BP 128/68; PULSE 82; RESP 18; TEMP 36.6; O2SAT 97
[2025-04-21] MEDS: Diclofenac 1% Gel 100 GM TUBE TP (16:05)
[2025-04-21 19:57] VITALS: BP 122/61; PULSE 81; RESP 16; TEMP 36.7; O2SAT 98
[2025-04-21] MEDS: Omeprazole 20 MG CAPCR PO (20:56)
[2025-04-21] MEDS: Atorvastatin 10 MG TAB PO (21:19)
[2025-04-21] MEDS: Melatonin 3 MG TAB 9 MG PO (22:57)
[2025-04-21 23:49] VITALS: BP 137/68; PULSE 87; RESP 17; TEMP 36.6; O2SAT 94
[2025-04-22 03:16] VITALS: BP 112/46; PULSE 84; RESP 18; TEMP 36.3; O2SAT 94
[2025-04-22] MEDS: traMADol 50 MG TAB PO ×4 (04:08→21:32)
[2025-04-22] MEDS: Heparin 5,000 UNITS/ML VIAL 5000 UNITS SC ×3 (06:27→21:32)
[2025-04-22] MEDS: Cyclobenzaprine 10 MG TAB PO ×2 (06:29→21:25)
[2025-04-22 07:25] VITALS: BP 136/67; PULSE 79; RESP 18; TEMP 36.6; O2SAT 94
[2025-04-22] MEDS: Cholecalciferol (Vitamin D3) 1,000 UNIT TAB 1000 UNITS PO (07:55)
[2025-04-22] MEDS: Diclofenac 1% Gel 100 GM TUBE TP (07:55)
[2025-04-22] MEDS: Acetaminophen 500 MG TAB 1000 MG PO ×3 (07:55→21:25)
[2025-04-22] MEDS: OLAPARIB 2 EACH PO ×2 (08:00→16:21)
[2025-04-22] MEDS: [UNRECOGNIZED DRUG - OTHER] 1 EACH PO (08:00)
[2025-04-22] MEDS: Losartan 25 MG TAB PO (08:01)
[2025-04-22] MEDS: Normal Saline Flush 10 ML SYR IVP ×2 (08:57→21:49)
--- NOTE | 2025-04-22 09:59 | PTTR_ITS ---
PT Notes Visit Reasons: Lumbar Transverse Processes Fractures,Uncontrolled Inpatient Physical Therapy Treatment Note [facility] Date: 04/22/2025 PRECAUTIONS: WBAT , No rotational SUBJECTIVE: Pt reports she would like a hospital bed when she goes home. Pt reports she is afraid to be home alone at night. In PM Session Pt reported her son found a FWW in her home that was her husbands and therfore does not need the one that was issued to her. ( Personal FWW was adjusted to the appropriate height. and whhels were placed on the outside of the FWW frame OBJECTIVE:Pt presented seated in low bedside chair sitting on pillow. ? PAIN: right lumbar spine with spasm t the right VITALS: ?monitored by Nursing Therapeutic Activities ([id number][]): Direct one-on-one instruction in dynamic activities to improve functional performance. ?AM Session BED MOBILITY/TRANSFERS? Rolling L/R: with B knee flexion min A and max cues for log roll Supine-sit: min A with HOB elevated to 50 degrees and bedrail? Sit-stand: SBA from elevated bed height of 19 min A from 17 chair height with increaed pain to 8 /10 during transition? Stand-sit: CGA and cues for technique to bend at the waist ? Bed-Chair: with FWW SBA ? Chair-bed:with FWW SBA once standing Provided skilled cues and instruction on performance and technique throughout. Facilitated safe and correct performance of level surface ambulation covering a distance of 230 feet using use front wheeled walker with stand by assist . Did not report of any increased pain. Denied headache, chest pain, and lightheadedness throughout activity. Minimal verbal cueing provided for AD management, directional changes, and posture. Pt able to pace self without cueing ?PM Session BED MOBILITY/TRANSFERS? Sit-stand: SBA from elevated bed height of 19 min A from 17 chair height with increaed pain to 8 /10 during transition? ? , SBA from chair height of 19 or higher x 4 trials? Stand-sit: CGA and cues for technique to bend at the waist ?to all surfaces >19 height ? Bed-Chair: with FWW SBA ? Chair-bed:with FWW SBA from 19 chair height, CGA and increase time and pain from 17 height chair Facilitated safe and correct performance of level surface ambulation covering a distance of 20 feet x 4 to simulate mobility within her home using use front wheeled walker with stand by assist . Did not report of any increased pain. Denied headache, chest pain, and lightheadedness throughout activity. Minimal verbal cueing provided for pt to keep BUE on the FWW when she is walking. AD management, directional changes, and posture. Pt able to pace self without cueing ASSESSMENT:?Pt with significant improvement in her ability to tolerate standing and ambulation with FWW. She remains limited by pain in right low back with transitions . She demonstrates intermittent spasms while ambulating which she is able to pause and let the spasm pass without needing to sit. pt currently requires assistance for bed mobility and for transfers from surfaces less than 18 inch height. Pt and dtr in law instructed to use surfaces at home with elevated height > 19 inches. Pt provided with higher 19 reclining chair for use in her room and elevated commode to 19 height . PLAN: Cont with strengthening, transfer and bed mobility training TREATMENT CODE/TIME: am session:[id number] pm session: [id number]/ [id number] DISCHARGE RECOMMENDATION: Short term SNF( if insurance able) vs HHPT with inc reased famiy support if available
--- NOTE | 2025-04-22 10:16 | OT.INIE ---
Occupational Therapy Notes Inpatient Occupational Therapy Evaluation Date: 04/22/25 Referring Doctor:Fariha Whitt OT Orders: Urgent Precautions: Fall, Contact, Full PATIENT PROFILE/ADMITTING DIAGNOSIS: Pt is a 84 year old female who was admitted through the ED after an accidental fall resulting in fx of the transverse process of the lumbar vertebra and ovarian cancer of the (R) ovary. Past Medical History: All Active Problems Accidental fall (Acute) Fracture of transverse process of lumbar vertebra (Acute) Ovarian cancer on right (Chronic) Lumbar transverse process fracture (Acute) Closed fracture of left proximal humerus (Acute 09/30/24) History of B-cell lymphoma (Chronic) Abnormal ultrasound (Acute) Endometrial fluid collection. 4 cm right pelvic mass 08/24/2024Postmenopausal bleeding (Acute) Microscopic hematuria (Acute) Vaginal discharge (Acute) Change in stool (Acute) Osteoarthritis of right knee (Acute) Breast cancer screening (Acute) Abdominal pain, right upper quadrant (Acute) CKD (chronic kidney disease) stage 3, GFR 30-59 ml/min (Chronic) 11/25/23Single kidney (Acute) Verruca (Acute) Solar aging of skin (Acute) Skin lesion (Acute) Right knee pain (Acute) Right hand pain (Acute) Pain in right wrist (Acute) Numbness and tingling in right hand (Acute) Left hand pain (Acute) Actinic keratosis (Acute) Onychomycosis (Acute) Corns and callosities (Acute) Hammertoe of right foot (Acute) Atherosclerosis of abdominal aorta (Acute) Seen on 07/15/21 CTPrediabetes (Acute) Anemia (Chronic) Diverticulosis (Acute) Diffuse large B cell lymphoma (Acute) GERD (gastroesophageal reflux disease) (Chronic) Hypertension (Chronic) 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 Patient agrees to mammogram and cholesterol check, declines DEXA scan and colonoscopy. Palliative care patient History of chemotherapy Hematuria Pelvic mass Urinary tract infection Pelvic mass in female Hydronephrosis, left Chest pain Acute urinary retention Goals of care, counseling/discussion Trochanteric bursitis Gross hematuria Incontinence Open head injury Fatigue Pyelonephritis Surgical History History of appendectomy History of ectopic required surgical interventionHistory of lithotripsy History of total right hip replacement History of removal of Port-a-Cath History of cataract surgery History of D&C History of right hip replacement Social History/Home Situation: Pt reports that she lives in a private home and her children reside in the [place] area. She is (I) at her baseline level of function and notes that she has adaptive equipment in her home. A 2 story home which she is working on getting a stair lift. She notes that she is (I) at baseline but recently underwent cancer tx for (R) ovarian cancer. She notes that she also had a fall in September which resulting in a fx to her (L) proximal humerus. She is limited in her (L) UE ROM which does limit her at times with her functional (I). Equipment owned/DME: shower seat, raised toilet seat. She is working on getting a stair glide to be able to get up and down her stairs. She notes that she should have this soon. She is also asking about a hospital bed and wondering if this may be an option with her difficulty with transfers. SUBJECTIVE: Pt was sitting in chair when OT arrived. She is noting that she is seeing improvements in herself. She is contemplating what her next steps will be and if she can get strong enough to return home or if she will need (A) and how much assistance. She states that she is working on getting adaptive equipment for her home to allow her to be more (I). OBJECTIVE: General Observation: Pleasant and agreeable to consult, IV in the (L) UE Mental Status: A&Ox4 Pain: c/o pain in low back/hip Vital Signs: monitored by nursing. ROM: RUE WFL L UE (L) shoulder limitations d/t fx in 09/30/24 which she is still recovering from. Unable to reach behind her back or greater than ~120* STRENGTH: RUE Plant And Equipment Worker strength is strong, otherwise 4-/5 throughout LUE Plant And Equipment Worker strength is strong, otherwise 4-/5 throughout FUNCTIONAL MOBILITY/ADLS: Transfers with FWW Sit-Stand Min (A) and min vc Stand-sit CGA BATHING NT with OT. She notes that she showered with nursing prior to OT arrival. DRESSING seated in chair Dressing UE (I) don and doffing sweater with min vc for the (L) shoulder limitations Dressing LE Pt requires mod (A) with don and doffing socks d/t pain. She notes that she is able to perform this with increased performance time with her pain is better. GROOMING (I) with the (R) UE, (L) UE is limited. TOILETING Pt requires (A) with transfer to the toileting in sit to stand d/t pain in the back and side. She tends to grab the FWW and pull. She notes that she has difficulty when transferring from sit to stand and stand to sit. Her (L) shoulder is limited but she is able to perform toileting hygiene with min (A). EATING seated in chair, (I) with appropriate hand to mouth coordination, ideal grasp and no need for adaptive equipment. BALANCE: Static sitting Good Dynamic Sitting Fair-Good Static Standing Fair-Good Dynamic Standing Fair-Good SPECIAL TESTS: Daily Activity Limitations Standardized Measure [facility] AM -PAC ?6 clicks? Daily Activity Inpatient Short Form: Raw score: 20 Standardized score: 42.03 CMS score: 38.32% INFORMED CONSENT/EDUCATION: Pt instructed in purpose of OT Consult and plan of care. ASSESSMENT: Patient is a 84-year-old female referred to occupational therapy services with diagnosis of Fx her transverse process L1-L3 with hematoma on her right side of lower back. Patient presents with clinical signs and symptoms consistent with dx, as demonstrated by the following impairment level findings/functional limitations: Impairments in ADL/IADL and leisure activities, pain in the back/hip, decreased functional activity tolerance, decreased functional mobility, impairments in LE dressing and bathing, impairments in transfers d/t pain, pain in the back and hip, increased fall risk. AMPAC score 20 Patient is assessed as a Moderate 14736 complexity based on the following: History: see above Examination: see functional limitations as noted above Presentation: evolving Decision Making: AMPAC score 20 GOALS Goals x1 week 1. Transfers with (S) and FWW with no LOB or lean 2. Dressing- seated in chair with min vc, (I) with UE/LE, 3x 3. Bathing- seated in chair (I) UE/LE, 3x with min vc 4. Toileting- on toilet with min (A) transferring (I) with toileting hygiene, 3x with min vc PLAN OF CARE/TREATMENT PLAN: 1x/day, 3-5 days/ week x 1week Initiate Occupational Therapy Services for bathing, dressing, grooming, toileting, eating, transfer training. DISCHARGE RECOMMENDATIONS OT recommends SNF vs. Home with HH services or (A) in the home. TREATMENT TIME/MINUTES/CODES 97339, 40 minutes (10:15) ARM[facility]da[facility] [place], [place]
[2025-04-22 11:00] VITALS: BP 124/66; PULSE 87; RESP 18; TEMP 36.4; O2SAT 95
--- NOTE | 2025-04-22 14:52 | W.PM.PROGNOT ---
Date of Service Date of service: 04/21/25 Time of Service: 12:00 Assessment and Plan Assessment and plan (1) Lumbar transverse process fracture: Status: Acute Assessment and plan: History of ovarian cancer on oral therapy with Lynpraza ( w ongoing urinary chemo precaution) Continue tramadol Continue acetaminophen Continue cyclobenzaprine No Ketorolac - NSAIDs - Patient reporting having one kidney- Will avoid Ongoing PT: As per note and recommendations still need assistance to get up from a sitting position and living alone at home - not ready to discharge today PT at discharge and FWW v. SNF ( patient now willing to go to SNF) (2) CKD (chronic kidney disease) stage 3, GFR 30-59 ml/min: Status: Chronic Assessment and plan: Patient reporting single kidney Creatinine baseline Encourage oral hydration (3) Essential hypertension: Status: Chronic Assessment and plan: Slightly elevated with pain on admission now controlled Will continue outpatient medical therapy and pain management (4) Ovarian cancer on right: Status: Chronic Assessment and plan: DX in spring 2024 as mixed had hysterectomy and right fallopian tube and right oopherectomy removal Ongoing oral medical therapy status post completion of IV chemotherapy course over the summer CBC in AM - platelets 158 (5) History of B-cell lymphoma: Status: Chronic Assessment and plan: Hx of and reported as treated by Dr. Bruno Hx of pelvic mass with positive biopsy in 2019 with no evidence of active disease at [address] Santos Subjective Subjective Patient reports: no new complaints, pain is less, tolerating liquids well, tolerating a regular diet, voiding w/o difficulty, bowel movement and afebrile; denies flatus, diarrhea, nausea or vomiting Interval history since last seen: Crystal has been working with PT. Today she feels she has made progress but doesn't feel that she will be able to go home as she doesn't want to burden her family. She told me how she took care of her mother including showers and toileting and she doesn't want to put her children or herself in that position. She does feel that a week or two in rehab will benefit her greatly. She is motivated and being realistic. Exam Const General: cooperative, well developed and anxious Nutritional Appearance: average body habitus and well nourished Orientation: alert, awake and oriented x3 HENMT Head: normal to inspection Ears: hearing grossly normal bilaterally Mouth: moist mucous membranes Chest Chest: normal inspection of the chest, normal palpation of entire chest wall and no crepitus Resp Effort & Inspection: normal respiratory effort, able to speak in complete sentences and no respiratory distress Auscultation: clear to auscultation bilaterally, no rales, no rhonchi and no wheezes Cardio Rate: regular rate Rhythm: regular rhythm Heart Sounds: S1 normal and S2 normal GI Inspection: normal to inspection, no edema and non-distended Palpation: soft, no hepatosplenomegaly, not firm, no guarding, not rigid and nontender Auscultation: normal bowel sounds Back/Spine/Pelvis Back: no CVA tenderness Thoracic/Lumbar Spine: thoracic and lumbar spine normal to inspection Skin General skin exam: no rashes or lesions noted Trauma: no lacerations or abrasions Neuro General: patient alert, patient awake and patient oriented x3 Cognition: normal cognition Speech: speech normal Gait: normal gait Extrem General: normal to inspection, capillary refill normal, no pedal edema, no calf tenderness and normal gait Psych Appearance: grossly normal and well kempt Mental Status: mental status grossly normal Speech and Movement: speech and movement normal Objective Last Vital Signs Temp 36.4 C L 04/22/25 11:00 Pulse 87 04/22/25 11:00 Resp 18 04/22/25 11:00 BP 124/66 04/22/25 11:00 Pulse Ox 95 04/22/25 11:00 PAWSS Have you Been Recently Intoxicated or Drunk Within the Last 30 days?: No Have you Ever Experienced Previous Episodes of Alcohol Withdrawal?: No Have you ever Experienced Withdrawal Seizures?: No Have you ever Experienced Delirium Tremens(DT)s?: No Have you ever undergone Alcohol Rehabilitation Treatment (i.e, inpt ot outpatient treatment programs)?: No Have you ever Experienced Blackouts?: No Have you ever Combined Alcohol with other Downers within the last 90 days?: No Have you ever Combined Alcohol with any other Substance of Abuse during the last 90 days?: No Positive Blood Alcohol level on Presentation? [PCS.BAL]: No Evidence of Increased Autonomic Activity (i.e. HR>120, tremor, sweating, agitation, nausea)?: No Result: 0 VTE Prohylaxis Risk Level: Moderate/High Risk Contraindications: None Prophylaxis: Pharmacologic and Mechanical Time Spent with Patient Time Spent with Patient: 25-34 minutes Time was spent: preparing to see the patient(eg.review tests), ordering medications,tests, procedures, referring, communicating with other health lawn care professional, indepentently interpreting results, counseling the patient and care coordination
--- NOTE | 2025-04-22 14:57 | PGE_ITS ---
Date of Service Date of service: 04/22/25 Time of Service: 14:57 Assessment and Plan Assessment and plan (1) Lumbar transverse process fracture: Status: Acute Assessment and plan: Pain control, PT, OT - recommend SNF for improved mobilization and short term rehab (2) CKD (chronic kidney disease) stage 3, GFR 30-59 ml/min: Status: Chronic Assessment and plan: Patient reporting single kidney Creatinine baseline Encourage oral hydration (3) Essential hypertension: Status: Chronic Assessment and plan: Slightly elevated with pain on admission now controlled Will continue outpatient medical therapy and pain management (4) Ovarian cancer on right: Status: Chronic Assessment and plan: DX in spring 2024 as mixed had hysterectomy and right fallopian tube and right oopherectomy removal Ongoing oral medical therapy status post completion of IV chemotherapy course over the summer (5) History of B-cell lymphoma: Status: Chronic Assessment and plan: Hx of and reported as treated by Dr. Bruno Hx of pelvic mass with positive biopsy in 2019 with no evidence of active disease at [address] Santos Subjective Subjective Patient reports: no new complaints, still having pain, tolerating liquids well, tolerating a regular diet, voiding w/o difficulty, bowel movement and afebrile; denies no flatus, diarrhea, nausea, vomiting or shortness of breath Interval history since last seen: The patient states she is feeling improved today but continues to feel unsafe for discharge home and believes she would benefit from a short-term rehabilitation stay to further regain strength and function. Exam Const General: cooperative, well developed and anxious Nutritional Appearance: average body habitus and well nourished Orientation: alert, awake and oriented x3 HENMT Head: normal to inspection Ears: hearing grossly normal bilaterally Mouth: moist mucous membranes Chest Chest: normal inspection of the chest, normal palpation of entire chest wall and no crepitus Resp Effort & Inspection: normal respiratory effort, able to speak in complete sentences and no respiratory distress Auscultation: clear to auscultation bilaterally, no rales, no rhonchi and no wheezes Cardio Rate: regular rate Rhythm: regular rhythm Heart Sounds: S1 normal and S2 normal GI Inspection: normal to inspection, no edema and non-distended Palpation: soft, no hepatosplenomegaly, not firm, no guarding, not rigid and nontender Auscultation: normal bowel sounds Back/Spine/Pelvis Back: no CVA tenderness Thoracic/Lumbar Spine: thoracic and lumbar spine normal to inspection Skin General skin exam: no rashes or lesions noted Trauma: no lacerations or abrasions Neuro General: patient alert, patient awake and patient oriented x3 Cognition: normal cognition Speech: speech normal Gait: normal gait Extrem General: normal to inspection, capillary refill normal, no pedal edema, no calf tenderness and normal gait Psych Appearance: grossly normal and well kempt Mental Status: mental status grossly normal Speech and Movement: speech and movement normal Objective Last Vital Signs Temp 36.4 C L 04/22/25 11:00 Pulse 87 04/22/25 11:00 Resp 18 04/22/25 11:00 BP 124/66 04/22/25 11:00 Pulse Ox 95 04/22/25 11:00 PAWSS Have you Been Recently Intoxicated or Drunk Within the Last 30 days?: No Have you Ever Experienced Previous Episodes of Alcohol Withdrawal?: No Have you ever Experienced Withdrawal Seizures?: No Have you ever Experienced Delirium Tremens(DT)s?: No Have you ever undergone Alcohol Rehabilitation Treatment (i.e, inpt ot outpatient treatment programs)?: No Have you ever Experienced Blackouts?: No Have you ever Combined Alcohol with other Downers within the last 90 days?: No Have you ever Combined Alcohol with any other Substance of Abuse during the last 90 days?: No Positive Blood Alcohol level on Presentation? [PCS.BAL]: No Evidence of Increased Autonomic Activity (i.e. HR>120, tremor, sweating, agitation, nausea)?: No Result: 0 VTE Prohylaxis Risk Level: Moderate/High Risk Contraindications: None Prophylaxis: Pharmacologic and Mechanical Time Spent with Patient Time Spent with Patient: 25-34 minutes Time was spent: preparing to see the patient(eg.review tests), ordering medications,tests, procedures, referring, communicating with other health healthcare translator, indepentently interpreting results, counseling the patient and care coordination
[2025-04-22 14:59] VITALS: BP 131/71; PULSE 83; RESP 16; TEMP 37; O2SAT 96
--- NOTE | 2025-04-22 17:24 | PDOC.CMPRO ---
Date of service: 04/22/25 Time of Service: 17:24 Care Management Progress Note Progress Note Text Progress Note Text: Crystal is doing really well with PT, but still having some pain, and some difficulty rising from a seated position. She does not feel that she is capable of going home and living alone. Referrals were sent for STR today to the [facility], [facility], [facility], the [facility], and [facility]. The [facility] has no beds, [facility] is concerned that she has an advantage plan, [facility] had left for the day when CM followed up, and Jackie got a f/u email. Referrals were also sent to [facility] and [facility] in [facility] at the request of family. Those referrals were sent later in the day, but successful fax notices received. CM spoke at [facility] with Crystal and her son Aba. It was explained to them that Crystal will need to discharge home, with HH and family support, tomorrow, if no bed offers are received. They are in understanding of this, but hopeful that an offer will be received. CM will f/u on all referrals again tomorrow. Discharge Potential Discharge Needs: PCP F/U Appt Anticipated Barriers to Discharge: Bed availability Patient/Family Education Needs: Review discharge instructions, discuss Ask Me Three Transportation: [facility] Transportation: Wheel chair van Plan: It is likely that Crystal will discharge home tomorrow with new services of HH PT/OT, SNF if bed offer. Crystal will f/u with her PCP and continue her plan of care. She will transport via [facility] wheel chair van. CM will continue to follow. Social Determinants of Health Screening Social Determinants of health last assessed in clinic: 04/22/25 Will the Patient Participate in the Screening?: Yes Do you worry about having a steady place to live?: no Problems where you live: no known problems In the past 12 months, have you had to go without electric, gas, oil or water in your home?: no 1. Within the past 12 months, we worried whether our food would run out before we got money to buy more.: Never true 2. Within the past 12 months, the food we bought just didn't last and we didn't have money to get more.: Never true Has lack of transportation kept you from medical appointments or from doing things needed for daily living?: no Has anyone in your life made you feel unsafe or unsupported?: no How hard is it for you to pay for the very basics like food, housing, medical care, and heating? Would you say it is:: Not hard at all Do you want help finding or keeping work or a job?: I do not need or want help If for any reason you need help with day-to-day activities such as bathing, preparing meals, shopping, managing finances, etc., do you get the help you need?: I get all the help I need How often do you feel lonely or isolated from those around you?: Sometimes Do you speak a language other than Pashto at home?: Yes Does the patient want assistance with any of the above?: No Health Related Social Needs Health related social needs: feeling lonely/isolated (Z60.8) and education (Z55.6) Health related social needs details: feels lonely since , but she has friends that she socializes with
[2025-04-22 19:50] VITALS: BP 116/62; PULSE 82; RESP 18; TEMP 36.4; O2SAT 95
[2025-04-22] MEDS: Atorvastatin 10 MG TAB PO (21:24)
[2025-04-22] MEDS: Omeprazole 20 MG CAPCR PO (21:24)
[2025-04-22] MEDS: Melatonin 3 MG TAB 9 MG PO (21:25)
[2025-04-22] MEDS: Multivitamin TAB 1 TAB PO (21:32)
[2025-04-22 23:24] VITALS: BP 126/50; PULSE 78; RESP 17; TEMP 36.6; O2SAT 94
[2025-04-23 04:20] VITALS: BP 117/49; PULSE 72; RESP 18; TEMP 36.2; O2SAT 94
[2025-04-23] MEDS: Heparin 5,000 UNITS/ML VIAL 5000 UNITS SC (05:41)
[2025-04-23 07:40] VITALS: BP 125/54; PULSE 76; RESP 17; TEMP 36.2; O2SAT 95
[2025-04-23] MEDS: [UNRECOGNIZED DRUG - OTHER] 1 EACH PO (08:00)
[2025-04-23] MEDS: Acetaminophen 500 MG TAB 1000 MG PO ×2 (08:05→14:09)
[2025-04-23] MEDS: Cholecalciferol (Vitamin D3) 1,000 UNIT TAB 1000 UNITS PO (08:05)
[2025-04-23] MEDS: Losartan 25 MG TAB PO (08:05)
[2025-04-23] MEDS: Normal Saline Flush 10 ML SYR IVP (08:06)
[2025-04-23] MEDS: OLAPARIB 2 EACH PO (08:22)
[2025-04-23 11:23] VITALS: BP 119/73; PULSE 107; RESP 18; TEMP 36.6; O2SAT 96
[2025-04-23] MEDS: traMADol 50 MG TAB PO (14:27)
--- NOTE | 2025-04-23 14:47 | DSE_ITS ---
Date of service: 04/23/25 Time of Service: 14:47 DS: Diagnosis Discharge Diagnosis (1) Lumbar transverse process fracture: Status: Acute (2) CKD (chronic kidney disease) stage 3, GFR 30-59 ml/min: Status: Chronic (3) Essential hypertension: Status: Chronic (4) Ovarian cancer on right: Status: Chronic (5) History of B-cell lymphoma: Status: Chronic Discharge Plan Disposition Patient Disposition: Home W/Home Health Services Home Health Services: New Referral Condition: Improving Discharge Details Reason For Visit: Lumbar Transverse Processes Fractures,Uncontrolled Admit Date/Time: 04/18/25 20:17 Admit Provider: Stephan Guzmán Attending Provider: Stephan Guzmán Primary Care Provider: Ailyn Calderon Hospital Course Hospital Course: Reason for Admission Mechanical trip and fall at home resulting in acute lumbar transverse process fractures with significant right lower back contusion and pain, limiting ambulation and raising concern for fall risk. 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 She presented after a mechanical fall at home in which she tripped while standing at her desk, falling backward onto a windowsill and striking her lower back. She denied dizziness, syncope, or neurologic symptoms preceding the fall. Imaging revealed minimally displaced fractures of the right transverse processes of L1?L3 without spinal canal compromise or significant hematoma. Clinically, she had notable ecchymosis and tenderness over the right lower back near the iliac crest, which was her primary pain source. She was admitted primarily for pain control and inpatient physical therapy evaluation due to inability to ambulate safely in the ED and high fall risk given age, recent fractures, and prior fall history. Pain management was transitioned to oral tramadol, as the patient has significant nausea and vomiting with oxycodone and cannot take NSAIDs due to CKD. Pain improved sufficiently to allow participation with PT. Physical Therapy evaluated the patient during admission and noted improved mobility with assistance. She was deemed safe for discharge home with Home Health Physical Therapy for continued strengthening, gait training, and fall- prevention strategies. Renal function showed a mild creatinine elevation on admission (Cr 1.24, eGFR ~41), managed with gentle IV hydration (1 L normal saline), after which IV fluids were discontinued. Blood pressure elevations during hospitalization were felt to be pain-related and improved with analgesia. No antihypertensive changes were required. The patient remained hemodynamically stable, neurologically intact, and without complications during hospitalization. Patient discharged with Tramadol for moderate pain, recommended Acetaminophen for minor pain. Home Meds and New Rx's Prescriptions: New tramadol 50 mg tablet 50 mg PO Q8H PRNQty: 14 0RF No Action acetaminophen [Tylenol Arthritis Pain] 650 mg tablet extended release 1,300 mg PO Q8H cholecalciferol (vitamin D3) 1 tab PO DAILY atorvastatin [Lipitor] 10 mg tablet 10 mg PO DAILY Qty: 90 3RF losartan 25 mg tablet See Rx Instructions .ROUTE .COMPLEX Qty: 90 2RF Dose Instruction: TAKE ONE TABLET BY MOUTH EVERY DAY Rx Instructions: TAKE ONE TABLET BY MOUTH EVERY DAY omeprazole 20 mg capsule,delayed release(DR/EC) 20 mg PO DAILY Qty: 90 3RF multivitamin [Daily Multi-Vitamin] Tablet 1 tab PO DAILY fluoride (sodium) [SF 5000 Plus] 1.1 % cream 1 applic dental DAILY Patient Comments: USE DIRECTED Lynparza 100 mg tablet 100 mg PO BID latanoprost 0.005 % drops 1 drp ophthalmic (eye) QPM Patient Comments: INSTILL ONE DROP IN EACH EYE AT BEDTIME ondansetron 4 mg tablet,disintegrating 4 mg PO Q6H PRN (Reason: nausea and vomiting) Qty: 30 0RF Discharge Instructions Additional Instructions: You have a fracture of the spine, meaning one of the vertebrae has partially collapsed. This commonly occurs due to osteoporosis, trauma, or a fall. Activity * Avoid bending, twisting, or lifting objects heavier than 5?10 pounds. * Use log-rolling technique when getting in and out of bed. * Avoid prolonged sitting; change positions frequently. * Walking is encouraged as tolerated. * No high-impact activities (running, jumping) until cleared by your provider. Pain Management * Take pain medications as prescribed. * You may use: * Acetaminophen (Tylenol) as directed * Ice or heat may be used for comfort (20 minutes at a time). Medications * Take all medications exactly as prescribed. * If you were started on calcium or vitamin D, continue as directed. * Avoid sedating medications unless prescribed, especially if you feel unsteady. Physical Therapy * Home Health physical therapy is recommended to improve strength, posture, and mobility. They will notify you to set up an appointment to see you in your home. * Do not begin new exercises without guidance. Nutrition / Bone Health * Maintain adequate calcium and vitamin D intake. * Stay well hydrated. * Limit alcohol intake. Follow-Up * Follow up with: * Primary care provider When to Seek Immediate Medical Care Call your provider or go to the Emergency Department if you experience: * New or worsening weakness, numbness, or tingling * Loss of bowel or bladder control * Severe or worsening back pain not relieved by medication * Fever, chills, or signs of infection * New difficulty walking or frequent falls Expected Recovery * Healing typically takes 6?12 weeks, though pain may improve sooner. * Gradual return to normal activity will be guided by your provider. Stand Alone Forms: Portal Information, Nursing Discharge Form Referrals: Ailyn Calderon APRN [Primary Care Provider, [facility]] Referral Note: Your PCP will reach out, if you do not hear from them please call. 1-2 weeks post hospitalization s/p fall and lumbar fx. HH PT/OT ordered Activity:: Activity as Tolerated Equipment/Supplies:: Walker Diet:: As Tolerated Discharge Orders Discharge Orders: Discharge Order (Routine); Ordered 04/23/25 Ordered By: Antonia Lundberg Discharge Data Discharge Date/Time-TO BE ENTERED AT DEPARTURE: 04/23/25 16:49 DS: Summary Time Spent with Patient providing and/or coordinating discharge services: Greater than 30 minutes Status at Discharge Functional status at discharge: uses cane/walker Overall status at discharge: patient is progressing back to baseline Mental Status: mental status grossly normal Speech and Movement: speech and movement normal Mood: congruent mood Affect: normal affect Quality:SDOH Health Related Social Needs: Health related social needs lonely/isolated education Health related social needs details feels lonely since , but she has friends that she socializes with Health related social needs details: feels lonely since , but she has friends that she socializes with Exam Const General: cooperative, well developed and anxious Nutritional Appearance: average body habitus and well nourished Orientation: alert, awake and oriented x3 HENMT Head: normal to inspection Ears: hearing grossly normal bilaterally Mouth: moist mucous membranes Chest Chest: normal inspection of the chest, normal palpation of entire chest wall and no crepitus Resp Effort & Inspection: normal respiratory effort, able to speak in complete sente nces and no respiratory distress Auscultation: clear to auscultation bilaterally, no rales, no rhonchi and no wheezes Cardio Rate: regular rate Rhythm: regular rhythm Heart Sounds: S1 normal and S2 normal GI Inspection: normal to inspection, no edema and non-distended Palpation: soft, no hepatosplenomegaly, not firm, no guarding, not rigid and nontender Auscultation: normal bowel sounds Back/Spine/Pelvis Back: no CVA tenderness Thoracic/Lumbar Spine: thoracic and lumbar spine normal to inspection Skin General skin exam: no rashes or lesions noted Trauma: no lacerations or abrasions Neuro General: patient alert, patient awake and patient oriented x3 Cognition: normal cognition Speech: speech normal Gait: normal gait Extrem General: normal to inspection, capillary refill normal, no pedal edema, no calf tenderness and normal gait Psych Appearance: grossly normal and well kempt Mental Status: mental status grossly normal Speech and Movement: speech and movement normal Mood: congruent mood Affect: normal affect DS: Data Vitals/I&O Vitals and I&O: Vital Signs Temperature 36.6 C 04/23/25 11:23 Temperature Source Temporal Artery Scan 04/23/25 11:23 Pulse 107 H 04/23/25 11:23 Pulse Rhythm Regular 04/18/25 21:45 Respiratory Rate 18 04/23/25 11:23 Respiratory Effort Normal, Non-Labored 04/18/25 21:45 Respiratory Depth Normal 04/18/25 21:45 Respiratory Pattern Normal 04/18/25 21:45 Blood Pressure 119/73 04/23/25 11:23 Blood Pressure Mean 88 04/23/25 11:23 Blood Pressure Position Sitting 04/18/25 18:24 Pulse Oximetry 96 04/23/25 11:23 Oxygen Delivery Method Room Air 04/23/25 11:23 Oxygen Flow Rate 0 04/23/25 11:23 Pain Level 10 04/23/25 14:27 Intake & Output 04/22/25 04/23/25 04/23/25 23:59 11:59 23:59 Intake Total 240 / 480 240 / 480 Output Total 1100 / 1950 1300 / 1900 600 / 1900 Balance -1100 / -1950 -1060 / -1420 -360 / -1420 Weight 65.5 kg Intake: Oral 240 / 480 240 / 480 Output: Urine 1100 / 1950 1300 / 1900 600 / 1900 Other: Urine Color Yellow Yellow Yellow Urine Appearance Clear Clear Urine Odor Normal Comment chemo precautions maintained. Data Completed and Pending Pending Labs at Discharge: 04/18/25 04/18/25 04/18/25 16:00 16:28 20:36 WBC 4.83 RBC 3.52 L Hgb 11.3 Hct 33.8 L MCV 96 H MCH 32.1 MCHC 33.4 RDW 13.2 Plt Count 186 MPV 9.3 Immature Gran % 0.4 Neutrophils % 64.5 Lymphocytes % 23.8 Monocytes % 9.5 Eosinophils % 1.4 Basophils % 0.4 Nucleated RBC % 0.0 Absolute Neutrophils 3.11 Absolute Lymphocytes 1.15 L Absolute Monocytes 0.46 Absolute Eosinophils 0.07 Absolute Basophils 0.02 PT 9.9 INR 1.0 APTT 23.2 Sodium 139 Potassium 4.1 Chloride 105 Carbon Dioxide 27.7 Anion Gap 6.3 BUN 19 Creatinine 1.24 H Est GFR (CKD-EPI 2020) 41.04 Glucose 109 H Calcium 9.3 Magnesium 2.0 Total Bilirubin 0.5 AST 27 ALT 16 Alkaline Phosphatase 50 Total Protein 6.9 Albumin 4.1 TSH 2.47 Urine Color Urine Clarity Urine pH Ur Specific [place] Urine Protein Urine Ketones Urine Blood Urine Nitrite Urine Bilirubin Urine Urobilinogen Ur Leukocyte Esterase Urine Glucose COVID-19 Source Nasopharynx SARS-CoV-2 (PCR) Negative Influenza Type A (PCR) Negative Influenza Type B (PCR) Negative RSV (PCR) Negative ABO/Rh O Positive Antibody Screen NEGATIVE 04/18/25 04/19/25 04/20/25 23:16 07:30 06:05 WBC 4.81 3.53 L RBC 3.40 L 3.21 L Hgb 10.9 L 10.2 L Hct 32.5 L 31.3 L MCV 96 H 98 H MCH 32.1 31.8 MCHC 33.5 32.6 RDW 13.2 13.4 Plt Count 167 158 MPV 9.4 9.4 Immature Gran % 0.3 Neutrophils % 44.7 Lymphocytes % 36.0 Monocytes % 14.7 Eosinophils % 3.7 Basophils % 0.6 Nucleated RBC % 0.0 Absolute Neutrophils 1.58 Absolute Lymphocytes 1.27 Absolute Monocytes 0.52 Absolute Eosinophils 0.13 Absolute Basophils 0.02 PT INR APTT Sodium 143 144 Potassium 4.1 4.3 Chloride 110 H 110 H Carbon Dioxide 25.3 27.5 Anion Gap 7.7 6.5 BUN 14 16 Creatinine 1.20 H 1.32 H Est GFR (CKD-EPI 2020) 42.63 38.19 Glucose 96 87 Calcium 9.1 9.0 Magnesium 2.0 Total Bilirubin 0.6 AST 23 ALT 14 Alkaline Phosphatase 46 Total Protein 6.5 Albumin 3.9 TSH Urine Color Yellow Urine Clarity Clear Urine pH 6.5 Ur Specific [place] 1.010 Urine Protein Negative Urine Ketones Negative Urine Blood Negative Urine Nitrite Negative Urine Bilirubin Negative Urine Urobilinogen 0.2 Ur Leukocyte Esterase Negative Urine Glucose Negative COVID-19 Source SARS-CoV-2 (PCR) Influenza Type A (PCR) Influenza Type B (PCR) RSV (PCR) ABO/Rh Antibody Screen 04/21/25 06:17 WBC 3.77 L RBC 3.39 L Hgb 10.7 L Hct 32.8 L MCV 97 H MCH 31.6 MCHC 32.6 RDW 13.6 Plt Count 168 MPV 9.3 Immature Gran % 0.5 Neutrophils % 50.4 Lymphocytes % 31.3 Monocytes % 13.3 Eosinophils % 4.0 Basophils % 0.5 Nucleated RBC % 0.0 Absolute Neutrophils 1.90 Absolute Lymphocytes 1.18 L Absolute Monocytes 0.50 Absolute Eosinophils 0.15 Absolute Basophils 0.02 PT INR APTT Sodium 143 Potassium 4.2 Chloride 107 Carbon Dioxide 26.9 Anion Gap 9.1 BUN 19 Creatinine 1.35 H Est GFR (CKD-EPI 2020) 37.21 Glucose 90 Calcium 9.2 Magnesium 2.0 Total Bilirubin AST ALT Alkaline Phosphatase Total Protein Albumin TSH Urine Color Urine Clarity Urine pH Ur Specific [place] Urine Protein Urine Ketones Urine Blood Urine Nitrite Urine Bilirubin Urine Urobilinogen Ur Leukocyte Esterase Urine Glucose COVID-19 Source SARS-CoV-2 (PCR) Influenza Type A (PCR) Influenza Type B (PCR) RSV (PCR) ABO/Rh Antibody Screen PFSH All Active Problems Accidental fall (Acute) Fracture of transverse process of lumbar vertebra (Acute) Ovarian cancer on right (Chronic) Lumbar transverse process fracture (Acute) Closed fracture of left proximal humerus (Acute 09/30/24) History of B-cell lymphoma (Chronic) Abnormal ultrasound (Acute) Endometrial fluid collection. 4 cm right pelvic mass 08/24/2024 Postmenopausal bleeding (Acute) Microscopic hematuria (Acute) Vaginal discharge (Acute) Change in stool (Acute) Osteoarthritis of right knee (Acute) Breast cancer screening (Acute) Abdominal pain, right upper quadrant (Acute) CKD (chronic kidney disease) stage 3, GFR 30-59 ml/min (Chronic) 11/25/23 Single kidney (Acute) Verruca (Acute) Solar aging of skin (Acute) Skin lesion (Acute) Right knee pain (Acute) Right hand pain (Acute) Pain in right wrist (Acute) Numbness and tingling in right hand (Acute) Left hand pain (Acute) Actinic keratosis (Acute) Onychomycosis (Acute) Corns and callosities (Acute) Hammertoe of right foot (Acute) Atherosclerosis of abdominal aorta (Acute) Seen on 07/15/21 CT Prediabetes (Acute) Anemia (Chronic) Diverticulosis (Acute) Diffuse large B cell lymphoma (Acute) GERD (gastroesophageal reflux disease) (Chronic) Hypertension (Chronic) 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 Patient agrees to mammogram and cholesterol check, declines DEXA scan and colonoscopy. Palliative care patient History of chemotherapy Hematuria Pelvic mass Urinary tract infection Pelvic mass in female Hydronephrosis, left Chest pain Acute urinary retention Goals of care, counseling/discussion Trochanteric bursitis Gross hematuria Incontinence Open head injury Fatigue Pyelonephritis Surgical History History of appendectomy History of ectopic required surgical intervention History of lithotripsy History of total right hip replacement History of removal of Port-a-Cath History of cataract surgery History of D&C History of right hip replacement Family History Son No problems noted. Sister No problems noted. Sister No problems noted. Son No problems noted. Granddaughter No problems noted. Grandson No problems noted. Social History Smoking/Tobacco Use Status: Former Tobacco Use Quit Date: 05/09/69 Tobacco: How many years used: 8 Second Hand Exposure: No Smoking risk assessment performed?: Yes Alcohol Intake: current Alcohol Intake frequency: holidays/special occasions only Alcohol type: beer and wine Drug use: Never Substance use type: does not use Details: has tried but doesn't use. Caregiver/Support person: Yes Household members: spouse Housing: house Number of Children: 2 number of grandchildren: 2 Communication Needs: None and Corrective Lenses Education Level: college Do you need help understanding health information?: Rarely current occupation: Retired Pets and animals: Yes (2) Pets and animals: dog(s) Do you think of yourself as: decline to answer Current gender identity: decline to answer What is your relationship status?: refused to answer How often do you talk on the phone with friends or family?: decline to answer How often do you get together with friends or relatives?: decline to answer Panel score (0-1 are the most socially isolated patients): 0 What type of physical activity do you participate in: walking, regular exercise and additional Details: gardening Duration: 30-45 minutes/day Special hector needs: No Seatbelt use: always Working smoke detector in home: Yes Fire extinguisher in home: Yes Do you feel safe at home: Yes Do you feel safe in your relationship?: Yes Additional Social history: Lives with Mart who is 83 and expects to be waited on. He's unaware of my needs. Relies on her 2 sisters and friend Marian Tracy for support. Time Spent with Patient Time Spent with Patient: <45 minutes Time was spent: preparing to see the patient(eg.review tests), referring, communicating with other health primary health care nurse, counseling the patient and care coordination
[2025-04-23 15:05] VITALS: BP 125/73; PULSE 106; RESP 15; TEMP 36.7; O2SAT 97
--- NOTE | 2025-04-23 15:09 | PTTR_ITS ---
PT Notes Visit Reasons: Lumbar Transverse Processes Fractures,Uncontrolled Date: 04/23/2025 PRECAUTIONS: Fall. standard, Activity as tolerated. SUBJECTIVE: Pt in recliner when approached for therapy this afternoon, pt speaking with case mangraimundo Pat planning her DC. pt agree to PT intervention after discussing her DC with patient case manager. OBJECTIVE: ? PAIN: 10/10 on lumbar area during movement VITALS: Monitored by nursing Therapeutic Activities 75667: Direct one-on-one instruction in dynamic activities to improve functional performance. ?? BED MOBILITY/TRANSFERS? Rolling L/R: CGA Supine-sit: ?CGA ? Sit-supine: ?SBA ? Sit-stand: ? SBA? Stand-sit: ??SBA ? Bed-Chair:? ?SBA ? Chair-bed: SBA Provided skilled cues and instruction on performance and technique throughout. Gait Training 13530: Direct one-on-one instruction and skilled instruction in: Employing an assistive device Modified weight-bearing status Movement sequencing Turning and movement with proper form Provided verbal cues for equipment management and technique Provided instruction in gait pattern Patient education regarding pacing and breathing techniques to maximize activity tolerance? GAIT? Assistive Device: ??FWW ? Weight bearing: FWB Assist: ? SBA ? Distance:?? ?150'x3 seated rest break in between distances ? Deviation: ? ?slow real, minimal FWW lean twisting motion avoidance to avoid pain on lumbar area. ? STAIRS:? 6 steps 6x up/down step to gait bilateral handrail CGA? Therapeutic Exercises 29569: Direct one-on-one instruction in therapeutic exercises to develop strength, endurance, range of motion and flexibility. Exercises : Supine ankle pumps [id number] Supine quad sets [id number] Supine hip internal rotation/external rotation [id number] Supine knee to chest [id number] Supine clamshell [id number]? Long arc quad bilateral 2 x 10 in sitting Seated marching 2 x 10 Ankle pumps 10 times left and right Standing hip abduction 2 x 5 bilateral ? Heel raises 10 Seated hip abduction 10 x 3-second hold? Provided skilled instruction in proper exercise performance Provided skilled manual cues to facilitate proper muscle recruitment and/or form: ASSESSMENT:?Pt able to demonstrate transfer from recliner to commode , commode to recliner with just SBA and extra time to avoid back pain, transfers going in and out of bed using leg lifts, pt also assisted with choosing bed handrail for use at home, pillow wedge for fowlers and leg pillow to help with lumbar relaxation while in bed. PLAN: Continue with balance training, global strengthening and general conditioning for improved safety, mobility and activity tolerance until pt is ready for DC. TREATMENT CODE/TIME: [id number], [id number], [id number] 55mins (1:01-1:56pm)
--- NOTE | 2025-04-23 16:28 | PDOC.CMDIS ---
Date of service: 04/23/25 Time of Service: 16:29 LACE Index Scoring Tool Questions: Length of Stay (in days): 4 - 6 Was the patient admitted via the E.D.?: Yes Comorbidities: Liver or Renal Disease and Metastatic Solid Tumor E.D. Visits: 1 Answers: Total Score: 13 Risk of Readmission: High Risk Care Management Discharge Plan Reason for Hospitalization: L1-3 fracture Discharge Plan: Crystal is discharged home today with new HH services of PT/OT. She will f/u with her PCP and continue per her plan of care. Crystal will transport via [facility] wheelchair van and be met at home by the [employer] for a lift assist. Crystal's son will be staying with her tonight. Patient/Family Education Needs: Review of discharge instructions, activity, limitations, and discuss ask me 3. Services Needed at Discharge: Home Health Care Services (PT/OT) SDOH Health Related Social Needs: Health related social needs lonely/isolated education Health related social needs details feels lonely since , but she has friends that she socializes with Health related social needs details: feels lonely since , but she has friends that she socializes with
--- NOTE | 2025-04-23 19:12 | PDOC.HHF2F_ITS ---
Date of service: 04/23/25 Time of Service: 16:00 Home Health Referral Home Health Orders Clinical synopsis of why skilled professionals are needed: Reason for Admission Mechanical trip and fall at home resulting in acute lumbar transverse process fractures with significant right lower back contusion and pain, limiting ambulation and raising concern for fall risk. 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 She presented after a mechanical fall at home in which she tripped while standing at her desk, falling backward onto a windowsill and striking her lower back. She denied dizziness, syncope, or neurologic symptoms preceding the fall. Imaging revealed minimally displaced fractures of the right transverse processes of L1?L3 without spinal canal compromise or significant hematoma. Clinically, she had notable ecchymosis and tenderness over the right lower back near the iliac crest, which was her primary pain source. She was admitted primarily for pain control and inpatient physical therapy evaluation due to inability to ambulate safely in the ED and high fall risk given age, recent fractures, and prior fall history. Pain management was transitioned to oral tramadol, as the patient has significant nausea and vomiting with oxycodone and cannot take NSAIDs due to CKD. Pain improved sufficiently to allow participation with PT. Physical Therapy evaluated the patient during admission and noted improved mobility with assistance. She was deemed safe for discharge home with Home Health Physical Therapy for continued strengthening, gait training, and fall- prevention strategies. Renal function showed a mild creatinine elevation on admission (Cr 1.24, eGFR ~41), managed with gentle IV hydration (1 L normal saline), after which IV fluids were discontinued. Blood pressure elevations during hospitalization were felt to be pain-related and improved with analgesia. No antihypertensive changes were required. The patient remained hemodynamically stable, neurologically intact, and without complications during hospitalization. Patient discharged with Tramadol for moderate pain, recommended Acetaminophen for minor pain. Medical diagnosis necessitation home health referral: Lumbar transverse process fracture Physical Therapist: Check all that apply Increase strength & endurance for safe mobility at home: Ordered To design/establish home maintenance program: Ordered Fall reduction therapy program for patient with history of frequent falls: Ordered Home safety evaluation and teaching/gait training including stair management (if applicable): Ordered Occupational Therapist: Evaluate and treat for patient unable to perform ADL/IADL/self-care: Ordered Upper extremity strengthening, range and motion: Ordered Home Bound Status Requires the aid of supportive device (check all that apply): Walker Assistance of another person (Describe assistance and medical necessity): stand by with ambulation and walker Describe why leaving home would require a considerable and taxing effort: Side effects from pain medication (sedation/drowsiness) (tramadol) and Requires frequent rest periods (in setting of pain) Encounter Date and Reason: I certify that a FTF encounter for this patient was performed on April 23, 2025 and that such encounter was related to the primary reason the patient requires home health services. The encounter was conducted in the following manner: * By me as the certifying physician, [employer], [place] or * By an inpatient physician, [employer] or PA during an inpatient stay who communicated findings to me, Certification And Authentication I certify that I composed the above information based on my clinical judgment relating to this patient's medical condition and, if applicable, clinical findings communicated to me by the NPP or inpatient physician who performed the FTF encounter. Name of Provider that will be monitoring home health services: Ailyn Calderon
== END 2025-04-23 16:49 | disposition home health service (06) ==
LOC: ER 15:33 → MS 21:23
PROVIDERS: Nurse Practitioner Acute Care; Admitting Provider Family Medicine; Emergency Provider General Practice; PCP Nurse Practitioner Family; Responsible Provider Nurse Practitioner Family; Visit Provider Family Medicine
DX: S32.018A Other fracture of first lumbar vertebra, initial encounter for closed fracture (principal); S32.028A Other fracture of second lumbar vertebra, initial encounter for closed fracture; S32.038A Other fracture of third lumbar vertebra, initial encounter for closed fracture; G89.11 Acute pain due to trauma; I12.9 Hypertensive chronic kidney disease with stage 1 through stage 4 chronic kidney disease, or unspecified chronic kidney disease; C56.1 Malignant neoplasm of right ovary; Z85.72 Personal history of non-Hodgkin lymphomas; Z96.641 Presence of right artificial hip joint; K57.30 Diverticulosis of large intestine without perforation or abscess without bleeding; N18.30 Chronic kidney disease, stage 3 unspecified; W01.198A Fall on same level from slipping, tripping and stumbling with subsequent striking against other object, initial encounter; R26.2 Difficulty in walking, not elsewhere classified; B35.1 Tinea unguium; I70.0 Atherosclerosis of aorta; R73.03 Prediabetes; D64.9 Anemia, unspecified; K21.9 Gastro-esophageal reflux disease without esophagitis; E78.5 Hyperlipidemia, unspecified; M25.852 Other specified joint disorders, left hip; M47.816 Spondylosis without myelopathy or radiculopathy, lumbar region; Z79.899 Other long term (current) drug therapy; Z55.6 Problems related to health literacy; R45.89 Other symptoms and signs involving emotional state
CPT/HCPCS: 00123; 36415; 74177; 80048; 80053; 85027; 86850; 86900; 86901; 87637; 96365; 96375; 97110; 97116; 97162; 97166; 97530; 99285; 71260; 81003; 83735; 84443; 85025; 85610; 85730; 99223; 99231; 99233; 99238; G0378; J0131; J1644; J2270; J3490

== ENCOUNTER 2025-04-26 09:06 | Outpatient (CLI) | payer MEDICARE, SELFPAY ==
[2025-04-26 14:36] LABS: Abs Immature Grans 0.01 10^3/uL (0.0-0.06); HCT 33.6 % (36.0-46.0); HGB 11.0 g/dL (11.2-15.7); Immature Grans % 0.3 %; MCH 31.9 pg (27.0-33.0); MCHC 32.7 % (32.0-36.0); MCV 97 fL (80-95); MPV 8.7 fL (8.0-11.0); Platelet Count 180 10^3/uL (130-400); RBC 3.45 10^6/uL (3.93-5.22); RDW 13.8 % (11.7-14.6); RDW-SD 47.8 fL; WBC 3.86 10^3/uL (4.4-10.8)
[2025-04-26 15:33] LABS: ALT 24 U/L (10-49); AST 33 U/L (<34); Albumin 4.2 g/dL (3.2-5.0); Alkaline Phosphatase 50 U/L (46-116); Anion Gap 7.8 mmol/L (3-11); BUN 18 mg/dL (9-23); Bilirubin, Total 0.6 mg/dL (0.2-1.2); CO2 27.2 mmol/L (20.0-31.0); Calcium 9.4 mg/dL (8.3-10.6); Chloride 103 mmol/L (98-107); Glucose 96 mg/dL (74-106); Potassium 4.4 mmol/L (3.5-5.1); Sodium 138 mmol/L (136-145); Total Protein 7.0 g/dL (5.7-8.2)
[2025-04-26 22:41] LABS: CA 125 12 U/mL (<30)
== END 2025-04-26 09:07 | disposition home or self-care (01) ==
LOC: LBO 09:07
PROVIDERS: PCP Nurse Practitioner Family; Visit Provider Nurse Practitioner Women's Health
DX: C56.1 Malignant neoplasm of right ovary (principal)
CPT/HCPCS: 36415; 80053; 86304; 85025

== ENCOUNTER 2025-05-03 00:22 | Outpatient (CLI) | payer MEDICARE, SELFPAY ==
[2025-05-03 11:39] LABS: Abs Immature Grans 0.02 10^3/uL (0.0-0.06); HCT 34.8 % (36.0-46.0); HGB 11.2 g/dL (11.2-15.7); Immature Grans % 0.4 %; MCH 31.8 pg (27.0-33.0); MCHC 32.2 % (32.0-36.0); MCV 99 fL (80-95); MPV 8.9 fL (8.0-11.0); Platelet Count 249 10^3/uL (130-400); RBC 3.52 10^6/uL (3.93-5.22); RDW 14.0 % (11.7-14.6); RDW-SD 49.0 fL; WBC 5.25 10^3/uL (4.4-10.8)
[2025-05-03 12:10] LABS: ALT 17 U/L (10-49); AST 26 U/L (<34); Albumin 4.1 g/dL (3.2-5.0); Alkaline Phosphatase 53 U/L (46-116); Anion Gap 7.5 mmol/L (3-11); BUN 20 mg/dL (9-23); Bilirubin, Total 0.6 mg/dL (0.2-1.2); CO2 26.5 mmol/L (20.0-31.0); Calcium 9.6 mg/dL (8.3-10.6); Chloride 107 mmol/L (98-107); Glucose 126 mg/dL (74-106); Potassium 4.9 mmol/L (3.5-5.1); Sodium 141 mmol/L (136-145); Total Protein 6.9 g/dL (5.7-8.2)
[2025-05-03 18:23] LABS: CA 125 12 U/mL (<30)
== END 2025-05-03 00:23 | disposition home or self-care (01) ==
PROVIDERS: PCP Nurse Practitioner Family; Visit Provider Nurse Practitioner Women's Health
DX: C56.1 Malignant neoplasm of right ovary (principal)
CPT/HCPCS: 36415; 80053; 86304; 85025